=== PATIENT | male | born 1935 | race Caucasian/White ===

== ENCOUNTER 2016-03-31 18:24 | Emergency (ER) | payer MEDICARE, OTHER ==
[2016-03-31 19:00] VITALS: BP 159/76
[2016-03-31] MEDS ORDERED: NORMAL SALINE 1,000 ML IV ONE (19:03)
[2016-03-31] MEDS ORDERED: METOCLOPRAMIDE HCL 5 MG/ML VIAL IV ONE (19:03)
[2016-03-31] MEDS ORDERED: diphenhydrAMINE HCL 50 MG/ML VIAL IV ONE (19:03)
[2016-03-31] MEDS ORDERED: KETOROLAC TROMETHAMINE 30 MG/ML VIAL IV ONE (19:03)
--- NOTE | 2016-03-31 19:15 | ERNOTE ---
Headache ER HPI - Narrative Date of Service: 03/31/16 - General Presenting Symptoms: headache Time Seen by Provider: 03/31/16 18:55 Source: patient, family, RN notes reviewed Exam Limitations: no limitations - Immun/Allergies/Home Medications Immunizations: IMMUNIZATION HX Immunizations Up to Date Yes History of Influenza Vaccine Yes Hx Pneumococcal Vaccination Yes Allergies/Adverse Reactions: Allergies bee venom (honey bee) Allergy (Severe, Verified 03/07/16 19:57) Anaphylaxis morphine Allergy (Intermediate, Verified 03/07/16 19:57) Nausea Home Medications: HOME MEDICATIONS Aspirin 81 mg PO DAILY 03/07/16 [Last Taken Unknown] Atorvastatin Calcium 40 mg PO DAILY 03/07/16 [Last Taken Unknown] Cyclobenzaprine HCl 10 mg PO HS 03/07/16 [Last Taken Unknown] Donepezil HCl [Aricept] 5 mg PO HS 03/07/16 [Last Taken Unknown] Folic Acid 0.8 mg PO DAILY 03/07/16 [Last Taken Unknown] Furosemide [Lasix] 20 mg PO DAILY 03/07/16 [Last Taken Unknown] Glimepiride 4 mg PO BID 03/07/16 [Last Taken Unknown] Insulin Glargine,Hum.rec.anlog [Lantus] 25 units SC HS 03/07/16 [Last Taken Unknown] Meloxicam [Mobic] 15 mg PO DAILY 03/07/16 [Last Taken Unknown] Metformin HCl [Metformin HCl ER] 1,000 mg PO BID 03/07/16 [Last Taken Unknown] Methylprednisolone [Medrol Dosepak] 4 mg PO DAILY #21 tab.ds.pk 03/07/16 [Last Taken Unknown] Metoprolol Tartrate 100 mg PO BID 03/07/16 [Last Taken Unknown] Multivitamin [One Daily Essential] 1 each PO DAILY 03/07/16 [Last Taken Unknown] Nitroglycerin [Nitrostat] 0.4 mg SL Q5MIN PRN 03/07/16 [Last Taken Unknown] Omeprazole 10 mg PO DAILY 03/07/16 [Last Taken Unknown] - Pain Pain Score: 10 - History of Present Illness Narrative: Vishal is a 80 year old male who presents to the ED with his for a headache that began earlier this evening. He has taken Advil Migraine without improvement. His pain is located in the right frontal region. He states this is the worst headache of his left. Prior to the headache starting, he reports having cold symptoms today. He says he has had bronchitis for 2 months. Timing of Headache: abrupt, still present Context Headache: Present: new onset Quality: Present: throbbing Severity Maximum: Present: severe Severity-Currently: Present: severe Headache frequency: Present: no recent headache Associated Symptoms: Reports: nasal congestion, nasal drainage, facial pain. Denies: fever/chills, nausea, vomiting, sweating, fatigue, weakness, numbness/ tingling, vision changes, confusion, light-headedness, dizziness, neck pain/ stiffness, speech problems Exacerbated by:: Reports: light Prior Treament: Reports: recently seen. Denies: similar symptoms before Review of Systems - Review of Systems Constitutional: Present: See HPI EYE: Present: see HPI ENT: Present: See HPI Respiratory: Present: cough. Absent: shortness of breath Cardiology: Present: no symptoms reported Gastrointestinal/Abdominal: Present: See HPI Genitourinary: Present: no symptoms reported Musculoskeletal: Present: See HPI Skin: Absent: rash, lesions Neurological: Present: See HPI Endocrine: Present: no symptoms reported Hematologic/Lymphatic: Present: no symptoms reported Psych: Present: anxiety - Patient's Past Medical History Patient History - Medical: Anemia, Chronic Pain, Diabetes Type 2, GERD, Osteoarthritis, Renal Disease Patient History - Cardiac/Respiratory: Angina, Coronary Heart Disease, COPD, Hypertension, Hyperlipidemia, Peripheral Vascular Disease, CPAP/BiPAP Home Use, Sleep Apnea, Other Patient History - Cancer: Lung Patient History - Surgical Procedures: Appendectomy, Colonoscopy, Coronary Bypass Surgery, Total Knee Replacement, T & A, Vasectomy, Other - Family History Mother Family History - Medical: , No pertinent hx Family History - Cardiac/Respiratory: History Unknown Father Family History - Medical: , Depression Family History - Cardiac/Respiratory: History Unknown - Social History Living Situations: home Does anyone smoke in the home?: No Smoking Status: Former smoker Alcohol Use: none Drug Use: none Physical Exam - Physical Exam General Appearance: Present: wd/wn, alert, no apparent distress, anxious, other - appears uncomfortable Eye Exam: Normal inspection: bilateral, PERRL: bilateral, EOMI: bilateral, Photophobia: right Ears, Nose, Throat: Present: hearing grossly normal, sinus pain/drainage - Right frontal and maxillary sinuses tender to palpation, normal pharynx. Absent : abnormal TM (R), abnormal TM (L) Neck: Present: normal inspection, supple, full range of motion, tender lateral - right jaw and submandibular region. Absent: lymphadenopathy (R), lymphadenopathy (L) Respiratory: Present: no respiratory distress, no accessory muscle use, expiration (prolonged), rhonchi Cardiovascular/Chest: Present: no murmur, bradycardia Neurological Exam: Present: alert, oriented, normal mood/affect, no motor/ sensory deficits Skin Exam: Present: normal color, warm/dry ED Progress - Results and Orders Patient's Lab Results:: I have reviewed the patient's lab results. - Vital Signs Patient's Vital Signs:: I have reviewed the patient's vital signs. Vital Signs: Vital Signs 03/31/16 03/31/16 18:41 18:59 Temperature 36.6 C Pulse Rate 50 L 68 Respiratory 20 18 Rate Blood Pressure 150/87 159/76 O2 Sat by Pulse 98 96 Oximetry - CT/Ultrasound CT/Ultrasound Narrative: Noncontrast head CT shows age related changes but no intracranial hemorrhage or mass effect - Progress/Reassessment Chief Complaint: Headache Progress:: Pain free at discharge Progress Note-Subjective: 03/31/16 20:34 Headache resolved with IVF, Reglan, Benadryl and Toradol. Labs and CT unremarkable. Discouraged use of NSAIDS at home d/t his renal impairment, instructed to use Tylenol. Departure Clinical Impression: Migraine headache Qualifiers: Migraine type: without aura Status migrainosus presence: without status migrainosus Intractability: not intractable Qualified Code(s): G43.009 - Migraine without aura, not intractable, without status migrainosus - Departure Disposition: Home Follow Up Needed Condition: Good Instructions: Migraine Headache, [id number] Additional Instructions: Tylenol for headache at home - avoid ibuprofen, Aleve, Motrin and Naproxen Follow up with your doctor if headaches continue Referrals: Jose Rodriguez, [Primary Care Provider] -
[2016-03-31 19:20] LABS: Hematocrit 36.2 % (42.0-52.0); Mean Corpuscular Hemoglobin 30.2 pg (27-31); Mean Corpuscular Hgb Conc 33.1 g/dl (32-36); Neutrophil # 3.9 K/mm3 (1.3-6.0); Neutrophil % 68.3 % (42-75.0); Platelet Count 140 K/mm3 (150-450); Red Blood Count 3.98 M/mm3 (4.7-6.0); Red Cell Distribution Width 13.7 % (11.5-14.0); White Blood Count 5.7 K/mm3 (4.0-10.5)
[2016-03-31 19:39] LABS: Albumin * 3.8 gm/dl (3.4-5.0); Anion Gap 13.5 mmol/L (6.8-13.8); BUN/Creatinine Ratio 16.8 (9.0-21.6); Bilirubin, Total 0.2 mg/dL (0.0-1.1); Ca. Corrected For Albumin 8.4 mg/dL (8.4-10.2); Calcium * 8.6 mg/dL (7.9-10.9); Carbon Dioxide 27.1 mmol/L (24-32.6); Potassium 4.6 mmol/L (3.4-4.6); Total Protein 6.7 gm/dL (6.2-8.2)
[2016-03-31] MEDS ORDERED: diphenhydrAMINE HCL 50 MG/ML VIAL ONE (19:43)
[2016-03-31] MEDS ORDERED: METOCLOPRAMIDE HCL 5 MG/ML VIAL ONE (19:43)
[2016-03-31] MEDS ORDERED: KETOROLAC TROMETHAMINE 30 MG/ML VIAL ONE (19:43)
== END 2016-03-31 20:43 | disposition home or self-care (01) ==
LOC: ER 18:24
DX: G43.009 Migraine without aura, not intractable, without status migrainosus (principal); Z87.891 Personal history of nicotine dependence; Z96.659 Presence of unspecified artificial knee joint; Z85.118 Personal history of other malignant neoplasm of bronchus and lung

== ENCOUNTER 2016-04-05 19:54 | Emergency (ER) | payer MEDICARE, OTHER ==
[2016-04-05 21:17] LABS: Hematocrit 35.3 % (42.0-52.0); Mean Cell Volume 89.8 fl (78-100); Mean Corpuscular Hemoglobin 30.5 pg (27-31); Mean Platelet Volume 10.2 fl (6.0-9.5); Neutrophil # 4.3 K/mm3 (1.3-6.0); Neutrophil % 71.2 % (42-75.0); Platelet Count 177 K/mm3 (150-450); Red Blood Count 3.93 M/mm3 (4.7-6.0); Red Cell Distribution Width 13.5 % (11.5-14.0); White Blood Count 6.1 K/mm3 (4.0-10.5)
--- NOTE | 2016-04-05 21:21 | ERNOTE ---
Abdominal HPI - Narrative Date of Service: 04/05/16 - General Chief Complaint: Abdominal Pain Time Seen by Provider: 04/05/16 20:45 Source: patient, family Exam Limitations: no limitations - Immun/Allergies/Home Medications Immunizatons: IMMUNIZATION HX Immunizations Up to Date Yes History of Influenza Vaccine Yes Hx Pneumococcal Vaccination Yes Allergies/Adverse Reactions: Allergies bee venom (honey bee) Allergy (Severe, Verified 03/07/16 19:57) Anaphylaxis morphine Allergy (Intermediate, Verified 03/07/16 19:57) Nausea Home Medications: HOME MEDICATIONS Aspirin 81 mg PO DAILY 03/07/16 [Last Taken Unknown] Atorvastatin Calcium 40 mg PO DAILY 03/07/16 [Last Taken Unknown] Cyclobenzaprine HCl 10 mg PO HS 03/07/16 [Last Taken Unknown] Donepezil HCl [Aricept] 5 mg PO HS 03/07/16 [Last Taken Unknown] Folic Acid 0.8 mg PO DAILY 03/07/16 [Last Taken Unknown] Furosemide [Lasix] 20 mg PO DAILY 03/07/16 [Last Taken Unknown] Glimepiride 4 mg PO BID 03/07/16 [Last Taken Unknown] Insulin Glargine,Hum.rec.anlog [Lantus] 22 units SC HS 03/07/16 [Last Taken Unknown] Meloxicam [Mobic] 15 mg PO DAILY 03/07/16 [Last Taken Unknown] Metformin HCl [Metformin HCl ER] 1,000 mg PO BID 03/07/16 [Last Taken Unknown] Metoprolol Tartrate 100 mg PO BID 03/07/16 [Last Taken Unknown] Multivitamin [One Daily Essential] 1 each PO DAILY 03/07/16 [Last Taken Unknown] Nitroglycerin [Nitrostat] 0.4 mg SL Q5MIN PRN 03/07/16 [Last Taken Unknown] Omeprazole 10 mg PO DAILY 03/07/16 [Last Taken Unknown] sitaGLIPtin PHOSPHATE [Januvia] 50 mg PO DAILY 04/05/16 [Last Taken Unknown] - History of Present Illness Narrative: Feeling unwell. He had diarrhea 3 days ago and took 5 Imodium at once. He has not had a BM since and is feeling bloated. No vomiting except some water with his supper. Pain in abd that radiates to back. Timing: constant Quality: moderate Activities at Onset: none Modifying Factors - (Improves): Present: sitting up Modifying Factors - (Worsens): Present: lying down Associated Symptoms: Present: back pain Prior Abdominal Problems: Present: none, similar symptoms. Absent: recent trauma Prior Treatment: Absent: currently on antibiotics Review of Systems - Review of Systems Constitutional: Absent: recent illness, fever, chills EYE: Present: no symptoms reported Respiratory: Present: no symptoms reported. Absent: shortness of breath, cough Cardiology: Present: no symptoms reported Genitourinary: Present: no symptoms reported, pain. Absent: dysuria Musculoskeletal: Present: back pain Skin: Present: no symptoms reported Neurological: Present: no symptoms reported Psych: Present: no symptoms reported - Patient's Past Medical History Patient History - Medical: Anemia, Chronic Pain, Diabetes Type 2, GERD, Osteoarthritis, Renal Disease Patient History - Cardiac/Respiratory: Angina, Coronary Heart Disease, COPD, Hypertension, Hyperlipidemia, Peripheral Vascular Disease, CPAP/BiPAP Home Use, Sleep Apnea, Other Patient History - Cancer: Lung Patient History - Surgical Procedures: Appendectomy, Colonoscopy, Coronary Bypass Surgery, Total Knee Replacement, T & A, Vasectomy, Other - Family History Mother Family History - Medical: , No pertinent hx Family History - Cardiac/Respiratory: History Unknown Father Family History - Medical: , Depression Family History - Cardiac/Respiratory: History Unknown - Social History Living Situations: spouse Does anyone smoke in the home?: No Smoking Status: Former smoker Alcohol Use: none Drug Use: none Physical Exam - Physical Exam General Appearance: Present: wd/wn, alert, mild distress Eye Exam: Normal inspection: bilateral, EOMI: bilateral Ears, Nose, Throat: Present: normal ENT inspection, hearing grossly normal Respiratory: Present: no respiratory distress, normal breath sounds, no accessory muscle use, lungs clear Cardiovascular/Chest: Present: regular rate, rhythm, no murmur Gastrointestinal/Abdominal: Present: normal bowel sounds, tenderness - mild diffuse, distended. Absent: guarding, rebound Back Exam: Present: normal inspection, no CVA tenderness Neurological Exam: Present: alert, oriented, normal mood/affect Skin Exam: Present: normal color ED Progress - Results and Orders Patient's Lab Results:: I have reviewed the patient's lab results. - Vital Signs Patient's Vital Signs:: I have reviewed the patient's vital signs. Vital Signs: Vital Signs 04/05/16 20:18 Temperature 36.6 C Pulse Rate 68 Respiratory 16 Rate Blood Pressure 164/73 O2 Sat by Pulse 96 Oximetry - X-Ray X-Ray #1 X-Ray: abdomen Interpretation: Interp. by me X-ray Comments: No obstruction. - Progress/Reassessment Chief Complaint: Abdominal Pain Plan - Plan Plan: Successful milk of molasses enema. Home. Feels much better. Avoid large doses of Imodium in future. Departure - Departure Clinical Impression: Constipation Disposition: Home self-care Condition: Good Instructions: Constipation, Adult, [id number] Additional Instructions: Do not take more than 2 Imodium at a time. Referrals: Jose Rodriguez, [Primary Care Provider] -
[2016-04-05 21:29] LABS: Albumin * 3.7 gm/dl (3.4-5.0); Anion Gap 15.3 mmol/L (6.8-13.8); BUN/Creatinine Ratio 14.8 (9.0-21.6); Bilirubin, Total 0.3 mg/dL (0.0-1.1); Ca. Corrected For Albumin 8.9 mg/dL (8.4-10.2); Carbon Dioxide 26.4 mmol/L (24-32.6); Potassium 4.7 mmol/L (3.4-4.6); Total Protein 6.8 gm/dL (6.2-8.2)
[2016-04-05 22:47] VITALS: BP 140/72
== END 2016-04-05 23:08 | disposition home or self-care (01) ==
LOC: ER 19:54
DX: K59.00 Constipation, unspecified (principal); Z87.891 Personal history of nicotine dependence; E11.9 Type 2 diabetes mellitus without complications; Z79.4 Long term (current) use of insulin; I10 Essential (primary) hypertension; I20.9 Angina pectoris, unspecified; M19.90 Unspecified osteoarthritis, unspecified site; Z85.118 Personal history of other malignant neoplasm of bronchus and lung

== ENCOUNTER 2016-04-14 21:01 | Emergency (ER) | payer MEDICARE, OTHER ==
[2016-04-14] MEDS ORDERED: IBUPROFEN 600 MG TABLET PO ONE (21:17)
--- NOTE | 2016-04-14 21:17 | ERNOTE ---
Medical Problem HPI - Narrative Date of Service: 04/14/16 - General Time Seen by Provider: 04/14/16 21:05 Source: patient, family - Immun/Allergies/Home Medications Immunizations: IMMUNIZATION HX Immunizations Up to Date Yes History of Influenza Vaccine Yes Hx Pneumococcal Vaccination Yes Allergies/Adverse Reactions: Allergies bee venom (honey bee) Allergy (Severe, Verified 03/07/16 19:57) Anaphylaxis morphine Allergy (Intermediate, Verified 03/07/16 19:57) Nausea Home Medications: HOME MEDICATIONS Aspirin 81 mg PO DAILY 03/07/16 [Last Taken Unknown] Atorvastatin Calcium 40 mg PO DAILY 03/07/16 [Last Taken Unknown] Cyclobenzaprine HCl 10 mg PO HS 03/07/16 [Last Taken Unknown] Donepezil HCl [Aricept] 5 mg PO HS 03/07/16 [Last Taken Unknown] Folic Acid 0.8 mg PO DAILY 03/07/16 [Last Taken Unknown] Furosemide [Lasix] 20 mg PO DAILY 03/07/16 [Last Taken Unknown] Glimepiride 4 mg PO BID 03/07/16 [Last Taken Unknown] Insulin Glargine,Hum.rec.anlog [Lantus] 22 units SC HS 03/07/16 [Last Taken Unknown] Meloxicam [Mobic] 15 mg PO DAILY 03/07/16 [Last Taken Unknown] Metformin HCl [Metformin HCl ER] 1,000 mg PO BID 03/07/16 [Last Taken Unknown] Metoprolol Tartrate 100 mg PO BID 03/07/16 [Last Taken Unknown] Multivitamin [One Daily Essential] 1 each PO DAILY 03/07/16 [Last Taken Unknown] Nitroglycerin [Nitrostat] 0.4 mg SL Q5MIN PRN 03/07/16 [Last Taken Unknown] Omeprazole 10 mg PO DAILY 03/07/16 [Last Taken Unknown] sitaGLIPtin PHOSPHATE [Januvia] 50 mg PO DAILY 04/05/16 [Last Taken Unknown] Ibuprofen [Motrin] 600 mg PO TID PRN #21 tablet 04/14/16 [Last Taken Unknown] - History of Present History Narrative: Here for sternal chest pain which pt has had before. He states the pain worsens upon pressing on chest. No fevers, chills, Nausea or vomiting. No diaphoresis. Review of Systems - Review of Systems Constitutional: Present: no symptoms reported EYE: Present: no symptoms reported ENT: Present: no symptoms reported Respiratory: Present: no symptoms reported Cardiology: Present: See HPI Gastrointestinal/Abdominal: Present: no symptoms reported Genitourinary: Present: no symptoms reported Musculoskeletal: Present: no symptoms reported Skin: Present: no symptoms reported - Patient's Past Medical History Patient History - Medical: Anemia, Chronic Pain, Diabetes Type 2, GERD, Osteoarthritis, Renal Disease Patient History - Cardiac/Respiratory: Angina, Coronary Heart Disease, COPD, Hypertension, Hyperlipidemia, Peripheral Vascular Disease, CPAP/BiPAP Home Use, Sleep Apnea, Other Patient History - Cancer: Lung Patient History - Surgical Procedures: Appendectomy, Colonoscopy, Coronary Bypass Surgery, Total Knee Replacement, T & A, Vasectomy, Other - Family History Mother Family History - Medical: , No pertinent hx Family History - Cardiac/Respiratory: History Unknown Father Family History - Medical: , Depression Family History - Cardiac/Respiratory: History Unknown - Social History Living Situations: spouse Does anyone smoke in the home?: No Alcohol Use: none Drug Use: none Physical Exam - Physical Exam General Appearance: Present: wd/wn, alert, no apparent distress Eye Exam: Normal inspection: bilateral, PERRL: bilateral, EOMI: bilateral Ears, Nose, Throat: Present: normal ENT inspection, hearing grossly normal, normal pharynx Neck: Present: normal inspection, nontender, supple Respiratory: Present: no respiratory distress, normal breath sounds, no accessory muscle use, lungs clear. Absent: chest nontender - I am able to reproduct this patient's exact chest pain when pressing on the mid portion of the sternum. He states that it is tender. No bruising noted. ED Progress - Vital Signs Patient's Vital Signs:: I have reviewed the patient's vital signs. Departure - Departure Clinical Impression: Costochondritis Disposition: Home self-care Condition: Good Instructions: Costochondritis, [id number] Referrals: Jose Rodriguez DO [Primary Care Provider] - Prescriptions: Ibuprofen [Motrin] 600 mg PO TID PRN #21 tablet PRN Reason: Pain
[2016-04-14 21:19] VITALS: BP 151/50
[2016-04-14] MEDS ORDERED: IBUPROFEN 600 MG TABLET ONE (21:23)
== END 2016-04-14 21:30 | disposition home or self-care (01) ==
LOC: ER 21:01
DX: M94.0 Chondrocostal junction syndrome [Tietze] (principal)

== ENCOUNTER 2016-04-25 18:15 | Emergency (ER) | payer MEDICARE, OTHER ==
[2016-04-25 19:24] LABS: Hematocrit 36.1 % (42.0-52.0); Hemoglobin 12.3 gm/dL (13.5-18.0); Mean Corpuscular Hemoglobin 30.7 pg (27-31); Mean Corpuscular Hgb Conc 34.1 g/dl (32-36); Mean Platelet Volume 10.5 fl (6.0-9.5); Neutrophil % 73.2 % (42-75.0); Platelet Count 171 K/mm3 (150-450); Red Blood Count 4.01 M/mm3 (4.7-6.0); Red Cell Distribution Width 13.5 % (11.5-14.0); White Blood Count 6.9 K/mm3 (4.0-10.5)
--- NOTE | 2016-04-25 19:27 | ERNOTE ---
Date of Service: 04/25/16 Time Seen by Provider: 04/25/16 18:59 Stated Complaint: CHEST PAIN Presenting Symptoms:: cough, sore throat, runny nose, fever, other - Chest pain Source: patient, family Exam Limitations: no limitations Immunizations: IMMUNIZATION HX Immunizations Up to Date Yes History of Influenza Vaccine Yes Hx Pneumococcal Vaccination More Information Required Allergies/Adverse Reactions: Allergies bee venom (honey bee) Allergy (Severe, Verified 04/14/16 21:20) Anaphylaxis morphine Allergy (Intermediate, Verified 04/14/16 21:20) Nausea Home Medications: HOME MEDICATIONS Aspirin 81 mg PO DAILY 03/07/16 [Last Taken Unknown] Atorvastatin Calcium 40 mg PO DAILY 03/07/16 [Last Taken Unknown] Cyclobenzaprine HCl 10 mg PO HS 03/07/16 [Last Taken Unknown] Donepezil HCl [Aricept] 5 mg PO HS 03/07/16 [Last Taken Unknown] Furosemide [Lasix] 20 mg PO DAILY 03/07/16 [Last Taken Unknown] Glimepiride 4 mg PO BID 03/07/16 [Last Taken Unknown] Insulin Glargine,Hum.rec.anlog [Lantus] 22 units SC HS 03/07/16 [Last Taken Unknown] Meloxicam [Mobic] 15 mg PO DAILY 03/07/16 [Last Taken Unknown] Metformin HCl [Metformin HCl ER] 1,000 mg PO BID 03/07/16 [Last Taken Unknown] Metoprolol Tartrate 100 mg PO BID 03/07/16 [Last Taken Unknown] Multivitamin [One Daily Essential] 1 each PO DAILY 03/07/16 [Last Taken Unknown] Nitroglycerin [Nitrostat] 0.4 mg SL Q5MIN PRN 03/07/16 [Last Taken Unknown] Omeprazole 10 mg PO DAILY 03/07/16 [Last Taken Unknown] sitaGLIPtin PHOSPHATE [Januvia] 50 mg PO DAILY 04/05/16 [Last Taken Unknown] Ibuprofen [Motrin] 600 mg PO TID PRN #21 tablet 04/14/16 [Last Taken Unknown] Albuterol Sulfate [Proair Hfa] 2 puff IH QID PRN #1 inhaler 04/25/16 [Last Taken Unknown] Doxycycline Monohydrate 100 mg PO BID #20 tablet 04/25/16 [Last Taken Unknown] predniSONE [Prednisone] 3 tab PO DAILY #9 tab 04/25/16 [Last Taken Unknown] - History of Present Ilness Narrative: Pt. with chronic costochondritis comes in with c/o increase in chest pain, SOB, fatigue, malaise, fever, sore throat, cough, rhinorrhea, and sinus congestion. Pt. denies any palpations, NVD, dizziness, prehospital treatment, alleviating factors, or aggravating factors. Date (Duration): 04/18/16 Timing: getting worse Frequency/Possible Cause: Reports: chronic episodes Review of Systems - Review of Systems Constitutional: Present: fever, chills, fatigue, malaise. Absent: diaphoresis, weakness EYE: Present: no symptoms reported ENT: Present: nose congestion, nasal drainage, sore throat. Absent: ear pain, pulling on ears, throat swelling Respiratory: Present: shortness of breath, cough. Absent: wheezing Cardiology: Present: chest pain. Absent: palpitations, edema Gastrointestinal/Abdominal: Present: no symptoms reported. Absent: nausea, vomiting, diarrhea, abdominal pain Genitourinary: Present: no symptoms reported Musculoskeletal: Present: no symptoms reported. Absent: back pain, joint pain Skin: Present: no symptoms reported Neurological: Present: no symptoms reported. Absent: headache, dizziness/light- headedness, numbness, tingling All Other Systems: All systems neg except as marked - Patient's Past Medical History Patient History - Medical: Anemia, Chronic Pain, Diabetes Type 2, GERD, Osteoarthritis, Renal Disease Patient History - Cardiac/Respiratory: COPD, Hypertension, Hyperlipidemia, CPAP/ BiPAP Home Use Patient History - Cancer: Lung Patient History - Surgical Procedures: Appendectomy, Colonoscopy, Coronary Bypass Surgery, Total Knee Replacement, T & A, Vasectomy, Other Patient History - Other: None - Family History Mother Family History - Medical: , No pertinent hx Family History - Cardiac/Respiratory: History Unknown Father Family History - Medical: , Depression Family History - Cardiac/Respiratory: History Unknown - Social History Living Situations: spouse Does anyone smoke in the home?: No Smoking Status: Former smoker Have you smoked in the past 12 months: No Do you dip or chew tobacco: No Alcohol Use: none Drug Use: none - Immunizations Immunizations Up to Date: Yes Hx Pneumococcal Vaccination: More Information Required to Determine History of Influenza Vaccine: Yes Physical Exam - Physical Exam General Appearance: Present: wd/wn, alert, no apparent distress Eye Exam: Normal inspection: bilateral, PERRL: bilateral, EOMI: bilateral Ears, Nose, Throat: Present: nasal congestion, sinus pain/drainage, pharyngeal erythema, tonsillar exudate - clear Neck: Present: normal inspection, nontender. Absent: lymphadenopathy (R), lymphadenopathy (L) Respiratory: Present: no respiratory distress, no accessory muscle use, chest nontender, lungs clear, decreased breath sounds. 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 Absent: pallor, skin rash ED Progress - Vital Signs Patient's Vital Signs:: I have reviewed the patient's vital signs. Vital Signs: Vital Signs 04/25/16 18:32 Temperature 36.5 C Pulse Rate 79 Respiratory 18 Rate Blood Pressure 157/75 O2 Sat by Pulse 94 Oximetry - EKG EKG: RBBB, LVH, unchanged from - 04/14/16, other - 1st degree AVB - X-Ray X-Ray #1 X-Ray: chest Interpretation: Interp. by me X-ray Comments: CXR with chronic fibrotic changes no acute cardiopulmonary process noted. - Progress/Reassessment Chief Complaint: Upper Respiratory Symptoms Departure - Departure Clinical Impression: Bronchitis, Costochondritis Upper respiratory infection Qualifiers: URI type: unspecified viral URI Qualified Code(s): J06.9 - Acute upper respiratory infection, unspecified Disposition: Home self-care Condition: Good Instructions: Costochondritis, [id number], Upper Respiratory Infection, Adult , [id number], Acute Bronchitis Additional Instructions: Please follow up with primary provider in 2-3 days. Referrals: Jose Rodriguez DO [Primary Care Provider] - Prescriptions: Albuterol Sulfate [Proair Hfa] 2 puff IH QID PRN #1 inhaler PRN Reason: Shortness Of Breath Doxycycline Monohydrate 100 mg PO BID #20 tablet predniSONE [Prednisone] 3 tab PO DAILY #9 tab
[2016-04-25 19:36] LABS: Prothrombin Time (Patient) 10.6 Seconds (9.4-11.4)
[2016-04-25 19:38] LABS: INR 1.02 INR (0.90-1.10); Partial Thrombolplastin Time 25.4 Seconds (24-32)
[2016-04-25 19:43] LABS: ALT 26 U/L (19-67); AST 24 U/L (0-48); Albumin * 3.8 gm/dl (3.4-5.0); Alkaline Phosphatase * 78 U/L (50-170); Anion Gap 12.3 mmol/L (6.8-13.8); BUN/Creatinine Ratio 16.3 (9.0-21.6); Bilirubin, Total 0.2 mg/dL (0.0-1.1); Blood Urea Nitrogen 21 mg/dL (6-23); Ca. Corrected For Albumin 8.2 mg/dL (8.4-10.2); Calcium * 8.4 mg/dL (7.9-10.9); Carbon Dioxide 29.8 mmol/L (24-32.6); Chloride 105 mmol/L (97-106); Glucose * 182 mg/dL (70-110); Potassium 4.1 mmol/L (3.4-4.6); Sodium 143 mmol/L (132-142); Total Protein 7.1 gm/dL (6.2-8.2); Troponin I Less than 0.017 ng/ml (0.00-0.10)
[2016-04-25 21:55] VITALS: BP 159/79
== END 2016-04-25 22:00 | disposition home or self-care (01) ==
LOC: ER 18:15
DX: M94.0 Chondrocostal junction syndrome [Tietze] (principal); J40 Bronchitis, not specified as acute or chronic; J06.9 Acute upper respiratory infection, unspecified; Z87.891 Personal history of nicotine dependence; E11.9 Type 2 diabetes mellitus without complications; Z79.4 Long term (current) use of insulin; I10 Essential (primary) hypertension; K21.9 Gastro-esophageal reflux disease without esophagitis; Z85.118 Personal history of other malignant neoplasm of bronchus and lung

== ENCOUNTER 2016-04-28 16:25 | Emergency (ER) | payer MEDICARE, OTHER ==
[2016-04-28] MEDS ORDERED: diphenhydrAMINE HCL 50 MG/ML VIAL ONE ×2 (17:19→18:47)
[2016-04-28] MEDS ORDERED: METOCLOPRAMIDE HCL 5 MG/ML VIAL ONE ×2 (17:19→18:47)
[2016-04-28] MEDS: diphenhydrAMINE HCL 50 MG/ML VIAL IV ONE ×2 (17:33→18:49)
[2016-04-28] MEDS: NORMAL SALINE 250 ML IV ONE (17:34)
[2016-04-28] MEDS: METOCLOPRAMIDE HCL 5 MG/ML VIAL IV ONE ×2 (17:34→18:50)
[2016-04-28] MEDS ORDERED: PROMETHAZINE HCL 25 MG/ML AMPUL ONE (19:25)
[2016-04-28] MEDS: PROMETHAZINE HCL 12.5 MG in DEXTROSE 5 % IN WATER 50 ML IV ONE ×2 (19:45)
--- NOTE | 2016-04-28 19:52 | ERNOTE ---
Headache ER HPI - Narrative Date of Service: 04/28/16 - General Presenting Symptoms: headache Time Seen by Provider: 04/28/16 17:00 Source: patient Exam Limitations: no limitations - Immun/Allergies/Home Medications Immunizations: IMMUNIZATION HX Immunizations Up to Date Yes History of Influenza Vaccine No Hx Pneumococcal Vaccination No Allergies/Adverse Reactions: Allergies bee venom (honey bee) Allergy (Severe, Verified 04/14/16 21:20) Anaphylaxis morphine Allergy (Intermediate, Verified 04/14/16 21:20) Nausea Home Medications: HOME MEDICATIONS Aspirin 81 mg PO DAILY 03/07/16 [Last Taken Unknown] Atorvastatin Calcium 40 mg PO DAILY 03/07/16 [Last Taken Unknown] Cyclobenzaprine HCl 10 mg PO HS 03/07/16 [Last Taken Unknown] Donepezil HCl [Aricept] 5 mg PO HS 03/07/16 [Last Taken Unknown] Furosemide [Lasix] 20 mg PO DAILY 03/07/16 [Last Taken Unknown] Glimepiride 4 mg PO BID 03/07/16 [Last Taken Unknown] Insulin Glargine,Hum.rec.anlog [Lantus] 22 units SC HS 03/07/16 [Last Taken Unknown] Meloxicam [Mobic] 15 mg PO DAILY 03/07/16 [Last Taken Unknown] Metformin HCl [Metformin HCl ER] 1,000 mg PO BID 03/07/16 [Last Taken Unknown] Metoprolol Tartrate 100 mg PO BID 03/07/16 [Last Taken Unknown] Multivitamin [One Daily Essential] 1 each PO DAILY 03/07/16 [Last Taken Unknown] Nitroglycerin [Nitrostat] 0.4 mg SL Q5MIN PRN 03/07/16 [Last Taken Unknown] Omeprazole 10 mg PO DAILY 03/07/16 [Last Taken Unknown] sitaGLIPtin PHOSPHATE [Januvia] 50 mg PO DAILY 04/05/16 [Last Taken Unknown] Ibuprofen [Motrin] 600 mg PO TID PRN #21 tablet 04/14/16 [Last Taken Unknown] Albuterol Sulfate [Proair Hfa] 2 puff IH QID PRN #1 inhaler 04/25/16 [Last Taken Unknown] Doxycycline Monohydrate 100 mg PO BID #20 tablet 04/25/16 [Last Taken Unknown] predniSONE [Prednisone] 3 tab PO DAILY #9 tab 04/25/16 [Last Taken Unknown] Promethazine HCl 12.5 mg PO Q8H PRN #2 tablet 04/28/16 [Last Taken Unknown] - History of Present Illness Narrative: Patient presents to the ED with headache. He relates that this headache has been going on all day. He states it is the front of his head over the frontal sinuses and the top of his head throbbing. He states it can be severe but he has had POWER like this before. He was seen very recently for POWER and had a negative head CT, that was this month and has a history of visits here for POWER. He denies acute focal N/T/W. No fever but he is being treated for a bronchitis with antibiotics and steroids/nebs. Ne states the cough makes his headache worse. He had workup for severe POWER this month with negative head CT. This is like prior POWER. Activity at onset: other - none Timing of Headache: other - gradual. Worsened with cough Context Headache: Present: other - History of visits for HAs and head CT this month. Absent: new onset Quality: Present: throbbing Severity Maximum: Present: other - can be seveer in nature Headache frequency: Present: frequent headaches Modifying Factors - (Improves): Reports: other - none Modifying Factors - (Worsens): Reports: other - coughing Associated Symptoms: Reports: nausea. Denies: fever/chills, vomiting Exacerbated by:: Reports: other - cough Prior Treament: Reports: recently seen Review of Systems - Review of Systems Constitutional: Absent: fever ENT: Present: nose congestion, nasal drainage Respiratory: Present: cough Cardiology: Present: other - chest pain with cough since this illness Skin: Absent: rash Neurological: Absent: weakness, numbness - Patient's Past Medical History Patient History - Medical: Anemia, Chronic Pain, Diabetes Type 2, GERD, Osteoarthritis, Renal Disease Patient History - Cardiac/Respiratory: COPD, Hypertension, Hyperlipidemia, CPAP/ BiPAP Home Use Patient History - Cancer: Lung Patient History - Surgical Procedures: Appendectomy, Colonoscopy, Coronary Bypass Surgery, Total Knee Replacement, T & A, Vasectomy, Other Patient History - Other: None - Family History Mother Family History - Medical: , No pertinent hx Family History - Cardiac/Respiratory: History Unknown Father Family History - Medical: , Depression Family History - Cardiac/Respiratory: History Unknown - Social History Living Situations: spouse Does anyone smoke in the home?: No Smoking Status: Former smoker Have you smoked in the past 12 months: No Do you dip or chew tobacco: No Patient requests Smoking Cessation Consult: No Initiate information on Smoking Cessation: No Alcohol Use: none Drug Use: none - Immunizations Immunizations Up to Date: Yes Hx Pneumococcal Vaccination: No History of Influenza Vaccine: No Physical Exam - Physical Exam General Appearance: Present: alert, no apparent distress, other - sitting in wheelchair. No distress. Talkative Eye Exam: Normal inspection: bilateral, PERRL: bilateral Ears, Nose, Throat: Present: normal ENT inspection Neck: Present: normal inspection Respiratory: Present: no respiratory distress, normal breath sounds, no accessory muscle use, lungs clear Cardiovascular/Chest: Present: regular rate, rhythm Gastrointestinal/Abdominal: Present: normal bowel sounds, nontender, soft. Absent: tenderness Extremity Exam: Present: other - mild edema, no calf tendenress Neurological Exam: Present: alert, normal mood/affect, no motor/sensory deficits , oracle etl developer II-XII nml as tested, other - no focal motor or sensory deficits. Sensation intact. NIH - 0. No temporal artery tenderness. Tenderess to bilateral frontal sinus percussion. Nasal congestion and frequent sneezing and cough. Skin Exam: Absent: skin rash ED Progress - Vital Signs Patient's Vital Signs:: I have reviewed the patient's vital signs. Vital Signs: Vital Signs 04/28/16 16:26 Temperature 35.9 C L Pulse Rate 77 Respiratory 16 Rate Blood Pressure 144/54 O2 Sat by Pulse 93 Oximetry - Progress/Reassessment Chief Complaint: Headache Progress Note-Subjective: 04/28/16 19:32 I do not feel a repeat head CT indicated as already had one thi smonth. Same pattern. Nothing clinically would suggest meningitis or SAH. No temporal artery tenderness. He is feeling improved at 745pm, I will give him an addition dose of phenergan before discharge. I had a long talk with him and this seems to be the same headache as he has had in the past. i do not feel he needs crp/ESR, repeat head CT or LP at this time. He is stable, onn-toxic, talkative and in no distress. Departure Clinical Impression: Headache - Departure Disposition: Home self-care Condition: Stable Instructions: General Headache Without Cause, [id number] Additional Instructions: Call your doctor tomorrow with follow-up and to schedule an appointment sooner. Rest. Fluids. Continue current medications. Phenergan for a dose or two. Return for fever, vomiting, numbness, tingling, weakness, increased pain or if your condition worsens or changes in any way. Referrals: Jose Rodriguez DO [Primary Care Provider] - Prescriptions: Promethazine HCl 12.5 mg PO Q8H PRN #2 tablet PRN Reason: Nausea
[2016-04-28 20:26] VITALS: BP 142/68
== END 2016-04-28 20:15 | disposition home or self-care (01) ==
LOC: ER 16:25
DX: R51 Headache (principal); Z87.891 Personal history of nicotine dependence; Z96.659 Presence of unspecified artificial knee joint

== ENCOUNTER 2016-05-09 20:57 | Emergency (ER) | payer MEDICARE, OTHER ==
--- NOTE | 2016-05-09 21:59 | ERNOTE ---
Abdominal HPI - Narrative Date of Service: 05/09/16 - abdominal pain - General Chief Complaint: Abdominal Pain Time Seen by Provider: 05/09/16 21:56 Source: patient - here for evaluation of abd pain , family, other - patient is accompanied by his spouse. - Immun/Allergies/Home Medications Immunizatons: IMMUNIZATION HX Immunizations Up to Date Yes History of Influenza Vaccine Yes Hx Pneumococcal Vaccination Yes Allergies/Adverse Reactions: Allergies bee venom (honey bee) Allergy (Severe, Verified 04/14/16 21:20) Anaphylaxis morphine Allergy (Intermediate, Verified 04/14/16 21:20) Nausea Home Medications: HOME MEDICATIONS Aspirin 81 mg PO DAILY 03/07/16 [Last Taken Unknown] Atorvastatin Calcium 40 mg PO DAILY 03/07/16 [Last Taken Unknown] Cyclobenzaprine HCl 10 mg PO HS 03/07/16 [Last Taken Unknown] Donepezil HCl [Aricept] 5 mg PO HS 03/07/16 [Last Taken Unknown] Furosemide [Lasix] 20 mg PO DAILY 03/07/16 [Last Taken Unknown] Glimepiride 4 mg PO BID 03/07/16 [Last Taken Unknown] Insulin Glargine,Hum.rec.anlog [Lantus] 22 units SC HS 03/07/16 [Last Taken Unknown] Meloxicam [Mobic] 15 mg PO DAILY 03/07/16 [Last Taken Unknown] Metformin HCl [Metformin HCl ER] 1,000 mg PO BID 03/07/16 [Last Taken Unknown] Metoprolol Tartrate 100 mg PO BID 03/07/16 [Last Taken Unknown] Multivitamin [One Daily Essential] 1 each PO DAILY 03/07/16 [Last Taken Unknown] Nitroglycerin [Nitrostat] 0.4 mg SL Q5MIN PRN 03/07/16 [Last Taken Unknown] Omeprazole 10 mg PO DAILY 03/07/16 [Last Taken Unknown] sitaGLIPtin PHOSPHATE [Januvia] 50 mg PO DAILY 04/05/16 [Last Taken Unknown] Ibuprofen [Motrin] 600 mg PO TID PRN #21 tablet 04/14/16 [Last Taken Unknown] Albuterol Sulfate [Proair Hfa] 2 puff IH QID PRN #1 inhaler 04/25/16 [Last Taken Unknown] Doxycycline Monohydrate 100 mg PO BID #20 tablet 04/25/16 [Last Taken Unknown] predniSONE [Prednisone] 3 tab PO DAILY #9 tab 04/25/16 [Last Taken Unknown] Promethazine HCl 12.5 mg PO Q8H PRN #2 tablet 04/28/16 [Last Taken Unknown] - History of Present Illness Narrative: Vital Signs (72 hours) 05/09/16 21:14 Temperature 36.6 C Pulse Rate 83 Respiratory 24 H Rate Blood Pressure 149/61 O2 Sat by Pulse 95 Oximetry Date (Duration): 05/09/16 Time (Timing): 13:00 Timing: getting worse Quality: severe Activities at Onset: none, other - nothing specific brought it on. Modifying Factors - (Improves): Present: analgesics. Absent: antacids, breathing, defecating, eating, rest, lying down, sitting up, movement, urinating Modifying Factors - (Worsens): Absent: other - no modifying activity Associated Symptoms: Present: denies symptoms, nausea, loss of appetite. Absent : headache, back pain, chest pain, neck pain, diaphoresis, diarrhea-gross blood , vomiting Prior Abdominal Problems: Present: other - intermittently has abd pain Review of Systems - Narrative Narrative: patient does not know reason for pain, no specfic exacerbating events. - Review of Systems Constitutional: Present: no symptoms reported EYE: Present: no symptoms reported ENT: Present: no symptoms reported Respiratory: Present: no symptoms reported Cardiology: Present: no symptoms reported Gastrointestinal/Abdominal: Present: abdominal pain, other - reports chronic pain intermittently . Absent: nausea, vomiting, diarrhea, constipation Genitourinary: Present: other - sometimes has difficulty urinating, known mild CKD Musculoskeletal: Present: no symptoms reported Skin: Present: no symptoms reported Neurological: Present: no symptoms reported Endocrine: Present: no symptoms reported Hematologic/Lymphatic: Present: no symptoms reported Psych: Present: no symptoms reported All Other Systems: All systems neg except as marked - Narrative Narrative: all PMH, SH, FH, and Medication lists reviewed. - Patient's Past Medical History Patient History - Medical: Anemia, Chronic Pain, Diabetes Type 2, GERD, Osteoarthritis, Renal Disease Patient History - Cardiac/Respiratory: COPD, Hypertension, Hyperlipidemia, CPAP/ BiPAP Home Use Patient History - Cancer: Lung Patient History - Surgical Procedures: Appendectomy, Colonoscopy, Coronary Bypass Surgery, Total Knee Replacement, T & A, Vasectomy, Other Patient History - Other: None - Family History Mother Family History - Medical: , No pertinent hx Family History - Cardiac/Respiratory: History Unknown Family History - Cancer: No pertinent family hx Father Family History - Medical: , Depression Family History - Cardiac/Respiratory: History Unknown Family History - Cancer: History Unknown - Social History Living Situations: home Abuse History: No History of abuse Psych History: No pertinent hx Does anyone smoke in the home?: No Smoking Status: Former smoker Alcohol Use: none Drug Use: none - Immunizations Immunizations Up to Date: Yes Hx Pneumococcal Vaccination: Yes History of Influenza Vaccine: Yes Physical Exam - Physical Exam General Appearance: Present: wd/wn, alert, mild distress, anxious, obese Eye Exam: Normal inspection: bilateral, PERRL: bilateral, EOMI: bilateral Ears, Nose, Throat: Present: normal ENT inspection, hearing grossly normal Neck: Present: normal inspection, nontender Respiratory: Present: no respiratory distress, normal breath sounds, no accessory muscle use, chest nontender, lungs clear, chest tenderness, respiratory distress Peripheral Pulses: N=norm/S=strong/W=weak/B=bound/A=absent: Carotid (R): Normal , Carotid (L): Normal, Radial (R): Normal, Radial (L): Normal Gastrointestinal/Abdominal: Present: tenderness - left lower quadrant , abnormal bowel sounds, guarding, rebound Rectal Exam: Present: deferred Male Genitals Exam: Present: deferred Back Exam: Present: normal inspection, normal range of motion, no CVA tenderness , no vertebral tenderness Neurological Exam: Present: alert, oriented, normal mood/affect, no motor/ sensory deficits Skin Exam: Present: normal color, warm/dry Lymphatic Exam: Present: no adenopathy ED Progress - Date and Time Seen: Date and Time: 05/09/16 23:44 Patient has completed all his oral contrast awaiting ct scan. Vital Signs Temp Pulse Resp BP Pulse Ox 36.6 C 72 18 130/89 95 05/09/16 23:10 05/09/16 23:10 05/09/16 23:10 05/09/16 23:10 05/09/16 23:10 patient is now pain free. - Results and Orders Patient's Lab Results:: I have reviewed the patient's lab results. Results and Orders: Laboratory Results - last 24 hr 05/09/16 05/09/16 22:19 22:19 WBC 6.6 RBC 4.01 L Hgb 12.4 L Hct 36.4 L MCV 90.8 MCH 30.9 MCHC 34.1 RDW 13.7 Plt Count 179 MPV 10.0 H Immature Gran % (Auto) 0.50 H Immature Gran # (Auto) 0.03 Neutrophils % 65.9 Lymphocytes % 19.8 L Monocytes % 8.5 Eosinophils % 4.4 H Basophils % 0.9 Nucleated RBC % 0.0 Neutrophils # 4.3 Lymphocytes # 1.3 L Monocytes # 0.6 Eosinophils # 0.3 Absolute Basophils 0.1 Sodium 142 Plasma Sodium 143 H Potassium 4.4 Chloride 106 Carbon Dioxide 30.1 Anion Gap 10.3 BUN 20 Creatinine 1.62 H Est GFR (Non-Af Amer) 44 L D BUN/Creatinine Ratio 12.3 Random Glucose 147 H Calcium 8.9 Calcium Adj for Albumin 8.9 Total Bilirubin 0.3 AST 21 ALT 27 Alkaline Phosphatase 77 Total Protein 7.0 Albumin 3.6 Amylase 43 Lipase 95 - Vital Signs Patient's Vital Signs:: I have reviewed the patient's vital signs. Vital Signs: Vital Signs 05/09/16 21:14 Temperature 36.6 C Pulse Rate 83 Respiratory 24 H Rate Blood Pressure 149/61 O2 Sat by Pulse 95 Oximetry - EKG EKG: NSR - CT/Ultrasound CT/Ultrasound Narrative: Laboratory Results WBC 6.6 K/mm3 (4.0-10.5) 05/09/16 22:19 RBC 4.01 M/mm3 (4.7-6.0) L 05/09/16 22:19 Hgb 12.4 gm/dL (13.5-18.0) L 05/09/16 22:19 Hct 36.4 % (42.0-52.0) L 05/09/16 22:19 MCV 90.8 fl (78-100) 05/09/16 22:19 MCH 30.9 pg (27-31) 05/09/16 22:19 MCHC 34.1 g/dl (32-36) 05/09/16 22:19 RDW 13.7 % (11.5-14.0) 05/09/16 22:19 Plt Count 179 K/mm3 (150-450) 05/09/16 22:19 MPV 10.0 fl (6.0-9.5) H 05/09/16 22:19 Immature Gran % (Auto) 0.50 % (0.001-0.429) H 05/09/16 22:19 Immature Gran # (Auto) 0.03 K/mm3 (0.000-0.0310) 05/09/16 22:19 Neutrophils % 65.9 % (42-75.0) 05/09/16 22:19 Lymphocytes % 19.8 % (20-51) L 05/09/16 22:19 Monocytes % 8.5 % (0.0-9) 05/09/16 22:19 Eosinophils % 4.4 % (0.0-3.0) H 05/09/16 22:19 Basophils % 0.9 % (0.0-1.0) 05/09/16 22:19 Nucleated RBC % 0.0 k/mm3 (0-1) 05/09/16 22:19 Neutrophils # 4.3 K/mm3 (1.3-6.0) 05/09/16 22:19 Lymphocytes # 1.3 k/mm3 (1.5-3.5) L 05/09/16 22:19 Monocytes # 0.6 k/mm3 (0.0-1.0) 05/09/16 22:19 Eosinophils # 0.3 k/mm3 (0.0-0.7) 05/09/16 22:19 Absolute Basophils 0.1 k/mm3 (0.0-0.1) 05/09/16 22:19 Sodium 142 mmol/L (132-142) 05/09/16 22:19 Plasma Sodium 143 mmol/L (130-142) H 05/09/16 22:19 Potassium 4.4 mmol/L (3.4-4.6) 05/09/16 22:19 Chloride 106 mmol/L (97-106) 05/09/16 22:19 Carbon Dioxide 30.1 mmol/L (24-32.6) 05/09/16 22:19 Anion Gap 10.3 mmol/L (6.8-13.8) 05/09/16 22:19 BUN 20 mg/dL (6-23) 05/09/16 22:19 Creatinine 1.62 mg/dL (0.4-1.4) H 05/09/16 22:19 Est GFR (Non-Af Amer) 44 mL/min (60-130) L D 05/09/16 22:19 BUN/Creatinine Ratio 12.3 (9.0-21.6) 05/09/16 22:19 Random Glucose 147 mg/dL (70-110) H 05/09/16 22:19 Calcium 8.9 mg/dL (7.9-10.9) 05/09/16 22: Calcium Adj for Albumin 8.9 mg/dL (8.4-10.2) 05/09/16 22:19 Total Bilirubin 0.3 mg/dL (0.0-1.1) 05/09/16 22: AST 21 U/L (0-48) 05/09/16 22: ALT 27 U/L (19-67) 05/09/16 22: Alkaline Phosphatase 77 U/L (50-170) 05/09/16 22:19 Total Protein 7.0 gm/dL (6.2-8.2) 05/09/16 22: Albumin 3.6 gm/dl (3.4-5.0) 05/09/16 22: Amylase 43 U/L (25-115) 05/09/16 22: Lipase 95 U/L (73-393) 05/09/16 22:19 Urine Color Yellow 05/10/16 00:40 Urine Appearance Clear 05/10/16 00:40 Urine pH 7.0 pH (5.0-7.0) 05/10/16 00:40 Ur Specific Macy 1.020 SP.GR. (1.005-1.030) 05/10/16 00:40 Urine Protein 100 mg/dL (NEGATIVE) H 05/10/16 00:40 Urine Glucose (UA) Negative mg/dL (NEGATIVE) 05/10/16 00:40 Urine Ketones 5 mg/dL (NEGATIVE) 05/10/16 00:40 Urine Blood Negative /ul (NEGATIVE) 05/10/16 00:40 Urine Nitrate Negative (NEGATIVE) 05/10/16 00:40 Urine Bilirubin Negative mg/dl (NEGATIVE) 05/10/16 00:40 Prot Sulfosalicylic Acd 4+ mg/dL (0) H 05/10/16 00:40 Urine Urobilinogen Normal EU/dl (NORMAL) 05/10/16 00:40 Ur Leukocyte Esterase Negative /ul (NEGATIVE) 05/10/16 00:40 Urine RBC 0-5 /hpf (0-5) 05/10/16 00:40 Urine WBC 0-5 /hpf (0-5) 02 00:40 Ur Epithelial Cells 0-5 /hpf (0-5) 02 00:40 Urine Bacteria None seen (NONE) 05/10/16 00:40 Urine Culture Comments No culture indicated 05/10/16 00:40 bee venom (honey bee) Allergy (Severe, Verified 04/14/16 21:20) Anaphylaxis morphine Allergy (Intermediate, Verified 04/14/16 21:20) Nausea 05/10/16 00:25 CT Abdomen/Pelvis W/O Contrast Stat Reason For Exam: left lower quadrant abdominal pain Does patient have any allergies to IV contrast dye?: No Is patient a diabetic?: Yes Is patient on any form of Metformin?: Yes Admission Orders 05/09/16 22:08 Ondansetron [Zofran Odt] 4 mg PO ONCE ONE 05/09/16 22:13 HYDROmorphone HCL [Dilaudid] 1 mg IV ONCE ONE 05/09/16 22:15 Normal Saline [Sodium Chloride 0.9%] 1,000 ml IV 999 mls/hr 05/09/16 22:19 Amylase * Routine CBC Routine Comprehensive Metabolic Panel Routine Lipase Routine 05/10/16 00:25 CT Abdomen/Pelvis W/O Contrast Stat 05/10/16 00:40 UCS * Routine Urine Prot Sulfosalicylic Acid Routine 05/10/16 01:02 Magnesium Citrate [Citrate of Magnesia] 150 ml PO ONCE ONE bee venom (honey bee) Allergy (Severe, Verified 04/14/16 21:20) Anaphylaxis morphine Allergy (Intermediate, Verified 04/14/16 21:20) Nausea 05/10/16 00:25 CT Abdomen/Pelvis W/O Contrast Stat Reason For Exam: left lower quadrant abdominal pain Does patient have any allergies to IV contrast dye?: No Is patient a diabetic?: Yes Is patient on any form of Metformin?: Yes - Progress/Reassessment Chief Complaint: Abdominal Pain Progress:: Improved - Transfer of Care Expected Disposition: Discharge Plan - Plan Plan: Patient is stable for discharge. Plan is to use magnesium citrate to move out some the stool in his colon. Departure - Departure Clinical Impression: Constipation by delayed colonic transit, Abdominal pain of unknown cause, CKD ( chronic kidney disease), stage III Disposition: Home self-care Condition: Good Instructions: Fecal Impaction, Rehydration, Elderly Additional Instructions: Take magnesium citrate as discussed Referrals: Jose Rodriguez DO [Primary Care Provider] -
[2016-05-09] MEDS ORDERED: ONDANSETRON 4 MG TAB.RAPDIS PO ONE (22:08)
--- OUTSIDE RECORDS SUMMARY | 2016-05-09 22:08 | XMS REPORT | Continuity of Care Document ---
:1935 Author Organization [facility] ([facility]) Address [address] [place] [address] Phone [phone] Care Team Providers Name Role Phone Jack Esquivel Primary Care Provider [phone] Source Comments This disclosure is being made pursuant to the Care Everywhere program, applicable federal and state laws, and may not contain all informaitonavailable regarding this patient.[facility] ([facility]) Active Allergies and Adverse Reactions Allergen Noted Date Severity Reactions Comments Morphine 04/27/2010 Nausea & Vomiting Current Medications Prescription Sig. Disp. Refills Start Date End Date Status multivitamin per tablet Take 1 Tab by mouth Active daily. glimepiride (AMARYL) 2 Take 2 mg by mouth 2 Active mg tablet times daily. omeprazole (PRILOSEC) Take 40 mg by mouth Active 40 mg capsule daily. amLODIPine (NORVASC) 5 Take 5 mg by mouth Active mg tablet daily. nitroglycerin place 0.4 mg under Active (NITROSTAT) 0.4 mg SL the tongue every 5 tablet minutes as needed. ferrous sulfate 325 mg Take 325 mg by mouth Active (65 mg Iron) tablet 2 times daily. sitaGLIPtin (JANUVIA) Take 50 mg by mouth Active 50 mg tablet daily tiotropium (SPIRIVA) 18 Use 18 mcg by Active mcg inhalation capsule inhalation daily albuterol 90 Use 2 Puffs by Active mcg/Actuation inhaler inhalation every 6 hours as needed atorvastatin 20 mg Take 20 mg by mouth Active tablet every evening aspirin 81 mg EC tablet Take 81 mg by mouth Active daily folic acid 400 mcg Take 0.4 mg by mouth Active tablet 2 times daily furosemide 20 mg tablet Take 1 Tab (20 mg 90 Tab 3 2014 Active total) by mouth daily Active Problems Problem Noted Date Carotid disease, bilateral 08/09/2014 Overview: Formatting of this note may be different from the original. Carotid Duplex (Vertebral: Bilateral Antegrade Flow, TRUPTI 124/27 (1.4); LICA 450/58 (3.6)) - 09/10/2011 Carotid Duplex (Vertebral: Bilateral Antegrade Flow, TRUPTI 114/28 (1.1) LICA 367 /54 (3.1)) - 05/05/2012 Carotid Duplex (Vertebral: Bilateral Antegrade Flow, TRUPTI 140/27 (2.2) LICA 458 /70 (4.5) Right stent patent) - 11/16/2012 Carotid Duplex (Vertebral: Bilateral Antegrade Flow, Right ICA/CCA ratio 1.1 Left ICA/CCA ratio 3.3) - 09/24/2013 Carotid Duplex (Right ICA/CCA ratio 1.2 Stable 50-59% stenosis of right internal carotid artery. Left ICA/CCA ratio 2.9 Stable 70-79% stenosis of left internal carotid artery.) - 04/05/2014 Hyperlipemia 08/09/2014 CAD (coronary artery disease) 08/09/2014 Overview: Formatting of this note may be different from the original. 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 Ejection fraction is 65%. Moderate LVH. Borderline LAE. Mild valve abnormalities.) - 11/30/2008 Echo (EF.55, Moderate concentric left ventricular hypertrophy. Left atrium is mildly dilated.. Miold aortic valve schlerosis without stenosis. Mild tricuspid regurg. Mild piulmonary hypertension. Rig ht ventricular systolic pressure, measured by doppler is 45 mmHg. Done in [place].) - 03/01/2011 STRESS TESTS: Giancarlo MPI (EF.60, Normal) - 08/03/2007 Pers MPI (EF.57, probable fixed thinning within the inferior wall and anterior wall) - 04/05/2005 MPI (EF.58, Normal There is normal LV size, systolic function and regional wall motion with an ejection fraction of 58%. There are no significant perfusion defects at stress or rest. IMPRESSION: Normal myocardial perfusion stress test.) - 11/30/2008 Primary pulmonary hypertension 08/09/2014 Overview: echo: RVSP 45 mm Hg Hypertension Resolved Problems Problem Noted Date Resolved Date Hyperlipidemia 01/17/2015 Social History Tobacco Use Types Packs/Day Years Used Date Former Smoker Smokeless Tobacco: Former User Comments:quit 2007 Alcohol Use Drinks/Week oz/Week Comments No Last Filed Vital Signs Vital Sign Reading Time Taken Blood Pressure 138/62 01/17/2015 9:03 PM CDT Pulse 60 01/17/2015 9:03 PM CDT Temperature 36.6 C (97.9 F) 01/17/2015 9:03 PM CDT Respiratory Rate 14 01/17/2015 9:03 PM CDT Height 1.778 m (5' 10") 08/23/2014 12:21 PM CDT Weight 97.977 kg (216 lb) 08/23/2014 12:21 PM CDT Body Mass Index 30.99 08/23/2014 12:21 PM CDT Oxygen Saturation 97% 01/17/2015 9:03 PM CDT Plan of Care Health Maintenance Due Date Last Done Comments Hepatitis B Vaccine (1 of 3 - Primary Series) 1935 Tdap Vaccine 1945 Lipid Disorder Screening 1952 Td Vaccine 1953 Colonoscopy 08/14/1984 Zoster Vaccine 1994 Pneumococcal Vaccine (1 of 2 - PCV13) 08/16/1999 Influenza Vaccine: Seasonal (#1) 10/30/2015 Results from Last 3 Months Not on file
[2016-05-09] MEDS ORDERED: HYDROmorphone HCL 1 MG/ML DISP.SYRIN IV ONE (22:13)
[2016-05-09] MEDS ORDERED: NORMAL SALINE 1,000 ML IV PRN (22:15)
[2016-05-09 22:25] LABS: Hematocrit 36.4 % (42.0-52.0); Hemoglobin 12.4 gm/dL (13.5-18.0); Mean Cell Volume 90.8 fl (78-100); Mean Corpuscular Hemoglobin 30.9 pg (27-31); Mean Corpuscular Hgb Conc 34.1 g/dl (32-36); Neutrophil # 4.3 K/mm3 (1.3-6.0); Neutrophil % 65.9 % (42-75.0); Platelet Count 179 K/mm3 (150-450); Red Blood Count 4.01 M/mm3 (4.7-6.0); Red Cell Distribution Width 13.7 % (11.5-14.0); White Blood Count 6.6 K/mm3 (4.0-10.5)
[2016-05-09] MEDS ORDERED: ONDANSETRON 4 MG TAB.RAPDIS ONE (22:39)
[2016-05-09] MEDS ORDERED: HYDROmorphone HCL 1 MG/ML DISP.SYRIN ONE (22:39)
[2016-05-09 22:40] LABS: Albumin * 3.6 gm/dl (3.4-5.0); Anion Gap 10.3 mmol/L (6.8-13.8); BUN/Creatinine Ratio 12.3 (9.0-21.6); Bilirubin, Total 0.3 mg/dL (0.0-1.1); Ca. Corrected For Albumin 8.9 mg/dL (8.4-10.2); Calcium * 8.9 mg/dL (7.9-10.9); Carbon Dioxide 30.1 mmol/L (24-32.6); Potassium 4.4 mmol/L (3.4-4.6)
[2016-05-09] MEDS ORDERED: DIATRIZOATE MEGLU/DIATRIZO SOD 30 ML BTL ONE (22:50)
[2016-05-10 00:51] LABS: Urine Bilirubin Negative (NEGATIVE); Urine Blood Negative /ul (NEGATIVE); Urine Ketone 5 mg/dL (NEGATIVE); Urine Nitrite Negative (NEGATIVE); Urine Protein 100 mg/dL (NEGATIVE); Urine Urobilinogen Normal (NORMAL)
[2016-05-10 00:53] VITALS: BP 149/71
[2016-05-10 01:00] LABS: Urine Appearance Clear; Urine Color Yellow
[2016-05-10 01:01] LABS: Urine Bacteria None Seen; Urine RBC 0-5 /hpf (0-5); Urine WBC 0-5 /hpf (0-5)
[2016-05-10] MEDS ORDERED: MAGNESIUM CITRATE 300 ML BTL PO ONE (01:02)
[2016-05-10] MEDS ORDERED: MAGNESIUM CITRATE 300 ML BTL ONE (01:06)
== END 2016-05-10 01:30 | disposition home or self-care (01) ==
LOC: ER 20:57
DX: K59.01 Slow transit constipation (principal); N18.3 Chronic kidney disease, stage 3 (moderate); R10.9 Unspecified abdominal pain; Z87.891 Personal history of nicotine dependence; Z85.118 Personal history of other malignant neoplasm of bronchus and lung

== ENCOUNTER 2016-05-26 17:57 | Emergency (ER) | payer MEDICARE, OTHER ==
[2016-05-26 18:08] VITALS: BP 155/64
--- NOTE | 2016-05-26 18:23 | ERNOTE ---
Date of Service: 05/26/16 Time Seen by Provider: 05/26/16 18:22 Stated Complaint: CP Presenting Symptoms:: cough Source: patient, family Immunizations: IMMUNIZATION HX Immunizations Up to Date Yes History of Influenza Vaccine Yes Hx Pneumococcal Vaccination Yes Allergies/Adverse Reactions: Allergies bee venom (honey bee) Allergy (Severe, Verified 04/14/16 21:20) Anaphylaxis morphine Allergy (Intermediate, Verified 04/14/16 21:20) Nausea Home Medications: HOME MEDICATIONS Aspirin 81 mg PO DAILY 03/07/16 [Last Taken Unknown] Atorvastatin Calcium 40 mg PO DAILY 03/07/16 [Last Taken Unknown] Cyclobenzaprine HCl 10 mg PO HS 03/07/16 [Last Taken Unknown] Donepezil HCl [Aricept] 5 mg PO HS 03/07/16 [Last Taken Unknown] Furosemide [Lasix] 20 mg PO DAILY 03/07/16 [Last Taken Unknown] Glimepiride 4 mg PO BID 03/07/16 [Last Taken Unknown] Insulin Glargine,Hum.rec.anlog [Lantus] 22 units SC HS 03/07/16 [Last Taken Unknown] Meloxicam [Mobic] 15 mg PO DAILY 03/07/16 [Last Taken Unknown] Metformin HCl [Metformin HCl ER] 1,000 mg PO BID 03/07/16 [Last Taken Unknown] Metoprolol Tartrate 100 mg PO BID 03/07/16 [Last Taken Unknown] Multivitamin [One Daily Essential] 1 each PO DAILY 03/07/16 [Last Taken Unknown] Nitroglycerin [Nitrostat] 0.4 mg SL Q5MIN PRN 03/07/16 [Last Taken Unknown] Omeprazole 10 mg PO DAILY 03/07/16 [Last Taken Unknown] sitaGLIPtin PHOSPHATE [Januvia] 50 mg PO DAILY 04/05/16 [Last Taken Unknown] Ibuprofen [Motrin] 600 mg PO TID PRN #21 tablet 04/14/16 [Last Taken Unknown] Albuterol Sulfate [Proair Hfa] 2 puff IH QID PRN #1 inhaler 04/25/16 [Last Taken Unknown] Doxycycline Monohydrate 100 mg PO BID #20 tablet 04/25/16 [Last Taken Unknown] Promethazine HCl 12.5 mg PO Q8H PRN #2 tablet 04/28/16 [Last Taken Unknown] Doxycycline Monohydrate 100 mg PO BID #20 tablet 05/26/16 [Last Taken Unknown] Metoclopramide HCl [Metoclopramide HCl Odt] 5 mg PO PRN PRN 05/26/16 [Last Taken Unknown] Prednisone [Deltasone] 20 mg PO BID #10 tablet 05/26/16 [Last Taken Unknown] Topiramate [Topamax] 25 mg PO HS 05/26/16 [Last Taken Unknown] traMADol HCL [Ultram] 50 mg PO QID PRN #20 tablet 05/26/16 [Last Taken Unknown] - History of Present Ilness Timing: intermittent Severity: moderate Frequency/Possible Cause: Reports: exercise - pt was changing a tire outside that was fairly strenuous that exacerbated his chronic cough Associated Symptoms: Reports: denies symptoms Review of Systems - Review of Systems Constitutional: Present: See HPI EYE: Present: no symptoms reported ENT: Present: no symptoms reported Respiratory: Present: cough Cardiology: Present: no symptoms reported Gastrointestinal/Abdominal: Present: no symptoms reported Genitourinary: Present: no symptoms reported Musculoskeletal: Present: no symptoms reported Skin: Present: no symptoms reported Neurological: Present: no symptoms reported Endocrine: Present: no symptoms reported Hematologic/Lymphatic: Present: no symptoms reported Psych: Present: no symptoms reported - Patient's Past Medical History Patient History - Medical: Anemia, Chronic Pain, Diabetes Type 2, GERD, Osteoarthritis, Renal Disease Patient History - Cardiac/Respiratory: COPD, Hypertension, Hyperlipidemia, CPAP/ BiPAP Home Use Patient History - Cancer: Lung Patient History - Surgical Procedures: Appendectomy, Colonoscopy, Coronary Bypass Surgery, Total Knee Replacement, T & A, Vasectomy, Other Patient History - Other: None - Family History Mother Family History - Medical: , No pertinent hx Family History - Cardiac/Respiratory: History Unknown Family History - Cancer: No pertinent family hx Father Family History - Medical: , Depression Family History - Cardiac/Respiratory: History Unknown Family History - Cancer: History Unknown - Social History Living Situations: home Abuse History: No History of abuse Psych History: No pertinent hx Does anyone smoke in the home?: No Smoking Status: Former smoker Alcohol Use: none Drug Use: none - Immunizations Immunizations Up to Date: Yes Hx Pneumococcal Vaccination: Yes History of Influenza Vaccine: Yes Physical Exam - Physical Exam General Appearance: Present: wd/wn, alert, moderate distress Eye Exam: Normal inspection: bilateral, PERRL: bilateral Ears, Nose, Throat: Present: normal ENT inspection, hearing grossly normal, normal pharynx Neck: Present: normal inspection, nontender Respiratory: Present: normal breath sounds, no accessory muscle use, lungs clear , chest tenderness, decreased breath sounds Cardiovascular/Chest: Present: regular rate, rhythm, no murmur, normal peripheral pulses Gastrointestinal/Abdominal: Present: normal bowel sounds, nontender, nondistended, soft, no organomegaly Rectal Exam: Present: deferred Back Exam: Present: normal inspection, normal range of motion Extremity Exam: Present: normal inspection, non-tender, no edema, normal range of motion Neurological Exam: Present: alert, oriented, normal mood/affect Skin Exam: Present: normal color, warm/dry Lymphatic Exam: Present: no adenopathy ED Progress - Vital Signs Patient's Vital Signs:: I have reviewed the patient's vital signs. Vital Signs: Vital Signs 05/26/16 18:00 Temperature 36.5 C Pulse Rate 80 Respiratory 20 Rate Blood Pressure 155/64 O2 Sat by Pulse 96 Oximetry - X-Ray X-Ray #1 X-Ray: chest Interpretation: Interp. by me - Progress/Reassessment Chief Complaint: Upper Respiratory Symptoms Progress:: Unchanged - Transfer of Care Expected Disposition: Discharge Plan - Plan Plan: Pt not only strained his chest wall, but also appeared to have irritated his COPD by working out in the yard on his car. Departure - Departure Clinical Impression: COPD (chronic obstructive pulmonary disease) with acute bronchitis, Chest wall pain Disposition: Home self-care Condition: Good Instructions: Chronic Obstructive Pulmonary Disease, Edga-[id number], Acute Bronchitis, [id number], Chest Wall Pain, [id number] Referrals: Jose Rodriguez DO [Primary Care Provider] - Prescriptions: Doxycycline Monohydrate 100 mg PO BID #20 tablet Prednisone [Deltasone] 20 mg PO BID #10 tablet traMADol HCL [Ultram] 50 mg PO QID PRN #20 tablet PRN Reason: Chest Pain
--- OUTSIDE RECORDS SUMMARY | 2016-05-26 18:32 | XMS REPORT | Continuity of Care Document ---
:1935 Author Organization [facility] ([facility]) Address [address] [place] [address] Phone [phone] Care Team Providers Name Role Phone Jack Esquivel Primary Care Provider [phone] Source Comments This disclosure is being made pursuant to the Care Everywhere program, applicable federal and state laws, and may not contain all informaitonavailable regarding this patient.[facility] ([facility]) Active Allergies and Adverse Reactions Allergen Noted [...] note may be different from the original. 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 Done in [place].) - 03/01/2011 STRESS TESTS: Giancarlo MPI (EF.60, [...]
--- OUTSIDE RECORDS SUMMARY | 2016-05-26 18:32 | XMS REPORT | Summary of Care ---
:1935 Author Organization [facility] Address [address] [place] [id number]- Care Team Providers Name Role Phone Jack Esquivel Primary Care Physician Encounter Date(s): 05/09/16 - 05/09/[address] [address] [place] Discharge Disposition: 01 Discharged to Home or Self Care Attending Physician: TAWNY Scott Admitting Physician: TAWNY Scott Vital Signs No data available for this section Problem List Condition Effective Dates Status Health Status Informant Asbestosis(Confirmed) Active Carotid artery disease(Confirmed) Active COPD(Confirmed) Active Diabetes(Confirmed) Active GERD - Gastro-esophageal reflux Active disease(Confirmed) Hypertension(Confirmed) Active Allergies, Adverse Reactions, Alerts Substance Reaction Severity Status Bee Stings [id number] 19:22:08<$> Active morphine [id number] 19:24:09<$> Active Medications acarbose 25 mg oral tablet 1 tab(s), Oral, TID, 0 Refill(s), Start Date: 08/15/14 0:46:00 CDT Start Date: 08/15/14 Status: Orderedalbuterol 2.5 mg/3 mL (0.083%) inhalation solution 3 mL, NEB, q4hr interval, PRN shortness of breath or wheezing, 0 Refill(s), Start Date: 08/15/14 0:53:00 CDT Start Date: 08/15/14 Status: OrderedamLODIPine 5 mg oral tablet 1 tab(s), Oral, BID, 0 Refill(s), Start Date: 08/15/14 0:44:00 CDT Start Date: 08/15/14 Status: Orderedaspirin 81 mg oral tablet 1 tab(s), Oral, Daily, 0 Refill(s), Start Date: 08/15/14 0:40:00 CDT Start Date: 08/15/14 Status: Orderedatorvastatin 20 mg oral tablet 1 tab(s), Oral, HS, 0 Refill(s), Start Date: 08/15/14 0:41:00 CDT Start Date: 08/15/14 Stop Date: 11/27/15 Status: Discontinuedatorvastatin 40 mg oral tablet 1 tab(s), Oral, Daily, Start Date: 11/27/15 8:31:00 CDT Start Date: 11/27/15 Status: Orderedcyclobenzaprine 10 mg oral tablet 1 tab(s), Oral, HS, PRN for spasm, # 30 tab(s), 0 Refill(s), Start Date: 13:42:00 [employer] Start Date: 04/26/15 Status: Ordereddoxycycline hyclate 100 mg oral tablet 1 tab(s), Oral, Daily, Prescribed by [facility], has a few days remaining (along with prednisone), # 7 tab(s), 0 Refill(s), Start Date: 04/26/15 13:45:00 [employer] Special Instructions: Prescribed by [facility], has a few days remaining (along with prednisone) Start Date: 04/26/15 Stop Date: 05/03/15 Status: Orderedfolic acid 0.8 mg oral tablet 1 tab(s), Oral, Daily, 0 Refill(s), Start Date: 08/15/14 0:39:00 CDT Start Date: 08/15/14 Status: Orderedglimepiride 4 mg oral tablet 1 tab(s), Oral, BID, 0 Refill(s), Start Date: 08/15/14 0:44:00 CDT Start Date: 08/15/14 Status: OrderedJanuvia 50 mg oral tablet 1 tab(s), Oral, Daily, Start Date: 11/27/15 8:33:00 CDT Start Date: 11/27/15 Status: OrderedJanuvia 50 mg oral tablet 1 tab(s), Oral, Daily, # 30 tab(s), 0 Refill(s), Start Date: 08/15/14 0:52:00 CDT Start Date: 08/15/14 Stop Date: 04/26/15 Status: CompletedLasix 20 mg oral tablet 1 tab(s), Oral, Daily, Start Date: 11/27/15 8:32:00 CDT Start Date: 11/27/15 Status: OrderedLasix 20 mg oral tablet 1 tab(s), Oral, Daily, 0 Refill(s), Start Date: 08/15/14 8:49:00 CDT Start Date: 08/15/14 Stop Date: 08/15/14 Status: Discontinuedmeloxicam 15 mg oral tablet 1 tab(s), Oral, Daily, # 30 tab(s), 0 Refill(s), Start Date: 04/26/15 13:42:00 [employer] Start Date: 04/26/15 Status: OrderedmetFORMIN 1000 mg oral tablet 1 tab(s), Oral, BID, 0 Refill(s), Start Date: 08/15/14 0:43:00 CDT Start Date: 08/15/14 Status: Orderedmetoprolol tartrate 100 mg oral tablet 1 tab(s), Oral, Daily, 0 Refill(s), Start Date: 08/15/14 0:43:00 CDT Start Date: 08/15/14 Status: Orderedmultivitamin 1 tab(s), Oral, Daily, 0 Refill(s), Start Date: 08/15/14 0:38:00 CDT Start Date: 08/15/14 Status: OrderedNitrostat 0.4 mg sublingual tablet 1 tab(s), SL, q5min, 0 Refill(s), Start Date: 08/15/14 0:51:00 CDT Start Date: 08/15/14 Status: Orderedomeprazole 40 mg oral delayed release capsule 1 cap(s), Oral, Daily, 0 Refill(s), Start Date: 08/15/14 0:42:00 CDT Start Date: 08/15/14 Status: OrderedpredniSONE 20 mg oral tablet 1 tab(s), Oral, TID, prescribed by [facility], has a few days remaining (along with doxy), 0 Refill(s), Start Date: 04/26/15 13:45:00 [employer] Special Instructions: prescribed by [facility], has a few days remaining (along with doxy) Start Date: 04/26/15 Status: OrderedProventil HFA 1 puff(s), Inhale, TID, 0 Refill(s), Start Date: 08/15/14 0:49:00 CDT Start Date: 08/15/14 Stop Date: 10/19/14 Status: DiscontinuedProventil HFA 1 puff(s), Inhale, TID, PRN shortness of breath or wheezing, 0 Refill(s), Start Date: 08/15/14 0:55:00 CDT Start Date: 08/15/14 Status: OrderedSpiriva 18 mcg, Inhale, Daily, 0 Refill(s), Start Date: 08/15/14 0:50:00 CDT Start Date: 08/15/14 Status: OrderedTessalon Perles 100 mg oral capsule 1 cap(s), Oral, TID, # 15 cap(s), 0 Refill(s), Start Date: 04/27/15 14:38:00 [employer] , [facility] [place] Start Date: 04/27/15 Stop Date: 05/02/15 Status: Ordered Results No data available for this section Immunizations Vaccine Date Refusal Reason influenza virus vaccine, inactivated 12/29/14 influenza virus vaccine, inactivated 12/29/13 pneumococcal 23-polyvalent vaccine 03/31/11 Procedures Procedure Date Related Diagnosis Body Site Endarterectomy Carotid (SCIP) (Left)1 10/24/14 Carotid endarterectomy2 2006 Appendectomy Carotid Artery Stent3 Extracapsular cataract extraction and insertion of intraocular lens4 Knee replacement5 Operation6 Tonsillectomy Vasectomy 1auto-populated from documented surgical [id number] knees have been [id number] surgeries on left knee after total knee-- had infection and had to have hardware removed Social History No data available for this section Assessment and Plan No data available for this section
[2016-05-26] MEDS ORDERED: traMADol HCL 50 MG TABLET PO ONE (19:34)
[2016-05-26] MEDS ORDERED: DOXYCYCLINE HYCLATE 100 MG TABLET PO ONE (19:34)
[2016-05-26] MEDS ORDERED: predniSONE 20 MG TABLET PO ONE (19:34)
[2016-05-26] MEDS ORDERED: traMADol HCL 50 MG TABLET ONE (19:46)
[2016-05-26] MEDS ORDERED: DOXYCYCLINE HYCLATE 100 MG TABLET ONE (19:47)
[2016-05-26] MEDS ORDERED: predniSONE 20 MG TABLET ONE (19:47)
== END 2016-05-26 20:10 | disposition home or self-care (01) ==
LOC: ER 17:57
DX: J44.0 Chronic obstructive pulmonary disease with (acute) lower respiratory infection (principal); R07.89 Other chest pain; Z87.891 Personal history of nicotine dependence; Z99.89 Dependence on other enabling machines and devices; E11.9 Type 2 diabetes mellitus without complications; Z79.4 Long term (current) use of insulin; I10 Essential (primary) hypertension; Z85.118 Personal history of other malignant neoplasm of bronchus and lung

== ENCOUNTER 2016-06-13 21:16 | Emergency (ER) | payer MEDICARE, OTHER ==
--- OUTSIDE RECORDS SUMMARY | 2016-06-13 21:27 | XMS REPORT | Continuity of Care Document ---
:1935 Author Organization [facility] ([facility]) Address [address] [place] [address] Phone [phone] Care Team Providers Name Role Phone Jack Esquivel Primary Care Provider [phone] Source Comments This disclosure is being made pursuant to the Care Everywhere program, applicable federal and state laws, and may not contain all informaitonavailable regarding this patient.[facility] ([facility]) Active Allergies and Adverse Reactions Allergen [...] note may be different from the original. 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 Done in [place].) - 03/01/2011 STRESS TESTS: Giancarlo MPI (EF.60, [...]
[2016-06-13 21:49] VITALS: BP 134/64
--- NOTE | 2016-06-13 21:54 | ERNOTE ---
Dyspnea - General Time Seen by Provider: 06/13/16 21:18 Source: patient, family Exam Limitations: no limitations - Immun/Allergies/Home Medications Immunizations: IMMUNIZATION HX Immunizations Up to Date Yes History of Influenza Vaccine Yes Hx Pneumococcal Vaccination Yes Allergies/Adverse Reactions: Allergies bee venom (honey bee) Allergy (Severe, Verified 06/13/16 21:27) Anaphylaxis morphine Allergy (Intermediate, Verified 06/13/16 21:27) Nausea Home Medications: HOME MEDICATIONS Aspirin 81 mg PO DAILY 03/07/16 [Last Taken Unknown] Atorvastatin Calcium 40 mg PO DAILY 03/07/16 [Last Taken Unknown] Cyclobenzaprine HCl 10 mg PO HS 03/07/16 [Last Taken Unknown] Donepezil HCl [Aricept] 5 mg PO HS 03/07/16 [Last Taken Unknown] Furosemide [Lasix] 20 mg PO DAILY 03/07/16 [Last Taken Unknown] Glimepiride 4 mg PO BID 03/07/16 [Last Taken Unknown] Insulin Glargine,Hum.rec.anlog [Lantus] 22 units SC HS 03/07/16 [Last Taken Unknown] Meloxicam [Mobic] 15 mg PO DAILY 03/07/16 [Last Taken Unknown] Metformin HCl [Metformin HCl ER] 1,000 mg PO BID 03/07/16 [Last Taken Unknown] Metoprolol Tartrate 100 mg PO BID 03/07/16 [Last Taken Unknown] Multivitamin [One Daily Essential] 1 each PO DAILY 03/07/16 [Last Taken Unknown] Nitroglycerin [Nitrostat] 0.4 mg SL Q5MIN PRN 03/07/16 [Last Taken Unknown] Omeprazole 10 mg PO DAILY 03/07/16 [Last Taken Unknown] sitaGLIPtin PHOSPHATE [Januvia] 50 mg PO DAILY 04/05/16 [Last Taken Unknown] Ibuprofen [Motrin] 600 mg PO TID PRN #21 tablet 04/14/16 [Last Taken Unknown] Albuterol Sulfate [Proair Hfa] 2 puff IH QID PRN #1 inhaler 04/25/16 [Last Taken Unknown] Doxycycline Monohydrate 100 mg PO BID #20 tablet 04/25/16 [Last Taken Unknown] Promethazine HCl 12.5 mg PO Q8H PRN #2 tablet 04/28/16 [Last Taken Unknown] Doxycycline Monohydrate 100 mg PO BID #20 tablet 05/26/16 [Last Taken Unknown] Metoclopramide HCl [Metoclopramide HCl Odt] 5 mg PO PRN PRN 05/26/16 [Last Taken Unknown] Prednisone [Deltasone] 20 mg PO BID #10 tablet 05/26/16 [Last Taken Unknown] Topiramate [Topamax] 25 mg PO HS 05/26/16 [Last Taken Unknown] traMADol HCL [Ultram] 50 mg PO QID PRN #20 tablet 05/26/16 [Last Taken Unknown] Acetaminophen [Tylenol] 500 mg PO BID PRN #30 tablet 06/13/16 [Last Taken Unknown] - History of Present Illness Narrative: Patient presents for chest pain that started approximately 2 hours ago. Chest pain started at rest, and it is worse with deep inspiration. He shouldn't denies any shortness of breath. He denies any trauma. Patient denies any palpitations or dizziness. Review of Systems - Review of Systems Constitutional: Present: no symptoms reported EYE: Present: no symptoms reported ENT: Present: no symptoms reported Respiratory: Present: no symptoms reported Cardiology: Present: no symptoms reported Musculoskeletal: Present: other - patient complains of substernal type chest wall pain. There is no radiation. - Patient's Past Medical History Patient History - Medical: Anemia, Chronic Pain, Diabetes Type 2, GERD, Osteoarthritis, Renal Disease Patient History - Cardiac/Respiratory: COPD, Hypertension, Hyperlipidemia, CPAP/ BiPAP Home Use Patient History - Cancer: Lung Patient History - Surgical Procedures: Appendectomy, Colonoscopy, Coronary Bypass Surgery, Total Knee Replacement, T & A, Vasectomy, Other Patient History - Other: None - Family History Mother Family History - Medical: , No pertinent hx Family History - Cardiac/Respiratory: History Unknown Family History - Cancer: No pertinent family hx Father Family History - Medical: , Depression Family History - Cardiac/Respiratory: History Unknown Family History - Cancer: History Unknown - Social History Living Situations: home Abuse History: No History of abuse Psych History: No pertinent hx Does anyone smoke in the home?: No Smoking Status: Former smoker Alcohol Use: none Drug Use: none - Immunizations Immunizations Up to Date: Yes Hx Pneumococcal Vaccination: Yes History of Influenza Vaccine: Yes Physical Exam - Physical Exam General Appearance: Present: wd/wn, alert, no apparent distress Eye Exam: Normal inspection: bilateral, PERRL: bilateral, EOMI: bilateral Ears, Nose, Throat: Present: normal ENT inspection Neck: Present: normal inspection, nontender, supple, full range of motion Respiratory: Present: no respiratory distress, normal breath sounds, no accessory muscle use, chest nontender, lungs clear, other - pressure on the sternal and left sternal border reproduces the patient's exact type of chest wall pain. He grimaces and winces and states that "this is the exact sort of pain I am feeling" Cardiovascular/Chest: Present: regular rate, rhythm, no murmur, normal peripheral pulses ED Progress - Vital Signs Patient's Vital Signs:: I have reviewed the patient's vital signs. Vital Signs: Vital Signs 06/13/16 21:22 Temperature 36.5 C Pulse Rate 77 Respiratory 22 H Rate Blood Pressure 166/75 O2 Sat by Pulse 94 Oximetry - X-Ray X-Ray #1 X-Ray: chest - Progress/Reassessment Chief Complaint: Dyspnea Plan - Plan Plan: This examiner is able to reproduce the patient's chest wall pain by manipulation and pressure. I very strongly doubt this is chest pain of cardiac etiology patient will be treated for chest wall pain. This appears to be a musculoskeletal issue Departure Clinical Impression: Costochondritis, acute - Departure Disposition: Home self-care Condition: Good Instructions: Costochondritis, [id number] Referrals: Jose Rodriguez DO [Primary Care Provider] - Prescriptions: Acetaminophen [Tylenol] 500 mg PO BID PRN #30 tablet PRN Reason: Pain
== END 2016-06-13 22:06 | disposition home or self-care (01) ==
LOC: ER 21:16
DX: M94.0 Chondrocostal junction syndrome [Tietze] (principal); Z87.891 Personal history of nicotine dependence

== ENCOUNTER 2016-07-07 18:15 | Emergency (ER) | payer MEDICARE, OTHER ==
--- NOTE | 2016-07-07 19:15 | ERNOTE ---
<Ho Reyes - Last Filed: 07/07/16 19:19> Headache ER HPI - General Presenting Symptoms: headache, facial pain Time Seen by Provider: 07/07/16 19:14 Source: patient, family - Immun/Allergies/Home Medications Immunizations: IMMUNIZATION HX Immunizations Up to Date Yes History of Influenza Vaccine Yes Hx Pneumococcal Vaccination Yes Allergies/Adverse Reactions: Allergies venom-honey bee [bee venom (honey bee)] Allergy (Severe, Verified 06/13/16 21:27 ) Anaphylaxis morphine Allergy (Intermediate, Verified 06/13/16 21:27) Nausea Home Medications: HOME MEDICATIONS Aspirin 81 mg PO DAILY 03/07/16 [Last Taken Unknown] Atorvastatin Calcium 40 mg PO DAILY 03/07/16 [Last Taken Unknown] Cyclobenzaprine HCl 10 mg PO HS 03/07/16 [Last Taken Unknown] Donepezil HCl [Aricept] 5 mg PO HS 03/07/16 [Last Taken Unknown] Furosemide [Lasix] 20 mg PO DAILY 03/07/16 [Last Taken Unknown] Glimepiride 4 mg PO BID 03/07/16 [Last Taken Unknown] Insulin Glargine,Hum.rec.anlog [Lantus] 22 units SC HS 03/07/16 [Last Taken Unknown] Meloxicam [Mobic] 15 mg PO DAILY 03/07/16 [Last Taken Unknown] Metoprolol Tartrate 100 mg PO BID 03/07/16 [Last Taken Unknown] Multivitamin [One Daily Essential] 1 each PO DAILY 03/07/16 [Last Taken Unknown] Nitroglycerin [Nitrostat] 0.4 mg SL Q5MIN PRN 03/07/16 [Last Taken Unknown] Omeprazole 10 mg PO DAILY 03/07/16 [Last Taken Unknown] metFORMIN HCL [Metformin HCl ER] 1,000 mg PO BID 03/07/16 [Last Taken Unknown] sitaGLIPtin PHOSPHATE [Januvia] 50 mg PO DAILY 04/05/16 [Last Taken Unknown] Ibuprofen [Motrin] 600 mg PO TID PRN #21 tablet 04/14/16 [Last Taken Unknown] Albuterol Sulfate [Proair Hfa] 2 puff IH QID PRN #1 inhaler 04/25/16 [Last Taken Unknown] Doxycycline Monohydrate 100 mg PO BID #20 tablet 04/25/16 [Last Taken Unknown] Promethazine HCl 12.5 mg PO Q8H PRN #2 tablet 04/28/16 [Last Taken Unknown] Doxycycline Monohydrate 100 mg PO BID #20 tablet 05/26/16 [Last Taken Unknown] Metoclopramide HCl [Metoclopramide HCl Odt] 5 mg PO PRN PRN 05/26/16 [Last Taken Unknown] Topiramate [Topamax] 25 mg PO HS 05/26/16 [Last Taken Unknown] predniSONE [Deltasone] 20 mg PO BID #10 tablet 05/26/16 [Last Taken Unknown] traMADol HCL [Ultram] 50 mg PO QID PRN #20 tablet 05/26/16 [Last Taken Unknown] Acetaminophen [Tylenol] 500 mg PO BID PRN #30 tablet 06/13/16 [Last Taken Unknown] - Pain Pain Score: 7 - History of Present Illness Narrative: Impression presents with frontal sinus pressure and headache. Oncet of the symptoms was earlier today he describes the pressure pain sensation as moderate in intensity. Patient is continuously blowing his nose and complains of posterior nasal drainage as well Timing of Headache: gradual, constant Quality: Present: pressure Severity Maximum: Present: moderate Severity-Currently: Present: moderate Headache frequency: Present: occasional headaches Associated Symptoms: Reports: nasal congestion, nasal drainage Exacerbated by:: Reports: other - palpation over the frontal sinuses Review of Systems - Review of Systems Constitutional: Present: See HPI EYE: Present: no symptoms reported ENT: Present: See HPI Respiratory: Present: cough Cardiology: Present: no symptoms reported Gastrointestinal/Abdominal: Present: no symptoms reported Genitourinary: Present: no symptoms reported Musculoskeletal: Present: no symptoms reported Skin: Present: no symptoms reported Neurological: Present: no symptoms reported Endocrine: Present: no symptoms reported Hematologic/Lymphatic: Present: no symptoms reported Psych: Present: no symptoms reported - Patient's Past Medical History Patient History - Medical: Anemia, Chronic Pain, Diabetes Type 2, GERD, Osteoarthritis, Renal Disease Patient History - Cardiac/Respiratory: COPD, Hypertension, Hyperlipidemia, CPAP/ BiPAP Home Use Patient History - Cancer: Lung Patient History - Surgical Procedures: Appendectomy, Colonoscopy, Coronary Bypass Surgery, Total Knee Replacement, T & A, Vasectomy, Other Patient History - Other: None - Family History Mother Family History - Medical: , No pertinent hx Family History - Cardiac/Respiratory: History Unknown Family History - Cancer: No pertinent family hx Father Family History - Medical: , Depression Family History - Cardiac/Respiratory: History Unknown Family History - Cancer: History Unknown - Social History Living Situations: home Abuse History: No History of abuse Psych History: No pertinent hx Does anyone smoke in the home?: No Smoking Status: Former smoker Have you smoked in the past 12 months: No Do you dip or chew tobacco: No Alcohol Use: none Drug Use: none - Immunizations Immunizations Up to Date: Yes Hx Pneumococcal Vaccination: Yes History of Influenza Vaccine: Yes Physical Exam - Physical Exam General Appearance: Present: wd/wn, alert, moderate distress Eye Exam: Normal inspection: bilateral, PERRL: bilateral Ears, Nose, Throat: Present: sinus pain/drainage, normal pharynx Neck: Present: normal inspection, nontender Respiratory: Present: no respiratory distress, normal breath sounds, no accessory muscle use, chest nontender, lungs clear Cardiovascular/Chest: Present: regular rate, rhythm, no murmur, normal peripheral pulses Gastrointestinal/Abdominal: Present: normal bowel sounds, nontender, nondistended, soft, no organomegaly Rectal Exam: Present: deferred Back Exam: Present: normal inspection, normal range of motion Extremity Exam: Present: normal inspection, non-tender, no edema, normal range of motion Neurological Exam: Present: alert, oriented, normal mood/affect Skin Exam: Present: normal color, warm/dry Lymphatic Exam: Present: no adenopathy ED Progress - Vital Signs Vital Signs: Vital Signs 07/07/16 18:21 Temperature 37.5 C Pulse Rate 75 Respiratory 18 Rate Blood Pressure 152/77 O2 Sat by Pulse 95 Oximetry - Progress/Reassessment Chief Complaint: Headache Departure Clinical Impression: Dehydration Migraine headache Qualifiers: Migraine type: without aura Status migrainosus presence: with status migrainosus Intractability: intractable Qualified Code(s): G43.011 - Migraine without aura, intractable, with status migrainosus - Departure Disposition: Home self-care Condition: Good Instructions: Rehydration, Adult, Heat Exhaustion Information Additional Instructions: Make sure that you will drink lots of fluid. Referrals: Jose Rodriguez DO [Primary Care Provider] - <Cristela Frederick - Last Filed: 07/07/16 23:11> Headache ER HPI - Immun/Allergies/Home Medications Immunizations: IMMUNIZATION HX Immunizations Up to Date Yes History of Influenza Vaccine Yes Hx Pneumococcal Vaccination Yes ED Progress - Date and Time Seen: Date and Time: 07/07/16 21:16 In to see and examine patients, signed out from day shift. 07/07/16 21:30 Patient states that pain is still 10/10, his states he was in outdoors all day , drinks mostly coffee, no urine outpt today labs cbc, cmp will be ordered, NS bolus and IV solumedrol 40 mg and benadryl 12. 5 mg / dilaudid 2 mg PO 07/07/16 21:40 07/07/16 23:07 BOLUS OF FLUID nearly complete and pain is completely resolved. Patient is stable for discharge. Patient will follow up with primary provider. - Results and Orders Patient's Lab Results:: I have reviewed the patient's lab results. - Vital Signs Patient's Vital Signs:: I have reviewed the patient's vital signs. Vital Signs: Vital Signs 07/07/16 18:21 Temperature 37.5 C Pulse Rate 75 Respiratory 18 Rate Blood Pressure 152/77 O2 Sat by Pulse 95 Oximetry Plan - Plan Plan: Patient is stable for discharge.
[2016-07-07] MEDS ORDERED: KETOROLAC TROMETHAMINE 30 MG/ML VIAL IM ONE (19:18)
--- OUTSIDE RECORDS SUMMARY | 2016-07-07 19:21 | XMS REPORT | Continuity of Care Document ---
:1935 Author Organization [facility] ([facility]) Address [address] [place] [address] Phone [phone] Care Team Providers Name Role Phone Jack Esquivel Primary Care Provider [phone] Source Comments This disclosure is being made pursuant to the Care Everywhere program, applicable federal and state laws, and may not contain all informaitonavailable regarding this patient.[facility] ([facility]) Active Allergies and Adverse Reactions Allergen [...] note may be different from the original. 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 Done in [place].) - 03/01/2011 STRESS TESTS: Giancarlo MPI (EF.60, [...]
[2016-07-07] MEDS ORDERED: KETOROLAC TROMETHAMINE 60 MG/2 ML VIAL IM ONE (19:27)
[2016-07-07] MEDS ORDERED: NORMAL SALINE 1,000 ML IV ONE (21:33)
[2016-07-07] MEDS ORDERED: METHYLPREDNISOLONE SOD SUCC/PF 40 MG/ML VIAL IV ONE (21:35)
[2016-07-07] MEDS ORDERED: HYDROmorphone HCL 2 MG TABLET PO ONE (21:38)
[2016-07-07] MEDS ORDERED: HYDROmorphone HCL 2 MG/ML VIAL ONE (21:49)
[2016-07-07] MEDS ORDERED: METHYLPREDNISOLONE SOD SUCC/PF 40 MG/ML VIAL ONE (21:49)
[2016-07-07] MEDS ORDERED: HYDROmorphone HCL 2 MG TABLET ONE (22:01)
[2016-07-07 23:38] VITALS: BP 186/74
== END 2016-07-07 23:30 | disposition home or self-care (01) ==
LOC: ER 18:15
DX: E86.0 Dehydration (principal); G43.011 Migraine without aura, intractable, with status migrainosus; Z85.118 Personal history of other malignant neoplasm of bronchus and lung; G89.29 Other chronic pain; E11.9 Type 2 diabetes mellitus without complications; M19.90 Unspecified osteoarthritis, unspecified site; K21.9 Gastro-esophageal reflux disease without esophagitis; I10 Essential (primary) hypertension

== ENCOUNTER 2016-07-19 19:54 | Emergency (ER) | payer MEDICARE, OTHER ==
--- OUTSIDE RECORDS SUMMARY | 2016-07-19 20:14 | XMS REPORT | Continuity of Care Document ---
:1935 Author Organization [facility] ([facility]) Address [address] [place] [address] Phone [phone] Care Team Providers Name Role Phone Jack Esquivel Primary Care Provider [phone] Source Comments This disclosure is being made pursuant to the Care Everywhere program, applicable federal and state laws, and may not contain all informaitonavailable regarding this patient.[facility] ([facility]) Active Allergies and Adverse Reactions Allergen [...] note may be different from the original. 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 Done in [place].) - 03/01/2011 STRESS TESTS: Giancarlo MPI (EF.60, [...]
--- NOTE | 2016-07-19 20:32 | ERNOTE ---
Chest Pain/Cardiac HPI Chief Complaint: Chest Pain Time Seen by Provider: 07/19/16 20:06 Source: patient Exam Limitations: no limitations Immunizations: IMMUNIZATION HX Immunizations Up to Date Yes History of Influenza Vaccine Yes Hx Pneumococcal Vaccination Yes Allergies/Adverse Reactions: Allergies venom-honey bee [bee venom (honey bee)] Allergy (Severe, Verified 06/13/16 21:27 ) Anaphylaxis morphine Allergy (Intermediate, Verified 06/13/16 21:27) Nausea Home Medications: HOME MEDICATIONS Aspirin 81 mg PO DAILY 03/07/16 [Last Taken Unknown] Atorvastatin Calcium 40 mg PO DAILY 03/07/16 [Last Taken Unknown] Cyclobenzaprine HCl 10 mg PO HS 03/07/16 [Last Taken Unknown] Donepezil HCl [Aricept] 5 mg PO HS 03/07/16 [Last Taken Unknown] Furosemide [Lasix] 20 mg PO DAILY 03/07/16 [Last Taken Unknown] Glimepiride 4 mg PO BID 03/07/16 [Last Taken Unknown] Insulin Glargine,Hum.rec.anlog [Lantus] 22 units SC HS 03/07/16 [Last Taken Unknown] Meloxicam [Mobic] 15 mg PO DAILY 03/07/16 [Last Taken Unknown] Metoprolol Tartrate 100 mg PO BID 03/07/16 [Last Taken Unknown] Multivitamin [One Daily Essential] 1 each PO DAILY 03/07/16 [Last Taken Unknown] Nitroglycerin [Nitrostat] 0.4 mg SL Q5MIN PRN 03/07/16 [Last Taken Unknown] Omeprazole 10 mg PO DAILY 03/07/16 [Last Taken Unknown] metFORMIN HCL [Metformin HCl ER] 1,000 mg PO BID 03/07/16 [Last Taken Unknown] sitaGLIPtin PHOSPHATE [Januvia] 50 mg PO DAILY 04/05/16 [Last Taken Unknown] Ibuprofen [Motrin] 600 mg PO TID PRN #21 tablet 04/14/16 [Last Taken Unknown] Albuterol Sulfate [Proair Hfa] 2 puff IH QID PRN #1 inhaler 04/25/16 [Last Taken Unknown] Doxycycline Monohydrate 100 mg PO BID #20 tablet 04/25/16 [Last Taken Unknown] Promethazine HCl 12.5 mg PO Q8H PRN #2 tablet 04/28/16 [Last Taken Unknown] Doxycycline Monohydrate 100 mg PO BID #20 tablet 05/26/16 [Last Taken Unknown] Metoclopramide HCl [Metoclopramide HCl Odt] 5 mg PO PRN PRN 05/26/16 [Last Taken Unknown] Topiramate [Topamax] 25 mg PO HS 05/26/16 [Last Taken Unknown] predniSONE [Deltasone] 20 mg PO BID #10 tablet 05/26/16 [Last Taken Unknown] traMADol HCL [Ultram] 50 mg PO QID PRN #20 tablet 05/26/16 [Last Taken Unknown] Acetaminophen [Tylenol] 500 mg PO BID PRN #30 tablet 06/13/16 [Last Taken Unknown] Narrative: pt was putting on his coat and began to have left sided chest pain and left arm pain, increased with left arm movement Timing: constant Severity/Quality: moderate Location: left chest Chest Pain Radiation: arms - left upper arm Activities at Onset: activity Modifying Factors - Improves: Present: nothing Modifying Factors - Worsens: Present: movement - of left arm Associated Symptoms: Present: cough - mild. Absent: heartburn Prior Chest Pain/Cardiac Workup: Reports: prior chest pain Review of Systems - Review of Systems Constitutional: Absent: recent illness EYE: Present: no symptoms reported ENT: Present: no symptoms reported Respiratory: Present: cough Cardiology: Present: See HPI, chest pain Gastrointestinal/Abdominal: Present: no symptoms reported Genitourinary: Present: no symptoms reported Musculoskeletal: Present: joint pain Skin: Present: no symptoms reported Neurological: Present: no symptoms reported Endocrine: Present: no symptoms reported Hematologic/Lymphatic: Present: no symptoms reported Psych: Present: no symptoms reported - Patient's Past Medical History Patient History - Medical: Anemia, Chronic Pain, Diabetes Type 2, GERD, Osteoarthritis, Renal Disease Patient History - Cardiac/Respiratory: COPD, Hypertension, Hyperlipidemia, CPAP/ BiPAP Home Use Patient History - Cancer: Lung Patient History - Surgical Procedures: Appendectomy, Colonoscopy, Coronary Bypass Surgery, Total Knee Replacement, T & A, Vasectomy, Other Patient History - Other: None - Family History Mother Family History - Medical: , No pertinent hx Family History - Cardiac/Respiratory: History Unknown Family History - Cancer: No pertinent family hx Father Family History - Medical: , Depression Family History - Cardiac/Respiratory: History Unknown Family History - Cancer: History Unknown - Social History Living Situations: home Abuse History: No History of abuse Psych History: No pertinent hx Does anyone smoke in the home?: No Smoking Status: Former smoker Alcohol Use: none Drug Use: none - Immunizations Immunizations Up to Date: Yes Hx Pneumococcal Vaccination: Yes History of Influenza Vaccine: Yes Physical Exam - Physical Exam General Appearance: Present: wd/wn, alert, no apparent distress Eye Exam: Normal inspection: bilateral Neck: Present: normal inspection, nontender Respiratory: Present: no respiratory distress, normal breath sounds, lungs clear , chest tenderness - left 4-5 ribs mid clavicular line Cardiovascular/Chest: Present: regular rate, rhythm, no murmur Gastrointestinal/Abdominal: Present: normal bowel sounds, nontender, nondistended, soft Back Exam: Present: normal inspection Extremity Exam: Present: decreased range of motion - left arm. Pain with abduction/ flexion Neurological Exam: Present: alert, oriented, normal mood/affect Skin Exam: Present: normal color, warm/dry Lymphatic Exam: Present: no adenopathy ED Progress - Results and Orders Patient's Lab Results:: I have reviewed the patient's lab results. Results and Orders: Laboratory Tests 07/19/16 07/19/16 07/19/16 20:48 20:48 20:48 WBC 6.4 Hgb 12.4 L Hct 35.9 L Plt Count 173 PT 10.1 INR (Anticoag Therapy) 0.97 PTT (Laura) 26.0 Sodium 142 Potassium 4.4 Chloride 105 Carbon Dioxide 26.7 Anion Gap 14.7 H BUN 20 Creatinine 1.53 H Est GFR (Non-Af Amer) 47 L Random Glucose 109 Calcium 8.7 Total Bilirubin 0.4 AST 28 ALT 31 Alkaline Phosphatase 80 Troponin I Less than 0.017 Total Protein 7.0 Albumin 3.8 - Vital Signs Patient's Vital Signs:: I have reviewed the patient's vital signs. Vital Signs: Vital Signs 07/19/16 07/19/16 20:04 20:07 Pulse Rate 79 77 Respiratory 17 Rate Blood Pressure 146/79 - EKG EKG: unchanged from - recent EKG EKG read: Interp. by me - X-Ray X-Ray #1 X-Ray: chest Interpretation: Interp. by me X-ray Comments: no acute cardiopulmonary changes - Progress/Reassessment Chief Complaint: Chest Pain Departure - Departure Clinical Impression: Acute chest wall pain Left shoulder strain Qualifiers: Encounter type: initial encounter Qualified Code(s): S46.912A - Strain of unspecified muscle, fascia and tendon at shoulder and upper arm level, left arm , initial encounter Disposition: Home self-care Condition: Good Instructions: RICE for Routine Care of Injuries, [id number], Muscle Strain, [id number], Nonspecific Chest Pain, [id number] Additional Instructions: Move the left arm as much as possible without causing more pain. See your regular doctor as needed Referrals: Jose Rodriguez, [Primary Care Provider] -
[2016-07-19 20:55] LABS: Hematocrit 35.9 % (42.0-52.0); Hemoglobin 12.4 gm/dL (13.5-18.0); Mean Cell Volume 89.8 fl (78-100); Mean Corpuscular Hgb Conc 34.5 g/dl (32-36); Mean Platelet Volume 10.3 fl (6.0-9.5); Neutrophil # 4.1 K/mm3 (1.3-6.0); Neutrophil % 64.3 % (42-75.0); Platelet Count 173 K/mm3 (150-450); Red Cell Distribution Width 13.4 % (11.5-14.0); White Blood Count 6.4 K/mm3 (4.0-10.5)
[2016-07-19 21:09] LABS: Prothrombin Time (Patient) 10.1 Seconds (9.4-11.4)
[2016-07-19 21:16] LABS: ALT 31 U/L (19-67); AST 28 U/L (0-48); Albumin * 3.8 gm/dl (3.4-5.0); Alkaline Phosphatase * 80 U/L (50-170); Anion Gap 14.7 mmol/L (6.8-13.8); BUN/Creatinine Ratio 13.1 (9.0-21.6); Bilirubin, Total 0.4 mg/dL (0.0-1.1); Blood Urea Nitrogen 20 mg/dL (6-23); Ca. Corrected For Albumin 8.5 mg/dL (8.4-10.2); Calcium * 8.7 mg/dL (7.9-10.9); Carbon Dioxide 26.7 mmol/L (24-32.6); Chloride 105 mmol/L (97-106); Glucose * 109 mg/dL (70-110); Potassium 4.4 mmol/L (3.4-4.6); Sodium 142 mmol/L (132-142)
[2016-07-19 21:18] LABS: Troponin I Less than 0.017 ng/ml (0.00-0.10)
[2016-07-19 21:19] LABS: INR 0.97 INR (0.90-1.10)
[2016-07-19 23:12] VITALS: BP 146/60
== END 2016-07-19 23:04 | disposition home or self-care (01) ==
LOC: ER 19:54
DX: R07.89 Other chest pain (principal); S46.912A Strain of unspecified muscle, fascia and tendon at shoulder and upper arm level, left arm, initial encounter; Z87.891 Personal history of nicotine dependence

== ENCOUNTER 2016-07-21 17:50 | Emergency (ER) | payer MEDICARE, OTHER ==
--- OUTSIDE RECORDS SUMMARY | 2016-07-21 18:23 | XMS REPORT | Continuity of Care Document ---
:1935 Author Organization [facility] ([facility]) Address [address] [place] [address] Phone [phone] Care Team Providers Name Role Phone Jack Esquivel Primary Care Provider [phone] Source Comments This disclosure is being made pursuant to the Care Everywhere program, applicable federal and state laws, and may not contain all informaitonavailable regarding this patient.[facility] ([facility]) Active Allergies and Adverse Reactions Allergen Noted [...] note may be different from the original. 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 Done in [place].) - 03/01/2011 STRESS TESTS: Giancarlo MPI (EF.60, [...]
--- NOTE | 2016-07-21 18:36 | ERNOTE ---
Date of Service: 07/21/16 Time Seen by Provider: 07/21/16 18:08 Stated Complaint: HEAD ACHE. CHEST PAIN Presenting Symptoms:: cough, runny nose Source: patient, family Exam Limitations: no limitations Immunizations: IMMUNIZATION HX Immunizations Up to Date Yes History of Influenza Vaccine Yes Hx Pneumococcal Vaccination Yes Allergies/Adverse Reactions: Allergies venom-honey bee [bee venom (honey bee)] Allergy (Severe, Verified 06/13/16 21:27 ) Anaphylaxis morphine Allergy (Intermediate, Verified 06/13/16 21:27) Nausea Home Medications: HOME MEDICATIONS Aspirin 81 mg PO DAILY 03/07/16 [Last Taken Unknown] Atorvastatin Calcium 40 mg PO DAILY 03/07/16 [Last Taken Unknown] Cyclobenzaprine HCl 10 mg PO HS 03/07/16 [Last Taken Unknown] Donepezil HCl [Aricept] 5 mg PO HS 03/07/16 [Last Taken Unknown] Furosemide [Lasix] 20 mg PO DAILY 03/07/16 [Last Taken Unknown] Glimepiride 4 mg PO BID 03/07/16 [Last Taken Unknown] Insulin Glargine,Hum.rec.anlog [Lantus] 22 units SC HS 03/07/16 [Last Taken Unknown] Meloxicam [Mobic] 15 mg PO DAILY 03/07/16 [Last Taken Unknown] Metoprolol Tartrate 100 mg PO BID 03/07/16 [Last Taken Unknown] Multivitamin [One Daily Essential] 1 each PO DAILY 03/07/16 [Last Taken Unknown] Nitroglycerin [Nitrostat] 0.4 mg SL Q5MIN PRN 03/07/16 [Last Taken Unknown] Omeprazole 10 mg PO DAILY 03/07/16 [Last Taken Unknown] metFORMIN HCL [Metformin HCl ER] 1,000 mg PO BID 03/07/16 [Last Taken Unknown] sitaGLIPtin PHOSPHATE [Januvia] 50 mg PO DAILY 04/05/16 [Last Taken Unknown] Ibuprofen [Motrin] 600 mg PO TID PRN #21 tablet 04/14/16 [Last Taken Unknown] Albuterol Sulfate [Proair Hfa] 2 puff IH QID PRN #1 inhaler 04/25/16 [Last Taken Unknown] Doxycycline Monohydrate 100 mg PO BID #20 tablet 04/25/16 [Last Taken Unknown] Promethazine HCl 12.5 mg PO Q8H PRN #2 tablet 04/28/16 [Last Taken Unknown] Doxycycline Monohydrate 100 mg PO BID #20 tablet 05/26/16 [Last Taken Unknown] Metoclopramide HCl [Metoclopramide HCl Odt] 5 mg PO PRN PRN 05/26/16 [Last Taken Unknown] Topiramate [Topamax] 25 mg PO HS 05/26/16 [Last Taken Unknown] predniSONE [Deltasone] 20 mg PO BID #10 tablet 05/26/16 [Last Taken Unknown] traMADol HCL [Ultram] 50 mg PO QID PRN #20 tablet 05/26/16 [Last Taken Unknown] Acetaminophen [Tylenol] 500 mg PO BID PRN #30 tablet 06/13/16 [Last Taken Unknown] Azithromycin [Zithromax] 250 mg PO DAILY #4 tablet 07/21/16 [Last Taken Unknown] Loratadine [Claritin] 10 mg PO DAILY #30 tab 07/21/16 [Last Taken Unknown] - Pain Score Pain Score #1 Pain Score: 4 - History of Present Ilness Narrative: Patient is a 80 year old male who presents to the ED with his with complaints of frontal headache, chest heaviness and cold like symptoms. Patient states headache began about 1730 this afternoon while sitting in his chair. States chest heaviness was sudden onset and pain is constant without radiation or movement. Patient was recently seen here in the ED Friday for similar symptoms. Also states has had chronic URI symptoms since early this winter especially sneezing, coughing and nasal drainage. Has been coughing up clear phlegm which he states has been his normal. Patient denies fever, chills , NVD. No change with his appetite. Denies SOB at rest or with exertion. States nothing improves or worsens his pain. Mild swelling in his BLE which he states is normal for him Date (Duration): 07/21/16 Time (Timing): 17:30 Timing: constant Severity: mild Frequency/Possible Cause: Reports: frequent episodes, chronic episodes, allergen exposure - states he was outside mowing lawn yesterday, illness exposure - states grandchildren are "constantly sick" Modifying Factors - Improves: Reports: nothing Modifying Factors - Worsens: Reports: nothing Associated Symptoms: Reports: chest pain/soreness, cough, nasal drainage, headache. Denies: shortness of breath, wheezing, facial pain, nasal congestion , dizziness, lightheadedness, earache, sore throat, muscle aches, fever/chills Prior Treatment: Reports: recently seen - Wednesday 07/19, negative for cardiac Review of Systems - Review of Systems Constitutional: Absent: fever, chills, diaphoresis, weakness, fatigue, malaise, weight loss, decreased activity level EYE: Absent: eye pain, eye discharge, blurred vision, double vision ENT: Present: nasal drainage. Absent: ear pain, ear discharge, pulling on ears , nose pain, nose congestion, sore throat, throat swelling Respiratory: Present: cough - clear productive sputum. Absent: shortness of breath, orthopnea, wheezing, stridor Cardiology: Present: chest pain - constant heavy pressure, edema - chronic BLE edema. Absent: palpitations, syncope, claudication Gastrointestinal/Abdominal: Absent: nausea, vomiting, diarrhea, constipation, abdominal pain, eating less, drinking less Genitourinary: Present: no symptoms reported Musculoskeletal: Present: muscle pain - chronic. Absent: muscle stiffness, neck pain, joint swelling Skin: Absent: rash, dryness, lesions Neurological: Present: headache - frontal. Absent: dizziness/light-headedness, weakness, numbness, tingling, tremors Endocrine: Present: no symptoms reported Hematologic/Lymphatic: Present: no symptoms reported Psych: Present: no symptoms reported - Patient's Past Medical History Patient History - Medical: Anemia, Chronic Pain, Diabetes Type 2, GERD, Migraines, Osteoarthritis, Renal Disease Patient History - Cardiac/Respiratory: COPD, Hypertension, Hyperlipidemia, CPAP/ BiPAP Home Use Patient History - Cancer: Lung Patient History - Surgical Procedures: Appendectomy, Colonoscopy, Coronary Bypass Surgery, Total Knee Replacement, T & A, Vasectomy, Other Patient History - Other: None - Family History Mother Family History - Medical: , No pertinent hx Family History - Cardiac/Respiratory: History Unknown Family History - Cancer: No pertinent family hx Father Family History - Medical: , Depression Family History - Cardiac/Respiratory: History Unknown Family History - Cancer: History Unknown - Social History Living Situations: home Abuse History: No History of abuse Psych History: No pertinent hx Does anyone smoke in the home?: No Alcohol Use: none Drug Use: none - Immunizations Immunizations Up to Date: Yes Hx Pneumococcal Vaccination: Yes History of Influenza Vaccine: Yes Physical Exam - Physical Exam General Appearance: Present: wd/wn, alert, no apparent distress, cheerful Eye Exam: Normal inspection: bilateral, PERRL: bilateral Ears, Nose, Throat: Present: normal ENT inspection, normal pharynx. Absent: abnormal TM (R), abnormal TM (L), pharyngeal erythema, pharyngeal swelling, tonsillar exudate, dry mucous membranes Neck: Present: normal inspection, nontender, supple, full range of motion Respiratory: Present: no respiratory distress, normal breath sounds, no accessory muscle use, chest nontender, lungs clear Cardiovascular/Chest: Present: regular rate, rhythm, no murmur, normal peripheral pulses Peripheral Pulses: N=norm/S=strong/W=weak/B=bound/A=absent: Radial (R): Normal, Radial (L): Normal Gastrointestinal/Abdominal: Present: normal bowel sounds, nontender, nondistended, soft, no organomegaly Rectal Exam: Present: deferred Male Genitals Exam: Present: deferred Back Exam: Present: normal inspection, normal range of motion, no CVA tenderness , no vertebral tenderness Extremity Exam: Present: normal inspection, non-tender, normal range of motion, extremity edema - chronic BLE edema Neurological Exam: Present: alert, oriented, normal mood/affect, no motor/ sensory deficits Skin Exam: Present: normal color, warm/dry Lymphatic Exam: Present: no adenopathy Pelvic Exam: Present: deferred ED Progress - Vital Signs Patient's Vital Signs:: I have reviewed the patient's vital signs. Vital Signs: Vital Signs 07/21/16 17:57 Temperature 36.8 C Pulse Rate 64 Respiratory 16 Rate Blood Pressure 161/66 O2 Sat by Pulse 97 Oximetry - EKG EKG: NSR EKG read: Reviewed by me - X-Ray X-Ray #1 X-Ray: chest - No acute findings Interpretation: Reviewed by me X-ray Comments: Reviewed by myself and Dr Haley and compared to Friday's film--no acute findings, no significant changes - Progress/Reassessment Chief Complaint: Cough Progress:: Unchanged Progress Note-Subjective: 07/21/16 19:10 Discussed findings with patient and . Questions answered Departure - Departure Clinical Impression: Chronic bronchitis with productive mucopurulent cough, Chest wall discomfort Disposition: Home Follow Up Needed Condition: Good Instructions: Chest Wall Pain, [id number], Acute Bronchitis, [id number] Additional Instructions: Take antibiotics as prescribed. Call your provider's office tomorrow and schedule appointment for follow up later this week. Return if symptoms worsen or SOB, difficulty breathing occurs Referrals: Jose Rodriguez DO [Primary Care Provider] - Prescriptions: Azithromycin [Zithromax] 250 mg PO DAILY #4 tablet Loratadine [Claritin] 10 mg PO DAILY #30 tab
[2016-07-21 18:40] LABS: Hematocrit 33.2 % (42.0-52.0); Hemoglobin 11.1 gm/dL (13.5-18.0); Mean Cell Volume 90.7 fl (78-100); Mean Corpuscular Hemoglobin 30.3 pg (27-31); Mean Corpuscular Hgb Conc 33.4 g/dl (32-36); Mean Platelet Volume 10.1 fl (6.0-9.5); Neutrophil # 3.4 K/mm3 (1.3-6.0); Neutrophil % 62.6 % (42-75.0); Platelet Count 147 K/mm3 (150-450); Red Blood Count 3.66 M/mm3 (4.7-6.0); Red Cell Distribution Width 13.8 % (11.5-14.0); White Blood Count 5.4 K/mm3 (4.0-10.5)
[2016-07-21 18:56] LABS: Blood Urea Nitrogen 24 mg/dL (6-23); Calcium * 8.7 mg/dL (7.9-10.9); Carbon Dioxide 27.3 mmol/L (24-32.6); Chloride 107 mmol/L (97-106); Estimated Creat Clear 33.9; Glucose * 109 mg/dL (70-110); Potassium 4.3 mmol/L (3.4-4.6); Sodium 143 mmol/L (132-142)
[2016-07-21 18:57] LABS: Troponin I Less than 0.017 ng/ml (0.00-0.10)
[2016-07-21 19:06] VITALS: BP 162/68
[2016-07-21] MEDS ORDERED: AZITHROMYCIN 250 MG TABLET PO ONE (19:08)
[2016-07-21] MEDS ORDERED: AZITHROMYCIN 250 MG TABLET ONE (19:10)
== END 2016-07-21 19:24 | disposition home or self-care (01) ==
LOC: ER 17:50
DX: J41.1 Mucopurulent chronic bronchitis (principal); R07.89 Other chest pain; Z85.118 Personal history of other malignant neoplasm of bronchus and lung

== ENCOUNTER 2016-09-30 20:52 | Emergency (ER) | payer MEDICARE, OTHER ==
[2016-09-30] MEDS ORDERED: KETOROLAC TROMETHAMINE 60 MG/2 ML VIAL IM ONE ×3 (21:25→21:31)
[2016-09-30] MEDS ORDERED: PROMETHAZINE HCL 50 MG/ML AMPUL IM ONE ×3 (21:25→21:31)
--- NOTE | 2016-09-30 21:35 | ERNOTE ---
Headache ER HPI - Narrative Date of Service: 09/30/16 - General Presenting Symptoms: headache Time Seen by Provider: 09/30/16 21:17 Source: patient, family Exam Limitations: no limitations - Immun/Allergies/Home Medications Immunizations: IMMUNIZATION HX Immunizations Up to Date Yes History of Influenza Vaccine Yes Hx Pneumococcal Vaccination Yes Allergies/Adverse Reactions: Allergies venom-honey bee [bee venom (honey bee)] Allergy (Severe, Verified 06/13/16 21:27 ) Anaphylaxis morphine Allergy (Intermediate, Verified 06/13/16 21:27) Nausea Home Medications: HOME MEDICATIONS Aspirin 81 mg PO DAILY 03/07/16 [Last Taken Unknown] Atorvastatin Calcium 20 mg PO DAILY 03/07/16 [Last Taken Unknown] Cyclobenzaprine HCl 10 mg PO HS 03/07/16 [Last Taken Unknown] Donepezil HCl [Aricept] 5 mg PO HS 03/07/16 [Last Taken Unknown] Furosemide [Lasix] 20 mg PO DAILY 03/07/16 [Last Taken Unknown] Glimepiride 4 mg PO BID 03/07/16 [Last Taken Unknown] Insulin Glargine,Hum.rec.anlog [Lantus] 33 units SC HS 03/07/16 [Last Taken Unknown] Meloxicam [Mobic] 15 mg PO DAILY 03/07/16 [Last Taken Unknown] Metoprolol Tartrate 100 mg PO BID 03/07/16 [Last Taken Unknown] Multivitamin [One Daily Essential] 1 each PO DAILY 03/07/16 [Last Taken Unknown] Nitroglycerin [Nitrostat] 0.4 mg SL Q5MIN PRN 03/07/16 [Last Taken Unknown] Omeprazole 40 mg PO DAILY 03/07/16 [Last Taken Unknown] metFORMIN HCL [Metformin HCl ER] 1,000 mg PO BID 03/07/16 [Last Taken Unknown] sitaGLIPtin PHOSPHATE [Januvia] 50 mg PO DAILY 04/05/16 [Last Taken Unknown] Ibuprofen [Motrin] 600 mg PO TID PRN #21 tablet 04/14/16 [Last Taken Unknown] Albuterol Sulfate [Proair Hfa] 2 puff IH QID PRN #1 inhaler 04/25/16 [Last Taken Unknown] Topiramate [Topamax] 25 mg PO HS 05/26/16 [Last Taken Unknown] Acetaminophen [Tylenol] 500 mg PO BID PRN #30 tablet 06/13/16 [Last Taken Unknown] Loratadine [Claritin] 10 mg PO DAILY #30 tab 07/21/16 [Last Taken Unknown] Acarbose 50 mg PO TID 09/30/16 [Last Taken Unknown] Amlodipine Besylate 5 mg PO BID 09/30/16 [Last Taken Unknown] Cyanocobalamin (Vitamin B-12) [Vitamin B12] 1,000 mcg PO DAILY 09/30/16 [Last Taken Unknown] - Pain Pain Score: 10 - History of Present Illness Narrative: 81 year old male brought to the ED by his for a headache that began about an hour ago. He has been diagnosed with migraines and sees neurology. He took a medication prescribed by neurology along with Benadryl 30 minutes ago without improvement. Context Headache: Present: new onset Quality: Present: throbbing Severity Maximum: Present: severe Severity-Currently: Present: severe Headache frequency: Present: frequent headaches Modifying Factors - (Improves): Denies: rest, medication Modifying Factors - (Worsens): Reports: exposure to light Associated Symptoms: Denies: fever/chills, nausea, vomiting, sweating, nasal congestion, nasal drainage, facial pain, fatigue, weakness, numbness/tingling, vision changes, confusion, light-headedness, dizziness, loss of consciousness, seizures, neck pain/stiffness, speech problems Review of Systems - Review of Systems Constitutional: Present: See HPI EYE: Present: see HPI ENT: Present: See HPI Respiratory: Absent: shortness of breath, cough Cardiology: Present: no symptoms reported Gastrointestinal/Abdominal: Present: See HPI Genitourinary: Present: no symptoms reported Musculoskeletal: Present: See HPI Skin: Present: See HPI Neurological: Present: See HPI Endocrine: Present: no symptoms reported Hematologic/Lymphatic: Present: no symptoms reported Psych: Present: anxiety - Patient's Past Medical History Patient History - Medical: Anemia, Chronic Pain, Diabetes Type 2, GERD, Migraines, Osteoarthritis, Renal Disease Patient History - Cardiac/Respiratory: COPD, Hypertension, Hyperlipidemia, CPAP/ BiPAP Home Use Patient History - Cancer: Lung Patient History - Surgical Procedures: Appendectomy, Colonoscopy, Coronary Bypass Surgery, Total Knee Replacement, T & A, Vasectomy, Other Patient History - Other: None - Family History Mother Family History - Medical: , No pertinent hx Family History - Cardiac/Respiratory: History Unknown Family History - Cancer: No pertinent family hx Father Family History - Medical: , Depression Family History - Cardiac/Respiratory: History Unknown Family History - Cancer: History Unknown - Social History Living Situations: alone Abuse History: No History of abuse Psych History: No pertinent hx Does anyone smoke in the home?: No Smoking Status: Former smoker Alcohol Use: none Drug Use: none - Immunizations Immunizations Up to Date: Yes Hx Pneumococcal Vaccination: Yes History of Influenza Vaccine: Yes Physical Exam - Physical Exam General Appearance: Present: wd/wn, alert, mild distress, other - appears uncomfortable in exam room, but walked in without any difficulty Eye Exam: Normal inspection: bilateral, PERRL: bilateral, EOMI: bilateral Ears, Nose, Throat: Present: normal ENT inspection Neck: Present: normal inspection, nontender, supple Respiratory: Present: no respiratory distress, normal breath sounds, no accessory muscle use, lungs clear Cardiovascular/Chest: Present: regular rate, rhythm, no murmur Extremity Exam: Present: normal inspection, normal range of motion, no edema Neurological Exam: Present: alert, oriented, no motor/sensory deficits, other - depressed appearing. Absent: normal mood/affect Skin Exam: Present: normal color, warm/dry ED Progress - Vital Signs Patient's Vital Signs:: I have reviewed the patient's vital signs. Vital Signs: Vital Signs 09/30/16 20:58 Temperature 37.2 C Pulse Rate 69 Respiratory 16 Rate Blood Pressure 168/69 O2 Sat by Pulse 95 Oximetry - Progress/Reassessment Chief Complaint: Headache Progress:: Improved Progress Note-Subjective: 09/30/16 21:47 Pain decreased from 10 to 5. States he feels that he can go home and rest. Departure Clinical Impression: Migraine headache Qualifiers: Migraine type: without aura Status migrainosus presence: without status migrainosus Intractability: not intractable Qualified Code(s): G43.009 - Migraine without aura, not intractable, without status migrainosus - Departure Disposition: Home Follow Up Needed Condition: Stable Instructions: Migraine Headache, [id number] Referrals: Jose Rodriguez DO [Primary Care Provider] -
[2016-09-30 21:45] VITALS: BP 159/60
== END 2016-09-30 21:50 | disposition home or self-care (01) ==
LOC: ER 20:52
DX: G43.009 Migraine without aura, not intractable, without status migrainosus (principal); D64.9 Anemia, unspecified; G89.29 Other chronic pain; E11.9 Type 2 diabetes mellitus without complications; K21.9 Gastro-esophageal reflux disease without esophagitis; M19.90 Unspecified osteoarthritis, unspecified site; N28.9 Disorder of kidney and ureter, unspecified; J44.9 Chronic obstructive pulmonary disease, unspecified; I10 Essential (primary) hypertension; E78.5 Hyperlipidemia, unspecified; Z85.118 Personal history of other malignant neoplasm of bronchus and lung

== ENCOUNTER 2016-10-10 16:48 | Emergency (ER) | payer MEDICARE, OTHER ==
[2016-10-10] MEDS ORDERED: KETOROLAC TROMETHAMINE 60 MG/2 ML VIAL IM ONE ×2 (17:20→17:25)
[2016-10-10 17:35] LABS: Hematocrit 32.2 % (42.0-52.0); Hemoglobin 11.2 gm/dL (13.5-18.0); Mean Cell Volume 88.5 fl (78-100); Mean Corpuscular Hemoglobin 30.8 pg (27-31); Mean Corpuscular Hgb Conc 34.8 g/dl (32-36); Mean Platelet Volume 10.1 fl (6.0-9.5); Neutrophil # 2.6 K/mm3 (1.3-6.0); Neutrophil % 58.4 % (42-75.0); Platelet Count 157 K/mm3 (150-450); Red Blood Count 3.64 M/mm3 (4.7-6.0); Red Cell Distribution Width 13.5 % (11.5-14.0); White Blood Count 4.5 K/mm3 (4.0-10.5)
[2016-10-10 17:45] LABS: Prothrombin Time (Patient) 10.5 Seconds (9.4-11.4)
[2016-10-10 17:46] LABS: INR 1.01 INR (0.90-1.10); Partial Thrombolplastin Time 26.5 Seconds (24-32)
[2016-10-10 17:52] LABS: Troponin I Less than 0.017 ng/ml (0.00-0.10)
[2016-10-10 18:39] LABS: BUN/Creatinine Ratio 12.7 (9.0-21.6); Blood Urea Nitrogen 23 mg/dL (6-23); Glucose * 235 mg/dL (70-110)
[2016-10-10 18:40] LABS: Anion Gap 11.3 mmol/L (6.8-13.8); Calcium * 8.2 mg/dL (7.9-10.9); Carbon Dioxide 25.2 mmol/L (24-32.6); Chloride 107 mmol/L (97-106); Potassium 4.5 mmol/L (3.4-4.6); Sodium 139 mmol/L (132-142)
[2016-10-10 18:41] LABS: ALT 27 U/L (19-67); AST 21 U/L (0-48); Albumin * 3.3 gm/dl (3.4-5.0); Alkaline Phosphatase * 87 U/L (50-170); BNP * 288 pg/mL (5-650); Bilirubin, Total 0.3 mg/dL (0.0-1.1); Ca. Corrected For Albumin 8.4 mg/dL (8.4-10.2); Total Protein 6.3 gm/dL (6.2-8.2)
[2016-10-10 18:51] VITALS: BP 149/53
--- NOTE | 2016-10-10 18:53 | ERNOTE ---
Chest Pain/Cardiac HPI Date of Service: 10/10/16 Chief Complaint: Chest Pain Source: patient Exam Limitations: no limitations Immunizations: IMMUNIZATION HX Immunizations Up to Date Yes History of Influenza Vaccine Yes Hx Pneumococcal Vaccination Yes Allergies/Adverse Reactions: Allergies venom-honey bee [bee venom (honey bee)] Allergy (Severe, Verified 10/10/16 16:56 ) Anaphylaxis morphine Allergy (Intermediate, Verified 10/10/16 16:56) Nausea Home Medications: HOME MEDICATIONS Aspirin 81 mg PO DAILY 03/07/16 [Last Taken Unknown] Atorvastatin Calcium 20 mg PO DAILY 03/07/16 [Last Taken Unknown] Cyclobenzaprine HCl 10 mg PO HS 03/07/16 [Last Taken Unknown] Donepezil HCl [Aricept] 5 mg PO HS 03/07/16 [Last Taken Unknown] Furosemide [Lasix] 20 mg PO DAILY 03/07/16 [Last Taken Unknown] Glimepiride 4 mg PO BID 03/07/16 [Last Taken Unknown] Insulin Glargine,Hum.rec.anlog [Lantus] 33 units SC HS 03/07/16 [Last Taken Unknown] Meloxicam [Mobic] 15 mg PO DAILY 03/07/16 [Last Taken Unknown] Metoprolol Tartrate 100 mg PO BID 03/07/16 [Last Taken Unknown] Multivitamin [One Daily Essential] 1 each PO DAILY 03/07/16 [Last Taken Unknown] Nitroglycerin [Nitrostat] 0.4 mg SL Q5MIN PRN 03/07/16 [Last Taken Unknown] Omeprazole 40 mg PO DAILY 03/07/16 [Last Taken Unknown] metFORMIN HCL [Metformin HCl ER] 1,000 mg PO BID 03/07/16 [Last Taken Unknown] sitaGLIPtin PHOSPHATE [Januvia] 50 mg PO DAILY 04/05/16 [Last Taken Unknown] Ibuprofen [Motrin] 600 mg PO TID PRN #21 tablet 04/14/16 [Last Taken Unknown] Albuterol Sulfate [Proair Hfa] 2 puff IH QID PRN #1 inhaler 04/25/16 [Last Taken Unknown] Topiramate [Topamax] 25 mg PO HS 05/26/16 [Last Taken Unknown] Acetaminophen [Tylenol] 500 mg PO BID PRN #30 tablet 06/13/16 [Last Taken Unknown] Loratadine [Claritin] 10 mg PO DAILY #30 tab 07/21/16 [Last Taken Unknown] Acarbose 50 mg PO TID 09/30/16 [Last Taken Unknown] Amlodipine Besylate 5 mg PO BID 09/30/16 [Last Taken Unknown] Cyanocobalamin (Vitamin B-12) [Vitamin B12] 1,000 mcg PO DAILY 09/30/16 [Last Taken Unknown] traMADol HCL [Ultram] 50 mg PO BID #20 tablet 10/10/16 [Last Taken Unknown] Timing: constant Severity/Quality: moderate, sharp Location: substernal - pain reproducible to palpation or cough Chest Pain Radiation: no radiation Activities at Onset: activity Modifying Factors - Improves: Present: nothing Modifying Factors - Worsens: Present: position, movement Nitro Today/Relief: no nitro taken today Aspirin Treatment Today: no aspirin today Associated Symptoms: Present: shortness of breath Prior Chest Pain/Cardiac Workup: Reports: prior chest pain Prior Treatment: Reports: recently seen Review of Systems - Review of Systems Constitutional: Present: no symptoms reported EYE: Present: no symptoms reported ENT: Present: no symptoms reported Respiratory: Present: no symptoms reported Cardiology: Present: no symptoms reported Gastrointestinal/Abdominal: Present: no symptoms reported Genitourinary: Present: no symptoms reported Musculoskeletal: Present: no symptoms reported Skin: Present: no symptoms reported Neurological: Present: no symptoms reported Endocrine: Present: no symptoms reported Hematologic/Lymphatic: Present: no symptoms reported Psych: Present: no symptoms reported All Other Systems: All systems neg except as marked - Patient's Past Medical History Patient History - Medical: Anemia, Chronic Pain, Diabetes Type 2, GERD, Migraines, Osteoarthritis, Renal Disease Patient History - Cardiac/Respiratory: COPD, Hypertension, Hyperlipidemia, CPAP/ BiPAP Home Use Patient History - Cancer: Lung Patient History - Surgical Procedures: Appendectomy, Colonoscopy, Coronary Bypass Surgery, Total Knee Replacement, T & A, Vasectomy, Other Patient History - Other: None - Family History Mother Family History - Medical: , No pertinent hx Family History - Cardiac/Respiratory: History Unknown Family History - Cancer: No pertinent family hx Father Family History - Medical: , Depression Family History - Cardiac/Respiratory: History Unknown Family History - Cancer: History Unknown - Social History Living Situations: alone Abuse History: No History of abuse Psych History: No pertinent hx Does anyone smoke in the home?: No Smoking Status: Former smoker Have you smoked in the past 12 months: No Do you dip or chew tobacco: No Patient requests Smoking Cessation Consult: No Initiate information on Smoking Cessation: No Alcohol Use: none Drug Use: none - Immunizations Immunizations Up to Date: Yes Hx Pneumococcal Vaccination: Yes History of Influenza Vaccine: Yes Physical Exam - Physical Exam General Appearance: Present: alert, mild distress Head Exam: Present: normal inspection, no evidence of injury Eye Exam: Normal inspection: bilateral, PERRL: bilateral, EOMI: bilateral Ears, Nose, Throat: Present: normal ENT inspection Neck: Present: normal inspection, nontender Respiratory: Present: no respiratory distress, normal breath sounds - pain reproducible with palpation, no accessory muscle use, chest tenderness Cardiovascular/Chest: Present: regular rate, rhythm, no murmur, normal peripheral pulses Peripheral Pulses: N=norm/S=strong/W=weak/B=bound/A=absent: Carotid (R): Normal , Carotid (L): Normal, Radial (R): Normal, Radial (L): Normal, Femoral (R): Normal, Femoral (L): Normal, Dorsalis-pedis (R): Normal, Dorsalis-pedis (L): Normal Gastrointestinal/Abdominal: Present: normal bowel sounds, nontender, nondistended Back Exam: Present: normal inspection, normal range of motion, no CVA tenderness , no vertebral tenderness Extremity Exam: Present: normal inspection, non-tender, normal range of motion, no edema Neurological Exam: Present: alert, oriented, normal mood/affect, no motor/ sensory deficits DTR: N=norm/NB=norm/brisk/A=abs/DD=dull/dimin/HC=hyperactive: Bicep (R): Normal , Bicep (L): Normal, Tricep (R): Normal, Tricep (L): Normal, Knee (R): Normal, Knee (L): Normal, Ankle (R): Normal, Ankle (L): Normal Skin Exam: Present: normal color, warm/dry Lymphatic Exam: Present: no adenopathy ED Progress - Results and Orders Patient's Lab Results:: I have reviewed the patient's lab results. - Vital Signs Patient's Vital Signs:: I have reviewed the patient's vital signs. Vital Signs: Vital Signs 10/10/16 16:52 Temperature 36.6 C Pulse Rate 72 Respiratory 17 Rate Blood Pressure 170/65 O2 Sat by Pulse 97 Oximetry - EKG EKG: NSR - X-Ray X-Ray #1 X-Ray: chest - no acute disease Interpretation: Interp. by me - Progress/Reassessment Chief Complaint: Chest Pain - Transfer of Care Expected Disposition: Discharge Departure - Departure Clinical Impression: Anterior chest wall pain Disposition: Home self-care Condition: Fair Instructions: Chest Wall Pain Referrals: Jose Rodriguez DO [Primary Care Provider] - Prescriptions: traMADol HCL [Ultram] 50 mg PO BID #20 tablet
== END 2016-10-10 18:53 | disposition home or self-care (01) ==
LOC: ER 16:48
DX: R07.89 Other chest pain (principal); D64.9 Anemia, unspecified; G89.29 Other chronic pain; E11.9 Type 2 diabetes mellitus without complications; K21.9 Gastro-esophageal reflux disease without esophagitis; J44.9 Chronic obstructive pulmonary disease, unspecified; I10 Essential (primary) hypertension; E78.5 Hyperlipidemia, unspecified; Z85.118 Personal history of other malignant neoplasm of bronchus and lung

== ENCOUNTER 2016-10-18 18:22 | Emergency (ER) | payer MEDICARE, OTHER ==
[2016-10-18] MEDS ORDERED: HYDROmorphone HCL 2 MG/ML VIAL IM ONE (19:15)
[2016-10-18] MEDS ORDERED: PROMETHAZINE HCL 25 MG/ML AMPUL IM ONE (19:17)
--- NOTE | 2016-10-18 19:18 | ERNOTE ---
Headache ER HPI - Narrative Date of Service: 10/18/16 - General Presenting Symptoms: headache Time Seen by Provider: 10/18/16 18:59 Source: patient Exam Limitations: no limitations - Immun/Allergies/Home Medications Immunizations: IMMUNIZATION HX Immunizations Up to Date Yes History of Influenza Vaccine Yes Hx Pneumococcal Vaccination Yes Allergies/Adverse Reactions: Allergies venom-honey bee [bee venom (honey bee)] Allergy (Severe, Verified 10/18/16 18:57 ) Anaphylaxis morphine Allergy (Intermediate, Verified 10/18/16 18:57) Nausea Home Medications: HOME MEDICATIONS Aspirin 81 mg PO DAILY 03/07/16 [Last Taken Unknown] Atorvastatin Calcium 20 mg PO DAILY 03/07/16 [Last Taken Unknown] Cyclobenzaprine HCl 10 mg PO HS 03/07/16 [Last Taken Unknown] Donepezil HCl [Aricept] 5 mg PO HS 03/07/16 [Last Taken Unknown] Furosemide [Lasix] 20 mg PO DAILY 03/07/16 [Last Taken Unknown] Glimepiride 4 mg PO BID 03/07/16 [Last Taken Unknown] Insulin Glargine,Hum.rec.anlog [Lantus] 33 units SC HS 03/07/16 [Last Taken Unknown] Meloxicam [Mobic] 15 mg PO DAILY 03/07/16 [Last Taken Unknown] Metoprolol Tartrate 100 mg PO BID 03/07/16 [Last Taken Unknown] Multivitamin [One Daily Essential] 1 each PO DAILY 03/07/16 [Last Taken Unknown] Nitroglycerin [Nitrostat] 0.4 mg SL Q5MIN PRN 03/07/16 [Last Taken Unknown] Omeprazole 40 mg PO BID 03/07/16 [Last Taken Unknown] metFORMIN HCL [Metformin HCl ER] 1,000 mg PO BID 03/07/16 [Last Taken Unknown] sitaGLIPtin PHOSPHATE [Januvia] 50 mg PO DAILY 04/05/16 [Last Taken Unknown] Ibuprofen [Motrin] 600 mg PO TID PRN #21 tablet 04/14/16 [Last Taken Unknown] Albuterol Sulfate [Proair Hfa] 2 puff IH QID PRN #1 inhaler 04/25/16 [Last Taken Unknown] Topiramate [Topamax] 25 mg PO HS 05/26/16 [Last Taken Unknown] Acetaminophen [Tylenol] 500 mg PO BID PRN #30 tablet 06/13/16 [Last Taken Unknown] Loratadine [Claritin] 10 mg PO DAILY #30 tab 07/21/16 [Last Taken Unknown] Acarbose 50 mg PO TID 09/30/16 [Last Taken Unknown] Amlodipine Besylate 5 mg PO BID 09/30/16 [Last Taken Unknown] Cyanocobalamin (Vitamin B-12) [Vitamin B12] 1,000 mcg PO DAILY 09/30/16 [Last Taken Unknown] - Pain Pain Score: 7 - History of Present Illness Narrative: 81-year-old white male with a history of chronic recurrent headaches since to the ED by private car with headache. Patient states that he had a onset of moderate to severe headache approximately one hour ago. He's had nausea but no vomiting. He rates it 7 out of 10. Across the top of his head and is throbbing. He Has photophobia. Denies any paresthesias numbness or tingling. Denies any muscle weakness. He has had not had any systemic signs of illness States this is not the worst headache of his life. Headache frequency: Present: chronic headaches, similar to previous headache Associated Symptoms: Reports: nausea. Denies: vomiting, sweating, nasal congestion, nasal drainage, facial pain, weakness, numbness/tingling, light- headedness, dizziness, loss of consciousness, seizures, neck pain/stiffness Exacerbated by:: Reports: light Review of Systems - Review of Systems Constitutional: Present: no symptoms reported EYE: Present: no symptoms reported. Absent: blurred vision, double vision ENT: Present: no symptoms reported Respiratory: Present: no symptoms reported Cardiology: Present: no symptoms reported Gastrointestinal/Abdominal: Present: no symptoms reported Genitourinary: Present: no symptoms reported Musculoskeletal: Present: no symptoms reported Neurological: Present: headache. Absent: dizziness/light-headedness, weakness, numbness, tingling, tremors Endocrine: Present: no symptoms reported Hematologic/Lymphatic: Present: no symptoms reported All Other Systems: All systems neg except as marked - Patient's Past Medical History Patient History - Medical: Anemia, Chronic Pain, Diabetes Type 2, GERD, Migraines, Osteoarthritis, Renal Disease Patient History - Cardiac/Respiratory: COPD, Hypertension, Hyperlipidemia, CPAP/ BiPAP Home Use Patient History - Cancer: Lung Patient History - Surgical Procedures: Appendectomy, Colonoscopy, Coronary Bypass Surgery, Total Knee Replacement, T & A, Vasectomy, Other Patient History - Other: None - Family History Mother Family History - Medical: , No pertinent hx Family History - Cardiac/Respiratory: History Unknown Family History - Cancer: No pertinent family hx Father Family History - Medical: , Depression Family History - Cardiac/Respiratory: History Unknown Family History - Cancer: History Unknown - Social History Living Situations: home Abuse History: No History of abuse Psych History: No pertinent hx Does anyone smoke in the home?: No Smoking Status: Former smoker Have you smoked in the past 12 months: No Alcohol Use: none Drug Use: none - Immunizations Immunizations Up to Date: Yes Hx Pneumococcal Vaccination: Yes History of Influenza Vaccine: Yes Physical Exam - Physical Exam General Appearance: Present: wd/wn, alert, no apparent distress Head Exam: Present: normal inspection, no evidence of injury Eye Exam: Normal inspection: bilateral, PERRL: bilateral, EOMI: bilateral Ears, Nose, Throat: Present: normal ENT inspection Neck: Present: normal inspection Respiratory: Present: no respiratory distress, normal breath sounds, no accessory muscle use, chest nontender, lungs clear Cardiovascular/Chest: Present: regular rate, rhythm, no murmur, normal peripheral pulses Gastrointestinal/Abdominal: Present: normal bowel sounds, nontender, soft. 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 Absent: facial droop, motor weakness, disoriented to person, disoriented to time, disoriented to place, disoriented to situation Skin Exam: Present: normal color, warm/dry ED Progress - Vital Signs Patient's Vital Signs:: I have reviewed the patient's vital signs. Vital Signs: Vital Signs 10/18/16 18:52 Temperature 37.0 C Pulse Rate 58 L Respiratory 18 Rate Blood Pressure 179/68 O2 Sat by Pulse 98 Oximetry - CT/Ultrasound CT/Ultrasound Narrative: CT brain no acute disease per radiologist. - Progress/Reassessment Chief Complaint: Headache Progress:: Improved Progress Note-Subjective: 10/18/16 19:51 Patient was given Dilaudid 1 mg IM, Phenergan 25 mg IM. He felt much better. Vital signs stable. He should start neurologically intact. Patient will be discharged home with outpatient follow-up with his primary care physician. If he develops neurologic signs or symptoms or worsening headache he should return. Should also return if he develops any systemic signs of illness such as fever chills neck pain or neck stiffness. Departure Clinical Impression: Headache Qualifiers: Headache type: unspecified Headache chronicity pattern: acute headache Intractability: not intractable Qualified Code(s): R51 - Headache - Departure Disposition: Home self-care Condition: Good Instructions: Migraine Headache, [id number] Referrals: Jose Rodriguez DO [Primary Care Provider] -
[2016-10-18] MEDS ORDERED: HYDROmorphone HCL 1 MG/ML DISP.SYRIN ONE (19:20)
[2016-10-18] MEDS ORDERED: PROMETHAZINE HCL 25 MG/ML AMPUL ONE (19:20)
[2016-10-18 20:51] VITALS: BP 168/79
== END 2016-10-18 20:22 | disposition home or self-care (01) ==
LOC: ER 18:22
DX: R51 Headache (principal); E11.9 Type 2 diabetes mellitus without complications; Z79.4 Long term (current) use of insulin; K21.9 Gastro-esophageal reflux disease without esophagitis; I10 Essential (primary) hypertension; G89.29 Other chronic pain; J44.9 Chronic obstructive pulmonary disease, unspecified; E78.5 Hyperlipidemia, unspecified; Z87.891 Personal history of nicotine dependence

== ENCOUNTER 2016-12-03 16:00 | Emergency (ER) | payer MEDICARE, OTHER ==
--- NOTE | 2016-12-03 17:12 | ERNOTE ---
Lower Extremity HPI - General Lower Extremities Pain: leg: right Time Seen by Provider: 12/03/16 16:52 Source: patient Exam Limitations: no limitations - Immun/Allergies/Home Medications Immunizations: IMMUNIZATION HX Immunizations Up to Date Yes History of Influenza Vaccine Yes Hx Pneumococcal Vaccination Yes Allergies/Adverse Reactions: Allergies Allergy/AdvReac Type Severity Reaction Status Date / Time venom-honey bee Allergy Severe Anaphylaxis Verified 12/03/16 16:28 [bee venom (honey bee)] morphine Allergy Intermediate Nausea Verified 12/03/16 16:28 Home Medications: HOME MEDICATIONS Aspirin 81 mg PO DAILY 03/07/16 [Last Taken Unknown] Atorvastatin Calcium 20 mg PO DAILY 03/07/16 [Last Taken Unknown] Cyclobenzaprine HCl 10 mg PO HS 03/07/16 [Last Taken Unknown] Donepezil HCl [Aricept] 5 mg PO HS 03/07/16 [Last Taken Unknown] Furosemide [Lasix] 20 mg PO DAILY 03/07/16 [Last Taken Unknown] Glimepiride 4 mg PO BID 03/07/16 [Last Taken Unknown] Insulin Glargine,Hum.rec.anlog [Lantus] 33 units SC HS 03/07/16 [Last Taken Unknown] Meloxicam [Mobic] 15 mg PO DAILY 03/07/16 [Last Taken Unknown] Metoprolol Tartrate 100 mg PO BID 03/07/16 [Last Taken Unknown] Multivitamin [One Daily Essential] 1 each PO DAILY 03/07/16 [Last Taken Unknown] Nitroglycerin [Nitrostat] 0.4 mg SL Q5MIN PRN 03/07/16 [Last Taken Unknown] Omeprazole 40 mg PO BID 03/07/16 [Last Taken Unknown] metFORMIN HCL [Metformin HCl ER] 1,000 mg PO BID 03/07/16 [Last Taken Unknown] sitaGLIPtin PHOSPHATE [Januvia] 50 mg PO DAILY 04/05/16 [Last Taken Unknown] Ibuprofen [Motrin] 600 mg PO TID PRN #21 tablet 04/14/16 [Last Taken Unknown] Albuterol Sulfate [Proair Hfa] 2 puff IH QID PRN #1 inhaler 04/25/16 [Last Taken Unknown] Topiramate [Topamax] 25 mg PO HS 05/26/16 [Last Taken Unknown] Acetaminophen [Tylenol] 500 mg PO BID PRN #30 tablet 06/13/16 [Last Taken Unknown] Loratadine [Claritin] 10 mg PO DAILY #30 tab 07/21/16 [Last Taken Unknown] Acarbose 50 mg PO TID 09/30/16 [Last Taken Unknown] Amlodipine Besylate 5 mg PO BID 09/30/16 [Last Taken Unknown] Cyanocobalamin (Vitamin B-12) [Vitamin B12] 1,000 mcg PO DAILY 09/30/16 [Last Taken Unknown] Cinnamon Bark [Cinnamon] 1,000 mg PO DAILY 12/03/16 [Last Taken Unknown] Finasteride [Proscar] 5 mg PO DAILY 12/03/16 [Last Taken Unknown] Sulfamethoxazole/Trimethoprim [Bactrim Ds] 1 tab PO BID #20 tab 12/03/16 [Last Taken Unknown] Tamsulosin HCl [Flomax] 0.4 mg PO DAILY@1800 12/03/16 [Last Taken Unknown] - History of Present Illness Narrative: Patient had a previous abrasion on his right rubio and through a variety of activity, the scab was either knocked off by his pants or according to his he might of picked it off. He now complains of some mild erythema around the area and as he is diabetic and has had staph infections in the past became concerned and brought him in. He rates the pain is no more than mild and mostly irritation. Location of Incident: home Loss of Consciousness: Reports: no loss of consciousness Associated Symptoms: Reports: none Other Injuries: Reports: none Review of Systems - Review of Systems Constitutional: Present: See HPI EYE: Present: no symptoms reported ENT: Present: no symptoms reported Respiratory: Present: no symptoms reported Cardiology: Present: no symptoms reported Gastrointestinal/Abdominal: Present: no symptoms reported Genitourinary: Present: no symptoms reported Musculoskeletal: Present: no symptoms reported Skin: Present: See HPI Neurological: Present: no symptoms reported Endocrine: Present: no symptoms reported Hematologic/Lymphatic: Present: no symptoms reported Psych: Present: no symptoms reported - Patient's Past Medical History Patient History - Medical: Anemia, Chronic Pain, Diabetes Type 2, GERD, Migraines, Osteoarthritis, Renal Disease Patient History - Cardiac/Respiratory: COPD, Hypertension, Hyperlipidemia, CPAP/ BiPAP Home Use Patient History - Cancer: Lung Patient History - Surgical Procedures: Appendectomy, Colonoscopy, Coronary Bypass Surgery, Total Knee Replacement, T & A, Vasectomy, Other Patient History - Other: None - Family History Mother Family History - Medical: , No pertinent hx Family History - Cardiac/Respiratory: History Unknown Family History - Cancer: No pertinent family hx Father Family History - Medical: , Depression Family History - Cardiac/Respiratory: History Unknown Family History - Cancer: History Unknown - Social History Living Situations: home Abuse History: No History of abuse Psych History: No pertinent hx Does anyone smoke in the home?: No Alcohol Use: none Drug Use: none - Immunizations Immunizations Up to Date: Yes Hx Pneumococcal Vaccination: Yes History of Influenza Vaccine: Yes Physical Exam - Physical Exam General Appearance: Present: wd/wn, alert, no apparent distress Eye Exam: Normal inspection: bilateral, PERRL: bilateral Ears, Nose, Throat: Present: normal ENT inspection, H, normal pharynx Neck: Present: normal inspection, nontender Respiratory: Present: no respiratory distress, normal breath sounds, no accessory muscle use, chest nontender, lungs clear Cardiovascular/Chest: Present: regular rate, rhythm, no murmur, normal peripheral pulses Gastrointestinal/Abdominal: Present: normal bowel sounds, nontender, nondistended, soft, no organomegaly Rectal Exam: Present: deferred Back Exam: Present: normal inspection, normal range of motion Extremity Exam: Present: normal inspection, non-tender, no edema, normal range of motion Neurological Exam: Present: alert, oriented, normal mood/affect Skin Exam: Present: other - mild erythema around the area where one of the scabs off on the previous abrasion Lymphatic Exam: Present: no adenopathy ED Progress - Vital Signs Patient's Vital Signs:: I have reviewed the patient's vital signs. Vital Signs: Vital Signs 12/03/16 16:25 Temperature 36.8 C Pulse Rate 75 Respiratory 14 Rate Blood Pressure 167/60 O2 Sat by Pulse 95 Oximetry - Progress/Reassessment Chief Complaint: Lower Extremity Pain/ Injury Plan - Plan Plan: Patient was told keep wound covered and to not pick at the scabs. We will put him on a brief course of Bactrim DS and he agrees to follow-up with his family physician as needed. Patient was also counseled on slow healing wounds in the lower extremities because the diabetes and the need to allow them to heal naturally. Patient appeared to understand. Departure Clinical Impression: Abrasion Type 2 diabetes mellitus Qualifiers: Diabetes mellitus complication status: without complication Diabetes mellitus intermediate manager insulin use: with nursing home use Qualified Code(s): E11.9 - Type 2 diabetes mellitus without complications; Z79.4 - joint terminal attack controller (current) use of insulin - Departure Disposition: Home self-care Condition: Good Instructions: Abrasion, [id number] Referrals: Jose Rodriguez DO [Primary Care Provider] - Prescriptions: Sulfamethoxazole/Trimethoprim [Bactrim Ds] 1 tab PO BID #20 tab
[2016-12-03 17:28] VITALS: BP 154/71
== END 2016-12-03 17:23 | disposition home or self-care (01) ==
LOC: ER 16:00
DX: S80.811A Abrasion, right lower leg, initial encounter (principal); L53.9 Erythematous condition, unspecified; E11.9 Type 2 diabetes mellitus without complications; Z79.4 Long term (current) use of insulin; I10 Essential (primary) hypertension; Y93.89 Activity, other specified

== ENCOUNTER 2016-12-05 20:43 | Emergency (ER) | payer MEDICARE, OTHER ==
--- NOTE | 2016-12-05 22:17 | ERNOTE ---
Dizziness ER Record Presenting Symptoms: dizziness Time Seen by Provider: 12/05/16 22:10 Source: patient, family Exam Limitations: no limitations Immunizations: IMMUNIZATION HX Immunizations Up to Date Yes History of Influenza Vaccine No Hx Pneumococcal Vaccination No Allergies/Adverse Reactions: Allergies Allergy/AdvReac Type Severity Reaction Status Date / Time venom-honey bee Allergy Severe Anaphylaxis Verified 12/06/16 08:04 [bee venom (honey bee)] morphine AdvReac Mild Nausea Verified 12/06/16 08:04 Home Medications: HOME MEDICATIONS Atorvastatin Calcium 40 mg PO DAILY 03/07/16 [Last Taken Unknown] Cyclobenzaprine HCl 10 mg PO HS PRN 03/07/16 [Last Taken Unknown] Furosemide [Lasix] 20 mg PO DAILY 03/07/16 [Last Taken Unknown] Glimepiride 4 mg PO BID 03/07/16 [Last Taken Unknown] Meloxicam [Mobic] 15 mg PO DAILY 03/07/16 [Last Taken Unknown] Metoprolol Tartrate 100 mg PO DAILY 03/07/16 [Last Taken Unknown] Nitroglycerin [Nitrostat] 0.4 mg SL [id number] PRN 03/07/16 [Last Taken Unknown] sitaGLIPtin PHOSPHATE [Januvia] 50 mg PO DAILY 04/05/16 [Last Taken Unknown] Amlodipine Besylate 5 mg PO BID 09/30/16 [Last Taken Unknown] Finasteride [Proscar] 5 mg PO DAILY 12/03/16 [Last Taken Unknown] Acarbose [Precose] 25 mg PO TID 12/05/16 [Last Taken Unknown] Albuterol Sulfate [Albuterol Sulfate 2.5 MG/3 ML] 2.5 mg IH Q4H PRN 12/05/16 [ Last Taken Unknown] Albuterol Sulfate [Proair Hfa] 2 puff IH QID PRN #1 inhaler 12/05/16 [Last Taken Unknown] Aspirin [Aspirin Enteric Coated] 81 mg PO DAILY 12/05/16 [Last Taken Unknown] Folic Acid 0.8 mg PO DAILY 12/05/16 [Last Taken Unknown] Multivitamins [Multivitamin Juju] 1 cap PO DAILY 12/05/16 [Last Taken Unknown] Omeprazole 40 mg PO BID 12/05/16 [Last Taken Unknown] metFORMIN HCL [Glucophage] 1,000 mg PO BIDWM 12/05/16 [Last Taken Unknown] - History of Present Illness Narrative: Pt had an albuterol nebulized treatment and got up to wash out his equipment and began to be dizzy. He continues to be dizzy despite rest. Timing and Duration: sudden onset, still present Noted on awakening:: No Severity: max: moderate Severity: currently: moderate Associated Symptoms: Present: headache. Absent: nausea, vomiting Decreased ability to stand/walk:: Present: off balance Review of Systems - Review of Systems Constitutional: Present: recent illness. Absent: fever EYE: Absent: eye discharge ENT: Absent: ear pain Respiratory: Present: shortness of breath - chronic Cardiology: Present: edema. Absent: syncope Gastrointestinal/Abdominal: Present: nausea Genitourinary: Present: no symptoms reported Skin: Absent: rash Neurological: Present: See HPI Hematologic/Lymphatic: Present: easy bruising - Patient's Past Medical History Patient History - Medical: Anemia, Chronic Pain, Diabetes Type 2, GERD, Migraines, Osteoarthritis, Renal Disease Patient History - Cardiac/Respiratory: COPD, Hypertension, Hyperlipidemia, CPAP/ BiPAP Home Use Patient History - Cancer: Lung Patient History - Surgical Procedures: Appendectomy, Colonoscopy, Coronary Bypass Surgery, Total Knee Replacement, T & A, Vasectomy, Other Patient History - Other: None - Family History Mother Family History - Medical: , No pertinent hx Family History - Cardiac/Respiratory: History Unknown Family History - Cancer: No pertinent family hx Father Family History - Medical: , Depression Family History - Cardiac/Respiratory: History Unknown Family History - Cancer: History Unknown - Social History Living Situations: home Abuse History: No History of abuse Psych History: No pertinent hx Does anyone smoke in the home?: No Alcohol Use: none Drug Use: none - Immunizations Immunizations Up to Date: Yes Hx Pneumococcal Vaccination: No History of Influenza Vaccine: No Physical Exam - Physical Exam General Appearance: Present: wd/wn, alert, no apparent distress Head Exam: Present: normal inspection, no evidence of injury Eye Exam: Normal inspection: bilateral, PERRL: bilateral, EOMI: bilateral - no nystagmus, Photophobia: bilateral Ears, Nose, Throat: Present: normal ENT inspection Neck: Present: normal inspection, nontender Respiratory: Present: no respiratory distress, no accessory muscle use Neurological Exam: Present: alert, oriented, 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 Absent: facial droop, motor weakness Skin Exam: Present: normal color, warm/dry ED Progress - Results and Orders Patient's Lab Results:: I have reviewed the patient's lab results. Results and Orders: Laboratory Tests 12/05/16 12/05/16 12/05/16 22:34 22:34 22:34 WBC 5.8 Hgb 11.2 L Hct 32.5 L Plt Count 159 ESR 20 H Sodium 139 Potassium 4.6 Chloride 104 Carbon Dioxide 24.2 BUN 23 Creatinine 1.85 H Random Glucose 239 H Calcium 8.7 Total Bilirubin 0.2 AST 20 ALT 27 Alkaline Phosphatase 98 C-Reactive Prot, Quant Less than 0.2 Total Protein 6.6 Albumin 3.5 - Vital Signs Patient's Vital Signs:: I have reviewed the patient's vital signs. Vital Signs: Vital Signs 12/05/16 12/05/16 21:11 21:58 Temperature 36.9 C Pulse Rate 72 72 Respiratory 20 Rate Blood Pressure 144/66 O2 Sat by Pulse 94 Oximetry - Progress/Reassessment Chief Complaint: Dizziness Departure Clinical Impression: Dizziness - Departure Disposition: Home self-care Condition: Good Instructions: Vertigo, [id number] Additional Instructions: follow up with your regular doctor as needed.
[2016-12-05 22:34] LABS: Hematocrit 32.5 % (42.0-52.0); Hemoglobin 11.2 gm/dL (13.5-18.0); Mean Cell Volume 88.6 fl (78-100); Mean Corpuscular Hemoglobin 30.5 pg (27-31); Mean Corpuscular Hgb Conc 34.5 g/dl (32-36); Mean Platelet Volume 10.3 fl (6.0-9.5); Neutrophil # 3.7 K/mm3 (1.3-6.0); Neutrophil % 63.5 % (42-75.0); Platelet Count 159 K/mm3 (150-450); Red Blood Count 3.67 M/mm3 (4.7-6.0); Red Cell Distribution Width 13.8 % (11.5-14.0); White Blood Count 5.8 K/mm3 (4.0-10.5)
[2016-12-05 22:47] LABS: ALT 27 U/L (19-67); AST 20 U/L (0-48); Albumin * 3.5 gm/dl (3.4-5.0); Alkaline Phosphatase * 98 U/L (50-170); Anion Gap 15.4 mmol/L (6.8-13.8); BUN/Creatinine Ratio 12.4 (9.0-21.6); Bilirubin, Total 0.2 mg/dL (0.0-1.1); Blood Urea Nitrogen 23 mg/dL (6-23); Ca. Corrected For Albumin 8.8 mg/dL (8.4-10.2); Calcium * 8.7 mg/dL (7.9-10.9); Carbon Dioxide 24.2 mmol/L (24-32.6); Chloride 104 mmol/L (97-106); Glucose * 239 mg/dL (70-110); Potassium 4.6 mmol/L (3.4-4.6); Sodium 139 mmol/L (132-142); Total Protein 6.6 gm/dL (6.2-8.2)
[2016-12-05] MEDS ORDERED: MECLIZINE HCL 25 MG TABLET PO ONE (23:33)
[2016-12-06 00:34] VITALS: BP 149/59
== END 2016-12-06 00:21 | disposition home or self-care (01) ==
LOC: ER 20:43
DX: R42 Dizziness and giddiness (principal); R05 Cough; J98.4 Other disorders of lung

== ENCOUNTER 2016-12-06 07:40 | Day surgery (SDC) | payer MEDICARE, OTHER ==
[~2016-12-06 07:40] MED LIST: CIPROFLOXACIN HCL 500 MG TABLET PO PRN
[2016-12-06] MEDS: CIPROFLOXACIN HCL 500 MG TABLET PO ONE (08:08)
[2016-12-06] MEDS: LIDOCAINE HCL 10 APPL CARTRIDGE TP ONE (08:40)
[2016-12-06 09:28] VITALS: BP 147/75
== END 2016-12-06 07:41 | disposition home or self-care (01) ==
LOC: AMB 07:40
PROVIDERS: ATTEND Urology
PROC: 0TJB8ZZ Inspection of Bladder, Via Natural or Artificial Opening Endoscopic (ICD-10-PCS; principal; 2016-12-06 08:35)
DX: N40.1 Benign prostatic hyperplasia with lower urinary tract symptoms (principal); N13.8 Other obstructive and reflux uropathy; R33.8 Other retention of urine; N39.0 Urinary tract infection, site not specified; Q54.9 Hypospadias, unspecified; E11.9 Type 2 diabetes mellitus without complications; I10 Essential (primary) hypertension; K21.9 Gastro-esophageal reflux disease without esophagitis; J44.9 Chronic obstructive pulmonary disease, unspecified; Z68.31 Body mass index [BMI] 31.0-31.9, adult; Z87.891 Personal history of nicotine dependence

== ENCOUNTER 2016-12-12 18:15 | Emergency (ER) | payer MEDICARE, OTHER ==
[2016-12-12 18:44] LABS: Hematocrit 31.7 % (42.0-52.0); Hemoglobin 11.3 gm/dL (13.5-18.0); Mean Cell Volume 88.3 fl (78-100); Mean Corpuscular Hemoglobin 31.5 pg (27-31); Mean Corpuscular Hgb Conc 35.6 g/dl (32-36); Mean Platelet Volume 10.1 fl (6.0-9.5); Neutrophil # 3.2 K/mm3 (1.3-6.0); Platelet Count 168 K/mm3 (150-450); Red Blood Count 3.59 M/mm3 (4.7-6.0); Red Cell Distribution Width 13.2 % (11.5-14.0); White Blood Count 5.3 K/mm3 (4.0-10.5)
[2016-12-12 19:02] LABS: Albumin * 3.4 gm/dl (3.4-5.0); Alkaline Phosphatase * 111 U/L (50-170); Anion Gap 14.4 mmol/L (6.8-13.8); BUN/Creatinine Ratio 13.2 (9.0-21.6); Bilirubin, Total 0.3 mg/dL (0.0-1.1); Blood Urea Nitrogen 20 mg/dL (6-23); Ca. Corrected For Albumin 8.4 mg/dL (8.4-10.2); Calcium * 8.2 mg/dL (7.9-10.9); Carbon Dioxide 24.5 mmol/L (24-32.6); Chloride 102 mmol/L (97-106); Glucose * 256 mg/dL (70-110); Potassium 4.9 mmol/L (3.4-4.6); Sodium 136 mmol/L (132-142)
--- NOTE | 2016-12-12 19:38 | ERNOTE ---
<Shani Branch - Last Filed: 12/12/16 19:49> Neuro HPI ER Record Time Seen by Provider: 12/12/16 18:26 Source: family Immunizations: IMMUNIZATION HX Immunizations Up to Date Yes History of Influenza Vaccine Yes Hx Pneumococcal Vaccination Yes Allergies/Adverse Reactions: Allergies Allergy/AdvReac Type Severity Reaction Status Date / Time venom-honey bee Allergy Severe Anaphylaxis Verified 12/15/16 10:58 [bee venom (honey bee)] morphine AdvReac Mild Nausea Verified 12/15/16 10:58 Home Medications: HOME MEDICATIONS Atorvastatin Calcium 40 mg PO DAILY 03/07/16 [Last Taken Unknown] Cyclobenzaprine HCl 10 mg PO HS PRN 03/07/16 [Last Taken Unknown] Furosemide [Lasix] 20 mg PO DAILY 03/07/16 [Last Taken Unknown] Glimepiride 4 mg PO BID 03/07/16 [Last Taken Unknown] Meloxicam [Mobic] 15 mg PO DAILY 03/07/16 [Last Taken Unknown] Metoprolol Tartrate 100 mg PO DAILY 03/07/16 [Last Taken Unknown] Nitroglycerin [Nitrostat] 0.4 mg SL [id number] PRN 03/07/16 [Last Taken Unknown] sitaGLIPtin PHOSPHATE [Januvia] 50 mg PO DAILY 04/05/16 [Last Taken Unknown] Amlodipine Besylate 5 mg PO BID 09/30/16 [Last Taken Unknown] Finasteride [Proscar] 5 mg PO DAILY 12/03/16 [Last Taken Unknown] Acarbose [Precose] 25 mg PO TID 12/05/16 [Last Taken Unknown] Albuterol Sulfate [Albuterol Sulfate 2.5 MG/3 ML] 2.5 mg IH Q4H PRN 12/05/16 [ Last Taken Unknown] Albuterol Sulfate [Proair Hfa] 2 puff IH QID PRN #1 inhaler 12/05/16 [Last Taken Unknown] Aspirin [Aspirin Enteric Coated] 81 mg PO DAILY 12/05/16 [Last Taken Unknown] Folic Acid 0.8 mg PO DAILY 12/05/16 [Last Taken Unknown] Multivitamins [Multivitamin Juju] 1 cap PO DAILY 12/05/16 [Last Taken Unknown] Omeprazole 40 mg PO BID 12/05/16 [Last Taken Unknown] metFORMIN HCL [Glucophage] 1,000 mg PO BIDWM 12/05/16 [Last Taken Unknown] Albuterol Sulfate/Ipratropium [Duoneb 2.5-0.5MG/3ML Soln] 3 ml IH QID 5 Days # 150 vial 12/15/16 [Last Taken Unknown] Azithromycin [Zithromax] 500 mg PO NOW #6 tab 12/15/16 [Last Taken Unknown] Fluticasone/Salmeterol [Advair 100-50 Diskus] 1 puff IH BID #1 inhaler 12/15/16 [Last Taken Unknown] predniSONE [Prednisone] See Taper PO DAILY #18 tablet 12/15/16 [Last Taken Unknown] - History of Present Illness Narrative: This is a 81 year old male who was "out and about" all day and did not eat or drink well all day. Upon arrival home at 5:55 spouse heard a thud and noted that patient had fallen face forward. Pt's son arrived and helped pt up at that time and pt was able to ambulate up the stairs with his son's assistance. no slurring of speech is reported by patient's son or . Subsequently pt is brought in for altered mental status and fall Review of Systems - Narrative Narrative: unable to get history as patient will not speak, however when I raise the back of the examination bed to have the patient sit up he clearly and without slurring states "I don't want to sit up" - Review of Systems Musculoskeletal: Present: other - patient does not speak readily however when I try to lift the back of the exam table he states that he has pain in his back. - Patient's Past Medical History Patient History - Medical: Anemia, Chronic Pain, Diabetes Type 2, GERD, Migraines, Osteoarthritis, Renal Disease Patient History - Cardiac/Respiratory: COPD, Hypertension, Hyperlipidemia, CPAP/ BiPAP Home Use Patient History - Cancer: Lung Patient History - Surgical Procedures: Appendectomy, Colonoscopy, Coronary Bypass Surgery, Total Knee Replacement, T & A, Vasectomy, Other Patient History - Other: None - Family History Mother Family History - Medical: , No pertinent hx Family History - Cardiac/Respiratory: History Unknown Family History - Cancer: No pertinent family hx Father Family History - Medical: , Depression Family History - Cardiac/Respiratory: History Unknown Family History - Cancer: History Unknown - Social History Living Situations: home Abuse History: No History of abuse Psych History: No pertinent hx Does anyone smoke in the home?: No Smoking Status: Former smoker Alcohol Use: none Drug Use: none - Immunizations Immunizations Up to Date: Yes Hx Pneumococcal Vaccination: Yes History of Influenza Vaccine: Yes Physical Exam - Physical Exam General Appearance: Present: wd/wn, alert, no apparent distress, other - patient 's eyes are open he communicates with his spouse and his son he does not slur his speech however with this examiner ask some questions he stares. On repeated examinations when I go back in the room patient is crying and states that he is scared. Head Exam: Present: normal inspection, no evidence of injury Ears, Nose, Throat: Present: normal ENT inspection, normal pharynx Neck: Present: normal inspection, nontender, supple, full range of motion Respiratory: Present: no respiratory distress, normal breath sounds, no accessory muscle use, chest nontender, lungs clear Cardiovascular/Chest: Present: regular rate, rhythm, no murmur, normal peripheral pulses Gastrointestinal/Abdominal: Present: normal bowel sounds - Yadira Pop is obese yet benign Back Exam: Present: other - examination of the back and torso does not reveal any tenderness of the spinous process however when I manipulate the patient to sit up he complains of pain in his back. On further questioning it appears that this patient was found face first on the ground and await not on his back. Multiple cat scratches are noted on the patient's belly and back. Due to the back pain on examination this L examiner elected to check x-rays of the lumbar spine and the thoracic spine Neurological Exam: Present: other - patient is awake and he seems to be selective festive home he speaks 2. He is able to grab my fingers and squeeze but his grasp is weak bilaterally. No focal neurological deficits he is able to move both lower extremities appropriately, when patient speaks to me he does not slur his speech pupils are equal round and reactive to light extraocular movements are intact when the patient cooperates his oral mucosa appears slightly dry and is able to swallow liquids after his CT scan came back negative. ED Progress - Results and Orders Patient's Lab Results:: I have reviewed the patient's lab results. - Vital Signs Patient's Vital Signs:: I have reviewed the patient's vital signs. Vital Signs: Vital Signs 12/12/16 12/12/16 18:20 18:33 Temperature 37.1 C Pulse Rate 71 68 Respiratory 16 Rate Blood Pressure 195/83 - CT/Ultrasound CT/Ultrasound Narrative: Head CT was read by the radiologist, Dr. Horton as negative for acute bleed. - Progress/Reassessment Chief Complaint: Altered Mental Status - Transfer of Care Physician Sign Out: Shani Branch Receiving Physician: Young Rivas Plan - Plan Plan: On subsequent examination patient is able to communicate significantly better with this examiner and with spouse and HE DOES VERBALIZE THAT HE IS SCARED AND HE STATES THAT HE IS UNABLE TO REMEMBER THE EVENTS OF THE DAY Departure Clinical Impression: Altered mental status, unspecified Qualifiers: Altered mental status type: transient alteration of awareness Qualified Code(s) : R40.4 - Transient alteration of awareness Fall Qualifiers: Encounter type: initial encounter Qualified Code(s): W19.XXXA - Unspecified fall, initial encounter - Departure Disposition: Home self-care Condition: Good Instructions: Fall Prevention in the Home, [id number] Additional Instructions: You will continue to be sore for a week or so. See your regular doctor if not improving after that time frame <Young Rivas - Last Filed: 12/17/16 00:29> Neuro HPI ER Record Presenting Symptoms: weakness Exam Limitations: clinical condition Immunizations: IMMUNIZATION HX Immunizations Up to Date Yes History of Influenza Vaccine Yes Hx Pneumococcal Vaccination Yes - History of Present Illness Onset: cannot confirm onset Severity: moderate Surendra Coma Scale - Assess Eye Opening: Spontaneous Motor: Obeys Commands Verbal: Oriented - Total Coma Scale Total: 15 ED Progress - Results and Orders Patient's Lab Results:: I have reviewed the patient's lab results. Results and Orders: Laboratory Tests 12/12/16 12/12/16 12/12/16 18:40 18:40 19:43 WBC 5.3 Hgb 11.3 L Hct 31.7 L Plt Count 168 Sodium 136 Potassium 4.9 H Chloride 102 Carbon Dioxide 24.5 BUN 20 Creatinine 1.52 H Random Glucose 256 H Calcium 8.2 Total Bilirubin 0.3 AST 44 ALT 71 H Alkaline Phosphatase 111 Total Protein 6.2 Albumin 3.4 Urine Color Yellow Urine Appearance Clear Urine pH 7.0 Ur Specific [place] 1.015 Urine Protein Negative Urine Glucose (UA) 500 H Urine Ketones Negative Urine Blood Negative Urine Nitrate Negative Urine Bilirubin Negative Urine Urobilinogen Normal Ur Leukocyte Esterase Negative Urine RBC None seen Urine WBC None seen Ur Epithelial Cells Trace Urine Bacteria None seen Urine Culture Comments Culture to follow Urine Opiates Screen Barbiturate Screen Ur Phencyclidine Scrn Urine Amphetamine U Benzodiazepines Scrn Urine Cocaine Screen Urine Marijuana (THC) Ethyl Alcohol Less than 3.0 12/12/16 19:43 WBC Hgb Hct Plt Count Sodium Potassium Chloride Carbon Dioxide BUN Creatinine Random Glucose Calcium Total Bilirubin AST ALT Alkaline Phosphatase Total Protein Albumin Urine Color Urine Appearance Urine pH Ur Specific [place] Urine Protein Urine Glucose (UA) Urine Ketones Urine Blood Urine Nitrate Urine Bilirubin Urine Urobilinogen Ur Leukocyte Esterase Urine RBC Urine WBC Ur Epithelial Cells Urine Bacteria Urine Culture Comments Urine Opiates Screen Negative Barbiturate Screen Negative Ur Phencyclidine Scrn Negative Urine Amphetamine Negative U Benzodiazepines Scrn Negative Urine Cocaine Screen Negative Urine Marijuana (THC) Negative Ethyl Alcohol - Vital Signs Patient's Vital Signs:: I have reviewed the patient's vital signs. Vital Signs: Vital Signs 12/12/16 12/12/16 12/12/16 18:20 18:25 18:33 Temperature 37.1 C Pulse Rate 71 70 68 Respiratory 16 11 L Rate Blood Pressure 195/83 195/83 O2 Sat by Pulse 95 Oximetry 12/12/16 12/12/16 12/12/16 18:40 18:50 19:00 Temperature Pulse Rate 68 67 69 Respiratory 18 17 20 Rate Blood Pressure 162/65 166/69 169/70 O2 Sat by Pulse 96 95 95 Oximetry 12/12/16 12/12/16 12/12/16 19:10 19:20 19:30 Temperature Pulse Rate 66 67 67 Respiratory 16 21 H 16 Rate Blood Pressure 169/63 141/52 141/56 O2 Sat by Pulse 95 95 96 Oximetry 12/12/16 12/12/16 12/12/16 19:40 19:50 20:00 Temperature Pulse Rate 65 66 64 Respiratory 18 17 17 Rate Blood Pressure 168/55 157/53 O2 Sat by Pulse 96 96 Oximetry 12/12/16 20:10 Temperature Pulse Rate 67 Respiratory 19 Rate Blood Pressure 141/43 O2 Sat by Pulse 94 Oximetry - EKG EKG: other EKG read: Interp. by me EKG Comments: SR with 1 deg AV block - Progress/Reassessment Progress Note-Subjective: 12/12/16 22:41 discussed negative x rays and mostly normal labs with pt., his and son. They express understanding.
[2016-12-12 19:49] LABS: ALT 71 U/L (19-67); AST 44 U/L (0-48); Total Protein 6.2 gm/dL (6.2-8.2)
[2016-12-12 19:50] LABS: Urine Bilirubin Negative (NEGATIVE); Urine Blood Negative /ul (NEGATIVE); Urine Ketone Negative (NEGATIVE); Urine Nitrite Negative (NEGATIVE); Urine Protein Negative (NEGATIVE); Urine Specific Gravity 1.015 SP.GR. (1.005-1.030); Urine Urobilinogen Normal (NORMAL)
[2016-12-12 19:59] LABS: Urine Appearance Clear; Urine Bacteria None Seen; Urine Color Yellow; Urine RBC None Seen /hpf (0-5); Urine WBC None Seen /hpf (0-5)
[2016-12-12 20:03] LABS: Cocaine Ur Negative (NEGATIVE); Urine Barbiturate Negative (NEGATIVE); Urine Benzodiazepines Negative (NEGATIVE); Urine Opiates Negative (NEGATIVE); Urine PCP Negative (NEGATIVE); Urine THC Negative (NEGATIVE)
[2016-12-12 23:06] VITALS: BP 135/58
== END 2016-12-12 22:50 | disposition home or self-care (01) ==
LOC: ER 18:15
DX: R40.4 Transient alteration of awareness (principal); W19.XXXA Unspecified fall, initial encounter; Z87.891 Personal history of nicotine dependence; E11.9 Type 2 diabetes mellitus without complications; K21.9 Gastro-esophageal reflux disease without esophagitis; I10 Essential (primary) hypertension; D64.9 Anemia, unspecified
CPT/HCPCS: 36415; 70450; 71010; 72072; 72100; 80053; 80307; 81001; 85025; 87086; 93005; 99283; G0481

== ENCOUNTER 2016-12-15 10:42 | Emergency (ER) | payer MEDICARE, OTHER ==
[2016-12-15 10:58] VITALS: BP 182/70
[2016-12-15] MEDS ORDERED: ALBUTEROL SULFATE/IPRATROPIUM 3 ML NEBU IH ONE ×2 (11:10→11:16)
--- NOTE | 2016-12-15 11:28 | ERNOTE ---
Date of Service: 12/15/16 Time Seen by Provider: 12/15/16 11:04 Stated Complaint: DIZZY SPELLS Presenting Symptoms:: cough Source: patient Immunizations: IMMUNIZATION HX Immunizations Up to Date Yes History of Influenza Vaccine Yes Hx Pneumococcal Vaccination Yes Allergies/Adverse Reactions: Allergies venom-honey bee [bee venom (honey bee)] Allergy (Severe, Verified 12/15/16 10:58 ) Anaphylaxis morphine Adverse Reaction (Mild, Verified 12/15/16 10:58) Nausea Home Medications: HOME MEDICATIONS Atorvastatin Calcium 40 mg PO DAILY 03/07/16 [Last Taken Unknown] Cyclobenzaprine HCl 10 mg PO HS PRN 03/07/16 [Last Taken Unknown] Furosemide [Lasix] 20 mg PO DAILY 03/07/16 [Last Taken Unknown] Glimepiride 4 mg PO BID 03/07/16 [Last Taken Unknown] Meloxicam [Mobic] 15 mg PO DAILY 03/07/16 [Last Taken Unknown] Metoprolol Tartrate 100 mg PO DAILY 03/07/16 [Last Taken Unknown] Nitroglycerin [Nitrostat] 0.4 mg SL [id number] PRN 03/07/16 [Last Taken Unknown] sitaGLIPtin PHOSPHATE [Januvia] 50 mg PO DAILY 04/05/16 [Last Taken Unknown] Amlodipine Besylate 5 mg PO BID 09/30/16 [Last Taken Unknown] Finasteride [Proscar] 5 mg PO DAILY 12/03/16 [Last Taken Unknown] Acarbose [Precose] 25 mg PO TID 12/05/16 [Last Taken Unknown] Albuterol Sulfate [Albuterol Sulfate 2.5 MG/3 ML] 2.5 mg IH Q4H PRN 12/05/16 [ Last Taken Unknown] Albuterol Sulfate [Proair Hfa] 2 puff IH QID PRN #1 inhaler 12/05/16 [Last Taken Unknown] Aspirin [Aspirin Enteric Coated] 81 mg PO DAILY 12/05/16 [Last Taken Unknown] Folic Acid 0.8 mg PO DAILY 12/05/16 [Last Taken Unknown] Multivitamins [Multivitamin Juju] 1 cap PO DAILY 12/05/16 [Last Taken Unknown] Omeprazole 40 mg PO BID 12/05/16 [Last Taken Unknown] metFORMIN HCL [Glucophage] 1,000 mg PO BIDWM 12/05/16 [Last Taken Unknown] Albuterol Sulfate/Ipratropium [Duoneb 2.5-0.5MG/3ML Soln] 3 ml IH QID 5 Days # 150 vial 12/15/16 [Last Taken Unknown] Azithromycin [Zithromax] 500 mg PO NOW #6 tab 12/15/16 [Last Taken Unknown] Fluticasone/Salmeterol [Advair 100-50 Diskus] 1 puff IH BID #1 inhaler 12/15/16 [Last Taken Unknown] predniSONE [Prednisone] See Taper PO DAILY #18 tablet 12/15/16 [Last Taken Unknown] - History of Present Ilness Narrative: patient present to the ER for cough and not feeling well. Patient states he has had a increase in his coughing over the last 3 days and his cough is getting worse. patient states that when he gets to coughing he will get dizzy but it get better after he catches his breath. Date (Duration): 12/15/16 Timing: getting worse Severity: moderate Frequency/Possible Cause: Reports: frequent episodes Modifying Factors - Improves: Reports: nothing Modifying Factors - Worsens: Reports: coughing Associated Symptoms: Reports: cough, wheezing, nasal congestion, muscle aches Prior Treatment: Reports: recently seen Review of Systems - Review of Systems Constitutional: Present: See HPI, fatigue. Absent: fever, chills, diaphoresis, weakness EYE: Present: no symptoms reported ENT: Present: See HPI Respiratory: Present: See HPI, shortness of breath, cough, wheezing Cardiology: Present: no symptoms reported Gastrointestinal/Abdominal: Present: no symptoms reported Genitourinary: Present: no symptoms reported Musculoskeletal: Present: See HPI Skin: Present: no symptoms reported Neurological: Present: no symptoms reported Endocrine: Present: no symptoms reported Hematologic/Lymphatic: Present: no symptoms reported Psych: Present: no symptoms reported All Other Systems: All systems neg except as marked - Patient's Past Medical History Patient History - Medical: Anemia, Chronic Pain, Diabetes Type 2, GERD, Migraines, Osteoarthritis, Renal Disease Patient History - Cardiac/Respiratory: COPD, Hypertension, Hyperlipidemia, CPAP/ BiPAP Home Use Patient History - Cancer: Lung Patient History - Surgical Procedures: Appendectomy, Colonoscopy, Coronary Bypass Surgery, Total Knee Replacement, T & A, Vasectomy, Other Patient History - Other: None - Family History Mother Family History - Medical: , No pertinent hx Family History - Cardiac/Respiratory: History Unknown Family History - Cancer: No pertinent family hx Father Family History - Medical: , Depression Family History - Cardiac/Respiratory: History Unknown Family History - Cancer: History Unknown - Social History Living Situations: spouse Abuse History: No History of abuse Psych History: No pertinent hx Does anyone smoke in the home?: No Smoking Status: Former smoker Have you smoked in the past 12 months: No Do you dip or chew tobacco: No Alcohol Use: none Drug Use: none - Immunizations Immunizations Up to Date: Yes Hx Pneumococcal Vaccination: Yes History of Influenza Vaccine: Yes Physical Exam - Physical Exam Narrative: patient has a harsh cough, with an increase in yellow phlegm. exp wheezing auscultated. patient states he has had this cough for 3 days and it has progressively gotten worse. patient states that he dosnt take his inhalers as prescribed. patients states he is noncompliant with his medications. General Appearance: Present: wd/wn, alert, no apparent distress Head Exam: Present: normal inspection, no evidence of injury Eye Exam: Normal inspection: bilateral, PERRL: bilateral, EOMI: bilateral Ears, Nose, Throat: Present: normal ENT inspection, normal pharynx. Absent: nasal congestion, pharyngeal erythema, pharyngeal swelling, tonsillar exudate Neck: Present: normal inspection, nontender, full range of motion Respiratory: Present: no respiratory distress, no accessory muscle use, chest nontender, decreased breath sounds, wheezing - diminished at bases Cardiovascular/Chest: Present: regular rate, rhythm, no murmur, normal peripheral pulses Gastrointestinal/Abdominal: Present: normal bowel sounds, nontender, nondistended, soft, no organomegaly Back Exam: Present: normal inspection, normal range of motion, no CVA tenderness , no vertebral tenderness Extremity Exam: Present: normal inspection, non-tender, normal range of motion, no edema Neurological Exam: Present: alert, oriented, normal mood/affect, no motor/ sensory deficits Skin Exam: Present: normal color, warm/dry Lymphatic Exam: Present: no adenopathy ED Progress - Vital Signs Vital Signs: Vital Signs 12/15/16 10:54 Temperature 37.1 C Pulse Rate 72 Respiratory 20 Rate Blood Pressure 182/70 O2 Sat by Pulse 97 Oximetry - X-Ray X-Ray #2 X-Ray: chest Interpretation: Reviewed by me X-ray Comments: [address] [place] [address] NAME: MICHELLE BUNDY : 1935 MR #: [id number] CC: 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 There is basilar atelectasis or scarring. There is no pleural effusion or pneumothorax. Cardiac silhouette and pulmonary vasculature are normal. The osseous structures are within normal limits for age. IMPRESSION: No acute cardiopulmonary process detected Electronically signed by Magen Stephens M.D.. Magen Stephens MD - Progress/Reassessment Chief Complaint: Cough Progress:: Improved Plan - Plan Plan: Patient was discharged home and directed to follow his medications as prescribed. Patient has a follow-up appointment on Friday with his physician. Patient is to return if he develops any more shortness of breath. Patient understands the importance of taking his medications as prescribed. 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 Departure - Departure Clinical Impression: Bronchitis Disposition: Home Follow Up Needed Condition: Stable Instructions: Chronic Obstructive Pulmonary Disease Exacerbation, [id number] , Chronic Bronchitis Additional Instructions: Continue previous home medications as directed. Advair Diskus inhaler should be used daily. Keep your follow-up appointment with your med admin. Continue to use your inhalers as directed. Take antibiotics as directed. Return to the emergency room if symptoms return or persist. Referrals: Jose Rodriguez DO [Primary Care Provider] - Prescriptions: Albuterol Sulfate/Ipratropium [Duoneb 2.5-0.5MG/3ML Soln] 3 ml IH QID 5 Days # 150 vial Azithromycin [Zithromax] 500 mg PO NOW #6 tab Fluticasone/Salmeterol [Advair 100-50 Diskus] 1 puff IH BID #1 inhaler predniSONE [Prednisone] See Taper PO DAILY #18 tablet
[2016-12-15] MEDS ORDERED: METHYLPREDNISOLONE SOD SUCC/PF 40 MG/ML VIAL IM ONE (12:01)
[2016-12-15] MEDS ORDERED: METHYLPREDNISOLONE SOD SUCC/PF 40 MG/ML VIAL ONE (12:04)
== END 2016-12-15 12:20 | disposition home or self-care (01) ==
LOC: ER 10:42
DX: J40 Bronchitis, not specified as acute or chronic (principal); Z85.118 Personal history of other malignant neoplasm of bronchus and lung

== ENCOUNTER 2016-12-18 16:16 | Observation (INO) | payer MEDICARE, OTHER ==
[2016-12-18 16:41] LABS: Hematocrit 32.4 % (42.0-52.0); Hemoglobin 11.3 gm/dL (13.5-18.0); Mean Corpuscular Hemoglobin 30.7 pg (27-31); Mean Corpuscular Hgb Conc 34.9 g/dl (32-36); Mean Platelet Volume 10.3 fl (6.0-9.5); Neutrophil # 7.6 K/mm3 (1.3-6.0); Neutrophil % 89.7 % (42-75.0); Platelet Count 181 K/mm3 (150-450); Red Blood Count 3.68 M/mm3 (4.7-6.0); Red Cell Distribution Width 13.8 % (11.5-14.0); White Blood Count 8.4 K/mm3 (4.0-10.5)
[2016-12-18 16:58] LABS: ALT 65 U/L (19-67); AST 34 U/L (0-48); Albumin * 3.6 gm/dl (3.4-5.0); Alkaline Phosphatase * 120 U/L (50-170); Amylase * 31 U/L (25-115); Anion Gap 17.9 mmol/L (6.8-13.8); BUN/Creatinine Ratio 16.6 (9.0-21.6); Bilirubin, Total 0.3 mg/dL (0.0-1.1); Blood Urea Nitrogen 34 mg/dL (6-23); Ca. Corrected For Albumin 8.7 mg/dL (8.4-10.2); Calcium * 8.7 mg/dL (7.9-10.9); Carbon Dioxide 21.4 mmol/L (24-32.6); Chloride 96 mmol/L (97-106); Lipase 106 U/L (73-393); Potassium 6.3 mmol/L (3.4-4.6); Sodium 129 mmol/L (132-142); Total Protein 6.9 gm/dL (6.2-8.2)
[2016-12-18 16:59] LABS: Troponin I Less than 0.017 ng/ml (0.00-0.10)
[2016-12-18 17:01] LABS: Glucose * 581 mg/dL (70-110)
[2016-12-18 19:14] LABS: Urine Bilirubin Negative (NEGATIVE); Urine Ketone Negative (NEGATIVE); Urine Nitrite Negative (NEGATIVE); Urine Protein Negative (NEGATIVE); Urine Urobilinogen Normal (NORMAL)
[2016-12-18 19:27] LABS: Urine Appearance Slightly Cloudy; Urine Bacteria TRACE; Urine Blood 5 /ul (NEGATIVE); Urine Color Pale Yellow; Urine RBC None Seen /hpf (0-5); Urine WBC None Seen /hpf (0-5)
--- NOTE | 2016-12-18 19:34 | ERNOTE ---
Abdominal HPI - Narrative Date of Service: 12/18/16 - General Chief Complaint: Abdominal Pain Time Seen by Provider: 12/18/16 19:21 Source: patient, family - spouse - Immun/Allergies/Home Medications Immunizatons: IMMUNIZATION HX Immunizations Up to Date Yes History of Influenza Vaccine Yes Hx Pneumococcal Vaccination Yes Allergies/Adverse Reactions: Allergies venom-honey bee [bee venom (honey bee)] Allergy (Severe, Verified 12/18/16 16:28 ) Anaphylaxis morphine Adverse Reaction (Mild, Verified 12/18/16 16:28) Nausea Home Medications: HOME MEDICATIONS Atorvastatin Calcium 40 mg PO DAILY 03/07/16 [Last Taken Unknown] Cyclobenzaprine HCl 10 mg PO HS PRN 03/07/16 [Last Taken Unknown] Furosemide [Lasix] 20 mg PO DAILY 03/07/16 [Last Taken Unknown] Glimepiride 4 mg PO BID 03/07/16 [Last Taken Unknown] Meloxicam [Mobic] 15 mg PO DAILY 03/07/16 [Last Taken Unknown] Metoprolol Tartrate 100 mg PO DAILY 03/07/16 [Last Taken Unknown] Nitroglycerin [Nitrostat] 0.4 mg SL [id number] PRN 03/07/16 [Last Taken Unknown] sitaGLIPtin PHOSPHATE [Januvia] 50 mg PO DAILY 04/05/16 [Last Taken Unknown] Amlodipine Besylate 5 mg PO BID 09/30/16 [Last Taken Unknown] Finasteride [Proscar] 5 mg PO DAILY 12/03/16 [Last Taken Unknown] Acarbose [Precose] 25 mg PO TID 12/05/16 [Last Taken Unknown] Albuterol Sulfate [Albuterol Sulfate 2.5 MG/3 ML] 2.5 mg IH Q4H PRN 12/05/16 [ Last Taken Unknown] Albuterol Sulfate [Proair Hfa] 2 puff IH QID PRN #1 inhaler 12/05/16 [Last Taken Unknown] Aspirin [Aspirin Enteric Coated] 81 mg PO DAILY 12/05/16 [Last Taken Unknown] Folic Acid 0.8 mg PO DAILY 12/05/16 [Last Taken Unknown] Multivitamins [Multivitamin Juju] 1 cap PO DAILY 12/05/16 [Last Taken Unknown] Omeprazole 40 mg PO BID 12/05/16 [Last Taken Unknown] metFORMIN HCL [Glucophage] 1,000 mg PO BIDWM 12/05/16 [Last Taken Unknown] Albuterol Sulfate/Ipratropium [Duoneb 2.5-0.5MG/3ML Soln] 3 ml IH QID 5 Days # 150 vial 12/15/16 [Last Taken Unknown] Azithromycin [Zithromax] 500 mg PO NOW #6 tab 12/15/16 [Last Taken Unknown] Fluticasone/Salmeterol [Advair 100-50 Diskus] 1 puff IH BID #1 inhaler 12/15/16 [Last Taken Unknown] predniSONE [Prednisone] See Taper PO DAILY #18 tablet 12/15/16 [Last Taken Unknown] - History of Present Illness Narrative: 81yo, M, presents to ER for abd and L. chest wall pain. Notes he would have pain occur at a 6/10 lasting for approx 5 min, then resolving. Pain would then return every 20 min. He has had a productive cough 3 months, but is coughing more than usual today. He was seen in ER on 12/15/16 and started on Zithromax, Duoneb and Prednisone. BG 581 on ER labs, he notes BG <200 yesterday. Today he did eat fruit, pudding, margarita malt and has not checked his BG today. feels his new medication have caused his symptoms, because he was acting fine until he took his medications. He initially reported abd pain when checking into ER, but after further discussion, states he is only have pain to L. abd with coughing. Modifying Factors - (Improves): Present: other - nothing Modifying Factors - (Worsens): Present: coughing - worsens chest pain Associated Symptoms: Present: chest pain. Absent: diaphoresis, fever/chills, nausea, vomiting, shortness of breath, swelling/mass in abdomen, syncope Review of Systems - Review of Systems Constitutional: Present: fatigue. Absent: fever, chills Respiratory: Present: cough - productive, wheezing. Absent: shortness of breath Cardiology: Present: chest pain - L. chest wall Gastrointestinal/Abdominal: Present: abdominal pain - l. abd with coughing. Absent: nausea, vomiting, diarrhea Genitourinary: Present: frequency. Absent: pain, hematuria Skin: Absent: rash - Patient's Past Medical History Patient History - Medical: Anemia, Chronic Pain, Diabetes Type 2, GERD, Migraines, Osteoarthritis, Renal Disease Patient History - Cardiac/Respiratory: COPD, Hypertension, Hyperlipidemia, CPAP/ BiPAP Home Use Patient History - Cancer: Lung Patient History - Surgical Procedures: Appendectomy, Colonoscopy, Coronary Bypass Surgery, Total Knee Replacement, T & A, Vasectomy, Other Patient History - Other: None - Family History Mother Family History - Medical: , No pertinent hx Family History - Cardiac/Respiratory: History Unknown Family History - Cancer: No pertinent family hx Father Family History - Medical: , Depression Family History - Cardiac/Respiratory: History Unknown Family History - Cancer: History Unknown - Social History Living Situations: spouse Abuse History: No History of abuse Psych History: No pertinent hx Does anyone smoke in the home?: No Alcohol Use: none Drug Use: none - Immunizations Immunizations Up to Date: Yes Hx Pneumococcal Vaccination: Yes History of Influenza Vaccine: Yes Physical Exam - Physical Exam General Appearance: Present: wd/wn, alert, no apparent distress Ears, Nose, Throat: Present: normal ENT inspection, nasal congestion, normal pharynx Respiratory: Present: no respiratory distress, no accessory muscle use, rales - el bases, rhonchi - improves with coughing. Absent: wheezing Cardiovascular/Chest: Present: regular rate, rhythm, no murmur, other - 1+ lower extremity edema Gastrointestinal/Abdominal: Present: normal bowel sounds, nontender, soft, other - abd round (states this is his baseline). Absent: guarding, rebound Back Exam: Present: normal inspection, no CVA tenderness Neurological Exam: Present: alert, oriented, normal mood/affect Skin Exam: Present: normal color, warm/dry ED Progress - Date and Time Seen: Date and Time: 12/18/16 1950 Reviewed labs and xray results with pt and spouse. Discussed concerning lab values and need for tx with IVF and insulin. 12/18/16 22:25 Spoke with hospitalist, Taty, re: HPI, labs, exam findings. Will admit for observation dx hyponatremia, hyperkalemia, hyperglycemia. She requests repeat K level. Discussed CHF hx, requests admin of lasix 40gm IVP. Spoke with pt and spouse re: admission. He does report some improvement since IVF admin. Last BG 291 12/18/16 22:55 Pt standing at [facility] desk, states he is going to walk to his room. Advised that [facility] staff must call report before he goes to room. Pt has urine on his pants, pt refusing to change clothes. States he is waiting until he gets to a room. - Results and Orders Patient's Lab Results:: I have reviewed the patient's lab results. - Vital Signs Patient's Vital Signs:: I have reviewed the patient's vital signs. Vital Signs: Vital Signs 12/18/16 12/18/16 16:26 18:38 Temperature 36.8 C Pulse Rate 73 65 Respiratory 16 17 Rate Blood Pressure 171/80 182/7 O2 Sat by Pulse 93 93 Oximetry - X-Ray X-Ray #1 X-Ray: chest Interpretation: Reviewed by me X-ray Comments: [facility] PATIENT RADIOLOGY STUDY REPORT Patient Patient Name:MICHELLE BUNDY Date: 1935 Sex: M Order Number: [id number] Unique Exam ID: [id number] Exam Requested: CXRPALAT - Chest PA Lateral * Date Scheduled: 12-18-2016 04:50 PM Study Priority: Requesting Service: Requesting Physician: Constance Ferreira Reason for Exam: chest and abd. pain Radiological Report : [facility] [address] [place] [address] NAME: MICHELLE BUNDY : 1935 MR #: [id number] CC: LOC: ER ADM DATE: X-RAY REPORT [id number] RAD/Chest PA Lateral * Exam Date: 12/18/2016 16:50 Ordering Physician: Constance Ferreira History: chest and abd. pain. Additional history provided by the technologist: Chest and abdominal pain. Left upper quadrant pain. Constipation. Cough. Technique: Frontal and lateral views of the chest are evaluated. (2) views. Comparison: Prior exams, most recent is December 15, 2016. Findings: The lungs are mildly hyperinflated with flattening of the diaphragm; correlate for COPD. No focal consolidation. Right basilar linear opacities noted, that may represent atelectasis or airspace disease. 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 No pneumothorax or pleural effusion. The cardiac silhouette and mediastinal contours are unchanged. Atherosclerotic changes are present at the aortic arch. There is mild diffuse prominence of the lower lung interstitial lung markings, which can be seen with chronic interstitial lung disease, interstitial pulmonary edema, or sequela of an atypical infectious or inflammatory process. The osseous structures are remarkable for degenerative changes. No acute osseous findings. Decreased osseous mineralization. IMPRESSION: No focal consolidation. Additional findings and comments are as above. Electronically signed by Óscar Aguilar D.O.. Óscar Aguilar DO Dict: 12/18/16 1654 Typed: 12/18/16 1654/ 12/18/16 1658 12/18/16 1701 , Approved by: Óscar Aguilar Approval Date: 12-18-2016 Approval Time: 04:54 PM THIS REPORT WAS RECEIVED FROM THE [facility] SYSTEM X-Ray #2 X-Ray: abdomen Interpretation: Reviewed by me X-ray Comments: [facility] PATIENT RADIOLOGY STUDY REPORT Patient Patient Name:MICHELLE BUNDY Date: 1935 Sex: M Order Number: [id number] Unique Exam ID: [id number] Exam Requested: ABDCOMWDEC - Abdomen Flat W/ Upright * Date Scheduled: 12-18-2016 04:50 PM Study Priority: Requesting Service: Requesting Physician: Constance Ferreira Reason for Exam: Abdominal Pain Radiological Report : [place] [address] NAME: MICHELLE BUNDY : 1935 MR #: [id number] CC: LOC: ER ADM DATE: X-RAY REPORT [id number] RAD/Abdomen Flat W/ Upright * Exam Date: 12/18/2016 16:50 Ordering Physician: Constance Ferreira History: Abdominal Pain . Additional history provided by the technologist: Abdominal pain. Left upper quadrant pain. Constipation. Cough. Technique: Abdominal series (5 views) Comparison: Prior exams, most recent is CT of the abdomen and pelvis dated May 10, 2016. Findings: There are calcified pleural plaques at the lung bases; correlate for asbestos related pleural lung disease.. Scattered stool retention. No evidence of bowel obstruction. No pneumoperitoneum. No signs of mass or mass effect. No obvious urolithiasis. Aortoiliac atherosclerotic calcifications are noted. Degenerative changes. Impression: Scattered stool retention. Nonobstructive bowel gas pattern. Electronically signed by Óscar Aguialr D.O.. Óscar Aguilar DO Dict: 12/18/16 1658 Typed: 12/18/16 165/ 12/18/16 1704 12/18/16 1707 , Approved by: Óscar Aguilar Approval Date: 12-18-2016 Approval Time: 04:58 PM THIS REPORT WAS RECEIVED FROM THE [facility] SYSTEM - Progress/Reassessment Chief Complaint: Abdominal Pain Departure Clinical Impression: Hyponatremia, Hyperglycemia, Hyperkalemia - Departure Disposition: [facility] Condition: Stable
[2016-12-18] MEDS ORDERED: NORMAL SALINE 1,000 ML IV ONE (19:55)
[2016-12-18] MEDS ORDERED: INSULIN REGULAR, HUMAN 100 UNITS/ML VIAL SC ONE (20:02)
[2016-12-18] MEDS ORDERED: INSULIN REGULAR, HUMAN 100 UNITS/ML VIAL ONE (20:13)
[2016-12-18] MEDS ORDERED: FUROSEMIDE 10 MG/ML VIAL IV ONE ×2 (22:20→23:34)
[2016-12-18] MEDS ORDERED: FUROSEMIDE 10 MG/ML VIAL ONE (22:32)
--- NOTE | 2016-12-18 23:30 | HP ---
Addendum entered and electronically signed by Taty Hines ARNP 01/15/17 00:55: Constitutional: Present: Alert, Oriented x3, Cooperative, No distress ENT Exam: Present: normal ENT inspection, hearing grossly normal Eye Exam: bilateral eye: normal inspection, PERRL Respiratory: Present:rales on el bases, no respiratory distress, no accessory muscle use, Cardiovascular/Chest: Present: normal peripheral pulses, regular rate, rhythm, Abdomen: Present: Normal bowel sounds, soft, nontender Extremity: Present: normal range of motion, Edema ;+ 2 ble pedal Edema Skin Exam: Present: normal color, warm/dry, no cyanosis Lymphatic: Present: no adenopathy Neurologic: Present: alert, normal mood/affect, oriented x 3 Appearance: Present: appropriate insight, no memory impairment Eye contact: Present: cooperative, good eye contact, normal speech Thoughts: Present: normal thought pattern, no apparent hallucination Original Note: Chief Complaint - Chief Complaint Date of Service: 12/18/16 - N Time of Service: 23:29 Chief Complaint: "Chest pain". Source of HPI- Reliable, ERP provider report. History of Present Illness: Mr. Reddy is a 81-yr-old WM pt of Dr. Jose Ledesma with a PMH of: Anemia, Angina , Athritis, CAD, COPD, CHF, CKD Stage III, DM II, GERD, HLD, HTN, Sleep Apnea & PVD. Pt offers a vague description of illness leading him to seek care at the ED tonight. He states that he woke up this morning with pain on his LT side of the body from the Abdominal area to the upper chest. The pain never went away and chose to come to the ED this evening. He denies having fevers and chills. He denies also having n/v, abdominal pain, diarrhea & Constipation. He admits to having increasing cough & SOB and was seen in ER on 12/15/16, and started on Zithromax, Duoneb and Prednisone. He reports that he has not taken his oral diabetic medications as he had MRI of the brain on 12/18/16 and says that he was told not to resume metformin until tomorrow morning. At the ED he was found to have Blood glucose level of 581 and K level of 6.3. The CXR showed findings concerning for CHF. He will be admitted under observation status to ensure adequate blood glucose control, remote telemetry monitoring and for IV diuretics. - Patient's Past Medical History Patient History - Medical: Anemia, Chronic Pain, Diabetes Type 2, GERD, Migraines, Osteoarthritis, Renal Disease Patient History - Cardiac/Respiratory: COPD, Hypertension, Hyperlipidemia, CPAP/ BiPAP Home Use Patient History - Cancer: Lung Patient History - Surgical Procedures: Appendectomy, Colonoscopy, Coronary Bypass Surgery, Total Knee Replacement, T & A, Vasectomy, Other Patient History - Other: None - Family History Mother Family History - Medical: , No pertinent hx Family History - Cardiac/Respiratory: History Unknown Family History - Cancer: No pertinent family hx Father Family History - Medical: , Depression Family History - Cardiac/Respiratory: History Unknown Family History - Cancer: History Unknown - Social History Living Situations: spouse Abuse History: No History of abuse Psych History: No pertinent hx Does anyone smoke in the home?: No Alcohol Use: none Drug Use: none - Immunizations Immunizations Up to Date: Yes Hx Pneumococcal Vaccination: Yes History of Influenza Vaccine: Yes Immunizations: IMMUNIZATION HX Immunizations Up to Date Yes History of Influenza Vaccine Yes Hx Pneumococcal Vaccination Yes Allergies/Adverse Reactions: Allergies Allergy/AdvReac Type Severity Reaction Status Date / Time venom-honey bee Allergy Severe Anaphylaxis Verified 12/19/16 00:08 [bee venom (honey bee)] morphine AdvReac Mild Nausea Verified 12/19/16 00:08 Home Medications: HOME MEDICATIONS Cyclobenzaprine HCl 10 mg PO HS PRN 03/07/16 [Last Taken Unknown] Furosemide [Lasix] 20 mg PO DAILY 03/07/16 [Last Taken Unknown] Glimepiride 4 mg PO BID 03/07/16 [Last Taken Unknown] Meloxicam [Mobic] 15 mg PO DAILY 03/07/16 [Last Taken Unknown] Metoprolol Tartrate 200 mg PO DAILY 03/07/16 [Last Taken Unknown] Nitroglycerin [Nitrostat] 0.4 mg SL [id number] PRN 03/07/16 [Last Taken Unknown] sitaGLIPtin PHOSPHATE [Januvia] 50 mg PO DAILY 04/05/16 [Last Taken Unknown] Acarbose [Precose] 50 mg PO TID 12/05/16 [Last Taken Unknown] Aspirin [Aspirin Enteric Coated] 81 mg PO DAILY 12/05/16 [Last Taken Unknown] Folic Acid 0.8 mg PO DAILY 12/05/16 [Last Taken Unknown] Multivitamins [Multivitamin Juju] 1 cap PO DAILY 12/05/16 [Last Taken Unknown] Omeprazole 40 mg PO BID 12/05/16 [Last Taken Unknown] metFORMIN HCL [Glucophage] 1,000 mg PO BIDWM 12/05/16 [Last Taken Unknown] Albuterol Sulfate/Ipratropium [Duoneb 2.5-0.5MG/3ML Soln] 3 ml IH QID 5 Days # 150 vial 12/15/16 [Last Taken Unknown] Fluticasone/Salmeterol [Advair 100-50 Diskus] 1 puff IH BID #1 inhaler 12/15/16 [Last Taken Unknown] Atorvastatin Calcium 20 mg PO DAILY 12/19/16 [Last Taken Unknown] Donepezil HCl [Aricept] 5 mg PO HS 12/19/16 [Last Taken Unknown] Metoclopramide HCl [Reglan] 5 mg PO DAILY 12/19/16 [Last Taken Unknown] Metoprolol Succinate [Toprol Xl] 200 mg PO DAILY 12/19/16 [Last Taken Unknown] Pioglitazone HCl [Actos] 30 mg PO DAILY 12/19/16 [Last Taken Unknown] Tamsulosin HCl [Flomax] 0.4 mg PO DAILY 12/19/16 [Last Taken Unknown] Triamcinolone Acetonide [Kenalog 0.1%] 1 appl TP BID 12/19/16 [Last Taken Unknown] Exam - Exam Vital Signs: Vital Signs - Last Taken Temp 36.8 C 12/18/16 16:26 Pulse 70 12/18/16 22:34 Resp 18 12/18/16 22:03 BP 177/76 12/18/16 22:34 Pulse Ox 96 12/18/16 22:03 Diagnostic Studies: Laboratory Results WBC 8.4 K/mm3 (4.0-10.5) 12/18/16 16:39 RBC 3.68 M/mm3 (4.7-6.0) L 12/18/16 16:39 Hgb 11.3 gm/dL (13.5-18.0) L 12/18/16 16:39 Hct 32.4 % (42.0-52.0) L 12/18/16 16:39 MCV 88.0 fl (78-100) 12/18/16 16:39 MCH 30.7 pg (27-31) 12/18/16 16:39 MCHC 34.9 g/dl (32-36) 12/18/16 16:39 RDW 13.8 % (11.5-14.0) 12/18/16 16:39 Plt Count 181 K/mm3 (150-450) 12/18/16 16:39 MPV 10.3 fl (6.0-9.5) H 12/18/16 16:39 Immature Gran % (Auto) 1.40 % (0.001-0.429) H 12/18/16 16:39 Immature Gran # (Auto) 0.12 K/mm3 (0.000-0.0310) H 12/18/16 16:39 Neutrophils % 89.7 % (42-75.0) H 12/18/16 16:39 Lymphocytes % 4.9 % (20-51) L 12/18/16 16:39 Monocytes % 3.9 % (0.0-9) 12/18/16 16:39 Eosinophils % 0.0 % (0.0-3.0) 12/18/16 16:39 Basophils % 0.1 % (0.0-1.0) 12/18/16 16:39 Nucleated RBC % 0.0 k/mm3 (0-1) 12/18/16 16:39 Neutrophils # 7.6 K/mm3 (1.3-6.0) H 12/18/16 16:39 Lymphocytes # 0.4 k/mm3 (1.5-3.5) L 12/18/16 16:39 Monocytes # 0.3 k/mm3 (0.0-1.0) 12/18/16 16:39 Eosinophils # 0.0 k/mm3 (0.0-0.7) 12/18/16 16:39 Absolute Basophils 0.0 k/mm3 (0.0-0.1) 12/18/16 16:39 Sodium 129 mmol/L (132-142) L 12/18/16 16:39 Plasma Sodium 137 mmol/L (130-142) 12/18/16 16:39 Potassium 5.0 mmol/L (3.4-4.6) H D 12/18/16 22:20 Chloride 96 mmol/L (97-106) L 12/18/16 16:39 Carbon Dioxide 21.4 mmol/L (24-32.6) L 12/18/16 16:39 Anion Gap 17.9 mmol/L (6.8-13.8) H 12/18/16 16:39 BUN 34 mg/dL (6-23) H D 12/18/16 16:39 Creatinine 2.05 mg/dL (0.4-1.4) H D 12/18/16 16:39 Est GFR (Non-Af Amer) 33 mL/min (60-130) L D 12/18/16 16:39 BUN/Creatinine Ratio 16.6 (9.0-21.6) 12/18/16 16:39 Random Glucose 581 mg/dL (70-110) H* 12/18/16 16:39 Calcium 8.7 mg/dL (7.9-10.9) 12/18/16 16:39 Calcium Adj for Albumin 8.7 mg/dL (8.4-10.2) 12/18/16 16:39 Total Bilirubin 0.3 mg/dL (0.0-1.1) 12/18/16 16:39 AST 34 U/L (0-48) 12/18/16 16:39 ALT 65 U/L (19-67) 12/18/16 16:39 Alkaline Phosphatase 120 U/L (50-170) 12/18/16 16:39 Troponin I Less than 0.017 ng/ml (0.00-0.10) 12/18/16 16:39 Total Protein 6.9 gm/dL (6.2-8.2) 12/18/16 16:39 Albumin 3.6 gm/dl (3.4-5.0) 12/18/16 16:39 Amylase 31 U/L (25-115) 12/18/16 16:39 Lipase 106 U/L (73-393) 12/18/16 16:39 Urine Color Pale yellow 12/18/16 18:47 Urine Appearance Slightly cloudy 12/18/16 18:47 Urine pH 7.0 pH (5.0-7.0) 12/18/16 18:47 Ur Specific [place] 1.010 SP.GR. (1.005-1.030) 12/18/16 18:47 Urine Protein Negative mg/dL (NEGATIVE) 12/18/16 18:47 Urine Glucose (UA) >=1000 mg/dL (NEGATIVE) H 12/18/16 18:47 Urine Ketones Negative mg/dL (NEGATIVE) 12/18/16 18:47 Urine Blood 5 /ul (NEGATIVE) H 12/18/16 18:47 Urine Nitrate Negative (NEGATIVE) 12/18/16 18:47 Urine Bilirubin Negative mg/dl (NEGATIVE) 12/18/16 18:47 Urine Urobilinogen Normal EU/dl (NORMAL) 12/18/16 18:47 Ur Leukocyte Esterase Negative /ul (NEGATIVE) 12/18/16 18:47 Urine RBC None seen /hpf (0-5) 12/18/16 18:47 Urine WBC None seen /hpf (0-5) 12/18/16 18:47 Ur Epithelial Cells None seen /hpf (0-5) 12/18/16 18:47 Urine Bacteria Trace (NONE) 12/18/16 18:47 Urine Culture Comments No culture indicated 12/18/16 18:47 Serum Ketones Negative (NEGATIVE) 12/18/16 19:20 Assessment/Plan - Assessment/Plan (1) CHF exacerbation Assessment: Pt is noted to have Rales on el. bases, has + 2 BLE. Received 40 of Lasix at the ED, will given additional 80mg and Metolazone. Monitor his I/O, electrolytes , daily weight. BMP in am. Problem: Acute (2) Hyperglycemia Assessment: BS of 581 on admission, given 10 units of IV insulin at the ED lowering it to 291. Suspect non compliance with Diabetic medication. Will resumes his Home medications. Problem: Acute (3) Hyperkalemia Assessment: K of 6.3 and recheck following insulin administration for hyperglycemia showed 5.0. BMP in am. Problem: Acute (4) Diabetes Assessment: Accu checks ACHS, Consistnet carb diet. Resume diabetic oral medications. Problem: Chronic (5) CKD (chronic kidney disease) Assessment: Laboratory Tests 07/21/16 10/10/16 11/06/16 18:34 17:33 10:25 Creatinine 1.71 H 1.81 H 1.81 H 12/05/16 12/12/16 12/18/16 22:34 18:40 16:39 Creatinine 1.85 H 1.52 H 2.05 H D Problem: Chronic Qualifiers: Chronic kidney disease stage: stage 3 (moderate) Qualified Code(s): N18.3 - Chronic kidney disease, stage 3 (moderate) (6) Hypertension Assessment: May need adjustment on HTN medications. Will add prn apresoline for SBP>190 OR DBP > 90 Selected Entries 12/18/16 12/18/16 12/18/16 16:26 18:38 22:03 Pulse Rate 73 65 66 Blood Pressure 171/80 182/7 184/72 12/18/16 12/18/16 22:34 23:38 Pulse Rate 70 77 Blood Pressure 177/76 190/83 Problem: Chronic Qualifiers: Hypertension type: essential hypertension Qualified Code(s): I10 - Essential (primary) hypertension
[2016-12-18] MEDS ORDERED: METOLAZONE 5 MG TABLET PO ONE (23:35)
[2016-12-19] MEDS ORDERED: CYCLOBENZAPRINE HCL 10 MG TABLET PO PRN (04:05)
[2016-12-19] MEDS ORDERED: NITROGLYCERIN 0.4 MG/TAB BTL SL PRN (04:05)
[2016-12-19 06:24] LABS: Hematocrit 33.4 % (42.0-52.0); Hemoglobin 11.5 gm/dL (13.5-18.0); Mean Cell Volume 87.7 fl (78-100); Mean Corpuscular Hemoglobin 30.2 pg (27-31); Mean Corpuscular Hgb Conc 34.4 g/dl (32-36); Mean Platelet Volume 10.5 fl (6.0-9.5); Neutrophil # 5.8 K/mm3 (1.3-6.0); Neutrophil % 70.8 % (42-75.0); Platelet Count 178 K/mm3 (150-450); Red Blood Count 3.81 M/mm3 (4.7-6.0); Red Cell Distribution Width 13.4 % (11.5-14.0); White Blood Count 8.2 K/mm3 (4.0-10.5)
[2016-12-19 06:40] LABS: Anion Gap 13.9 mmol/L (6.8-13.8); BUN/Creatinine Ratio 16.8 (9.0-21.6); Calcium * 8.8 mg/dL (7.9-10.9); Carbon Dioxide 26.2 mmol/L (24-32.6); Estimated Creat Clear 35.2; Potassium 4.1 mmol/L (3.4-4.6)
[2016-12-19] MEDS ORDERED: GLIMEPIRIDE 4 MG TABLET PO SCH (07:00)
[2016-12-19] MEDS: ALBUTEROL SULFATE/IPRATROPIUM 3 ML NEBU IH SCH ×2 (07:00→10:49)
[2016-12-19] MEDS ORDERED: OMEPRAZOLE 20 MG CAPSULE.SA PO SCH (07:00)
[2016-12-19] MEDS ORDERED: PANTOPRAZOLE SODIUM 40 MG TABLET.EC PO SCH (07:00)
[2016-12-19] MEDS ORDERED: PIOGLITAZONE HCL 15 MG TABLET PO SCH (09:00)
[2016-12-19] MEDS ORDERED: BUDESONIDE 0.25 MG/2 ML VIAL.NEB IH SCH (09:00)
[2016-12-19] MEDS ORDERED: MELOXICAM 15 MG TABLET PO SCH (09:00)
[2016-12-19] MEDS ORDERED: ALBUTEROL SULFATE 2.5 MG/0.5 ML VIAL.NEB IH SCH (09:00)
[2016-12-19] MEDS ORDERED: METOPROLOL SUCCINATE 200 MG TABLET.SA PO SCH (09:00)
[2016-12-19] MEDS ORDERED: NON-FORMULARY 1 DOSE DOSE (Fluticasone/Salmeterol [Advair 100-50 Diskus] 1 PUFF) IH SCH (09:00)
[2016-12-19] MEDS ORDERED: ATORVASTATIN CALCIUM 40 MG TABLET PO SCH (09:00)
[2016-12-19] MEDS ORDERED: METOPROLOL SUCCINATE 100 MG TABLET.SA PO SCH (09:00)
[2016-12-19] MEDS ORDERED: TRIAMCINOLONE ACETONIDE 15 APPL TUBE TP SCH (09:00)
[2016-12-19] MEDS ORDERED: TAMSULOSIN HCL 0.4 MG CAP.SR.24H PO SCH (09:00)
[2016-12-19] MEDS ORDERED: sitaGLIPtin PHOSPHATE 50 MG TABLET PO SCH (09:00)
[2016-12-19] MEDS ORDERED: FOLIC ACID 0.4 MG TABLET PO SCH (09:00)
[2016-12-19] MEDS ORDERED: ASPIRIN 81 MG TABLET.DR PO SCH (09:00)
[2016-12-19] MEDS ORDERED: MULTIVITAMINS 1 CAP CAPSULE PO SCH (09:00)
[2016-12-19] MEDS ORDERED: METOCLOPRAMIDE HCL 5 MG TABLET PO SCH (09:00)
[2016-12-19 11:27] VITALS: BP 135/57
--- NOTE | 2016-12-19 13:02 | DS ---
(1) Hyponatremia Problem: Acute (2) Acute on chronic kidney failure Problem: Acute Qualifiers: Chronic kidney disease stage: stage 3 (moderate) (3) Hyperkalemia Problem: Acute Description of Stay: Vishal was admitted with hyponatremia of 129. Clinically patient was hypervolumic with pulmonary congestion on chest xray. He was given IV lasix and diuresed. Repeat electrolytes normalized including resolution of hyponatremia and hyperkalemia. He was feeling better and discharged to home. He had no episodes of chest pain during hospital course. Procedures Performed: none Discharge Disposition: Home self care Disposition: Home self-care Condition: Stable Discharge Activity: Activity as tolerated Discharge Diet: Consistent carbs Referrals: Joes Rodriguez DO [Primary Care Provider] - One Week Problem Oriented Discharge Instructions to Patient/Family: Hyponatremia Additional Patient Instructions (free text): Please schedule as a TCM follow up. Follow up with Dr. Rodriguez 12/25 at 2:15. Complete Home Medications List: Complete Home Medication List: Cyclobenzaprine HCl 10 mg PO DAILY PRN 03/07/16 Furosemide [Lasix] 20 mg PO DAILY 03/07/16 Glimepiride 4 mg PO BID 03/07/16 Metoprolol Tartrate 200 mg PO DAILY 03/07/16 Nitroglycerin [Nitrostat] 0.4 mg SL [id number] PRN 03/07/16 sitaGLIPtin PHOSPHATE [Januvia] 50 mg PO DAILY 04/05/16 Acarbose [Precose] 50 mg PO TID 12/05/16 Aspirin [Aspirin Enteric Coated] 81 mg PO DAILY 12/05/16 Folic Acid 0.8 mg PO DAILY 12/05/16 Multivitamins [Multivitamin Juju] 1 cap PO DAILY 12/05/16 Omeprazole 40 mg PO BID 12/05/16 Albuterol Sulfate/Ipratropium [Duoneb 2.5-0.5MG/3ML Soln] 3 ml IH QID 5 Days # 150 vial 12/15/16 Atorvastatin Calcium 20 mg PO DAILY 12/19/16 Donepezil HCl [Aricept] 5 mg PO HS 12/19/16 Pioglitazone HCl [Actos] 30 mg PO DAILY 12/19/16 Tamsulosin HCl [Flomax] 0.4 mg PO DAILY 12/19/16 Tiotropium [place] [Spiriva] 1 cap IH DAILY 01/16/17
[2016-12-19] MEDS: ACARBOSE 50 MG PO SCH (14:20)
[2016-12-19] MEDS ORDERED: DONEPEZIL HCL 10 MG TABLET PO SCH (21:00)
[2016-12-19] MEDS ORDERED: ROSUVASTATIN CALCIUM 10 MG TABLET PO SCH (21:00)
== END 2016-12-19 14:45 | disposition home or self-care (01) ==
LOC: ER 16:16 → MS 22:32
PROVIDERS: ADMIT Nurse Practitioner; ATTEND Family Medicine
DX: E87.1 Hypo-osmolality and hyponatremia (principal); I12.9 Hypertensive chronic kidney disease with stage 1 through stage 4 chronic kidney disease, or unspecified chronic kidney disease; N17.9 Acute kidney failure, unspecified; N18.3 Chronic kidney disease, stage 3 (moderate); E11.65 Type 2 diabetes mellitus with hyperglycemia; Z79.84 Long term (current) use of oral hypoglycemic drugs; J44.9 Chronic obstructive pulmonary disease, unspecified
CPT/HCPCS: 36415; 71020; 74020; 80048; 80053; 81001; 82009; 82150; 83690; 84132; 84484; 85025; 93005; 94640; 94660; 96372; 96374; 99284; G0378

== ENCOUNTER 2016-12-20 12:23 | Day surgery (SDC) | payer MEDICARE, OTHER ==
[~2016-12-20 12:23] MED LIST changes: -CIPROFLOXACIN HCL 500 MG TABLET PO PRN; +RINGER'S SOLUTION,LACTATED 1,000 ML IV PRN; +ceFAZolin SODIUM 2 GM in DEXTROSE 5 % IN WATER 50 ML IV PRN
[2016-12-20] MEDS ORDERED: RINGER'S SOLUTION,LACTATED 1,000 ML IV ONE ×2 (13:20→15:36)
[2016-12-20] MEDS ORDERED: ALBUTEROL SULFATE 2.5 MG/0.5 ML VIAL.NEB IH ONE ×2 (14:00→16:40)
[2016-12-20 18:37] VITALS: BP 142/64
== END 2016-12-20 12:24 | disposition home or self-care (01) ==
LOC: AMB 12:23
PROVIDERS: ATTEND Urology
PROC: 0V508ZZ Destruction of Prostate, Via Natural or Artificial Opening Endoscopic (ICD-10-PCS; principal; 2016-12-20 14:35)
DX: N40.1 Benign prostatic hyperplasia with lower urinary tract symptoms (principal); N13.8 Other obstructive and reflux uropathy; I13.0 Hypertensive heart and chronic kidney disease with heart failure and stage 1 through stage 4 chronic kidney disease, or unspecified chronic kidney disease; N18.3 Chronic kidney disease, stage 3 (moderate); I50.9 Heart failure, unspecified; E11.22 Type 2 diabetes mellitus with diabetic chronic kidney disease; E78.00 Pure hypercholesterolemia, unspecified; K21.9 Gastro-esophageal reflux disease without esophagitis; J44.9 Chronic obstructive pulmonary disease, unspecified; I73.9 Peripheral vascular disease, unspecified; Z87.891 Personal history of nicotine dependence; Z68.31 Body mass index [BMI] 31.0-31.9, adult

== ENCOUNTER 2016-12-21 20:39 | Emergency (ER) | payer MEDICARE, OTHER ==
--- NOTE | 2016-12-21 21:02 | ERNOTE ---
Abdominal HPI - Narrative Date of Service: 12/21/16 - General Chief Complaint: Abdominal Pain Time Seen by Provider: 12/21/16 21:01 Source: patient, family, RN notes reviewed Exam Limitations: other - Poor historian - Immun/Allergies/Home Medications Immunizatons: IMMUNIZATION HX Immunizations Up to Date Yes History of Influenza Vaccine Yes Hx Pneumococcal Vaccination Yes Allergies/Adverse Reactions: Allergies venom-honey bee [bee venom (honey bee)] Allergy (Severe, Verified 12/20/16 13:17 ) Anaphylaxis morphine Adverse Reaction (Mild, Verified 12/20/16 13:17) Nausea Home Medications: HOME MEDICATIONS Cyclobenzaprine HCl 10 mg PO DAILY PRN 03/07/16 [Last Taken Unknown] Furosemide [Lasix] 20 mg PO DAILY 03/07/16 [Last Taken Unknown] Glimepiride 4 mg PO BID 03/07/16 [Last Taken Unknown] Metoprolol Tartrate 100 mg PO DAILY 03/07/16 [Last Taken Unknown] Nitroglycerin [Nitrostat] 0.4 mg SL [id number] PRN 03/07/16 [Last Taken Unknown] sitaGLIPtin PHOSPHATE [Januvia] 50 mg PO DAILY 04/05/16 [Last Taken Unknown] Acarbose [Precose] 50 mg PO TID 12/05/16 [Last Taken Unknown] Aspirin [Aspirin Enteric Coated] 81 mg PO DAILY 12/05/16 [Last Taken Unknown] Folic Acid 0.8 mg PO DAILY 12/05/16 [Last Taken Unknown] Multivitamins [Multivitamin Juju] 1 cap PO DAILY 12/05/16 [Last Taken Unknown] Omeprazole 40 mg PO BID 12/05/16 [Last Taken Unknown] Albuterol Sulfate/Ipratropium [Duoneb 2.5-0.5MG/3ML Soln] 3 ml IH QID 5 Days # 150 vial 12/15/16 [Last Taken Unknown] Atorvastatin Calcium 20 mg PO DAILY 12/19/16 [Last Taken Unknown] Donepezil HCl [Aricept] 5 mg PO HS 12/19/16 [Last Taken Unknown] Pioglitazone HCl [Actos] 30 mg PO DAILY 12/19/16 [Last Taken Unknown] Tamsulosin HCl [Flomax] 0.4 mg PO DAILY 12/19/16 [Last Taken Unknown] - History of Present Illness Narrative: 81 y/o male brought to the ED by his for abdominal pain that began after he ate ice cream. After arriving, he is unsure if the pain is in his abdomen or chest. He has not taken anything for his symptoms. He had a TURP 2 days ago and has a Andrade catheter. He denies any problems related to this. Timing: unsure Quality: aching, burning Prior Treatment: Present: recently seen, treated by physician, recently hospitalized Review of Systems - Review of Systems Constitutional: Present: recent illness, fatigue, malaise. Absent: fever EYE: Present: no symptoms reported ENT: Present: no symptoms reported Respiratory: Absent: shortness of breath, cough Cardiology: Absent: palpitations, syncope Gastrointestinal/Abdominal: Absent: nausea, vomiting, diarrhea, eating less, drinking less Genitourinary: Absent: hematuria, decreased urinary output Musculoskeletal: Present: no symptoms reported Skin: Absent: rash, lesions Neurological: Absent: headache, dizziness/light-headedness Endocrine: Present: no symptoms reported Hematologic/Lymphatic: Present: no symptoms reported Psych: Present: anxiety - Patient's Past Medical History Patient History - Medical: Anemia, Arthritis, Diabetes Type 2, Dementia, GERD, Renal Disease Patient History - Cardiac/Respiratory: Coronary Heart Disease, CHF, COPD, Hypertension, Hyperlipidemia, CPAP/BiPAP Home Use, Sleep Apnea Patient History - Cancer: No Hx of Cancer Patient History - Surgical Procedures: Appendectomy, Cataracts, Colonoscopy, Total Knee Replacement, T & A Patient History - Other: None - Family History Mother Family History - Medical: , No pertinent hx, Alzheimer's Disease Family History - Cardiac/Respiratory: History Unknown Family History - Cancer: No pertinent family hx Father Family History - Medical: , Depression Family History - Cardiac/Respiratory: History Unknown Family History - Cancer: History Unknown Sister Family History - Medical: , No pertinent hx Family History - Cardiac/Respiratory: No pertinent hx Family History - Cancer: Breast - Social History Living Situations: spouse Abuse History: No History of abuse Psych History: No pertinent hx Does anyone smoke in the home?: No Smoking Status: Former smoker Have you smoked in the past 12 months: No Do you dip or chew tobacco: No Alcohol Use: occasionally Drug Use: none - Immunizations Immunizations Up to Date: Yes Hx Pneumococcal Vaccination: Yes History of Influenza Vaccine: Yes Physical Exam - Physical Exam General Appearance: Present: wd/wn, alert, no apparent distress, obese Neck: Present: normal inspection, nontender, supple Respiratory: Present: no respiratory distress, normal breath sounds, no accessory muscle use, lungs clear Cardiovascular/Chest: Present: regular rate, rhythm, no murmur, normal peripheral pulses Gastrointestinal/Abdominal: Present: normal bowel sounds, nondistended, soft, tenderness - epigastric Male Genitals Exam: Present: other - Andrade catheter draining pale yellow urine Extremity Exam: Present: normal inspection, no edema Neurological Exam: Present: alert, oriented, normal mood/affect, no motor/ sensory deficits Skin Exam: Present: normal color, warm/dry ED Progress - Results and Orders Patient's Lab Results:: I have reviewed the patient's lab results. - Vital Signs Patient's Vital Signs:: I have reviewed the patient's vital signs. Vital Signs: Vital Signs 12/21/16 12/21/16 20:44 21:01 Temperature 37.1 C Pulse Rate 83 85 Respiratory 18 16 Rate Blood Pressure 140/65 145/47 O2 Sat by Pulse 98 97 Oximetry - EKG EKG: NSR, RBBB EKG read: Reviewed by me - Progress/Reassessment Chief Complaint: Abdominal Pain Progress:: Improved Departure Clinical Impression: Indigestion, Chest wall pain, chronic - Departure Disposition: Home Follow Up Needed Condition: Stable Instructions: Indigestion, [id number] Referrals: Jose Rodriguez DO [Primary Care Provider] -
[2016-12-21] MEDS ORDERED: MAG HYDROX/ALUMINUM HYD/SIMETH 30 ML UDC PO ONE (21:12)
[2016-12-21] MEDS ORDERED: BELLADONNA ALKALOIDS/PHENOBARB 60 ML BTL PO ONE (21:12)
[2016-12-21] MEDS ORDERED: LIDOCAINE HCL 20 ML UDC PO ONE (21:12)
[2016-12-21 21:34] LABS: Hematocrit 31.9 % (42.0-52.0); Mean Cell Volume 90.4 fl (78-100); Mean Corpuscular Hemoglobin 31.2 pg (27-31); Mean Corpuscular Hgb Conc 34.5 g/dl (32-36); Mean Platelet Volume 10.1 fl (6.0-9.5); Neutrophil % 73.4 % (42-75.0); Platelet Count 159 K/mm3 (150-450); Red Blood Count 3.53 M/mm3 (4.7-6.0); Red Cell Distribution Width 13.9 % (11.5-14.0); White Blood Count 8.2 K/mm3 (4.0-10.5)
[2016-12-21 21:43] LABS: ALT 37 U/L (19-67); AST 20 U/L (0-48); Albumin * 3.3 gm/dl (3.4-5.0); Alkaline Phosphatase * 103 U/L (50-170); Anion Gap 13.4 mmol/L (6.8-13.8); BUN/Creatinine Ratio 15.7 (9.0-21.6); Bilirubin, Total 0.3 mg/dL (0.0-1.1); Blood Urea Nitrogen 31 mg/dL (6-23); Ca. Corrected For Albumin 8.7 mg/dL (8.4-10.2); Calcium * 8.5 mg/dL (7.9-10.9); Carbon Dioxide 26.1 mmol/L (24-32.6); Chloride 100 mmol/L (97-106); Glucose * 343 mg/dL (70-110); Potassium 4.5 mmol/L (3.4-4.6); Sodium 135 mmol/L (132-142); Total Protein 6.5 gm/dL (6.2-8.2)
[2016-12-21 21:44] LABS: Troponin I Less than 0.017 ng/ml (0.00-0.10)
[2016-12-21 21:45] VITALS: BP 152/89
== END 2016-12-21 22:06 | disposition home or self-care (01) ==
LOC: ER 20:39
DX: K30 Functional dyspepsia (principal); R07.89 Other chest pain; G89.29 Other chronic pain; D64.9 Anemia, unspecified; M19.90 Unspecified osteoarthritis, unspecified site; E11.9 Type 2 diabetes mellitus without complications; K21.9 Gastro-esophageal reflux disease without esophagitis; N28.9 Disorder of kidney and ureter, unspecified; I25.2 Old myocardial infarction; I50.9 Heart failure, unspecified; J44.9 Chronic obstructive pulmonary disease, unspecified; I10 Essential (primary) hypertension; E78.5 Hyperlipidemia, unspecified; F03.90 Unspecified dementia, unspecified severity, without behavioral disturbance, psychotic disturbance, mood disturbance, and anxiety

== ENCOUNTER 2016-12-31 11:51 | Emergency (ER) | payer MEDICARE, OTHER ==
--- NOTE | 2016-12-31 12:21 | ERNOTE ---
Dyspnea - General Presenting Symptoms: shortness of breath Time Seen by Provider: 12/31/16 11:59 Source: patient, family Exam Limitations: no limitations - Immun/Allergies/Home Medications Immunizations: IMMUNIZATION HX Immunizations Up to Date Yes History of Influenza Vaccine Yes Hx Pneumococcal Vaccination Yes Allergies/Adverse Reactions: Allergies venom-honey bee [bee venom (honey bee)] Allergy (Severe, Verified 12/31/16 12:00 ) Anaphylaxis morphine Adverse Reaction (Mild, Verified 12/31/16 12:00) Nausea Home Medications: HOME MEDICATIONS Cyclobenzaprine HCl 10 mg PO DAILY PRN 03/07/16 [Last Taken Unknown] Furosemide [Lasix] 20 mg PO DAILY 03/07/16 [Last Taken Unknown] Glimepiride 4 mg PO BID 03/07/16 [Last Taken Unknown] Metoprolol Tartrate 100 mg PO DAILY 03/07/16 [Last Taken Unknown] Nitroglycerin [Nitrostat] 0.4 mg SL [id number] PRN 03/07/16 [Last Taken Unknown] sitaGLIPtin PHOSPHATE [Januvia] 50 mg PO DAILY 04/05/16 [Last Taken Unknown] Acarbose [Precose] 50 mg PO TID 12/05/16 [Last Taken Unknown] Aspirin [Aspirin Enteric Coated] 81 mg PO DAILY 12/05/16 [Last Taken Unknown] Folic Acid 0.8 mg PO DAILY 12/05/16 [Last Taken Unknown] Multivitamins [Multivitamin Juju] 1 cap PO DAILY 12/05/16 [Last Taken Unknown] Omeprazole 40 mg PO BID 12/05/16 [Last Taken Unknown] Albuterol Sulfate/Ipratropium [Duoneb 2.5-0.5MG/3ML Soln] 3 ml IH QID 5 Days # 150 vial 12/15/16 [Last Taken Unknown] Atorvastatin Calcium 20 mg PO DAILY 12/19/16 [Last Taken Unknown] Donepezil HCl [Aricept] 5 mg PO HS 12/19/16 [Last Taken Unknown] Pioglitazone HCl [Actos] 30 mg PO DAILY 12/19/16 [Last Taken Unknown] Tamsulosin HCl [Flomax] 0.4 mg PO DAILY 12/19/16 [Last Taken Unknown] - History of Present Illness Narrative: Patient states that he has had a cough and shortness of breath with exertion for about three months. He has had multiple visits with his doctor as well as the ER and symptoms have not resolved. He denies any worsening or new symptoms, also has had constant chest pressure for about the same time unchanged. 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 Denies: upper resp illness, out of meds Frequency of episodes: Reports: chronic episodes Modifying Factors - (Improves): Reports: albuterol, rest Modifying Factors (Worsens): Reports: activity. Denies: lying down Associated Symptoms-Dyspnea: Reports: chest pain/discomfort, cough. Denies: fever/chills, dizziness, lightheadedness Prior Treatment: Reports: recently seen. Denies: currently on antibiotics Review of Systems - Review of Systems Constitutional: Absent: recent illness, fever EYE: Absent: double vision ENT: Present: nose congestion Respiratory: Present: See HPI, shortness of breath, cough - clear phlegm Cardiology: Present: chest pain - chronic at baseline Gastrointestinal/Abdominal: Absent: nausea, abdominal pain Genitourinary: Present: no symptoms reported Neurological: Absent: weakness, numbness - Patient's Past Medical History Patient History - Medical: Anemia, Arthritis, Diabetes Type 2, Dementia, GERD, Renal Disease Patient History - Cardiac/Respiratory: Coronary Heart Disease, CHF, COPD, Hypertension, Hyperlipidemia, CPAP/BiPAP Home Use, Sleep Apnea Patient History - Cancer: No Hx of Cancer Patient History - Surgical Procedures: Appendectomy, Cataracts, Colonoscopy, Total Knee Replacement, T & A Patient History - Other: None - Family History Mother Family History - Medical: , No pertinent hx, Alzheimer's Disease Family History - Cardiac/Respiratory: History Unknown Family History - Cancer: No pertinent family hx Father Family History - Medical: , Depression Family History - Cardiac/Respiratory: History Unknown Family History - Cancer: History Unknown Sister Family History - Medical: , No pertinent hx Family History - Cardiac/Respiratory: No pertinent hx Family History - Cancer: Breast - Social History Living Situations: home Abuse History: No History of abuse Psych History: No pertinent hx Does anyone smoke in the home?: No Smoking Status: Former smoker Alcohol Use: occasionally Drug Use: none - Immunizations Immunizations Up to Date: Yes Hx Pneumococcal Vaccination: Yes History of Influenza Vaccine: Yes Physical Exam - Physical Exam General Appearance: Present: wd/wn, alert, no apparent distress Head Exam: Present: normal inspection Ears, Nose, Throat: Present: normal ENT inspection, normal pharynx Respiratory: Present: no respiratory distress, no accessory muscle use, lungs clear, decreased breath sounds Cardiovascular/Chest: Present: regular rate, rhythm, no murmur Gastrointestinal/Abdominal: Present: nontender, nondistended, soft Neurological Exam: Present: alert, oriented, normal mood/affect Skin Exam: Present: normal color, warm/dry ED Progress - Results and Orders Patient's Lab Results:: I have reviewed the patient's lab results. - Vital Signs Patient's Vital Signs:: I have reviewed the patient's vital signs. Vital Signs: Vital Signs 12/31/16 11:55 Temperature 37.3 C Pulse Rate 71 Respiratory 18 Rate Blood Pressure 147/64 O2 Sat by Pulse 95 Oximetry - X-Ray X-Ray #1 X-Ray: chest - chronic, no acute changes Interpretation: Reviewed by me - Progress/Reassessment Chief Complaint: Upper Respiratory Symptoms Progress Note-Subjective: 12/31/16 13:[address] Rodriguez, patient has frequent visits to ER and clinic, is stable today with no acute changes today made follow up appointment for next week 12/31/16 13:24 discussed results with patient and Departure Clinical Impression: COPD (chronic obstructive pulmonary disease) Qualifiers: COPD type: unspecified COPD Qualified Code(s): J44.9 - Chronic obstructive pulmonary disease, unspecified - Departure Disposition: Home self-care Condition: Stable Instructions: Chronic Obstructive Pulmonary Disease, [id number] Referrals: Jose Rodriguez DO [Primary Care Provider] - 01/06/17 2:00 pm
[2016-12-31 12:35] LABS: Hemoglobin 11.6 gm/dL (13.5-18.0); Mean Cell Volume 87.1 fl (78-100); Mean Corpuscular Hemoglobin 30.6 pg (27-31); Mean Corpuscular Hgb Conc 35.2 g/dl (32-36); Mean Platelet Volume 10.4 fl (6.0-9.5); Neutrophil % 78.5 % (42-75.0); Platelet Count 192 K/mm3 (150-450); Red Blood Count 3.79 M/mm3 (4.7-6.0); Red Cell Distribution Width 13.6 % (11.5-14.0); White Blood Count 8.9 K/mm3 (4.0-10.5)
[2016-12-31 12:51] LABS: Albumin * 3.4 gm/dl (3.4-5.0); BUN/Creatinine Ratio 16.8 (9.0-21.6); Bilirubin, Total 0.5 mg/dL (0.0-1.1); Ca. Corrected For Albumin 9.1 mg/dL (8.4-10.2); Calcium * 8.9 mg/dL (7.9-10.9); Carbon Dioxide 25.9 mmol/L (24-32.6); Potassium 4.9 mmol/L (3.4-4.6)
[2016-12-31 12:52] VITALS: BP 142/69
== END 2016-12-31 13:23 | disposition home or self-care (01) ==
LOC: ER 11:51
DX: J44.9 Chronic obstructive pulmonary disease, unspecified (principal); E11.9 Type 2 diabetes mellitus without complications; K21.9 Gastro-esophageal reflux disease without esophagitis; I10 Essential (primary) hypertension; D64.9 Anemia, unspecified; E78.5 Hyperlipidemia, unspecified; M19.90 Unspecified osteoarthritis, unspecified site

== ENCOUNTER 2017-01-16 19:51 | Emergency (ER) | payer MEDICARE, OTHER ==
--- NOTE | 2017-01-16 20:17 | ERNOTE ---
Medical Problem HPI - General Chief Complaint: General Assessment Time Seen by Provider: 01/16/17 20:07 Source: patient Exam Limitations: no limitations - Immun/Allergies/Home Medications Immunizations: IMMUNIZATION HX Immunizations Up to Date Yes History of Influenza Vaccine Yes Hx Pneumococcal Vaccination Yes Allergies/Adverse Reactions: Allergies venom-honey bee [bee venom (honey bee)] Allergy (Severe, Verified 01/16/17 20:02 ) Anaphylaxis morphine Adverse Reaction (Mild, Verified 01/16/17 20:02) Nausea Home Medications: HOME MEDICATIONS Cyclobenzaprine HCl 10 mg PO DAILY PRN 03/07/16 [Last Taken Unknown] Furosemide [Lasix] 20 mg PO DAILY 03/07/16 [Last Taken Unknown] Glimepiride 4 mg PO BID 03/07/16 [Last Taken Unknown] Metoprolol Tartrate 200 mg PO DAILY 03/07/16 [Last Taken Unknown] Nitroglycerin [Nitrostat] 0.4 mg SL [id number] PRN 03/07/16 [Last Taken Unknown] sitaGLIPtin PHOSPHATE [Januvia] 50 mg PO DAILY 04/05/16 [Last Taken Unknown] Acarbose [Precose] 50 mg PO TID 12/05/16 [Last Taken Unknown] Aspirin [Aspirin Enteric Coated] 81 mg PO DAILY 12/05/16 [Last Taken Unknown] Folic Acid 0.8 mg PO DAILY 12/05/16 [Last Taken Unknown] Multivitamins [Multivitamin Juju] 1 cap PO DAILY 12/05/16 [Last Taken Unknown] Omeprazole 40 mg PO BID 12/05/16 [Last Taken Unknown] Albuterol Sulfate/Ipratropium [Duoneb 2.5-0.5MG/3ML Soln] 3 ml IH QID 5 Days # 150 vial 12/15/16 [Last Taken Unknown] Atorvastatin Calcium 20 mg PO DAILY 12/19/16 [Last Taken Unknown] Donepezil HCl [Aricept] 5 mg PO HS 12/19/16 [Last Taken Unknown] Pioglitazone HCl [Actos] 30 mg PO DAILY 12/19/16 [Last Taken Unknown] Tamsulosin HCl [Flomax] 0.4 mg PO DAILY 12/19/16 [Last Taken Unknown] Tiotropium [place] [Spiriva] 1 cap IH DAILY 01/16/17 [Last Taken Unknown] - History of Present History Narrative: Pt states he has been thirst all day. Now he feels cold Timing: constant Severity: mild Modifying Factors - (Improves): Present: other - drinking Review of Systems - Review of Systems Constitutional: Absent: recent illness, fever, chills EYE: Present: no symptoms reported ENT: Absent: nose congestion Respiratory: Absent: shortness of breath Cardiology: Absent: chest pain Gastrointestinal/Abdominal: Absent: nausea, vomiting Genitourinary: Present: frequency. Absent: pain Musculoskeletal: Present: no symptoms reported Skin: Present: no symptoms reported Neurological: Present: no symptoms reported Endocrine: Absent: intolerance to cold - although he feels cold since being put into a room in the ED Hematologic/Lymphatic: Present: no symptoms reported Psych: Present: no symptoms reported - Patient's Past Medical History Patient History - Medical: Anemia, Arthritis, Diabetes Type 2, Dementia, GERD, Renal Disease Patient History - Cardiac/Respiratory: Coronary Heart Disease, CHF, COPD, Hypertension, Hyperlipidemia, CPAP/BiPAP Home Use, Sleep Apnea Patient History - Cancer: No Hx of Cancer Patient History - Surgical Procedures: Appendectomy, Cataracts, Colonoscopy, Total Knee Replacement, T & A Patient History - Other: None - Family History Mother Family History - Medical: , No pertinent hx, Alzheimer's Disease Family History - Cardiac/Respiratory: History Unknown Family History - Cancer: No pertinent family hx Father Family History - Medical: , Depression Family History - Cardiac/Respiratory: History Unknown Family History - Cancer: History Unknown Sister Family History - Medical: , No pertinent hx Family History - Cardiac/Respiratory: No pertinent hx Family History - Cancer: Breast - Social History Living Situations: home Abuse History: No History of abuse Psych History: No pertinent hx Smoking Status: Former smoker Alcohol Use: rarely Drug Use: none - Immunizations Immunizations Up to Date: Yes Hx Pneumococcal Vaccination: Yes History of Influenza Vaccine: Yes Physical Exam - Physical Exam General Appearance: Present: wd/wn, alert, no apparent distress Head Exam: Present: normal inspection, no evidence of injury Neck: Present: normal inspection, nontender Respiratory: Present: no respiratory distress, no accessory muscle use, lungs clear Cardiovascular/Chest: Present: regular rate, rhythm, no murmur, normal peripheral pulses Gastrointestinal/Abdominal: Present: nontender, soft Back Exam: Present: no CVA tenderness Neurological Exam: Present: alert, oriented, normal mood/affect, no motor/ sensory deficits Skin Exam: Present: normal color, warm/dry ED Progress - Results and Orders Patient's Lab Results:: I have reviewed the patient's lab results. Results and Orders: Laboratory Tests 01/16/17 01/16/17 20:25 20:25 WBC 6.1 Hgb 10.8 L Hct 31.5 L Plt Count 205 Lymphocytes % 15.6 L Monocytes % 11.2 H Sodium 134 Potassium 4.9 H Chloride 99 Carbon Dioxide 27.3 BUN 29 H Creatinine 2.06 H Est GFR (Non-Af Amer) 33 L BUN/Creatinine Ratio 14.1 Random Glucose 386 H Calcium 8.7 - Vital Signs Patient's Vital Signs:: I have reviewed the patient's vital signs. Vital Signs: Vital Signs 01/16/17 19:57 Temperature 37.1 C Pulse Rate 71 Respiratory 18 Rate Blood Pressure 181/85 O2 Sat by Pulse 98 Oximetry - Progress/Reassessment Chief Complaint: General Assessment Progress:: Unchanged Departure Clinical Impression: Dehydration, mild - Departure Disposition: Home Follow Up Needed Condition: Good Instructions: Dehydration, Elderly Additional Instructions: follow up with Dr. Rodriguez as scheduled. Drink a little more water if you continue to be thirsty. Referrals: Jose Rodriguez, [Primary Care Provider] -
[2017-01-16 20:29] LABS: Hematocrit 31.5 % (42.0-52.0); Hemoglobin 10.8 gm/dL (13.5-18.0); Mean Cell Volume 88.5 fl (78-100); Mean Corpuscular Hemoglobin 30.3 pg (27-31); Mean Corpuscular Hgb Conc 34.3 g/dl (32-36); Mean Platelet Volume 9.9 fl (6.0-9.5); Neutrophil # 4.1 K/mm3 (1.3-6.0); Neutrophil % 67.8 % (42-75.0); Platelet Count 205 K/mm3 (150-450); Red Blood Count 3.56 M/mm3 (4.7-6.0); Red Cell Distribution Width 13.1 % (11.5-14.0); White Blood Count 6.1 K/mm3 (4.0-10.5)
[2017-01-16 20:42] LABS: Anion Gap 12.6 mmol/L (6.8-13.8); BUN/Creatinine Ratio 14.1 (9.0-21.6); Calcium * 8.7 mg/dL (7.9-10.9); Carbon Dioxide 27.3 mmol/L (24-32.6); Estimated Creat Clear 28.5; Potassium 4.9 mmol/L (3.4-4.6)
[2017-01-16 21:18] VITALS: BP 159/65
== END 2017-01-16 21:38 | disposition home or self-care (01) ==
LOC: ER 19:51
DX: E86.0 Dehydration (principal); Z87.891 Personal history of nicotine dependence; E11.9 Type 2 diabetes mellitus without complications; J44.9 Chronic obstructive pulmonary disease, unspecified; K21.9 Gastro-esophageal reflux disease without esophagitis; I10 Essential (primary) hypertension; I50.9 Heart failure, unspecified; E78.5 Hyperlipidemia, unspecified

== ENCOUNTER 2017-02-06 18:59 | Emergency (ER) | payer MEDICARE, OTHER ==
[2017-02-06] MEDS ORDERED: ASPIRIN 81 MG TAB.CHEW PO ONE (19:10)
--- NOTE | 2017-02-06 19:19 | ERNOTE ---
Chest Pain/Cardiac HPI Date of Service: 02/06/17 Chief Complaint: Chest Pain Time Seen by Provider: 02/06/17 19:03 Source: patient, family Exam Limitations: no limitations Immunizations: IMMUNIZATION HX Immunizations Up to Date Yes History of Influenza Vaccine Yes Hx Pneumococcal Vaccination Yes Allergies/Adverse Reactions: Allergies venom-honey bee [bee venom (honey bee)] Allergy (Severe, Verified 02/06/17 19:09 ) Anaphylaxis morphine Adverse Reaction (Mild, Verified 02/06/17 19:09) Nausea Home Medications: HOME MEDICATIONS Cyclobenzaprine HCl 10 mg PO DAILY PRN 03/07/16 [Last Taken Unknown] Furosemide [Lasix] 20 mg PO DAILY 03/07/16 [Last Taken Unknown] Glimepiride 4 mg PO BID 03/07/16 [Last Taken Unknown] Metoprolol Tartrate 200 mg PO DAILY 03/07/16 [Last Taken Unknown] Nitroglycerin [Nitrostat] 0.4 mg SL [id number] PRN 03/07/16 [Last Taken Unknown] sitaGLIPtin PHOSPHATE [Januvia] 50 mg PO DAILY 04/05/16 [Last Taken Unknown] Acarbose [Precose] 50 mg PO TID 12/05/16 [Last Taken Unknown] Aspirin [Aspirin Enteric Coated] 81 mg PO DAILY 12/05/16 [Last Taken Unknown] Folic Acid 0.8 mg PO DAILY 12/05/16 [Last Taken Unknown] Multivitamins [Multivitamin Juju] 1 cap PO DAILY 12/05/16 [Last Taken Unknown] Omeprazole 40 mg PO BID 12/05/16 [Last Taken Unknown] Albuterol Sulfate/Ipratropium [Duoneb 2.5-0.5MG/3ML Soln] 3 ml IH QID 5 Days # 150 vial 12/15/16 [Last Taken Unknown] Atorvastatin Calcium 20 mg PO DAILY 12/19/16 [Last Taken Unknown] Donepezil HCl [Aricept] 5 mg PO HS 12/19/16 [Last Taken Unknown] Pioglitazone HCl [Actos] 30 mg PO DAILY 12/19/16 [Last Taken Unknown] Tamsulosin HCl [Flomax] 0.4 mg PO DAILY 12/19/16 [Last Taken Unknown] Tiotropium [place] [Spiriva] 1 cap IH DAILY 01/16/17 [Last Taken Unknown] Doxycycline Monohydrate 100 mg PO BID #20 tablet 02/06/17 [Last Taken Unknown] predniSONE [Prednisone] 3 tab PO DAILY #9 tab 02/06/17 [Last Taken Unknown] Narrative: Pt. comes in with c/o upper substernal chest pain for 10 hours. Pt. states that pain is worsened with deep breathing and coughing and is pressure in nature. Pt. denies any SOB, NVD, fever, but states that he has been feeling malaise and has had a sore throat and sinus congestion with cough and chest congestion for 2 days. Pt. states that he has been taking robitussin and corcedin without relief. Timing: getting worse, intermittent Severity/Quality: pressure Location: substernal Chest Pain Radiation: no radiation Activities at Onset: none Modifying Factors - Improves: Present: nothing Modifying Factors - Worsens: Present: breathing, coughing Nitro Today/Relief: no nitro taken today Aspirin Treatment Today: 81 mg x 1, provided at home Associated Symptoms: Present: cough, weakness, other - malaise Prior Chest Pain/Cardiac Workup: Reports: prior chest pain Prior Treatment: Reports: other - see note Review of Systems - Review of Systems Constitutional: Present: recent illness, chills, weakness, fatigue, malaise EYE: Present: no symptoms reported ENT: Present: nose congestion, nasal drainage, sore throat. Absent: ear pain Respiratory: Present: cough. Absent: shortness of breath Cardiology: Present: chest pain. Absent: palpitations, syncope, edema Gastrointestinal/Abdominal: Present: no symptoms reported. Absent: nausea, vomiting, diarrhea Genitourinary: Present: no symptoms reported. Absent: frequency, decreased urinary output Musculoskeletal: Present: no symptoms reported. Absent: back pain, joint pain Skin: Present: no symptoms reported Neurological: Present: no symptoms reported. Absent: headache, dizziness/light- headedness, numbness, tingling All Other Systems: All systems neg except as marked - Patient's Past Medical History Patient History - Medical: Anemia, Arthritis, Diabetes Type 2, Dementia, GERD, Renal Disease Patient History - Cardiac/Respiratory: Coronary Heart Disease, CHF, COPD, Hypertension, Hyperlipidemia, CPAP/BiPAP Home Use, Sleep Apnea Patient History - Cancer: No Hx of Cancer Patient History - Surgical Procedures: Appendectomy, Cataracts, Colonoscopy, Total Knee Replacement, T & A Patient History - Other: None - Family History Mother Family History - Medical: , No pertinent hx, Alzheimer's Disease Family History - Cardiac/Respiratory: History Unknown Family History - Cancer: No pertinent family hx Father Family History - Medical: , Depression Family History - Cardiac/Respiratory: History Unknown Family History - Cancer: History Unknown Sister Family History - Medical: , No pertinent hx Family History - Cardiac/Respiratory: No pertinent hx Family History - Cancer: Breast - Social History Living Situations: home Abuse History: No History of abuse Psych History: No pertinent hx Smoking Status: Former smoker - Immunizations Immunizations Up to Date: Yes Hx Pneumococcal Vaccination: Yes History of Influenza Vaccine: Yes Physical Exam - Physical Exam General Appearance: Present: wd/wn, alert, no apparent distress Head Exam: Present: normal inspection, no evidence of injury Eye Exam: Normal inspection: bilateral, PERRL: bilateral, EOMI: bilateral Ears, Nose, Throat: Present: nasal congestion, sinus pain/drainage, pharyngeal erythema. Absent: pharyngeal swelling, dry mucous membranes Neck: Present: normal inspection, nontender, supple, full range of motion. Absent: lymphadenopathy (R), lymphadenopathy (L) Respiratory: Present: no respiratory distress, no accessory muscle use, chest tenderness - upper mid sternal, decreased breath sounds Cardiovascular/Chest: Present: regular rate, rhythm, no murmur, normal peripheral pulses Back Exam: Present: normal inspection Extremity Exam: Present: normal inspection, non-tender, normal range of motion, no edema Neurological Exam: Present: alert, oriented, normal mood/affect, no motor/ sensory deficits Skin Exam: Present: warm/dry, pallor ED Progress - Results and Orders Patient's Lab Results:: I have reviewed the patient's lab results. - Vital Signs Patient's Vital Signs:: I have reviewed the patient's vital signs. Vital Signs: Vital Signs 02/06/17 19:05 Temperature 36.8 C Pulse Rate 80 Respiratory 17 Rate Blood Pressure 197/73 O2 Sat by Pulse 100 Oximetry - EKG EKG: RBBB, unchanged from - 12/21/2016, other - SR with 1st degree AVB no acute changes - X-Ray X-Ray #1 X-Ray: chest Interpretation: Reviewed by me X-ray Comments: RLL consolidation vs scarring - Progress/Reassessment Chief Complaint: Chest Pain Departure Clinical Impression: Bronchitis, COPD exacerbation - Departure Disposition: Home self-care Condition: Good Instructions: Acute Bronchitis, [id number], Chronic Obstructive Pulmonary Disease Exacerbation, [id number] Additional Instructions: Please follow up with primary provider in 2-3 days. Referrals: Jose Rodriguez DO [Primary Care Provider] - Prescriptions: Doxycycline Monohydrate 100 mg PO BID #20 tablet predniSONE [Prednisone] 3 tab PO DAILY #9 tab Critical Care Time - Critical Care Critical Time Spent:: No Total time (mins) Spent:: 0
[2017-02-06] MEDS ORDERED: ASPIRIN 81 MG TAB.CHEW ONE (19:25)
[2017-02-06 19:35] LABS: Hematocrit 34.1 % (42.0-52.0); Hemoglobin 11.6 gm/dL (13.5-18.0); Mean Corpuscular Hemoglobin 30.6 pg (27-31); Mean Platelet Volume 10.3 fl (6.0-9.5); Neutrophil # 4.1 K/mm3 (1.3-6.0); Neutrophil % 66.2 % (42-75.0); Platelet Count 161 K/mm3 (150-450); Red Blood Count 3.79 M/mm3 (4.7-6.0); Red Cell Distribution Width 13.9 % (11.5-14.0); White Blood Count 6.2 K/mm3 (4.0-10.5)
[2017-02-06 19:47] LABS: Prothrombin Time (Patient) 10.3 Seconds (9.0-11.0)
[2017-02-06 19:51] LABS: INR 1.03 INR (0.90-1.10); Partial Thrombolplastin Time 25.8 Seconds (24-32)
[2017-02-06 19:54] LABS: ALT 24 U/L (19-67); Albumin * 3.4 gm/dl (3.4-5.0); Alkaline Phosphatase * 89 U/L (50-170); Anion Gap 14.7 mmol/L (6.8-13.8); Bilirubin, Total 0.4 mg/dL (0.0-1.1); Blood Urea Nitrogen 25 mg/dL (6-23); Ca. Corrected For Albumin 8.8 mg/dL (8.4-10.2); Calcium * 8.6 mg/dL (7.9-10.9); Carbon Dioxide 25.6 mmol/L (24-32.6); Chloride 104 mmol/L (97-106); Glucose * 216 mg/dL (70-110); Potassium 4.3 mmol/L (3.4-4.6); Sodium 140 mmol/L (132-142); Total Protein 6.5 gm/dL (6.2-8.2)
[2017-02-06 19:57] LABS: Troponin I Less than 0.017 ng/ml (0.00-0.10)
[2017-02-06 20:04] LABS: AST 22 U/L (0-48)
[2017-02-06] MEDS ORDERED: METHYLPREDNISOLONE ACETATE 80 MG/ML VIAL IM ONE (20:27)
[2017-02-06] MEDS ORDERED: DOXYCYCLINE HYCLATE 100 MG TABLET PO ONE (20:27)
[2017-02-06] MEDS ORDERED: METHYLPREDNISOLONE ACETATE 80 MG/ML VIAL ONE (20:35)
[2017-02-06] MEDS ORDERED: DOXYCYCLINE HYCLATE 100 MG TABLET ONE (20:36)
[2017-02-06 20:43] VITALS: BP 140/44
== END 2017-02-06 20:50 | disposition home or self-care (01) ==
LOC: ER 18:59
DX: J44.1 Chronic obstructive pulmonary disease with (acute) exacerbation (principal); J40 Bronchitis, not specified as acute or chronic; Z87.891 Personal history of nicotine dependence

== ENCOUNTER 2017-02-27 06:22 | Emergency (ER) | payer MEDICARE, OTHER ==
[2017-02-27 06:46] LABS: Hematocrit 36.6 % (42.0-52.0); Hemoglobin 12.2 gm/dL (13.5-18.0); Mean Cell Volume 89.7 fl (78-100); Mean Corpuscular Hemoglobin 29.9 pg (27-31); Mean Corpuscular Hgb Conc 33.3 g/dl (32-36); Mean Platelet Volume 10.2 fl (6.0-9.5); Neutrophil # 3.5 K/mm3 (1.3-6.0); Platelet Count 134 K/mm3 (150-450); Red Blood Count 4.08 M/mm3 (4.7-6.0); Red Cell Distribution Width 14.3 % (11.5-14.0)
--- NOTE | 2017-02-27 06:48 | ERNOTE ---
<Young Rivas - Last Filed: 02/27/17 08:11> Chest Pain/Cardiac HPI Chief Complaint: Chest Pain Time Seen by Provider: 02/27/17 06:34 Source: patient, family Exam Limitations: no limitations Immunizations: IMMUNIZATION HX Immunizations Up to Date Yes History of Influenza Vaccine Yes Hx Pneumococcal Vaccination Yes Allergies/Adverse Reactions: Allergies venom-honey bee [bee venom (honey bee)] Allergy (Severe, Verified 02/27/17 06:42 ) Anaphylaxis morphine Adverse Reaction (Mild, Verified 02/27/17 06:42) Nausea Home Medications: HOME MEDICATIONS RX: Cyclobenzaprine HCl 10 mg PO DAILY PRN 03/07/16 [Last Taken 02/26/17] RX: Furosemide [Lasix] 20 mg PO DAILY 03/07/16 [Last Taken 02/26/17] RX: Glimepiride 4 mg PO BID 03/07/16 [Last Taken 02/26/17] RX: Metoprolol Tartrate 100 mg PO BID 03/07/16 [Last Taken 02/26/17] RX: Nitroglycerin [Nitrostat] 0.4 mg SL [id number] PRN 03/07/16 [Last Taken ] RX: sitaGLIPtin PHOSPHATE [Januvia] 50 mg PO DAILY 04/05/16 [Last Taken 02/26/17 ] RX: Acarbose [Precose] 50 mg PO TID 12/05/16 [Last Taken 02/26/17] RX: Aspirin [Aspirin Enteric Coated] 81 mg PO DAILY 12/05/16 [Last Taken ] RX: Multivitamins [Multivitamin Juju] 1 cap PO DAILY 12/05/16 [Last Taken ] RX: Omeprazole 40 mg PO BID 12/05/16 [Last Taken 02/26/17] RX: Atorvastatin Calcium 20 mg PO DAILY 12/19/16 [Last Taken 02/26/17] RX: Donepezil HCl [Aricept] 5 mg PO HS 12/19/16 [Last Taken 02/26/17] RX: Pioglitazone HCl [Actos] 30 mg PO DAILY 12/19/16 [Last Taken 02/26/17] RX: Tamsulosin HCl [Flomax] 0.4 mg PO DAILY 12/19/16 [Last Taken 02/26/17] Cinnamon Bark [Cinnamon] 1,000 mg PO DAILY 02/27/17 [Last Taken 02/26/17] Cyanocobalamin [Vitamin B-12] 1,000 mcg PO DAILY 02/27/17 [Last Taken 02/26/17] Finasteride [Proscar] 5 mg PO DAILY 02/27/17 [Last Taken 02/26/17] Insulin Glargine,Hum.rec.anlog [Lantus] 33 units SC HS 02/27/17 [Last Taken ] Meloxicam [Mobic] 15 mg PO DAILY 02/27/17 [Last Taken 02/26/17] RX: Amlodipine Besylate 5 mg PO BID 02/27/17 [Last Taken 02/26/17] RX: Loratadine 10 mg PO DAILY 02/27/17 [Last Taken 02/26/17] Topiramate [Topamax] 25 mg PO DAILY 02/27/17 [Last Taken 02/26/17] metFORMIN HCL [Glucophage] 1,000 mg PO BIDWM 02/27/17 [Last Taken 02/26/17] Narrative: Pt was up this morning and was feeling normal. Suddenly he became weak generally and felt his heart was racing. Timing: constant Severity/Quality: moderate Chest Pain Radiation: no radiation Activities at Onset: activity Modifying Factors - Improves: Present: nothing Nitro Today/Relief: no nitro taken today Aspirin Treatment Today: no aspirin today Associated Symptoms: Absent: cough Prior Chest Pain/Cardiac Workup: Reports: prior chest pain Prior Treatment: Reports: recently seen Review of Systems - Review of Systems Constitutional: Absent: recent illness EYE: Present: no symptoms reported ENT: Absent: nose congestion, nasal drainage Respiratory: Absent: shortness of breath Cardiology: Present: See HPI, palpitations. Absent: chest pain Gastrointestinal/Abdominal: Absent: nausea, vomiting Genitourinary: Present: no symptoms reported Musculoskeletal: Present: no symptoms reported Skin: Present: no symptoms reported Neurological: Absent: headache, dizziness/light-headedness Endocrine: Absent: excessive sweating, flushing Hematologic/Lymphatic: Present: easy bruising Psych: Present: anxiety - Patient's Past Medical History Patient History - Medical: Anemia, Arthritis, Diabetes Type 2, Dementia, GERD, Renal Disease Patient History - Cardiac/Respiratory: Coronary Heart Disease, CHF, COPD, Hypertension, Hyperlipidemia, CPAP/BiPAP Home Use, Sleep Apnea Patient History - Cancer: No Hx of Cancer Patient History - Surgical Procedures: Appendectomy, Cataracts, Colonoscopy, Total Knee Replacement, T & A Patient History - Other: None - Family History Mother Family History - Medical: , No pertinent hx, Alzheimer's Disease Family History - Cardiac/Respiratory: History Unknown Family History - Cancer: No pertinent family hx Father Family History - Medical: , Depression Family History - Cardiac/Respiratory: History Unknown Family History - Cancer: History Unknown Sister Family History - Medical: , No pertinent hx Family History - Cardiac/Respiratory: No pertinent hx Family History - Cancer: Breast - Social History Abuse History: No History of abuse Psych History: No pertinent hx - Immunizations Immunizations Up to Date: Yes Hx Pneumococcal Vaccination: Yes History of Influenza Vaccine: Yes Physical Exam - Physical Exam General Appearance: Present: wd/wn, alert, mild distress Head Exam: Present: normal inspection, no evidence of injury Eye Exam: Normal inspection: bilateral Neck: Present: normal inspection, nontender, supple Respiratory: Present: no respiratory distress, normal breath sounds, lungs clear Cardiovascular/Chest: Present: regular rate, rhythm, no murmur, normal peripheral pulses Gastrointestinal/Abdominal: Present: normal bowel sounds, nontender, soft Back Exam: Present: normal inspection Extremity Exam: Present: normal inspection, pedal edema Neurological Exam: Present: alert, oriented, normal mood/affect Skin Exam: Present: other - stasis dermatitis bilateral LE. Lymphatic Exam: Present: no adenopathy ED Progress - Results and Orders Patient's Lab Results:: I have reviewed the patient's lab results. Results and Orders: Laboratory Tests 02/27/17 02/27/17 02/27/17 06:43 06:43 06:43 WBC 6.0 Hgb 12.2 L Hct 36.6 L Plt Count 134 L PT 10.0 INR (Anticoag Therapy) 1.00 PTT ([place]) 24.2 Sodium 141 Potassium 4.2 Chloride 106 Carbon Dioxide 26.9 BUN 56 H D Creatinine 2.19 H D Random Glucose 75 Calcium 9.0 Total Bilirubin 0.4 AST 20 ALT 32 Alkaline Phosphatase 77 Troponin I Less than 0.017 Total Protein 6.7 Albumin 3.6 - Vital Signs Patient's Vital Signs:: I have reviewed the patient's vital signs. Vital Signs: Vital Signs 02/27/17 06:26 Pulse Rate 66 Respiratory 18 Rate Blood Pressure 191/70 - EKG EKG: NSR, RBBB, other - 1st degree AV block EKG read: Interp. by me - Progress/Reassessment Chief Complaint: Chest Pain Progress Note-Subjective: 02/27/17 07:13 Pt did not admit to chest pain to me initially, but now admits to chest pain at 6/10. Nitro and ASA ordered. - Transfer of Care Physician Sign Out: Young Rivas Receiving Physician: Constance Ferreira Expected Disposition: Discharge Departure Clinical Impression: Dehydration, mild, Palpitations - Departure Disposition: Home Follow Up Needed Condition: Good Instructions: Palpitations, [id number] Additional Instructions: take all your medications as instructed call your doctor for follow up Referrals: Jose Rodriguez DO [Primary Care Provider] - <Constance Ferreira - Last Filed: 02/27/17 08:41> Chest Pain/Cardiac HPI Immunizations: IMMUNIZATION HX Immunizations Up to Date Yes History of Influenza Vaccine Yes Hx Pneumococcal Vaccination Yes ED Progress - Results and Orders Patient's Lab Results:: I have reviewed the patient's lab results. - Vital Signs Patient's Vital Signs:: I have reviewed the patient's vital signs. Vital Signs: Vital Signs 02/27/17 02/27/17 02/27/17 06:26 06:35 06:50 Temperature 36.3 C L Pulse Rate 66 63 59 L Respiratory 18 18 18 Rate Blood Pressure 191/70 185/71 178/67 O2 Sat by Pulse 98 98 Oximetry 02/27/17 02/27/17 02/27/17 07:05 07:20 07:30 Temperature Pulse Rate 56 L 60 74 Respiratory 14 16 16 Rate Blood Pressure 171/68 171/63 127/60 O2 Sat by Pulse 97 96 93 Oximetry 02/27/17 02/27/17 02/27/17 07:45 08:05 08:24 Temperature 36.5 C Pulse Rate 95 55 L 52 L Respiratory 16 16 14 Rate Blood Pressure 155/61 159/76 177/66 O2 Sat by Pulse 95 97 97 Oximetry - X-Ray X-Ray #1 X-Ray: chest - midl congestion, no acute changes Interpretation: Interp. by me - Progress/Reassessment Progress Note-Subjective: 02/27/17 08:40 patient feeling better, no pain, no shortnessa of breath, discussed test results with patient and , patient ready to go home
[2017-02-27 07:01] LABS: Partial Thrombolplastin Time 24.2 Seconds (24-32)
[2017-02-27 07:04] LABS: ALT 32 U/L (19-67); AST 20 U/L (0-48); Albumin * 3.6 gm/dl (3.4-5.0); Alkaline Phosphatase * 77 U/L (50-170); Anion Gap 12.3 mmol/L (6.8-13.8); BUN/Creatinine Ratio 25.6 (9.0-21.6); Bilirubin, Total 0.4 mg/dL (0.0-1.1); Blood Urea Nitrogen 56 mg/dL (6-23); Carbon Dioxide 26.9 mmol/L (24-32.6); Chloride 106 mmol/L (97-106); Glucose * 75 mg/dL (70-110); Potassium 4.2 mmol/L (3.4-4.6); Sodium 141 mmol/L (132-142); Total Protein 6.7 gm/dL (6.2-8.2)
[2017-02-27 07:07] LABS: Troponin I Less than 0.017 ng/ml (0.00-0.10)
[2017-02-27] MEDS ORDERED: NITROGLYCERIN 0.4 MG/TAB BTL SL ONE ×2 (07:11→07:16)
[2017-02-27] MEDS ORDERED: ASPIRIN 81 MG TAB.CHEW PO ONE (07:11)
[2017-02-27] MEDS ORDERED: ASPIRIN 81 MG TAB.CHEW ONE (07:14)
[2017-02-27] MEDS ORDERED: NORMAL SALINE 1,000 ML IV ONE (07:14)
[2017-02-27 08:57] VITALS: BP 162/74
== END 2017-02-27 08:56 | disposition home or self-care (01) ==
LOC: ER 06:22
DX: E86.0 Dehydration (principal); R00.2 Palpitations; E11.9 Type 2 diabetes mellitus without complications; Z79.4 Long term (current) use of insulin; F03.90 Unspecified dementia, unspecified severity, without behavioral disturbance, psychotic disturbance, mood disturbance, and anxiety; I10 Essential (primary) hypertension; I50.9 Heart failure, unspecified; K21.9 Gastro-esophageal reflux disease without esophagitis

== ENCOUNTER 2017-04-09 18:04 | Emergency (ER) | payer MEDICARE, OTHER ==
[2017-04-09 18:24] LABS: Hematocrit 34.6 % (42.0-52.0); Hemoglobin 11.8 gm/dL (13.5-18.0); Mean Cell Volume 88.7 fl (78-100); Mean Corpuscular Hemoglobin 30.3 pg (27-31); Mean Corpuscular Hgb Conc 34.1 g/dl (32-36); Neutrophil # 3.5 K/mm3 (1.3-6.0); Neutrophil % 60.2 % (42-75.0); Platelet Count 170 K/mm3 (150-450); Red Cell Distribution Width 14.1 % (11.5-14.0); White Blood Count 5.8 K/mm3 (4.0-10.5)
[2017-04-09 18:41] LABS: ALT 34 U/L (19-67); AST 26 U/L (0-48); Albumin * 3.7 gm/dl (3.4-5.0); Alkaline Phosphatase * 84 U/L (50-170); Anion Gap 12.9 mmol/L (6.8-13.8); BUN/Creatinine Ratio 17.3 (9.0-21.6); Bilirubin, Total 0.3 mg/dL (0.0-1.1); Blood Urea Nitrogen 31 mg/dL (6-23); Ca. Corrected For Albumin 8.6 mg/dL (8.4-10.2); Calcium * 8.7 mg/dL (7.9-10.9); Carbon Dioxide 27.4 mmol/L (24-32.6); Chloride 107 mmol/L (97-106); Glucose * 73 mg/dL (70-110); Potassium 4.3 mmol/L (3.4-4.6); Sodium 143 mmol/L (132-142); Total Protein 6.8 gm/dL (6.2-8.2)
[2017-04-09 18:42] LABS: Troponin I Less than 0.017 ng/ml (0.00-0.10)
--- NOTE | 2017-04-09 20:28 | ERNOTE ---
Chest Pain/Cardiac HPI Chief Complaint: Chest Pain Time Seen by Provider: 04/09/17 19:59 Source: patient, family Exam Limitations: no limitations Immunizations: IMMUNIZATION HX Immunizations Up to Date Yes History of Influenza Vaccine Yes Hx Pneumococcal Vaccination Yes Allergies/Adverse Reactions: Allergies venom-honey bee [bee venom (honey bee)] Allergy (Severe, Verified 04/09/17 19:10 ) Anaphylaxis morphine Adverse Reaction (Mild, Verified 04/09/17 19:10) Nausea Home Medications: HOME MEDICATIONS Cyclobenzaprine HCl 10 mg PO DAILY PRN 03/07/16 [Last Taken 02/26/17] Furosemide [Lasix] 20 mg PO DAILY 03/07/16 [Last Taken 02/26/17] Glimepiride 4 mg PO BID 03/07/16 [Last Taken 02/26/17] Metoprolol Tartrate 100 mg PO BID 03/07/16 [Last Taken 02/26/17] Nitroglycerin [Nitrostat] 0.4 mg SL [id number] PRN 03/07/16 [Last Taken 02/26/17] sitaGLIPtin PHOSPHATE [Januvia] 50 mg PO DAILY 04/05/16 [Last Taken 02/26/17] Acarbose [Precose] 50 mg PO TID 12/05/16 [Last Taken 02/26/17] Aspirin [Aspirin Enteric Coated] 81 mg PO DAILY 12/05/16 [Last Taken 02/26/17] Multivitamins [Multivitamin Juju] 1 cap PO DAILY 12/05/16 [Last Taken 02/26/17 ] Omeprazole 40 mg PO BID 12/05/16 [Last Taken 02/26/17] Atorvastatin Calcium 20 mg PO DAILY 12/19/16 [Last Taken 02/26/17] Donepezil HCl [Aricept] 5 mg PO HS 12/19/16 [Last Taken 02/26/17] Pioglitazone HCl [Actos] 30 mg PO DAILY 12/19/16 [Last Taken 02/26/17] Tamsulosin HCl [Flomax] 0.4 mg PO DAILY 12/19/16 [Last Taken 02/26/17] Amlodipine Besylate 5 mg PO BID 02/27/17 [Last Taken 02/26/17] Cinnamon Bark [Cinnamon] 1,000 mg PO DAILY 02/27/17 [Last Taken 02/26/17] Cyanocobalamin [Vitamin B-12] 1,000 mcg PO DAILY 02/27/17 [Last Taken 02/26/17] Finasteride [Proscar] 5 mg PO DAILY 02/27/17 [Last Taken 02/26/17] Insulin Glargine,Hum.rec.anlog [Lantus] 33 units SC HS 02/27/17 [Last Taken ] Loratadine 10 mg PO DAILY 02/27/17 [Last Taken 02/26/17] Meloxicam [Mobic] 15 mg PO DAILY 02/27/17 [Last Taken 02/26/17] Topiramate [Topamax] 25 mg PO DAILY 02/27/17 [Last Taken 02/26/17] metFORMIN HCL [Glucophage] 1,000 mg PO BIDWM 02/27/17 [Last Taken 02/26/17] Narrative: Pt has been working at his home a lot and having chest pain that started approx 1 hour [employer] Timing: constant Severity/Quality: moderate Location: substernal Chest Pain Radiation: back Activities at Onset: activity Prior Chest Pain/Cardiac Workup: Reports: prior chest pain, cardiac cath Review of Systems - Review of Systems Constitutional: Absent: recent illness, fever, chills EYE: Present: no symptoms reported ENT: Present: no symptoms reported Respiratory: Present: shortness of breath. Absent: cough Cardiology: Present: See HPI Gastrointestinal/Abdominal: Absent: nausea, vomiting Genitourinary: Present: no symptoms reported Musculoskeletal: Present: muscle pain Skin: Absent: rash Neurological: Absent: anxiety, depressed Endocrine: Present: excessive sweating Hematologic/Lymphatic: Present: no symptoms reported Psych: Present: no symptoms reported - Patient's Past Medical History Patient History - Medical: Anemia, Arthritis, Diabetes Type 2, Dementia, GERD, Renal Disease Patient History - Cardiac/Respiratory: Coronary Heart Disease, CHF, COPD, Hypertension, Hyperlipidemia, CPAP/BiPAP Home Use, Sleep Apnea Patient History - Cancer: No Hx of Cancer Patient History - Surgical Procedures: Appendectomy, Cataracts, Colonoscopy, Total Knee Replacement, T & A Patient History - Other: None - Family History Mother Family History - Medical: , No pertinent hx, Alzheimer's Disease Family History - Cardiac/Respiratory: History Unknown Family History - Cancer: No pertinent family hx Father Family History - Medical: , Depression Family History - Cardiac/Respiratory: History Unknown Family History - Cancer: History Unknown Sister Family History - Medical: , No pertinent hx Family History - Cardiac/Respiratory: No pertinent hx Family History - Cancer: Breast - Social History Living Situations: home Abuse History: No History of abuse Psych History: No pertinent hx Smoking Status: Former smoker Alcohol Use: none Drug Use: none - Immunizations Immunizations Up to Date: Yes Hx Pneumococcal Vaccination: Yes History of Influenza Vaccine: Yes Physical Exam - Physical Exam General Appearance: Present: wd/wn, alert, no apparent distress Head Exam: Present: normal inspection Eye Exam: Normal inspection: bilateral Ears, Nose, Throat: Present: normal ENT inspection Neck: Present: normal inspection Respiratory: Present: no respiratory distress, normal breath sounds, no accessory muscle use Cardiovascular/Chest: Present: regular rate, rhythm, no murmur Back Exam: Present: normal range of motion, no vertebral tenderness Extremity Exam: Present: normal inspection, normal range of motion Neurological Exam: Present: alert, oriented, normal mood/affect, no motor/ sensory deficits Skin Exam: Present: normal color, warm/dry Lymphatic Exam: Present: no adenopathy ED Progress - Results and Orders Patient's Lab Results:: I have reviewed the patient's lab results. Results and Orders: Laboratory Tests 04/09/17 04/09/17 18:08 18:26 WBC 5.8 Hgb 11.8 L Hct 34.6 L Plt Count 170 Sodium 143 H Potassium 4.3 Chloride 107 H Carbon Dioxide 27.4 Anion Gap 12.9 BUN 31 H Creatinine 1.79 H D Est GFR (Non-Af Amer) 39 L D BUN/Creatinine Ratio 17.3 Random Glucose 73 Calcium 8.7 Total Bilirubin 0.3 AST 26 ALT 34 Alkaline Phosphatase 84 Troponin I Less than 0.017 Total Protein 6.8 Albumin 3.7 - Vital Signs Patient's Vital Signs:: I have reviewed the patient's vital signs. Vital Signs: Vital Signs 04/09/17 04/09/17 04/09/17 18:09 18:35 19:07 Temperature 36.9 C Pulse Rate 61 55 L 60 Respiratory 22 H 14 Rate Blood Pressure 180/70 173/74 O2 Sat by Pulse 96 97 96 Oximetry 04/09/17 04/09/17 04/09/17 19:09 19:17 19:45 Temperature 36.3 C L Pulse Rate 57 L 54 L 57 L Respiratory 18 16 Rate Blood Pressure 169/85 O2 Sat by Pulse 97 94 Oximetry - EKG EKG: NSR - with 1st degree AV block, RBBB, other - old [place], Unchanged from 02/14 EKG read: Interp. by me - X-Ray X-Ray #1 X-Ray: chest Interpretation: Reviewed by me X-ray Comments: IMPRESSION: No acute cardiopulmonary process detected Electronically signed by Magen Stephens M.D.. - Progress/Reassessment Chief Complaint: Chest Pain Departure Clinical Impression: Chest pain Qualifiers: Chest pain type: other chest pain Qualified Code(s): R07.89 - Other chest pain - Departure Disposition: Home self-care Condition: Good Instructions: Nonspecific Chest Pain, [id number] Additional Instructions: keep up a consistent level of activity and don't over exert yourself. Referrals: Jose Rodriguez DO [Primary Care Provider] -
[2017-04-09 21:25] VITALS: BP 170/60
== END 2017-04-09 21:22 | disposition home or self-care (01) ==
LOC: ER 18:04
DX: R07.89 Other chest pain (principal); E11.9 Type 2 diabetes mellitus without complications; Z79.4 Long term (current) use of insulin; K21.9 Gastro-esophageal reflux disease without esophagitis; I10 Essential (primary) hypertension; I50.9 Heart failure, unspecified; F03.90 Unspecified dementia, unspecified severity, without behavioral disturbance, psychotic disturbance, mood disturbance, and anxiety; E78.5 Hyperlipidemia, unspecified; Z87.891 Personal history of nicotine dependence

== ENCOUNTER 2017-04-28 18:46 | Emergency (ER) | payer MEDICARE, OTHER ==
[2017-04-28] MEDS ORDERED: PROMETHAZINE HCL 25 MG/ML AMPUL ONE (19:21)
[2017-04-28] MEDS ORDERED: HYDROmorphone HCL 2 MG/ML VIAL ONE (19:21)
[2017-04-28] MEDS: PROMETHAZINE HCL 25 MG/ML AMPUL IM ONE (19:23)
[2017-04-28] MEDS: HYDROmorphone HCL 1 MG/ML DISP.SYRIN IM ONE (19:24)
--- NOTE | 2017-04-28 19:25 | ERNOTE ---
Headache ER HPI - Narrative Date of Service: 04/28/17 - General Presenting Symptoms: headache Time Seen by Provider: 04/28/17 19:05 Source: patient, family, RN notes reviewed Exam Limitations: no limitations - Immun/Allergies/Home Medications Immunizations: IMMUNIZATION HX Immunizations Up to Date Yes History of Influenza Vaccine Yes Hx Pneumococcal Vaccination Yes Allergies/Adverse Reactions: Allergies venom-honey bee [bee venom (honey bee)] Allergy (Severe, Verified 04/09/17 19:10 ) Anaphylaxis morphine Adverse Reaction (Mild, Verified 04/09/17 19:10) Nausea Home Medications: HOME MEDICATIONS Cyclobenzaprine HCl 10 mg PO DAILY PRN 03/07/16 [Last Taken 02/26/17] Furosemide [Lasix] 20 mg PO DAILY 03/07/16 [Last Taken 02/26/17] Glimepiride 4 mg PO BID 03/07/16 [Last Taken 02/26/17] Metoprolol Tartrate 100 mg PO BID 03/07/16 [Last Taken 02/26/17] Nitroglycerin [Nitrostat] 0.4 mg SL [id number] PRN 03/07/16 [Last Taken 02/26/17] sitaGLIPtin PHOSPHATE [Januvia] 50 mg PO DAILY 04/05/16 [Last Taken 02/26/17] Acarbose [Precose] 50 mg PO TID 12/05/16 [Last Taken 02/26/17] Aspirin [Aspirin Enteric Coated] 81 mg PO DAILY 12/05/16 [Last Taken 02/26/17] Multivitamins [Multivitamin Juju] 1 cap PO DAILY 12/05/16 [Last Taken 02/26/17 ] Omeprazole 40 mg PO BID 12/05/16 [Last Taken 02/26/17] Atorvastatin Calcium 20 mg PO DAILY 12/19/16 [Last Taken 02/26/17] Donepezil HCl [Aricept] 5 mg PO HS 12/19/16 [Last Taken 02/26/17] Pioglitazone HCl [Actos] 30 mg PO DAILY 12/19/16 [Last Taken 02/26/17] Tamsulosin HCl [Flomax] 0.4 mg PO DAILY 12/19/16 [Last Taken 02/26/17] Amlodipine Besylate 5 mg PO BID 02/27/17 [Last Taken 02/26/17] Cinnamon Bark [Cinnamon] 1,000 mg PO DAILY 02/27/17 [Last Taken 02/26/17] Cyanocobalamin [Vitamin B-12] 1,000 mcg PO DAILY 02/27/17 [Last Taken 02/26/17] Finasteride [Proscar] 5 mg PO DAILY 02/27/17 [Last Taken 02/26/17] Insulin Glargine,Hum.rec.anlog [Lantus] 33 units SC HS 02/27/17 [Last Taken ] Loratadine 10 mg PO DAILY 02/27/17 [Last Taken 02/26/17] Meloxicam [Mobic] 15 mg PO DAILY 02/27/17 [Last Taken 02/26/17] Topiramate [Topamax] 25 mg PO DAILY 02/27/17 [Last Taken 02/26/17] metFORMIN HCL [Glucophage] 1,000 mg PO BIDWM 02/27/17 [Last Taken 02/26/17] - History of Present Illness Narrative: Vishal is a 79 year old male brought to the ED by his for a headache that began around noon today. He has taken Tylenol without improvement. He has been seen here numerous times for headaches. He reports that this is similar, but he is also having body aches and chills. He has had numerous CT scans and a MRI of the brain within the past year that were without any pathologic findings. Date (Duration): 04/28/17 Time (Timing): 12:00 Timing of Headache: gradual, still present, constant Context Headache: Present: new onset Quality: Present: throbbing Severity Maximum: Present: severe Severity-Currently: Present: severe Headache frequency: Present: frequent headaches, similar to previous headache Exacerbated by:: Reports: light. Denies: noise, movement Prior Treament: Reports: recently seen, treated by physician, similar symptoms before Review of Systems - Review of Systems Constitutional: Present: chills, fatigue, malaise. Absent: recent illness EYE: Absent: eye pain, eye discharge ENT: Present: nose congestion, nasal drainage. Absent: ear pain, sore throat Respiratory: Present: cough. Absent: shortness of breath Cardiology: Absent: chest pain, palpitations Gastrointestinal/Abdominal: Present: nausea. Absent: vomiting, diarrhea Genitourinary: Present: no symptoms reported Musculoskeletal: Absent: muscle pain, joint pain Skin: Absent: rash, lesions Neurological: Present: headache, dizziness/light-headedness Endocrine: Present: no symptoms reported Hematologic/Lymphatic: Present: no symptoms reported Psych: Present: anxiety - Patient's Past Medical History Patient History - Medical: Anemia, Arthritis, Diabetes Type 2, Dementia, GERD, Renal Disease Patient History - Cardiac/Respiratory: Coronary Heart Disease, CHF, COPD, Hypertension, Hyperlipidemia, CPAP/BiPAP Home Use, Sleep Apnea Patient History - Cancer: No Hx of Cancer Patient History - Surgical Procedures: Appendectomy, Cataracts, Colonoscopy, Total Knee Replacement, T & A Patient History - Other: None - Family History Mother Family History - Medical: , No pertinent hx, Alzheimer's Disease Family History - Cardiac/Respiratory: History Unknown Family History - Cancer: No pertinent family hx Father Family History - Medical: , Depression Family History - Cardiac/Respiratory: History Unknown Family History - Cancer: History Unknown Sister Family History - Medical: , No pertinent hx Family History - Cardiac/Respiratory: No pertinent hx Family History - Cancer: Breast - Social History Living Situations: spouse Abuse History: No History of abuse Psych History: No pertinent hx Smoking Status: Never smoker Have you smoked in the past 12 months: No Do you dip or chew tobacco: No Alcohol Use: none Drug Use: none - Immunizations Immunizations Up to Date: Yes Hx Pneumococcal Vaccination: Yes History of Influenza Vaccine: Yes Physical Exam - Physical Exam General Appearance: Present: wd/wn, alert, mild distress Head Exam: Present: normal inspection, no evidence of injury Eye Exam: PERRL: bilateral, EOMI: bilateral, Photophobia: bilateral Ears, Nose, Throat: Present: nasal congestion, normal pharynx. Absent: abnormal TM (R), abnormal TM (L), sinus pain/drainage Neck: Present: normal inspection, nontender, supple Respiratory: Present: no respiratory distress, normal breath sounds, no accessory muscle use, lungs clear Cardiovascular/Chest: Present: regular rate, rhythm, no murmur Extremity Exam: Present: normal inspection, normal range of motion Neurological Exam: Present: alert, oriented, no motor/sensory deficits, other - depressed appearing. Absent: normal mood/affect Skin Exam: Present: normal color, warm/dry ED Progress - Results and Orders Patient's Lab Results:: I have reviewed the patient's lab results. - Vital Signs Patient's Vital Signs:: I have reviewed the patient's vital signs. Vital Signs: Vital Signs 04/28/17 18:54 Temperature 36 C L Pulse Rate 64 Respiratory 16 Rate Blood Pressure 193/78 O2 Sat by Pulse 95 Oximetry - Progress/Reassessment Chief Complaint: Headache Progress:: Pain free at discharge Plan - Plan Plan: Tested for influenza d/t complaints of body aches and chills but this was negative. Imaging deferred as patient has had numerous CT scans and his headache is not different from usual. Headache relieved with medications and discharged to home. Departure Clinical Impression: Headache Qualifiers: Headache type: unspecified Headache chronicity pattern: acute headache Intractability: not intractable Qualified Code(s): R51 - Headache - Departure Disposition: Home self-care Condition: Good Instructions: General Headache Without Cause Referrals: Jose Rodriguez DO [Primary Care Provider] -
[2017-04-29 08:39] VITALS: BP 163/80
== END 2017-04-28 20:25 | disposition home or self-care (01) ==
LOC: ER 18:46
DX: R51 Headache (principal)

== ENCOUNTER 2017-05-16 20:56 | Emergency (ER) | payer MEDICARE, OTHER ==
[2017-05-16] MEDS ORDERED: diphenhydrAMINE HCL 50 MG/ML VIAL IV ONE (22:16)
[2017-05-16] MEDS ORDERED: METOCLOPRAMIDE HCL 5 MG/ML VIAL IV ONE (22:16)
[2017-05-16] MEDS ORDERED: PROMETHAZINE HCL 25 MG/ML AMPUL IM ONE (22:16)
[2017-05-16] MEDS ORDERED: ACETAMINOPHEN 325 MG TABLET PO ONE (22:17)
[2017-05-16] MEDS ORDERED: DEXAMETHASONE SODIUM PHOSPHATE 10 MG/ML VIAL IV ONE (22:19)
--- NOTE | 2017-05-16 22:21 | ERNOTE ---
Headache ER HPI - Narrative Date of Service: 05/16/17 - General Presenting Symptoms: headache Time Seen by Provider: 05/16/17 22:15 Source: patient, family - Immun/Allergies/Home Medications Immunizations: IMMUNIZATION HX Immunizations Up to Date Yes History of Influenza Vaccine Yes Hx Pneumococcal Vaccination Yes Allergies/Adverse Reactions: Allergies venom-honey bee [bee venom (honey bee)] Allergy (Severe, Verified 04/09/17 19:10 ) Anaphylaxis morphine Adverse Reaction (Mild, Verified 04/09/17 19:10) Nausea Home Medications: HOME MEDICATIONS Cyclobenzaprine HCl 10 mg PO DAILY PRN 03/07/16 [Last Taken 02/26/17] Furosemide [Lasix] 20 mg PO DAILY 03/07/16 [Last Taken 02/26/17] Glimepiride 4 mg PO BID 03/07/16 [Last Taken 02/26/17] Metoprolol Tartrate 100 mg PO BID 03/07/16 [Last Taken 02/26/17] Nitroglycerin [Nitrostat] 0.4 mg SL [id number] PRN 03/07/16 [Last Taken 02/26/17] sitaGLIPtin PHOSPHATE [Januvia] 50 mg PO DAILY 04/05/16 [Last Taken 02/26/17] Acarbose [Precose] 50 mg PO TID 12/05/16 [Last Taken 02/26/17] Aspirin [Aspirin Enteric Coated] 81 mg PO DAILY 12/05/16 [Last Taken 02/26/17] Multivitamins [Multivitamin Juju] 1 cap PO DAILY 12/05/16 [Last Taken 02/26/17 ] Omeprazole 40 mg PO BID 12/05/16 [Last Taken 02/26/17] Atorvastatin Calcium 20 mg PO DAILY 12/19/16 [Last Taken 02/26/17] Donepezil HCl [Aricept] 5 mg PO HS 12/19/16 [Last Taken 02/26/17] Pioglitazone HCl [Actos] 30 mg PO DAILY 12/19/16 [Last Taken 02/26/17] Tamsulosin HCl [Flomax] 0.4 mg PO DAILY 12/19/16 [Last Taken 02/26/17] Amlodipine Besylate 5 mg PO BID 02/27/17 [Last Taken 02/26/17] Cinnamon Bark [Cinnamon] 1,000 mg PO DAILY 02/27/17 [Last Taken 02/26/17] Cyanocobalamin [Vitamin B-12] 1,000 mcg PO DAILY 02/27/17 [Last Taken 02/26/17] Finasteride [Proscar] 5 mg PO DAILY 02/27/17 [Last Taken 02/26/17] Insulin Glargine,Hum.rec.anlog [Lantus] 33 units SC HS 02/27/17 [Last Taken ] Loratadine 10 mg PO DAILY 02/27/17 [Last Taken 02/26/17] Meloxicam [Mobic] 15 mg PO DAILY 02/27/17 [Last Taken 02/26/17] Topiramate [Topamax] 25 mg PO DAILY 02/27/17 [Last Taken 02/26/17] metFORMIN HCL [Glucophage] 1,000 mg PO BIDWM 02/27/17 [Last Taken 02/26/17] - History of Present Illness Narrative: 81 year old that has frequent headaches that he has been seen by neurology for previously. Today a moderate global headache started at about 1600 hours when his grand children became noisy and were fighting over gifts. The headache has the typical pattern and has not resolved in spite of taking Reglan and Diphenhydramine orally at about the onset of the headache. Denies any neurological deficits, or N/V. Date (Duration): 05/16/17 Time (Timing): 22:26 Activity at onset: other - rest Timing of Headache: abrupt Context Headache: Present: other - recurrent Quality: Present: pressure Severity Maximum: Present: moderate Severity-Currently: Present: moderate Headache frequency: Present: frequent headaches Modifying Factors - (Improves): Reports: medication Modifying Factors - (Worsens): Reports: other - noise Associated Symptoms: Reports: denies symptoms Exacerbated by:: Reports: noise Review of Systems - Review of Systems Constitutional: Present: no symptoms reported EYE: Present: no symptoms reported ENT: Present: no symptoms reported Respiratory: Present: no symptoms reported Cardiology: Present: no symptoms reported Gastrointestinal/Abdominal: Present: no symptoms reported Genitourinary: Present: no symptoms reported Musculoskeletal: Present: no symptoms reported Skin: Present: no symptoms reported Neurological: Present: no symptoms reported Endocrine: Present: no symptoms reported Hematologic/Lymphatic: Present: no symptoms reported Psych: Present: no symptoms reported - Patient's Past Medical History Patient History - Medical: Anemia, Arthritis, Diabetes Type 2, Dementia, GERD, Renal Disease Patient History - Cardiac/Respiratory: Coronary Heart Disease, CHF, COPD, Hypertension, Hyperlipidemia, CPAP/BiPAP Home Use, Sleep Apnea Patient History - Cancer: No Hx of Cancer Patient History - Surgical Procedures: Appendectomy, Cataracts, Colonoscopy, Total Knee Replacement, T & A Patient History - Other: None - Family History Mother Family History - Medical: , No pertinent hx, Alzheimer's Disease Family History - Cardiac/Respiratory: History Unknown Family History - Cancer: No pertinent family hx Father Family History - Medical: , Depression Family History - Cardiac/Respiratory: History Unknown Family History - Cancer: History Unknown Sister Family History - Medical: , No pertinent hx Family History - Cardiac/Respiratory: No pertinent hx Family History - Cancer: Breast - Social History Living Situations: home Abuse History: No History of abuse Psych History: No pertinent hx Smoking Status: Former smoker Alcohol Use: none Drug Use: none - Immunizations Immunizations Up to Date: Yes Hx Pneumococcal Vaccination: Yes History of Influenza Vaccine: Yes Physical Exam - Physical Exam General Appearance: Present: no apparent distress Head Exam: Present: normal inspection Eye Exam: Normal inspection: bilateral, PERRL: bilateral, EOMI: bilateral Ears, Nose, Throat: Present: normal ENT inspection Neck: Present: normal inspection Respiratory: Present: no respiratory distress Cardiovascular/Chest: Present: regular rate, rhythm Gastrointestinal/Abdominal: Present: nontender Back Exam: Present: normal inspection Extremity Exam: Present: normal inspection Neurological Exam: Present: alert, oriented, normal mood/affect Skin Exam: Present: normal color ED Progress - Vital Signs Patient's Vital Signs:: I have reviewed the patient's vital signs. Vital Signs: Vital Signs 05/16/17 05/16/17 21:38 22:05 Temperature 36.6 C Pulse Rate 53 L 55 L Respiratory 20 18 Rate Blood Pressure 180/69 153/63 O2 Sat by Pulse 97 99 Oximetry - Progress/Reassessment Chief Complaint: Headache Progress:: Improved Progress Note-Subjective: 05/16/17 22:54 The headache has completely resolved. Phenergren was not given since the headache has resolved. Departure Clinical Impression: Migraine - Departure Disposition: Home self-care Condition: Good Instructions: Migraine Headache, [id number] Print Language: Greenlandic Additional Instructions: If the headache returns and is not controlled by medication return to the ED for evaluation. Referrals: Jose Rodriguez DO [Primary Care Provider] -
[2017-05-16] MEDS ORDERED: PROMETHAZINE HCL 25 MG/ML AMPUL ONE (22:28)
[2017-05-16] MEDS ORDERED: ACETAMINOPHEN 325 MG TABLET ONE (22:28)
[2017-05-16] MEDS ORDERED: METOCLOPRAMIDE HCL 5 MG/ML VIAL ONE (22:28)
[2017-05-16] MEDS ORDERED: diphenhydrAMINE HCL 50 MG/ML VIAL ONE (22:28)
[2017-05-16] MEDS ORDERED: DEXAMETHASONE SODIUM PHOSPHATE 10 MG/ML VIAL ONE (22:28)
[2017-05-17 03:37] VITALS: BP 186/64
== END 2017-05-16 23:02 | disposition home or self-care (01) ==
LOC: ER 20:56
DX: G43.909 Migraine, unspecified, not intractable, without status migrainosus (principal); Z87.891 Personal history of nicotine dependence

== ENCOUNTER 2017-05-19 11:55 | Emergency (ER) | payer MEDICARE, OTHER ==
[2017-05-19] MEDS ORDERED: NALBUPHINE HCL 20 MG/ML AMPUL IM ONE (12:30)
[2017-05-19] MEDS ORDERED: diphenhydrAMINE HCL 50 MG/ML VIAL IM ONE ×2 (12:30→13:44)
--- NOTE | 2017-05-19 12:39 | ERNOTE ---
Headache ER HPI - Narrative Date of Service: 05/19/17 - General Presenting Symptoms: "migraine" Time Seen by Provider: 05/19/17 12:09 Source: patient Exam Limitations: no limitations - Immun/Allergies/Home Medications Immunizations: IMMUNIZATION HX Immunizations Up to Date Yes History of Influenza Vaccine Yes Hx Pneumococcal Vaccination Yes Allergies/Adverse Reactions: Allergies venom-honey bee [bee venom (honey bee)] Allergy (Severe, Verified 05/19/17 12:02 ) Anaphylaxis morphine Adverse Reaction (Mild, Verified 05/19/17 12:02) Nausea Home Medications: HOME MEDICATIONS Cyclobenzaprine HCl 10 mg PO DAILY PRN 03/07/16 [Last Taken 02/26/17] Furosemide [Lasix] 20 mg PO DAILY 03/07/16 [Last Taken 02/26/17] Glimepiride 4 mg PO BID 03/07/16 [Last Taken 02/26/17] Metoprolol Tartrate 100 mg PO BID 03/07/16 [Last Taken 02/26/17] Nitroglycerin [Nitrostat] 0.4 mg SL [id number] PRN 03/07/16 [Last Taken 02/26/17] sitaGLIPtin PHOSPHATE [Januvia] 50 mg PO DAILY 04/05/16 [Last Taken 02/26/17] Acarbose [Precose] 50 mg PO TID 12/05/16 [Last Taken 02/26/17] Aspirin [Aspirin Enteric Coated] 81 mg PO DAILY 12/05/16 [Last Taken 02/26/17] Multivitamins [Multivitamin Juju] 1 cap PO DAILY 12/05/16 [Last Taken 02/26/17 ] Omeprazole 40 mg PO BID 12/05/16 [Last Taken 02/26/17] Atorvastatin Calcium 20 mg PO DAILY 12/19/16 [Last Taken 02/26/17] Donepezil HCl [Aricept] 5 mg PO HS 12/19/16 [Last Taken 02/26/17] Pioglitazone HCl [Actos] 30 mg PO DAILY 12/19/16 [Last Taken 02/26/17] Tamsulosin HCl [Flomax] 0.4 mg PO DAILY 12/19/16 [Last Taken 02/26/17] Amlodipine Besylate 5 mg PO BID 02/27/17 [Last Taken 02/26/17] Cinnamon Bark [Cinnamon] 1,000 mg PO DAILY 02/27/17 [Last Taken 02/26/17] Cyanocobalamin [Vitamin B-12] 1,000 mcg PO DAILY 02/27/17 [Last Taken 02/26/17] Finasteride [Proscar] 5 mg PO DAILY 02/27/17 [Last Taken 02/26/17] Insulin Glargine,Hum.rec.anlog [Lantus] 33 units SC HS 02/27/17 [Last Taken ] Loratadine 10 mg PO DAILY 02/27/17 [Last Taken 02/26/17] Meloxicam [Mobic] 15 mg PO DAILY 02/27/17 [Last Taken 02/26/17] Topiramate [Topamax] 25 mg PO DAILY 02/27/17 [Last Taken 02/26/17] metFORMIN HCL [Glucophage] 1,000 mg PO BIDWM 02/27/17 [Last Taken 02/26/17] - History of Present Illness Narrative: Pt. comes in with c/o migraine for three hours. Pt. denies any fever, SOB, dizziness, vision changes, weakness, CP, NVD, and denies any alleviating factors despite taking benedryl and reglan prior to arrival. Pt. states that movement, light, and noise exacerbate factors. Pt. is under the care of a neurologist and has had a recent MRI for this without any abnormalities found. Pt. states that this headache is very similar to his previous migraines Timing of Headache: gradual Context Headache: Absent: recent head injury < 24 hrs ago, recent head injury > 24 hrs Quality: Present: achy - R temporal Severity Maximum: Present: moderate Severity-Currently: Present: moderate Headache frequency: Present: chronic headaches, similar to previous headache Modifying Factors - (Improves): Reports: other - denies Modifying Factors - (Worsens): Reports: movement, exposure to light Associated Symptoms: Denies: fever/chills, nausea, vomiting, nasal congestion, nasal drainage, facial pain, fatigue, numbness/tingling, vision changes, light- headedness, dizziness, loss of consciousness, seizures, neck pain/stiffness, speech problems Exacerbated by:: Reports: light, noise, movement Prior Treament: Reports: recently seen, treated by physician, similar symptoms before. Denies: recently hospitalized, currently on antibiotics Review of Systems - Review of Systems Constitutional: Present: no symptoms reported. Absent: fever, chills, weakness , fatigue, malaise EYE: Present: no symptoms reported. Absent: eye pain, eye discharge, blurred vision, double vision, vision changes ENT: Present: no symptoms reported. Absent: nose pain, nose congestion, nasal drainage, sore throat Respiratory: Present: no symptoms reported. Absent: shortness of breath, cough , wheezing Cardiology: Present: no symptoms reported. Absent: chest pain, edema Gastrointestinal/Abdominal: Present: no symptoms reported. Absent: nausea, vomiting, diarrhea, abdominal pain Genitourinary: Present: no symptoms reported. Absent: frequency, decreased urinary output Musculoskeletal: Present: no symptoms reported. Absent: back pain, joint pain Skin: Present: no symptoms reported. Absent: rash, change in color Neurological: Present: headache. Absent: dizziness/light-headedness, weakness, numbness All Other Systems: All systems neg except as marked - Patient's Past Medical History Patient History - Medical: Anemia, Arthritis, Diabetes Type 2, Dementia, GERD, Renal Disease Patient History - Cardiac/Respiratory: Coronary Heart Disease, CHF, COPD, Hypertension, Hyperlipidemia, CPAP/BiPAP Home Use, Sleep Apnea Patient History - Cancer: No Hx of Cancer Patient History - Surgical Procedures: Appendectomy, Cataracts, Colonoscopy, Total Knee Replacement, T & A Patient History - Other: None - Family History Mother Family History - Medical: , No pertinent hx, Alzheimer's Disease Family History - Cardiac/Respiratory: History Unknown Family History - Cancer: No pertinent family hx Father Family History - Medical: , Depression Family History - Cardiac/Respiratory: History Unknown Family History - Cancer: History Unknown Sister Family History - Medical: , No pertinent hx Family History - Cardiac/Respiratory: No pertinent hx Family History - Cancer: Breast - Social History Living Situations: home Abuse History: No History of abuse Psych History: No pertinent hx Smoking Status: Former smoker Have you smoked in the past 12 months: No Do you dip or chew tobacco: No Patient requests Smoking Cessation Consult: No Initiate information on Smoking Cessation: No Alcohol Use: none Drug Use: none - Immunizations Immunizations Up to Date: Yes Hx Pneumococcal Vaccination: Yes History of Influenza Vaccine: Yes Physical Exam - Physical Exam General Appearance: Present: wd/wn, alert, no apparent distress Head Exam: Present: normal inspection, no evidence of injury, no tenderness w palpation Eye Exam: Normal inspection: bilateral, PERRL: bilateral, EOMI: bilateral Ears, Nose, Throat: Present: normal ENT inspection, normal pharynx Neck: Present: normal inspection, nontender, supple, full range of motion. Absent: lymphadenopathy (R), lymphadenopathy (L) Respiratory: Present: no respiratory distress, normal breath sounds, no accessory muscle use, chest nontender, lungs clear Cardiovascular/Chest: Present: regular rate, rhythm, no murmur, normal peripheral pulses Gastrointestinal/Abdominal: Present: normal bowel sounds, nontender, nondistended, soft, no organomegaly Back Exam: Present: normal inspection, normal range of motion, no CVA tenderness , no vertebral tenderness Extremity Exam: Present: normal inspection, non-tender, normal range of motion, no edema Neurological Exam: Present: alert, oriented, normal mood/affect, no motor/ sensory deficits, laundry routeman II-XII nml as tested, normal cerebellar test Skin Exam: Present: warm/dry, pallor ED Progress - Date and Time Seen: Date and Time: 05/19/17 13:50 Pt. denies improvement with treatment and states that headache is still very severe as this is the second tiome pt. has been here with headache and it is intractable will get CT of head and check base labs. 05/19/17 16:[address] scan with the Widened appearance of the atlodens feel that this is likely related to previous injury however not noted on previous films from last fall last summer. Will have pt. discuss with his PCP. - Results and Orders Patient's Lab Results:: I have reviewed the patient's lab results. - Vital Signs Patient's Vital Signs:: I have reviewed the patient's vital signs. Vital Signs: Vital Signs 05/19/17 11:58 Temperature 36.6 C Pulse Rate 57 L Respiratory 20 Rate Blood Pressure 178/65 O2 Sat by Pulse 96 Oximetry - CT/Ultrasound CT/Ultrasound Narrative: CT Head W/O *: Age-related cortical atrophy and periventricular white matter chronic ischemic changes are present. Intracranial atherosclerotic calcifications noted. No acute intracranial hemorrhage. No midline shift or herniation. Alvarez and white matter differentiation is grossly intact. No obvious soft tissue swelling or scalp hematoma noted. Skull grossly intact, without signs of depressed skull fracture. Visualized portions of the paranasal sinuses are clear. Mastoid air cells are grossly clear. Series 3 image 1 demonstrates approximately 5.2 mm distance between the anterior arch of C1 and C2 dens. This widened appearance appears to be a potential new finding since 2017. IMPRESSION: 1. No acute intracranial hemorrhage or mass effect. 2. Somewhat widened appearance of the atlantodens interval on the axial CT images. Correlate clinically for previous injury. Also consider ligamentous laxity due to underlying inflammatory arthropathy (e.g. rheumatoid arthritis). Consider further evaluation of the cervical spine as needed. 3. Additional comments as above. Ordering provider Bindu Pryor was informed regarding the above results by telephone on 05/19/2017 3:08 PM. Electronically signed by Nikky Lugo M.D.. 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
[2017-05-19] MEDS ORDERED: NALBUPHINE HCL 20 MG/ML AMPUL ONE (12:48)
[2017-05-19] MEDS ORDERED: diphenhydrAMINE HCL 50 MG/ML VIAL ONE ×2 (12:48→13:59)
[2017-05-19] MEDS ORDERED: DEXAMETHASONE SODIUM PHOSPHATE 10 MG/ML VIAL IM ONE (13:44)
[2017-05-19] MEDS ORDERED: METOCLOPRAMIDE HCL 5 MG/ML VIAL IM ONE (13:44)
[2017-05-19] MEDS ORDERED: PROMETHAZINE HCL 25 MG/ML AMPUL IM ONE (13:44)
[2017-05-19 13:53] LABS: Hematocrit 36.4 % (42.0-52.0); Hemoglobin 12.6 gm/dL (13.5-18.0); Mean Cell Volume 87.1 fl (78-100); Mean Corpuscular Hemoglobin 30.1 pg (27-31); Mean Corpuscular Hgb Conc 34.6 g/dl (32-36); Mean Platelet Volume 9.6 fl (6.0-9.5); Neutrophil # 5.4 K/mm3 (1.3-6.0); Neutrophil % 70.6 % (42-75.0); Platelet Count 192 K/mm3 (150-450); Red Blood Count 4.18 M/mm3 (4.7-6.0); Red Cell Distribution Width 13.9 % (11.5-14.0); White Blood Count 7.6 K/mm3 (4.0-10.5)
[2017-05-19] MEDS ORDERED: DEXAMETHASONE SODIUM PHOSPHATE 10 MG/ML VIAL ONE (13:59)
[2017-05-19] MEDS ORDERED: PROMETHAZINE HCL 25 MG/ML AMPUL ONE (13:59)
[2017-05-19] MEDS ORDERED: METOCLOPRAMIDE HCL 5 MG/ML VIAL ONE ×2 (14:00→15:36)
[2017-05-19 14:05] LABS: Albumin * 3.8 gm/dl (3.4-5.0); Anion Gap 12.9 mmol/L (6.8-13.8); BUN/Creatinine Ratio 19.9 (9.0-21.6); Bilirubin, Total 0.2 mg/dL (0.0-1.1); Ca. Corrected For Albumin 8.6 mg/dL (8.4-10.2); Calcium * 8.8 mg/dL (7.9-10.9); Carbon Dioxide 27.5 mmol/L (24-32.6); Potassium 4.4 mmol/L (3.4-4.6); Total Protein 6.8 gm/dL (6.2-8.2)
[2017-05-19] MEDS ORDERED: hydrALAZINE HCL 20 MG/ML VIAL IV ONE (14:19)
[2017-05-19] MEDS ORDERED: hydrALAZINE HCL 20 MG/ML VIAL ONE ×2 (15:00→15:37)
[2017-05-19] MEDS ORDERED: KETOROLAC TROMETHAMINE 30 MG/ML VIAL IV ONE (15:30)
[2017-05-19] MEDS ORDERED: NORMAL SALINE 500 ML IV ONE (15:30)
[2017-05-19] MEDS ORDERED: METOCLOPRAMIDE HCL 5 MG/ML VIAL IV ONE (15:32)
[2017-05-19] MEDS ORDERED: KETOROLAC TROMETHAMINE 30 MG/ML VIAL ONE (15:36)
[2017-05-19 17:31] VITALS: BP 172/79
== END 2017-05-19 16:38 | disposition home or self-care (01) ==
LOC: ER 11:55
DX: G44.011 Episodic cluster headache, intractable (principal); E11.9 Type 2 diabetes mellitus without complications; I11.0 Hypertensive heart disease with heart failure; I50.9 Heart failure, unspecified; I25.10 Atherosclerotic heart disease of native coronary artery without angina pectoris; J44.9 Chronic obstructive pulmonary disease, unspecified; K21.9 Gastro-esophageal reflux disease without esophagitis; F03.90 Unspecified dementia, unspecified severity, without behavioral disturbance, psychotic disturbance, mood disturbance, and anxiety; G47.30 Sleep apnea, unspecified; Z87.891 Personal history of nicotine dependence

== ENCOUNTER 2017-10-29 16:43 | Observation (INO) | payer MEDICARE, OTHER ==
[2017-10-29] MEDS ORDERED: ASPIRIN 81 MG TAB.CHEW PO ONE (16:49)
[2017-10-29] MEDS ORDERED: ALBUTEROL SULFATE 2.5 MG/0.5 ML VIAL.NEB IH ONE ×2 (17:03→17:13)
--- NOTE | 2017-10-29 17:11 | ERNOTE ---
Dyspnea - Date Date of Service: 10/29/17 - General Presenting Symptoms: shortness of breath, difficulty of breathing, wheezing, other - l sided chest pain Time Seen by Provider: 10/29/17 16:49 Source: patient Exam Limitations: no limitations - Immun/Allergies/Home Medications Immunizations: IMMUNIZATION HX Immunizations Up to Date Yes History of Influenza Vaccine Yes Hx Pneumococcal Vaccination Yes Allergies/Adverse Reactions: Allergies venom-honey bee [bee venom (honey bee)] Allergy (Severe, Verified 10/13/17 09:42 ) Anaphylaxis morphine Adverse Reaction (Mild, Verified 10/13/17 09:42) Nausea Home Medications: HOME MEDICATIONS Cyclobenzaprine HCl 10 mg PO HS 03/07/16 [Last Taken 02/26/17] Furosemide [Lasix] 20 mg PO DAILY 03/07/16 [Last Taken 02/26/17] Glimepiride 4 mg PO BID 03/07/16 [Last Taken 02/26/17] Acarbose [Precose] 50 mg PO TID 12/05/16 [Last Taken 02/26/17] Multivitamins [Multivitamin Juju] 1 cap PO DAILY 12/05/16 [Last Taken 02/26/17 ] Atorvastatin Calcium 20 mg PO HS 12/19/16 [Last Taken 02/26/17] Pioglitazone HCl [Actos] 30 mg PO DAILY 12/19/16 [Last Taken 02/26/17] Insulin Glargine,Hum.rec.anlog [Lantus] 36 units SC HS 02/27/17 [Last Taken ] Loratadine 10 mg PO DAILY 02/27/17 [Last Taken 02/26/17] Metoprolol Succinate [Toprol Xl] 100 mg PO DAILY 06/02/17 [Last Taken Unknown] Tiotropium [place] [Spiriva] 18 mcg IH DAILY 06/02/17 [Last Taken Unknown] Albuterol Sulfate [Proventil Hfa] 6.7 gm IH PRN PRN 06/21/17 [Last Taken Unknown ] Albuterol Sulfate/Ipratropium [Duoneb 2.5-0.5MG/3ML Soln] 3 ml IH QID PRN [Last Taken Unknown] EPINEPHrine [Epipen] 0.3 mg IJ PRN PRN 06/21/17 [Last Taken Unknown] Folic Acid 0.8 mg PO DAILY 06/21/17 [Last Taken Unknown] Naproxen [Naprosyn] 500 mg PO BID #60 tab 07/19/17 [Last Taken Unknown] traMADol HCL [Ultram] 50 mg PO QID PRN #20 tab 08/20/17 [Last Taken Unknown] acetaminophen 650 mg/20.3 mL oral solution 650 mg PO Q6H PRN 10/10/17 [Last Taken Unknown] amlodipine 2.5 mg tablet 2.5 mg PO DAILY 10/10/17 [Last Taken Unknown] aspirin 325 mg tablet 325 mg PO DAILY 10/10/17 [Last Taken Unknown] blood sugar diagnostic strips See Dose Instructions .ROUTE .MEDSUPPLY #20 ea [Last Taken Unknown] blood-glucose meter kit See Dose Instructions .ROUTE .MEDSUPPLY #1 ea 10/10/17 [ Last Taken Unknown] compression stocking,knee high,long length,medium circ See Dose Instructions .ROUTE .MEDSUPPLY #12 ea 10/10/17 [Last Taken Unknown] metoprolol succinate ER 100 mg tablet,extended release 24 hr 100 mg PO DAILY [Last Taken Unknown] oxygen-air delivery systems device See Dose Instructions .ROUTE .MEDSUPPLY #1 [Last Taken Unknown] sitagliptin 50 mg tablet 50 mg PO DAILY 10/10/17 [Last Taken Unknown] tamsulosin 0.4 mg capsule 0.4 mg PO DAILY 10/10/17 [Last Taken Unknown] donepezil 5 mg tablet 10 mg PO HS #90 tab 10/14/17 [Last Taken Unknown] topiramate 50 mg tablet 50 mg PO HS #90 tab 10/16/17 [Last Taken Unknown] - History of Present Illness Narrative: Pt. comes in with c/o L sided chest pain, SOB, and wheezing that started two hours ago. Pt. denies any recent fevers, rhinorrhea, sore throat but does state that his throat feels full. Pt. also states that the pain has since resolved without treatment. Pt. denies any alleviating or aggravating factors. Pt. denies any increase in weight or swelling. 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 Denies: fever/chills, palpitations, cough, leg/calf pain, ankle/leg swelling, dizziness , lightheadedness, weakness, anxiety, tingling of hands/face, muscle spasms, loss of appetite Prior Treatment: Reports: recently seen, treated by physician. Denies: recently hospitalized, currently on antibiotics, previous episodes Review of Systems - Review of Systems Constitutional: Present: no symptoms reported. Absent: fever, chills, weakness , fatigue, malaise EYE: Present: no symptoms reported. Absent: eye pain, double vision ENT: Present: no symptoms reported. Absent: nose pain, nose congestion, nasal drainage Respiratory: Present: shortness of breath, orthopnea, wheezing. Absent: cough Cardiology: Present: no symptoms reported. Absent: chest pain, palpitations, edema Gastrointestinal/Abdominal: Present: no symptoms reported. Absent: nausea, vomiting, diarrhea, abdominal pain Genitourinary: Present: no symptoms reported. Absent: frequency, decreased urinary output Musculoskeletal: Present: no symptoms reported. Absent: back pain, neck pain, joint pain Skin: Present: no symptoms reported. Absent: rash, change in color Neurological: Present: no symptoms reported. Absent: headache, dizziness/light- headedness, weakness, numbness, tingling All Other Systems: All systems neg except as marked Medical History (Last Reviewed 10/29/17 @ 17:08 by TAWNY Blackburn ) BPH w urinary obs/LUTS Onset Date: ~08/22/17 Stasis dermatitis Onset Date: ~01/04/15 Anemia Arthritis Carotid artery disease Onset Date: ~08/06/16 Chronic kidney disease, stage 3 (moderate) Onset Date: ~10/07/12 Dyslipidemia GERD (gastroesophageal reflux disease) Heart disease History of frequent headaches Hypercholesterolemia Hyperlipidemia Onset Date: ~08/06/16 Peripheral vascular disease Pseudophakia of both eyes Onset Date: ~11/02/14 Sleep apnea Blurred vision Hernia, umbilical Surgical History: Surgical History (Last Reviewed 10/29/17 @ 17:08 by TAWNY Blackburn) Cataract H/O endarterectomy Onset Date: ~2014 H/O hernia repair Onset Date: ~05/19/09 H/O transurethral resection of prostate Onset Date: ~12/20/16 History of appendectomy History of tonsillectomy History of total left knee replacement Onset Date: ~2003 History of total right knee replacement Onset Date: ~1998 H/O colonoscopy Onset Date: ~2005 Family History: Family History (Last Reviewed 10/29/17 @ 17:09 by TAWNY Blackburn) Brother Cancer Diabetes Parkinson disease Father Suicide Mother Alzheimers disease Sister Dementia Sister Cancer Social History: Preferred Language Spanish Do you have any shinto or Yes: hindu cultural preference? Smoking Status Former smoker Have you smoked in the past 12 No months Do you dip or chew tobacco No Abuse History No History of abuse Psych History No pertinent hx Alcohol Use none Drug Use none Physical Exam - Physical Exam General Appearance: Present: wd/wn, alert, no apparent distress Head Exam: Present: normal inspection, no evidence of injury, no tenderness w palpation Eye Exam: Normal inspection: bilateral Ears, Nose, Throat: Present: normal except -, pharyngeal erythema, dry mucous membranes. Absent: abnormal TM (R), abnormal TM (L), nasal congestion, sinus pain/drainage Neck: Present: normal inspection, nontender, supple, full range of motion. Absent: lymphadenopathy (R), lymphadenopathy (L) Respiratory: Present: no respiratory distress, no accessory muscle use, chest nontender, decreased breath sounds - mid to bases, wheezing - BUL Cardiovascular/Chest: Present: regular rate, rhythm, no murmur, normal peripheral pulses Gastrointestinal/Abdominal: Present: normal bowel sounds, nontender, nondistended, soft, no organomegaly Back Exam: Present: normal inspection Extremity Exam: Present: pedal edema - trace LLE Neurological Exam: Present: alert, oriented, normal mood/affect, no motor/ sensory deficits Skin Exam: Present: normal color, warm/dry. Absent: pallor, skin rash ED Progress - Date and Time Seen: Date and Time: 10/29/17 17:48 Kidney function and BNP are within pt. normal range for him but D-Dimer is elevated. 10/29/17 17:[address] Soliz and she agrees to admit pt. overnight and treat for possible PE and rule out tomorrow with VQ scan and she denies any new orders to start. - Results and Orders Patient's Lab Results:: I have reviewed the patient's lab results. Results and Orders: Laboratory Results - last 24 hr 10/29/17 10/29/17 10/29/17 17:12 17:12 17:12 WBC 5.5 RBC 3.82 L Hgb 11.9 L Hct 35.2 L MCV 92.1 MCH 31.2 H MCHC 33.8 RDW 13.6 Plt Count 177 MPV 10.7 Immature Gran % (Auto) 0.40 Immature Gran # (Auto) 0.02 Neutrophils % 62.3 Lymphocytes % 22.4 Monocytes % 9.1 H Eosinophils % 4.9 H Basophils % 0.9 Nucleated RBC % 0.0 Neutrophils # 3.4 Lymphocytes # 1.23 L Monocytes # 0.5 Eosinophils # 0.3 Absolute Basophils 0.1 PT 9.6 INR (Anticoag Therapy) 0.96 PTT ([place]) 24.8 D-Dimer Sodium 139 Plasma Sodium 142 Potassium 4.5 Chloride 104 Carbon Dioxide 26.8 Anion Gap 12.7 BUN 28 H Creatinine 1.81 H Est GFR (Non-Af Amer) 38 L BUN/Creatinine Ratio 15.5 Random Glucose 310 H Lactic Acid, Venous Calcium 8.8 Calcium Adj for Albumin 9.0 Total Bilirubin 0.3 AST 31 ALT 55 Alkaline Phosphatase 109 Troponin I Less than 0.017 B-Natriuretic Peptide 1160 H Total Protein 6.5 Albumin 3.4 Group A Strep Rapid 10/29/17 10/29/17 10/29/17 17:12 17:12 17:30 WBC RBC Hgb Hct MCV MCH MCHC RDW Plt Count MPV Immature Gran % (Auto) Immature Gran # (Auto) Neutrophils % Lymphocytes % Monocytes % Eosinophils % Basophils % Nucleated RBC % Neutrophils # Lymphocytes # Monocytes # Eosinophils # Absolute Basophils PT INR (Anticoag Therapy) PTT (Charles Mix) D-Dimer 1.56 H Sodium Plasma Sodium Potassium Chloride Carbon Dioxide Anion Gap BUN Creatinine Est GFR (Non-Af Amer) BUN/Creatinine Ratio Random Glucose Lactic Acid, Venous 0.8 Calcium Calcium Adj for Albumin Total Bilirubin AST ALT Alkaline Phosphatase Troponin I B-Natriuretic Peptide Total Protein Albumin Group A Strep Rapid Negative - Vital Signs Patient's Vital Signs:: I have reviewed the patient's vital signs. Vital Signs: Vital Signs 10/29/17 16:52 Temperature 36.9 C Pulse Rate 79 Respiratory Rate 14 Blood Pressure 153/56 H O2 Sat by Pulse Oximetry 96 - EKG EKG: RBBB, other - SR 1st degree AVB, L ant fascicular block, no acute EKG read: Reviewed by me EKG Comments: Interp by Dr Reyes - X-Ray X-Ray #1 X-Ray: chest Interpretation: Reviewed by me X-ray Comments: no pulm edema, no consolidation Departure Clinical Impression: Chest wall pain, COPD exacerbation, Elevated d-dimer, Elevated serum creatinine - Departure Disposition: Still a patient Condition: Fair Referrals: Jose Rodriguez DO [Primary Care Provider] -
[2017-10-29] MEDS ORDERED: ASPIRIN 81 MG TAB.CHEW ONE (17:13)
[2017-10-29 17:15] LABS: Hematocrit 35.2 % (42.0-52.0); Hemoglobin 11.9 gm/dL (13.5-18.0); Mean Cell Volume 92.1 fl (78-100); Mean Corpuscular Hemoglobin 31.2 pg (27-31); Mean Corpuscular Hgb Conc 33.8 g/dl (32-36); Mean Platelet Volume 10.7 fl (8-11.3); Neutrophil # 3.4 K/mm3 (1.3-6.0); Neutrophil % 62.3 % (42-75.0); Platelet Count 177 K/mm3 (150-450); Red Blood Count 3.82 M/mm3 (4.7-6.0); Red Cell Distribution Width 13.6 % (11.5-14.0); White Blood Count 5.5 K/mm3 (4.0-10.5)
[2017-10-29 17:32] LABS: Prothrombin Time (Patient) 9.6 Seconds (9.0-11.0)
[2017-10-29 17:34] LABS: Troponin I Less than 0.017 ng/ml (0.00-0.10)
[2017-10-29 17:35] LABS: ALT 55 U/L (19-67); AST 31 U/L (0-48); Albumin * 3.4 gm/dl (3.4-5.0); Alkaline Phosphatase * 109 U/L (50-170); Anion Gap 12.7 mmol/L (6.8-13.8); BNP * 1160 pg/mL (5-650); BUN/Creatinine Ratio 15.5 (9.0-21.6); Bilirubin, Total 0.3 mg/dL (0.0-1.1); Blood Urea Nitrogen 28 mg/dL (6-23); Calcium * 8.8 mg/dL (7.9-10.9); Carbon Dioxide 26.8 mmol/L (24-32.6); Chloride 104 mmol/L (97-106); Glucose * 310 mg/dL (70-110); Potassium 4.5 mmol/L (3.4-4.6); Sodium 139 mmol/L (132-142); Total Protein 6.5 gm/dL (6.2-8.2)
[2017-10-29 17:36] LABS: INR 0.96 INR (0.90-1.10); Partial Thrombolplastin Time 24.8 Seconds (24-32)
[2017-10-29] MEDS ORDERED: METHYLPREDNISOLONE SOD SUCC/PF 40 MG/ML VIAL IV ONE (18:15)
[2017-10-29] MEDS ORDERED: METHYLPREDNISOLONE SOD SUCC/PF 40 MG/ML VIAL ONE (18:19)
[2017-10-29] MEDS ORDERED: ALBUTEROL SULFATE/IPRATROPIUM 3 ML NEBU IH SCH (20:15)
[2017-10-29] MEDS ORDERED: ALBUTEROL SULFATE/IPRATROPIUM 3 ML NEBU IH ONE (20:23)
--- NOTE | 2017-10-29 20:33 | HP ---
Chief Complaint - Chief Complaint Date of Service: 10/29/17 Time of Service: 20:07 Chief Complaint: shortness of breath History of Present Illness: 82 years old male adm to the hospital with reports of as sudden increased of shortness of breath while out shopping. PMH significant for: Anemia, Angina, Arthritis, CAD, COPD, CHF, CKD Stage III, DM II, GERD, HLD, HTN, Sleep Apnea & PVD. pt stated he has always been short of breath due to his COPD and he does not use home oxygen. Today when he felt short of breath, he used nebulizer at home without relief. he didn't consider to use his inhaler while at the store, However his wanted him to come to the ER to be check out. While in the ER Dimer 1.56 he denies cough, chest pain palpitation. Bun/Cre 28/1.81 which has been his baseline since 07/20/2016. Most recent labs are 10/07/17 Bun/cre 28/ 1.81 and 10/13/17 Bun/Cre 24/1.53. its a possibility D-dimer elevated due to his CKD. VQ- scan pending for tomorrow.While in ER he had solumedrol 80mg x1 and duoneb. pt stated he is currently feeling much better, will continue with neb treatment, IV steroids and gentle hydration. Plan of care discussed with pt he verbalized understanding and agrees. Medical History (Last Reviewed 10/29/17 @ 17:08 by TAWNY Blackburn ) BPH w urinary obs/LUTS Onset Date: ~08/22/17 Stasis dermatitis Onset Date: ~01/04/15 Anemia Arthritis Carotid artery disease Onset Date: ~08/06/16 Chronic kidney disease, stage 3 (moderate) Onset Date: ~10/07/12 Dyslipidemia GERD (gastroesophageal reflux disease) Heart disease History of frequent headaches Hypercholesterolemia Hyperlipidemia Onset Date: ~08/06/16 Peripheral vascular disease Pseudophakia of both eyes Onset Date: ~11/02/14 Sleep apnea Blurred vision Hernia, umbilical Surgical History: Surgical History (Last Updated 10/29/17 @ 20:17 by TAWNY Alicia) H/O vasectomy S/P TURP Cataract H/O endarterectomy Onset Date: ~2014 H/O hernia repair Onset Date: ~05/19/09 H/O transurethral resection of prostate Onset Date: ~12/20/16 History of appendectomy History of tonsillectomy History of total left knee replacement Onset Date: ~2003 History of total right knee replacement Onset Date: ~1998 H/O colonoscopy Onset Date: ~2005 Family History: Family History (Last Reviewed 10/29/17 @ 17:09 by TAWNY Blackburn) Brother Cancer Diabetes Parkinson disease Father Suicide Mother Alzheimers disease Sister Dementia Sister Cancer Social History: Patient Lives/Resources With Spouse Utilized Preferred Language Portuguese Do you have any restoration or Yes: taoism cultural preference? Smoking Status Former smoker Have you smoked in the past 12 No months Do you dip or chew tobacco No Abuse History No History of abuse Psych History No pertinent hx Alcohol Use none Drug Use none Review Of Systems (GEN) - Review of Systems Generalized/Overall Review: Present: No Symptoms Reported EENTM: Present: No Symptoms Reported Respiratory: Present: Shortness of Breath Cardiac: Present: No Symptoms Reported Abdominal: Present: No Symptoms Reported Neurological: Present: No Symptoms Reported Skin: Present: Bruising Endocrine: Present: No Symptoms Reported Immunizations: IMMUNIZATION HX Immunizations Up to Date Yes History of Influenza Vaccine Yes Hx Pneumococcal Vaccination Yes Allergies/Adverse Reactions: Allergies Allergy/AdvReac Type Severity Reaction Status Date / Time venom-honey bee Allergy Severe Anaphylaxis Verified 10/13/17 09:42 [bee venom (honey bee)] morphine AdvReac Mild Nausea Verified 10/13/17 09:42 Home Medications: HOME MEDICATIONS Cyclobenzaprine HCl 10 mg PO HS 03/07/16 [Last Taken 02/26/17] Furosemide [Lasix] 20 mg PO DAILY 03/07/16 [Last Taken 02/26/17] Glimepiride 4 mg PO BID 03/07/16 [Last Taken 02/26/17] Acarbose [Precose] 50 mg PO TID 12/05/16 [Last Taken 02/26/17] Multivitamins [Multivitamin Juju] 1 cap PO DAILY 12/05/16 [Last Taken 02/26/17 ] Atorvastatin Calcium 20 mg PO HS 12/19/16 [Last Taken 02/26/17] Pioglitazone HCl [Actos] 30 mg PO DAILY 12/19/16 [Last Taken 02/26/17] Insulin Glargine,Hum.rec.anlog [Lantus] 36 units SC HS 02/27/17 [Last Taken ] Loratadine 10 mg PO DAILY 02/27/17 [Last Taken 02/26/17] Metoprolol Succinate [Toprol Xl] 100 mg PO DAILY 06/02/17 [Last Taken Unknown] Tiotropium [place] [Spiriva] 18 mcg IH DAILY 06/02/17 [Last Taken Unknown] Albuterol Sulfate [Proventil Hfa] 6.7 gm IH PRN PRN 06/21/17 [Last Taken Unknown ] Albuterol Sulfate/Ipratropium [Duoneb 2.5-0.5MG/3ML Soln] 3 ml IH QID PRN [Last Taken Unknown] EPINEPHrine [Epipen] 0.3 mg IJ PRN PRN 06/21/17 [Last Taken Unknown] Folic Acid 0.8 mg PO DAILY 06/21/17 [Last Taken Unknown] Naproxen [Naprosyn] 500 mg PO BID #60 tab 07/19/17 [Last Taken Unknown] traMADol HCL [Ultram] 50 mg PO QID PRN #20 tab 08/20/17 [Last Taken Unknown] acetaminophen 650 mg/20.3 mL oral solution 650 mg PO Q6H PRN 10/10/17 [Last Taken Unknown] amlodipine 2.5 mg tablet 2.5 mg PO DAILY 10/10/17 [Last Taken Unknown] aspirin 325 mg tablet 325 mg PO DAILY 10/10/17 [Last Taken Unknown] blood sugar diagnostic strips See Dose Instructions .ROUTE .MEDSUPPLY #20 ea [Last Taken Unknown] blood-glucose meter kit See Dose Instructions .ROUTE .MEDSUPPLY #1 ea 10/10/17 [ Last Taken Unknown] compression stocking,knee high,long length,medium circ See Dose Instructions .ROUTE .MEDSUPPLY #12 ea 10/10/17 [Last Taken Unknown] metoprolol succinate ER 100 mg tablet,extended release 24 hr 100 mg PO DAILY [Last Taken Unknown] oxygen-air delivery systems device See Dose Instructions .ROUTE .MEDSUPPLY #1 [Last Taken Unknown] sitagliptin 50 mg tablet 50 mg PO DAILY 10/10/17 [Last Taken Unknown] tamsulosin 0.4 mg capsule 0.4 mg PO DAILY 10/10/17 [Last Taken Unknown] donepezil 5 mg tablet 10 mg PO HS #90 tab 10/14/17 [Last Taken Unknown] topiramate 50 mg tablet 50 mg PO HS #90 tab 10/16/17 [Last Taken Unknown] Exam - Exam Vital Signs: Vital Signs - Last Taken Temp 36.9 C 10/29/17 18:29 Pulse 71 10/29/17 18:29 Resp 20 10/29/17 18:29 BP 186/63 H 10/29/17 18:29 Pulse Ox 97 10/29/17 18:29 Constitutional: Present: Alert, Oriented x3, Cooperative, Elderly, Morbidly obese ENT Exam: Present: hearing grossly normal Eye Exam: bilateral eye: normal inspection Neck: Present: full range of motion Back Exam: Present: normal inspection Respiratory: Present: chest non-tender, no respiratory distress, no accessory muscle use, decreased breath sounds Cardiovascular/Chest: Present: regular rate, rhythm, no chest tenderness, no edema Peripheral Pulses: dorsalis-pedis (R): 3+, dorsalis-pedis (L): 3+ Abdomen: Present: Normal bowel sounds, nontender, obese /Rectal: Present: Exam deferred Extremity: Present: normal range of motion, non-tender, normal inspection, no calf tenderness Skin Exam: Present: normal color, warm/dry, other - left leg with brusing Neurologic: Present: normal mood/affect, oriented x 3 Appearance: Present: appropriate appearance Eye contact: Present: cooperative, good eye contact Thoughts: Present: normal thought pattern Diagnostic Studies: Abnormal Lab Results 10/29/17 10/29/17 10/29/17 Range/Units 17:12 17:12 17:12 RBC 3.82 L (4.7-6.0) M/mm3 Hgb 11.9 L (13.5-18.0) gm/dL Hct 35.2 L (42.0-52.0) % MCH 31.2 H (27-31) pg Monocytes % 9.1 H (0.0-9) % Eosinophils % 4.9 H (0.0-3.0) % Lymphocytes # 1.23 L (1.5-3.5) k/mm3 D-Dimer 1.56 H (0.19-0.49) ug/mL BUN 28 H (6-23) mg/dL Creatinine 1.81 H (0.4-1.4) mg/dL Est GFR (Non-Af Amer) 38 L (60-130) mL/min Random Glucose 310 H (70-110) mg/dL B-Natriuretic Peptide 1160 H (5-650) pg/mL Laboratory Results WBC 5.5 K/mm3 (4.0-10.5) 10/29/17 17:12 RBC 3.82 M/mm3 (4.7-6.0) L 10/29/17 17:12 Hgb 11.9 gm/dL (13.5-18.0) L 10/29/17 17:12 Hct 35.2 % (42.0-52.0) L 10/29/17 17:12 MCV 92.1 fl (78-100) 10/29/17 17:12 MCH 31.2 pg (27-31) H 10/29/17 17:12 MCHC 33.8 g/dl (32-36) 10/29/17 17:12 RDW 13.6 % (11.5-14.0) 10/29/17 17:12 Plt Count 177 K/mm3 (150-450) 10/29/17 17:12 MPV 10.7 fl (8-11.3) 10/29/17 17:12 Immature Gran % (Auto) 0.40 % (0.001-0.429) 10/29/17 17:12 Immature Gran # (Auto) 0.02 K/mm3 (0.000-0.0310) 10/29/17 17:12 Neutrophils % 62.3 % (42-75.0) 10/29/17 17:12 Lymphocytes % 22.4 % (20-51) 10/29/17 17:12 Monocytes % 9.1 % (0.0-9) H 10/29/17 17:12 Eosinophils % 4.9 % (0.0-3.0) H 10/29/17 17:12 Basophils % 0.9 % (0.0-1.0) 10/29/17 17:12 Nucleated RBC % 0.0 k/mm3 (0-1) 10/29/17 17:12 Neutrophils # 3.4 K/mm3 (1.3-6.0) 10/29/17 17:12 Lymphocytes # 1.23 k/mm3 (1.5-3.5) L 10/29/17 17:12 Monocytes # 0.5 k/mm3 (0.0-1.0) 10/29/17 17:12 Eosinophils # 0.3 k/mm3 (0.0-0.7) 10/29/17 17:12 Absolute Basophils 0.1 k/mm3 (0.0-0.1) 10/29/17 17:12 PT 9.6 Seconds (9.0-11.0) 10/29/17 17:12 INR (Anticoag Therapy) 0.96 INR (0.90-1.10) 10/29/17 17:12 PTT ([place]s) 24.8 Seconds (24-32) 10/29/17 17:12 D-Dimer 1.56 ug/mL (0.19-0.49) H 10/29/17 17:12 Sodium 139 mmol/L (132-142) 10/29/17 17:12 Plasma Sodium 142 mmol/L (130-142) 10/29/17 17:12 Potassium 4.5 mmol/L (3.4-4.6) 10/29/17 17:12 Chloride 104 mmol/L (97-106) 10/29/17 17:12 Carbon Dioxide 26.8 mmol/L (24-32.6) 10/29/17 17:12 Anion Gap 12.7 mmol/L (6.8-13.8) 10/29/17 17:12 BUN 28 mg/dL (6-23) H 10/29/17 17:12 Creatinine 1.81 mg/dL (0.4-1.4) H 10/29/17 17:12 Est GFR (Non-Af Amer) 38 mL/min (60-130) L 10/29/17 17:12 BUN/Creatinine Ratio 15.5 (9.0-21.6) 10/29/17 17:12 Random Glucose 310 mg/dL (70-110) H 10/29/17 17:12 Lactic Acid, Venous 0.8 mmol/L (0.4-2.0) 10/29/17 17:12 Calcium 8.8 mg/dL (7.9-10.9) 10/29/17 17:12 Calcium Adj for Albumin 9.0 mg/dL (8.4-10.2) 10/29/17 17:12 Total Bilirubin 0.3 mg/dL (0.0-1.1) 10/29/17 17:12 AST 31 U/L (0-48) 10/29/17 17:12 ALT 55 U/L (19-67) 10/29/17 17:12 Alkaline Phosphatase 109 U/L (50-170) 10/29/17 17:12 Troponin I Less than 0.017 ng/ml (0.00-0.10) 10/29/17 17:12 B-Natriuretic Peptide 1160 pg/mL (5-650) H 10/29/17 17:12 Total Protein 6.5 gm/dL (6.2-8.2) 10/29/17 17:12 Albumin 3.4 gm/dl (3.4-5.0) 10/29/17 17:12 Group A Strep Rapid Negative (NEGATIVE) 10/29/17 17:30 CXR: No acute cardiopulmonary process Assessment/Plan - Assessment/Plan (1) COPD (chronic obstructive pulmonary disease) Assessment: COPD exacerbation : In ER neb treatment and solumedrol 80mg x1 was given. Continue with duoneb, solumedrol Supplemented oxygen PRN Resume home medications Problem: Chronic (2) Type 2 diabetes mellitus Assessment: Accu-check and low dose sliding scale insulin Consistent carb diet Resume home medications May hold metformin for now Problem: Chronic (3) CKD (chronic kidney disease), stage III Assessment: pt is at his baseline most recent Bun/Cre 28/1.81 and 24/1.53 in june 2016 cre 1.71 Monitor CMP in am and gentle hydration. Problem: Chronic (4) Hypertension Problem: Chronic Qualifiers: (5) BPH without obstruction/lower urinary tract symptoms Problem: Chronic (6) CHF exacerbation Problem: Chronic (7) Obstructive sleep apnea Problem: Chronic (8) Elevated d-dimer Problem: Acute (9) HTN (hypertension) Problem: Chronic Qualifiers:
[2017-10-29] MEDS ORDERED: ALBUTEROL SULFATE 200 PUFF INHALER IH PRN (21:54)
[2017-10-29] MEDS ORDERED: NITROGLYCERIN 0.4 MG/TAB BTL SL PRN (21:54)
[2017-10-29] MEDS ORDERED: INSULIN GLARGINE,HUM.REC.ANLOG 100 UNITS/ML VIAL SC SCH (22:30)
[2017-10-29] MEDS ORDERED: ROSUVASTATIN CALCIUM 10 MG TABLET PO SCH (22:45)
[2017-10-29] MEDS: METHYLPREDNISOLONE SOD SUCC/PF 40 MG/ML VIAL IV SCH (23:31)
[2017-10-30] MEDS: ALBUTEROL SULFATE/IPRATROPIUM 3 ML NEBU IH SCH ×3 (00:39→13:16)
[2017-10-30 04:36] LABS: Albumin * 3.2 gm/dl (3.4-5.0); Anion Gap 12.4 mmol/L (6.8-13.8); BUN/Creatinine Ratio 16.4 (9.0-21.6); Bilirubin, Total 0.3 mg/dL (0.0-1.1); Ca. Corrected For Albumin 9.4 mg/dL (8.4-10.2); Calcium * 9.1 mg/dL (7.9-10.9); Carbon Dioxide 26.2 mmol/L (24-32.6); Potassium 4.6 mmol/L (3.4-4.6); Total Protein 6.5 gm/dL (6.2-8.2)
[2017-10-30] MEDS: METHYLPREDNISOLONE SOD SUCC/PF 40 MG/ML VIAL IV SCH (04:55)
[2017-10-30] MEDS ORDERED: ALBUTEROL SULFATE 2.5 MG/0.5 ML VIAL.NEB IH PRN ×2 (06:30→06:45)
[2017-10-30] MEDS ORDERED: CYANOCOBALAMIN 1,000 MCG TABLET PO SCH (09:00)
[2017-10-30] MEDS ORDERED: PANTOPRAZOLE SODIUM 40 MG TABLET.EC PO SCH (09:00)
[2017-10-30] MEDS ORDERED: PIOGLITAZONE HCL 15 MG TABLET PO SCH (09:00)
[2017-10-30] MEDS ORDERED: FINASTERIDE 5 MG TABLET PO SCH (09:00)
[2017-10-30] MEDS ORDERED: OMEPRAZOLE 20 MG CAPSULE.SA PO SCH (09:00)
[2017-10-30] MEDS ORDERED: sitaGLIPtin PHOSPHATE 50 MG TABLET PO SCH (09:00)
[2017-10-30] MEDS ORDERED: TIOTROPIUM BROMIDE 5 CAP INHALER IH SCH (09:00)
[2017-10-30] MEDS ORDERED: MULTIVITAMINS 1 CAP CAPSULE PO SCH (09:00)
[2017-10-30] MEDS ORDERED: TAMSULOSIN HCL 0.4 MG CAP.SR.24H PO SCH ×2 (09:00→19:00)
[2017-10-30] MEDS ORDERED: OMEGA-3 FATTY ACIDS 1 CAP CAPSULE PO SCH (09:00)
[2017-10-30] MEDS ORDERED: FUROSEMIDE 20 MG TABLET PO SCH (09:00)
[2017-10-30] MEDS ORDERED: SALMON OIL/OMEGA-3 FATTY ACIDS 1,200 MG CAPSULE PO SCH (09:00)
[2017-10-30] MEDS ORDERED: GLIMEPIRIDE 4 MG TABLET PO SCH (09:00)
[2017-10-30] MEDS ORDERED: LORATADINE 10 MG TABLET PO SCH (09:00)
[2017-10-30] MEDS ORDERED: ASPIRIN 81 MG TABLET.DR PO SCH (09:00)
[2017-10-30] MEDS ORDERED: METHYLPREDNISOLONE SOD SUCC/PF 125 MG/2 ML VIAL IV SCH (11:00)
--- NOTE | 2017-10-30 12:58 | DS ---
(1) Elevated d-dimer Problem: Acute Description of Stay: ADMISSION DATE: 10/29/2017 DISCHARGE DATE: 10/30/2017 ADMISSION HPI by TAWNY Alicia: 82 years old male adm to the hospital with reports of as sudden increased of shortness of breath while out shopping. PMH significant for: Anemia, Angina, Arthritis, CAD, COPD, CHF, CKD Stage III, DM II, GERD, HLD, HTN, Sleep Apnea & PVD. pt stated he has always been short of breath due to his COPD and he does not use home oxygen. Today when he felt short of breath, he used nebulizer at home without relief. he didn't consider to use his inhaler while at the store, However his wanted him to come to the ER to be check out. While in the ER Dimer 1.56 he denies cough, chest pain palpitation. Bun/Cre 28/1.81 which has been his baseline since 07/20/2016. Most recent labs are 10/07/17 Bun/cre 28/ 1.81 and 10/13/17 Bun/Cre 24/1.53. its a possibility D-dimer elevated due to his CKD. VQ- scan pending for tomorrow.While in ER he had solumedrol 80mg x1 and duoneb. pt stated he is currently feeling much better, will continue with neb treatment, IV steroids and gentle hydration. Plan of care discussed with pt he verbalized understanding and agrees. HOSPITAL COURSE: The patient was admitted to the hospital under observation status for an elevated d-dimer which was obtained in the ED. In the future, I would not recommend checking a d-dimer in this patient (or any other patient with CKD) due to his CKD, as he will always have an elevated d-dimer. Unfortunately, now we must rule out a PE so the patient was admitted to the hospital overnight with plans to get a VQ scan in the AM. However, his kidney function improved enough with IVF hydration overnight so we were able to get a CTA of the chest which showed no acute pulmonary thromboembolism. However, the CT did show A nodular finding underneath the left nipple which will need further outpatient work-up if felt necessary by his PCP, Dr. Rodriguez. The patient was discharged home in stable condition. FOLLOW-UP APPOINTMENTS: -Follow-up with PCP, Dr. Rodriguez, within 1-2 weeks -Consider rechecking BMP at follow-up visit to monitor kidney function especially after receiving IV contrast NEW OR CHANGED MEDICATIONS: -None DISCONTINUED MEDICATIONS: -None RADIOLOGY REPORTS: PA and lateral CXR on 10/29/2017: No acute cardiopulmonary process. CTA of the chest on 10/30/2017: 1. Negative for acute pulmonary thromboembolism. 2. Negative for acute thoracic aortic finding. Thoracic aortic atherosclerotic disease. 3. 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 Consider follow-up. 4. Tracheal and bronchial findings suggestive of COPD versus acute or chronic bronchitis/reactive airways disease. 5. Interval development of a nodular finding underneath the left nipple. Correlate clinically for palpable abnormality. Consider gynecomastia versus mass. Consider further evaluation by routine mammograms and ultrasound. Procedures Performed: none Results and Findings: Lab Pending Results 10/29/17 17:12: WBC 5.5, RBC 3.82 L, Hgb 11.9 L, Hct 35.2 L, MCV 92.1, MCH 31.2 H, MCHC 33.8, RDW 13.6, Plt Count 177, MPV 10.7, Immature Gran % (Auto) 0.40, Immature Gran # (Auto) 0.02, Neutrophils % 62.3, Lymphocytes % 22.4, Monocytes % 9.1 H, Eosinophils % 4.9 H, Basophils % 0.9, Nucleated RBC % 0.0, Neutrophils # 3.4, Lymphocytes # 1.23 L, Monocytes # 0.5, Eosinophils # 0.3, Absolute Basophils 0.1 10/29/17 17:12: PT 9.6, INR (Anticoag Therapy) 0.96, PTT (Laura) 24.8 10/29/17 17:12: Sodium 139, Plasma Sodium 142, Potassium 4.5, Chloride 104, Carbon Dioxide 26.8, Anion Gap 12.7, BUN 28 H, Creatinine 1.81 H, Est GFR (Non- Af Amer) 38 L, BUN/Creatinine Ratio 15.5, Random Glucose 310 H, Calcium 8.8, Calcium Adj for Albumin 9.0, Total Bilirubin 0.3, AST 31, ALT 55, Alkaline Phosphatase 109, Troponin I Less than 0.017, B-Natriuretic Peptide 1160 H, Total Protein 6.5, Albumin 3.4 10/29/17 17:12: D-Dimer 1.56 H 10/29/17 17:12: Lactic Acid, Venous 0.8 10/29/17 17:30: Group A Strep Rapid Negative 10/30/17 04:00: Sodium 138, Plasma Sodium 141, Potassium 4.6, Chloride 104, Carbon Dioxide 26.2, Anion Gap 12.4, BUN 26 H, Creatinine 1.59 H, Est GFR (Non- Af Amer) 44 L, BUN/Creatinine Ratio 16.4, Random Glucose 299 H, Calcium 9.1, Calcium Adj for Albumin 9.4, Total Bilirubin 0.3, AST 27, ALT 52, Alkaline Phosphatase 81, Total Protein 6.5, Albumin 3.2 L Discharge Location: Home Disposition: Home self-care Condition: Stable Discharge Activity: Activity as tolerated Discharge Diet: Consistent carbs Referrals: Jose Rodriguez DO [Primary Care Provider] - Problem Oriented Discharge Instructions to Patient/Family: Chronic Obstructive Pulmonary Disease Exacerbation, [id number], Chest Wall Pain, [id number] Additional Patient Instructions (free text): -Follow-up with PCP, Dr. Rodriguez, within 1-2 weeks Follow up with Dr. Rodriguez on 11-17-17 at 1:45pm. Complete Home Medications List: Complete Home Medication List: Cyclobenzaprine HCl 10 mg PO HS 03/07/16 Furosemide [Lasix] 20 mg PO DAILY 03/07/16 Glimepiride 4 mg PO BID 03/07/16 Acarbose [Precose] 50 mg PO TID 12/05/16 Multivitamins [Multivitamin Juju] 1 cap PO DAILY 12/05/16 Pioglitazone HCl [Actos] 30 mg PO DAILY 12/19/16 Insulin Glargine,Hum.rec.anlog [Lantus] 40 units SC HS 02/27/17 Loratadine 10 mg PO DAILY 02/27/17 Tiotropium [place] [Spiriva] 18 mcg IH DAILY 06/02/17 Albuterol Sulfate [Proventil Hfa] 6.7 gm IH PRN PRN 06/21/17 blood sugar diagnostic strips See Dose Instructions .ROUTE .MEDSUPPLY #20 blood-glucose meter kit See Dose Instructions .ROUTE .MEDSUPPLY #1 ea 10/10/17 compression stocking,knee high,long length,medium circ See Dose Instructions .ROUTE .MEDSUPPLY #12 ea 10/10/17 oxygen-air delivery systems device See Dose Instructions .ROUTE .MEDSUPPLY #1 tamsulosin 0.4 mg capsule 0.4 mg PO DAILY 10/10/17 Aspirin [Aspir-Low] 81 mg PO DAILY 10/29/17 Cinnamon Bark [Cinnamon] 1,000 mg PO DAILY 10/29/17 Cyanocobalamin [Vitamin B-12] 1,000 mcg PO DAILY 10/29/17 Donepezil HCl [Aricept] 5 mg PO HS 10/29/17 Finasteride 5 mg PO DAILY 10/29/17 Nitroglycerin [Nitrostat] 0.4 mg SL Q5MIN PRN 10/29/17 [place]-3S/Dha/Epa/Fish Oil [Fish Oil 1,200 mg Softgel] 1 each PO DAILY 10/29/17 Omeprazole 40 mg PO DAILY 10/29/17 Topiramate [Topamax] 25 mg PO HS 10/29/17 sitaGLIPtin PHOSPHATE [Januvia] 50 mg PO DAILY 10/29/17 Azithromycin 250 mg PO DAILY #6 tab 10/31/17 atorvastatin 20 mg tablet 20 mg PO HS #90 tab 11/03/17
[2017-10-30 14:16] VITALS: BP 146/61
[2017-10-30] MEDS ORDERED: CYCLOBENZAPRINE HCL 10 MG TABLET PO SCH (21:00)
[2017-10-30] MEDS ORDERED: TOPIRAMATE 50 MG TABLET PO SCH (21:00)
[2017-10-30] MEDS ORDERED: DONEPEZIL HCL 5 MG TABLET PO SCH (21:00)
== END 2017-10-30 14:15 | disposition home or self-care (01) ==
LOC: ER 16:43 → MS 16:43
PROVIDERS: ADMIT Internal Medicine; ATTEND Internal Medicine
CPT/HCPCS: 36415; 71020; 71046; 71275; 80053; 83519; 83605; 83880; 84484; 85025; 85379; 85610; 85730; 87081; 87430; 93005; 94640; 94660; 94664; 96374; 96376; 99285; G0378

== ENCOUNTER 2017-12-21 13:59 | Inpatient (IN) | payer MEDICARE, OTHER ==
[2017-12-21] MEDS ORDERED: diphenhydrAMINE HCL 50 MG/ML VIAL IV ONE ×2 (14:23→16:35)
[2017-12-21] MEDS ORDERED: METOCLOPRAMIDE HCL 5 MG/ML VIAL IV ONE (14:23)
[2017-12-21] MEDS ORDERED: NORMAL SALINE 1,000 ML IV ONE (14:23)
[2017-12-21] MEDS ORDERED: diphenhydrAMINE HCL 50 MG/ML VIAL ONE ×2 (14:27→16:40)
[2017-12-21 14:42] LABS: Hematocrit 37.5 % (42.0-52.0); Hemoglobin 12.5 gm/dL (13.5-18.0); Mean Cell Volume 90.4 fl (78-100); Mean Corpuscular Hemoglobin 30.1 pg (27-31); Mean Corpuscular Hgb Conc 33.3 g/dl (32-36); Mean Platelet Volume 10.3 fl (8-11.3); Neutrophil # 7.8 K/mm3 (1.3-6.0); Neutrophil % 78.8 % (42-75.0); Platelet Count 184 K/mm3 (150-450); Red Blood Count 4.15 M/mm3 (4.7-6.0); Red Cell Distribution Width 13.9 % (11.5-14.0); White Blood Count 9.9 K/mm3 (4.0-10.5)
[2017-12-21] MEDS ORDERED: METOCLOPRAMIDE HCL 5 MG/ML VIAL ONE (14:48)
--- NOTE | 2017-12-21 14:53 | ERNOTE ---
Abdominal HPI - General Chief Complaint: Abdominal Pain Time Seen by Provider: 12/21/17 14:19 Source: patient, family Exam Limitations: no limitations - Immun/Allergies/Home Medications Immunizatons: IMMUNIZATION HX Immunizations Up to Date Yes History of Influenza Vaccine Yes Hx Pneumococcal Vaccination Yes Allergies/Adverse Reactions: Allergies venom-honey bee [bee venom (honey bee)] Allergy (Severe, Verified 12/21/17 14:13 ) Anaphylaxis morphine Adverse Reaction (Mild, Verified 12/21/17 14:13) Nausea Home Medications: HOME MEDICATIONS Cyclobenzaprine HCl 10 mg PO HS 03/07/16 [Last Taken 10/28/17 20:00] Glimepiride 4 mg PO BID 03/07/16 [Last Taken 10/29/17 08:00] Acarbose [Precose] 50 mg PO TID 12/05/16 [Last Taken 10/29/17 08:00] Multivitamins [Multivitamin Juju] 1 cap PO DAILY 12/05/16 [Last Taken 08:00] Insulin Glargine,Hum.rec.anlog [Lantus] 40 units SC HS 02/27/17 [Last Taken 20:00] Loratadine 10 mg PO DAILY 02/27/17 [Last Taken 10/29/17 08:00] blood sugar diagnostic strips See Dose Instructions .ROUTE .MEDSUPPLY #20 ea [Last Taken Unknown] compression stocking,knee high,long length,medium circ See Dose Instructions .ROUTE .MEDSUPPLY #12 ea 10/10/17 [Last Taken Unknown] oxygen-air delivery systems device See Dose Instructions .ROUTE .MEDSUPPLY #1 [Last Taken Unknown] tamsulosin 0.4 mg capsule 0.4 mg PO DAILY 10/10/17 [Last Taken 10/28/17 20:00] Aspirin [Aspir-Low] 81 mg PO DAILY 10/29/17 [Last Taken 10/29/17 08:00] Cinnamon Bark [Cinnamon] 1,000 mg PO DAILY 10/29/17 [Last Taken 10/29/17 08:00] Cyanocobalamin [Vitamin B-12] 1,000 mcg PO DAILY 10/29/17 [Last Taken 10/29/17 20:00] Donepezil HCl [Aricept] 5 mg PO HS 10/29/17 [Last Taken 10/28/17 20:00] Finasteride 5 mg PO DAILY 10/29/17 [Last Taken 10/29/17 08:00] Nitroglycerin [Nitrostat] 0.4 mg SL Q5MIN PRN 10/29/17 [Last Taken Unknown] [place]-3S/Dha/Epa/Fish Oil [Fish Oil 1,200 mg Softgel] 1 each PO DAILY 10/29/17 [ Last Taken 10/29/17 08:00] Omeprazole 40 mg PO DAILY 10/29/17 [Last Taken 10/29/17 08:00] sitaGLIPtin PHOSPHATE [Januvia] 50 mg PO DAILY 10/29/17 [Last Taken 10/29/17 08: 00] atorvastatin 20 mg tablet 20 mg PO HS #90 tab 11/03/17 [Last Taken Unknown] topiramate 50 mg tablet 50 mg PO HS #90 tab 11/14/17 [Last Taken Unknown] blood-glucose meter kit See Dose Instructions .ROUTE .MEDSUPPLY #1 ea 11/19/17 [ Last Taken Unknown] pioglitazone 30 mg tablet 30 mg PO DAILY #90 tab 11/19/17 [Last Taken Unknown] insulin syringe-needle U-100 1 mL 30 gauge x 1/2" See Dose Instructions .ROUTE .MEDSUPPLY #300 ea 11/24/17 [Last Taken Unknown] furosemide 20 mg tablet 20 mg PO DAILY #90 tab 11/29/17 [Last Taken Unknown] Sulfamethoxazole/Trimethoprim [Bactrim Ds] 1 tab PO BID #14 tab 12/10/17 [Last Taken Unknown] albuterol sulfate HFA 90 mcg/actuation aerosol inhaler 2 puff IH Q4H PRN #8.5 g 12/15/17 [Last Taken Unknown] tiotropium bromide 18 mcg capsule with inhalation device 18 mcg IH DAILY #90 inh 12/15/17 [Last Taken Unknown] traMADol HCL [Tramadol HCl] 50 mg PO QID PRN 12/21/17 [Last Taken Unknown] - History of Present Illness Narrative: Patient presents with epigastric pain and nausea and vomiting. Onset of symptoms was this morning and he rates them as moderate in severity. Timing: constant, intermittent Quality: moderate Activities at Onset: none Associated Symptoms: Present: denies symptoms Review of Systems - Review of Systems Constitutional: Present: See HPI EYE: Present: no symptoms reported ENT: Present: no symptoms reported Respiratory: Present: no symptoms reported Cardiology: Present: no symptoms reported Gastrointestinal/Abdominal: Present: See HPI Genitourinary: Present: no symptoms reported Musculoskeletal: Present: no symptoms reported Skin: Present: no symptoms reported Neurological: Present: no symptoms reported Endocrine: Present: no symptoms reported Hematologic/Lymphatic: Present: no symptoms reported Psych: Present: no symptoms reported Medical History (Last Reviewed 12/10/17 @ 14:20 by Ho Haley MD) BPH w urinary obs/LUTS Onset Date: ~08/22/17 Stasis dermatitis Onset Date: ~01/04/15 Anemia Arthritis Carotid artery disease Onset Date: ~08/06/16 Chronic kidney disease, stage 3 (moderate) Onset Date: ~10/07/12 Dyslipidemia GERD (gastroesophageal reflux disease) Heart disease History of frequent headaches Hypercholesterolemia Hyperlipidemia Onset Date: ~08/06/16 Peripheral vascular disease Pseudophakia of both eyes Onset Date: ~11/02/14 Sleep apnea Blurred vision Hernia, umbilical Surgical History: Surgical History (Last Reviewed 12/10/17 @ 14:20 by Ho Haley MD) H/O vasectomy S/P TURP Cataract H/O endarterectomy Onset Date: ~2014 H/O hernia repair Onset Date: ~05/19/09 H/O transurethral resection of prostate Onset Date: ~12/20/16 History of appendectomy History of tonsillectomy History of total left knee replacement Onset Date: ~2003 History of total right knee replacement Onset Date: ~1998 H/O colonoscopy Onset Date: ~2005 Family History: Family History (Last Reviewed 12/10/17 @ 14:20 by Ho Haley MD) Brother Cancer Diabetes Parkinson disease Father Suicide Mother Alzheimers disease Sister Dementia Sister Cancer Social History: Preferred Language Serbian Abuse History No History of abuse Psych History No pertinent hx Physical Exam - Physical Exam General Appearance: Present: wd/wn, alert, moderate distress Head Exam: Present: normal inspection, no evidence of injury Eye Exam: Normal inspection: bilateral, PERRL: bilateral Ears, Nose, Throat: Present: normal ENT inspection, H, normal pharynx Neck: Present: normal inspection, nontender Respiratory: Present: no respiratory distress, normal breath sounds, no accessory muscle use, chest nontender, lungs clear Cardiovascular/Chest: Present: no murmur, normal peripheral pulses, bradycardia Gastrointestinal/Abdominal: Present: normal bowel sounds, no organomegaly, tenderness - primarily the epigastric region, distended, guarding, rebound, other - increased tympany Rectal Exam: Present: deferred Back Exam: Present: normal inspection, normal range of motion Extremity Exam: Present: normal inspection, non-tender, no edema, normal range of motion Neurological Exam: Present: alert, oriented, normal mood/affect Skin Exam: Present: normal color, warm/dry Lymphatic Exam: Present: no adenopathy ED Progress - Results and Orders Patient's Lab Results:: I have reviewed the patient's lab results. - Vital Signs Patient's Vital Signs:: I have reviewed the patient's vital signs. Vital Signs: Vital Signs 12/21/17 14:09 12/21/17 14:17 12/21/17 14:36 Temperature 36.0 C Pulse Rate 50 L 48 L Respiratory Rate 14 12 Blood Pressure 143/86 143/86 158/88 H O2 Sat by Pulse Oximetry 97 96 - X-Ray X-Ray #1 X-Ray: abdomen Interpretation: Reviewed by me - Progress/Reassessment Chief Complaint: Abdominal Pain Plan - Plan Plan: I discussed the case with both Dr. Hou and Dr. Mccray, and the patient will be admitted with an NG and held NPO for now. Departure Clinical Impression: SBO (small bowel obstruction) - Departure Disposition: Still a patient Condition: Fair Referrals: Jose Rodriguez DO [Primary Care Provider] -
[2017-12-21 14:59] LABS: ALT 24 U/L (19-67); AST 20 U/L (0-48); Albumin * 3.6 gm/dl (3.4-5.0); Alkaline Phosphatase * 77 U/L (50-170); Anion Gap 9.3 mmol/L (6.8-13.8); BUN/Creatinine Ratio 16.4 (9.0-21.6); Bilirubin, Total 0.4 mg/dL (0.0-1.1); Blood Urea Nitrogen 29 mg/dL (6-23); Ca. Corrected For Albumin 9.1 mg/dL (8.4-10.2); Calcium * 9.1 mg/dL (7.9-10.9); Carbon Dioxide 30.5 mmol/L (24-32.6); Chloride 103 mmol/L (97-106); Glucose * 163 mg/dL (70-110); Lipase 89 U/L (73-393); Potassium 4.8 mmol/L (3.4-4.6); Sodium 138 mmol/L (132-142); Total Protein 6.9 gm/dL (6.2-8.2)
[2017-12-21] MEDS ORDERED: PROCHLORPERAZINE EDISYLATE 5 MG/ML VIAL IV ONE (16:35)
[2017-12-21] MEDS ORDERED: HYDROmorphone HCL 1 MG/ML DISP.SYRIN IV ONE ×2 (16:39→19:14)
[2017-12-21] MEDS ORDERED: DIATRIZOATE MEGLUMINE, SODIUM 30 ML BTL ONE (16:40)
[2017-12-21] MEDS ORDERED: PROCHLORPERAZINE EDISYLATE 5 MG/ML VIAL ONE (16:40)
[2017-12-21] MEDS ORDERED: HYDROmorphone HCL 1 MG/ML DISP.SYRIN ONE ×2 (16:42→19:15)
[2017-12-21] MEDS ORDERED: DIATRIZOATE MEGLUMINE, SODIUM 30 ML BTL PO ONE (16:51)
--- NOTE | 2017-12-21 20:14 | CONS ---
[facility] - General Date of Service: 12/21/17 Source: patient, RN/MD, RN notes reviewed, old records Exam Limitations: clinical condition - History of Present Illness Initial Comments: He presented to the emergency room with a abdominal pain and then began to vomit in the emergency room. He states he moves his bowels twice yesterday. He has not moved his bowels today but he has passed some gas. He states his abdomen is more swollen than usual. CT scan suggests small bowel obstruction, there is no definite transition point. He had an appendectomy at age 15. He has had 2 previous colonoscopies [place] [address] Galaviz one done by Dr. Castle for anemia in 2009. He did not have polyps but did have scattered diverticulosis. An EGD at that time showed esophagitis and gastropathy. He had Ventralex mesh repair of an umbilical hernia that had incarcerated properitoneal and omental fat done by Dr. Castle in 2010. Allergies/Adverse Reactions: Allergies venom-honey bee [bee venom (honey bee)] Allergy (Severe, Verified 12/21/17 14:13 ) Anaphylaxis morphine Adverse Reaction (Mild, Verified 12/21/17 14:13) Nausea Home Medications: Home Medications Medication Instructions Recorded Last Taken Cyclobenzaprine HCl 10 mg PO HS 03/07/16 10/28/17 20:00 Glimepiride 4 mg PO BID 03/07/16 10/29/17 08:00 Acarbose [Precose] 50 mg PO TID 12/05/16 10/29/17 08:00 Multivitamins [Multivitamin Juju] 1 cap PO DAILY 12/05/16 10/29/17 08:00 Insulin Glargine,Hum.rec.anlog 40 units SC 02/27/17 10/28/17 20:00 [Lantus] Loratadine 10 mg PO DAILY 02/27/17 10/29/17 08:00 blood sugar diagnostic strips See Dose Instructions .ROUTE 10/10/17 Unknown .MEDSUPPLY #20 ea compression stocking,knee See Dose Instructions .ROUTE 10/10/17 Unknown high,long length,medium circ .MEDSUPPLY #12 ea oxygen-air delivery systems device See Dose Instructions .ROUTE 10/10/17 Unknown .MEDSUPPLY #1 tamsulosin 0.4 mg capsule 0.4 mg PO DAILY 10/10/17 10/28/17 20:00 Aspirin [Aspir-Low] 81 mg PO DAILY 10/29/17 10/29/17 08:00 Cinnamon Bark [Cinnamon] 1,000 mg PO DAILY 10/29/17 10/29/17 08:00 Cyanocobalamin [Vitamin B-12] 1,000 mcg PO DAILY 10/29/17 10/29/17 20:00 Donepezil HCl [Aricept] 5 mg PO HS 10/29/17 10/28/17 20:00 Finasteride 5 mg PO DAILY 10/29/17 10/29/17 08:00 Nitroglycerin [Nitrostat] 0.4 mg SL Q5MIN PRN 10/29/17 Unknown [place]-3S/Dha/Epa/Fish Oil [Fish 1 each PO DAILY 10/29/17 10/29/17 08:00 Oil 1,200 mg Softgel] Omeprazole 40 mg PO DAILY 10/29/17 10/29/17 08:00 sitaGLIPtin PHOSPHATE [Januvia] 50 mg PO DAILY 10/29/17 10/29/17 08:00 atorvastatin 20 mg tablet 20 mg PO HS #90 tab 11/03/17 Unknown topiramate 50 mg tablet 50 mg PO HS #90 tab 11/14/17 Unknown blood-glucose meter kit See Dose Instructions .ROUTE 11/19/17 Unknown .MEDSUPPLY #1 ea pioglitazone 30 mg tablet 30 mg PO DAILY #90 tab 11/19/17 Unknown insulin syringe-needle U-100 1 mL See Dose Instructions .ROUTE 11/24/17 Unknown 30 gauge x 1/2" .MEDSUPPLY #300 ea furosemide 20 mg tablet 20 mg PO DAILY #90 tab 11/29/17 Unknown Sulfamethoxazole/Trimethoprim 1 tab PO BID #14 tab 12/10/17 Unknown [Bactrim Ds] albuterol sulfate HFA 90 2 puff IH Q4H PRN #8.5 g 12/15/17 Unknown mcg/actuation aerosol inhaler tiotropium bromide 18 mcg capsule 18 mcg IH DAILY #90 inh 12/15/17 Unknown with inhalation device traMADol HCL [Tramadol HCl] 50 mg PO QID PRN 12/21/17 Unknown Procedures Application of other wound dressing (03/19/99) Application of splint (07/08/04) Arthrotomy for removal of prosthesis without replacement, knee (01/08/10) Biopsy of bone, other bones (04/14/00) CATARAC PHACOEMULS/ASPIR (08/14/09) Closure of skin and subcutaneous tissue of other sites (07/08/04) Colonoscopy (01/15/11) Destruction of Prostate, Via Natural or Artificial Opening Endoscopic (12/20/16) Dilation of Urethra, Via Natural or Artificial Opening Endoscopic (08/08/17) Drainage of Lumbar Vertebra, Percutaneous Approach (05/07/15) Endoscopic polypectomy of large intestine (05/22/05) Esophagogastroduodenoscopy [EGD] with closed biopsy (01/15/11) INSERT LENS AT CATAR EXT (08/14/09) Insertion or replacement of (cement) spacer (01/08/10) Inspection of Bladder, Via Natural or Artificial Opening Endoscopic (12/06/16) Measurement of Arterial Saturation, Peripheral, Percutaneous Approach (10/18/15) OTHER & OPEN REPAIR UMBILICAL HERNIA W GRAFT OR PROSTHESIS (05/19/09) OTHER LOCAL DESTRUC SKIN (05/19/09) Other computerized axial tomography (04/14/00) BROOKE OF KNEE REPLACEMENT, TIBIAL COMPONENT (12/19/09) Revision of total knee replacement, tibial insert (liner) (01/08/10) Synovectomy, knee (01/08/10) Total knee replacement (03/01/04) Venous catheterization, not elsewhere classified (01/22/10) Review of Systems - Review of Systems Generalized/Overall Review: Present: Weakness EENTM: Present: No Symptoms Reported Respiratory: Present: Shortness of Breath Cardiac: Absent: Chest Pain Abdominal: Present: Nausea, Vomiting, Abdominal Pain Genitourinary: Present: No Symptoms Reported Musculoskeletal: Present: No Symptoms Reported Neurological: Present: No Symptoms Reported Skin: Present: No Symptoms Reported Physical Examination - Exam Vital Signs: Vital Signs - Last Taken Temp 36.0 C 12/21/17 14:09 Pulse 68 12/21/17 19:11 Resp 16 12/21/17 19:11 BP 188/126 H 12/21/17 19:11 Pulse Ox 97 12/21/17 19:11 O2 Oxygen Delivery Method Room Air Constitutional: Present: Alert, Oriented x3, Cooperative, Mild distress, Overweight ENT Exam: Present: normal ENT inspection Eye Exam: bilateral eye: normal inspection Neck: Present: normal inspection Respiratory: Present: no respiratory distress Cardiovascular/Chest: Present: regular rate, rhythm Abdomen: Present: other - Very distended and firm. Very tympanitic. No guarding and no percussion tenderness elicited Skin Exam: Present: pallor Neurologic: Present: gear room keeper II-XII nml as tested Eye contact: Present: cooperative, good eye contact - Results and Findings: Lab/Microbiology results last 24 hrs: Abnormal/Pending Laboratory Last 24 HRS 12/21/17 12/21/17 14:36 14:36 RBC 4.15 L Hgb 12.5 L Hct 37.5 L Immature Gran # (Auto) 0.04 H Neutrophils % 78.8 H Lymphocytes % 10.8 L Eosinophils % 3.1 H Neutrophils # 7.8 H Lymphocytes # 1.07 L Potassium 4.8 H BUN 29 H Creatinine 1.77 H Est GFR (Non-Af Amer) 39 L Random Glucose [address] scan shows contrast in dilated proximal small bowel there is some collapsed distal bowel but no discrete transition point. There is gas and stool in the colon there is some free fluid but no pneumatosis - Assessments/Findings (1) SBO (small bowel obstruction) Diagnosis(s): His WBC is normal which would indicate that if there is obstruction, this may be due to adhesions and not small bowel vascular compromise. Would certainly treat this expectantly with NG suction, IV hydration, and serial exams. The current NG may need to be advanced---CXR pending. Would repeat an x-ray in the morning to ascertain progress of the contrast. I will follow the patient Problem: Acute
--- NOTE | 2017-12-22 08:27 | HP ---
Chief Complaint - Chief Complaint Date of Service: 12/22/17 Time of Service: 08:26 Chief Complaint: Abdominal Pain History of Present Illness: Vishal is an 82 yo male who presented to the [facility] ER with abdominal pain and constipation. Imaging suggested small bowel obstruction. He was given an NG tube and made NPO. Symptoms reportedly only present for the past 24-48 hours. No fever, chills. He has had nausea and vomiting. No blood in stool or emesis. No change in usual activity, diet, or medication. Medical History (Last Reviewed 01/05/18 @ 17:53 by Umer Luciano RN) BPH w urinary obs/LUTS Onset Date: ~08/22/17 Stasis dermatitis Onset Date: ~01/04/15 Anemia Arthritis Carotid artery disease Onset Date: ~08/06/16 Chronic kidney disease, stage 3 (moderate) Onset Date: ~10/07/12 Dyslipidemia GERD (gastroesophageal reflux disease) Heart disease History of frequent headaches Hypercholesterolemia Hyperlipidemia Onset Date: ~08/06/16 Peripheral vascular disease Pseudophakia of both eyes Onset Date: ~11/02/14 Sleep apnea Blurred vision Hernia, umbilical Surgical History: Surgical History (Last Reviewed 01/05/18 @ 17:53 by Umer Luciano RN) H/O vasectomy S/P TURP Cataract H/O endarterectomy Onset Date: ~2014 H/O hernia repair Onset Date: ~05/19/09 H/O transurethral resection of prostate Onset Date: ~12/20/16 History of appendectomy History of tonsillectomy History of total left knee replacement Onset Date: ~2003 History of total right knee replacement Onset Date: ~1998 H/O colonoscopy Onset Date: ~2005 Family History: Family History (Last Reviewed 01/05/18 @ 17:53 by Umer Luciano RN) Brother Cancer Diabetes Parkinson disease Father Suicide Mother Alzheimers disease Sister Dementia Sister Cancer Social History: Patient Lives/Resources With Spouse Utilized 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 Smoking Status Never smoker Have you smoked in the past 12 No months Abuse History No History of abuse Psych History No pertinent hx Review Of Systems (GEN) - Review of Systems Generalized/Overall Review: Absent: Weakness, Chills, Fever EENTM: Present: No Symptoms Reported Respiratory: Absent: Cough, Shortness of Breath Cardiac: Absent: Chest Pain, Palpitations Abdominal: Present: Nausea, Vomiting, Abdominal Pain, Constipation. Absent: Hematemesis, Melena, Bright blood from rectum Genitourinary: Present: No Symptoms Reported Musculoskeletal: Present: No Symptoms Reported Neurological: Present: No Symptoms Reported Skin: Present: No Symptoms Reported Endocrine: Present: No Symptoms Reported Immunizations: IMMUNIZATION HX Immunizations Up to Date Yes History of Influenza Vaccine Yes Hx Pneumococcal Vaccination Yes Allergies/Adverse Reactions: Allergies Allergy/AdvReac Type Severity Reaction Status Date / Time venom-honey bee Allergy Severe Anaphylaxis Verified 01/01/18 13:52 [bee venom (honey bee)] morphine AdvReac Mild Nausea Verified 01/01/18 13:52 Home Medications: HOME MEDICATIONS Cyclobenzaprine HCl 10 mg PO HS 03/07/16 [Last Taken 10/28/17 20:00] Glimepiride 4 mg PO BID 03/07/16 [Last Taken 10/29/17 08:00] Acarbose [Precose] 50 mg PO TID 12/05/16 [Last Taken 10/29/17 08:00] Multivitamins [Multivitamin Juju] 1 cap PO DAILY 12/05/16 [Last Taken 10/29/17 08:00] Insulin Glargine,Hum.rec.anlog [Lantus] 40 units SC HS 02/27/17 [Last Taken 10/28/17 20:00] Loratadine 10 mg PO DAILY 02/27/17 [Last Taken 10/29/17 08:00] blood sugar diagnostic strips See Dose Instructions .ROUTE .MEDSUPPLY #20 ea 10/10/17 [Last Taken Unknown] compression stocking,knee high,long length,medium circ See Dose Instructions .ROUTE .MEDSUPPLY #12 ea 10/10/17 [Last Taken Unknown] oxygen-air delivery systems device See Dose Instructions .ROUTE .MEDSUPPLY #1 10/10/17 [Last Taken Unknown] tamsulosin 0.4 mg capsule 0.4 mg PO DAILY 10/10/17 [Last Taken 10/28/17 20:00] Aspirin [Aspir-Low] 325 mg PO DAILY 10/29/17 [Last Taken 10/29/17 08:00] Cyanocobalamin [Vitamin B-12] 2,500 mcg PO DAILY 10/29/17 [Last Taken 10/29/17 20:00] Nitroglycerin [Nitrostat] 0.4 mg SUBLINGUAL Q5MIN PRN 10/29/17 [Last Taken Unknown] atorvastatin 20 mg tablet 20 mg PO HS #90 tab 11/03/17 [Last Taken Unknown] blood-glucose meter kit See Dose Instructions .ROUTE .MEDSUPPLY #1 ea 11/19/17 [Last Taken Unknown] pioglitazone 30 mg tablet 30 mg PO DAILY #90 tab 11/19/17 [Last Taken Unknown] insulin syringe-needle U-100 1 mL 30 gauge x 1/2" See Dose Instructions .ROUTE .MEDSUPPLY #300 ea 11/24/17 [Last Taken Unknown] furosemide 20 mg tablet 20 mg PO DAILY #90 tab 11/29/17 [Last Taken Unknown] Metoprolol Succinate [Toprol Xl] 100 mg PO BID 12/22/17 [Last Taken Unknown] cinnamon bark 500 mg capsule 1,000 mg PO BID cap 01/01/18 [Last Taken Unknown] finasteride 5 mg tablet 5 mg PO DAILY 01/01/18 [Last Taken Unknown] Exam - Exam Vital Signs: Vital Signs - Last Taken Temp 36.9 C 12/22/17 07:12 Pulse 76 12/22/17 07:12 Resp 18 12/22/17 07:12 BP 136/48 12/22/17 07:12 Pulse Ox 95 12/22/17 07:12 Constitutional: Present: Alert, Oriented x3, Cooperative ENT Exam: Present: hearing grossly normal Eye Exam: bilateral eye: normal inspection Respiratory: Present: lungs clear, normal breath sounds Cardiovascular/Chest: Present: regular rate, rhythm, no murmur Abdomen: Present: soft, no rebound tenderness, no hepatospenomegaly, hypoactive Skin Exam: Present: normal color, warm/dry, no cyanosis Lymphatic: Present: no adenopathy Neurologic: Present: alert, normal mood/affect, oriented x 3 Appearance: Present: appropriate appearance, appropriate insight Eye contact: Present: cooperative, good eye contact, normal speech Thoughts: Present: normal thought pattern, no apparent hallucination Diagnostic Studies: Abnormal Lab Results 12/21/17 12/21/17 Range/Units 14:36 14:36 RBC 4.15 L (4.7-6.0) M/mm3 Hgb 12.5 L (13.5-18.0) gm/dL Hct 37.5 L (42.0-52.0) % Immature Gran # (Auto) 0.04 H (0.000-0.0310) K/mm3 Neutrophils % 78.8 H (42-75.0) % Lymphocytes % 10.8 L (20-51) % Eosinophils % 3.1 H (0.0-3.0) % Neutrophils # 7.8 H (1.3-6.0) K/mm3 Lymphocytes # 1.07 L (1.5-3.5) k/mm3 Potassium 4.8 H (3.4-4.6) mmol/L BUN 29 H (6-23) mg/dL Creatinine 1.77 H (0.4-1.4) mg/dL Est GFR (Non-Af Amer) 39 L (60-130) mL/min Random Glucose 163 H (70-110) mg/dL Laboratory Results WBC 9.9 K/mm3 (4.0-10.5) 12/21/17 14:36 RBC 4.15 M/mm3 (4.7-6.0) L 12/21/17 14:36 Hgb 12.5 gm/dL (13.5-18.0) L 12/21/17 14:36 Hct 37.5 % (42.0-52.0) L 12/21/17 14:36 MCV 90.4 fl (78-100) 12/21/17 14:36 MCH 30.1 pg (27-31) 12/21/17 14:36 MCHC 33.3 g/dl (32-36) 12/21/17 14:36 RDW 13.9 % (11.5-14.0) 12/21/17 14:36 Plt Count 184 K/mm3 (150-450) 12/21/17 14:36 MPV 10.3 fl (8-11.3) 12/21/17 14:36 Immature Gran % (Auto) 0.40 % (0.001-0.429) 12/21/17 14:36 Immature Gran # (Auto) 0.04 K/mm3 (0.000-0.0310) H 12/21/17 14:36 Neutrophils % 78.8 % (42-75.0) H 12/21/17 14:36 Lymphocytes % 10.8 % (20-51) L 12/21/17 14:36 Monocytes % 6.4 % (0.0-9) 12/21/17 14:36 Eosinophils % 3.1 % (0.0-3.0) H 12/21/17 14:36 Basophils % 0.5 % (0.0-1.0) 12/21/17 14:36 Nucleated RBC % 0.0 k/mm3 (0-1) 12/21/17 14:36 Neutrophils # 7.8 K/mm3 (1.3-6.0) H 12/21/17 14:36 Lymphocytes # 1.07 k/mm3 (1.5-3.5) L 12/21/17 14:36 Monocytes # 0.6 k/mm3 (0.0-1.0) 12/21/17 14:36 Eosinophils # 0.3 k/mm3 (0.0-0.7) 12/21/17 14:36 Absolute Basophils 0.1 k/mm3 (0.0-0.1) 12/21/17 14:36 Sodium 138 mmol/L (132-142) 12/21/17 14:36 Plasma Sodium 139 mmol/L (130-142) 12/21/17 14:36 Potassium 4.8 mmol/L (3.4-4.6) H 12/21/17 14:36 Chloride 103 mmol/L (97-106) 12/21/17 14:36 Carbon Dioxide 30.5 mmol/L (24-32.6) 12/21/17 14:36 Anion Gap 9.3 mmol/L (6.8-13.8) 12/21/17 14:36 BUN 29 mg/dL (6-23) H 12/21/17 14:36 Creatinine 1.77 mg/dL (0.4-1.4) H 12/21/17 14:36 Est GFR (Non-Af Amer) 39 mL/min (60-130) L 12/21/17 14:36 BUN/Creatinine Ratio 16.4 (9.0-21.6) 12/21/17 14:36 Random Glucose 163 mg/dL (70-110) H 12/21/17 14:36 Lactic Acid, Venous 1.0 mmol/L (0.4-2.0) 12/21/17 14:36 Calcium 9.1 mg/dL (7.9-10.9) 12/21/17 14:36 Calcium Adj for Albumin 9.1 mg/dL (8.4-10.2) 12/21/17 14:36 Magnesium 2.0 mg/dL (1.2-2.8) 12/21/17 14:36 Total Bilirubin 0.4 mg/dL (0.0-1.1) 12/21/17 14:36 AST 20 U/L (0-48) 12/21/17 14:36 ALT 24 U/L (19-67) 12/21/17 14:36 Alkaline Phosphatase 77 U/L (50-170) 12/21/17 14:36 Total Protein 6.9 gm/dL (6.2-8.2) 12/21/17 14:36 Albumin 3.6 gm/dl (3.4-5.0) 12/21/17 14:36 Lipase 89 U/L (73-393) 12/21/17 14:36 Serum Ketones Negative (NEGATIVE) 12/21/17 14:36 Assessment/Plan - Assessment/Plan (1) SBO (small bowel obstruction) Assessment: Vishal is an 82 yo male with small bowel obstruction based on symptoms and abdominal imaging. He was given an NG tube overnight and made NPO. General surgery was consulted. Will monitor bowel status. Due to small bowel obstruction and suspicion that this will take >2 midnights to resolve he was made acute inpatient. Problem: Acute
[2017-12-22] MEDS ORDERED: METOPROLOL SUCCINATE 100 MG TABLET.SA PO SCH (12:00)
[2017-12-22] MEDS ORDERED: MULTIVITAMINS 1 CAP CAPSULE PO SCH (12:00)
[2017-12-22] MEDS ORDERED: LORATADINE 10 MG TABLET PO SCH (12:00)
[2017-12-22] MEDS ORDERED: GLIMEPIRIDE 4 MG TABLET PO SCH (12:00)
[2017-12-22] MEDS ORDERED: CYANOCOBALAMIN 1,000 MCG TABLET PO SCH (12:00)
[2017-12-22] MEDS ORDERED: FUROSEMIDE 20 MG TABLET PO SCH (12:00)
[2017-12-22] MEDS ORDERED: PIOGLITAZONE HCL 15 MG TABLET PO SCH (12:00)
[2017-12-22] MEDS ORDERED: FINASTERIDE 5 MG TABLET PO SCH (12:00)
--- NOTE | 2017-12-22 16:58 | DS ---
Addendum entered and electronically signed by Jose Rodriguez DO 01/08/18 08:46: Vishal also has Diabetes Mellitus II: Glucose monitored and given Insulin to help control sugars while inpatient Original Note: (1) SBO (small bowel obstruction) Problem: Acute Description of Stay: Vishal is an 82 yo male that presented to the [facility] ER on 12/21/17 with abdominal pain, nausea, and vomiting. Abdominal xray showed evidence of small bowel obstruction. A CT of the abdomen/pelvis was completed and confirmed it to be a small bowel obstruction. He was given an NG tube and made NPO overnight. Chest xray showed the tube was possibly coiled in the esophagus. This was repeated multiple times with follow up imaging. This continued to appear coiled in the distal esophagus. The NG tube was draining dark green material. General surgery was consulted. On the morning of 12/22/17 repeat imaging showed resolution of the small bowel obstruction which was sooner than expected. He began having bowel movements. The NG tube was removed and his diet was advanced. He tolerated this well and was advanced to consistent carb diet, which he also tolerated. He was feeling well and having bowel movements. He will be discharged to home with follow up. Procedures Performed: see notes below List Procedures: NG Tube placement 12/21/17 NG Tube removal 12/22/17 Results and Findings: Lab Pending Results 12/21/17 14:36: WBC 9.9, RBC 4.15 L, Hgb 12.5 L, Hct 37.5 L, MCV 90.4, MCH 30.1, MCHC 33.3, RDW 13.9, Plt Count 184, MPV 10.3, Immature Gran % (Auto) 0.40, Immature Gran # (Auto) 0.04 H, Neutrophils % 78.8 H, Lymphocytes % 10.8 L, Monocytes % 6.4, Eosinophils % 3.1 H, Basophils % 0.5, Nucleated RBC % 0.0, Neutrophils # 7.8 H, Lymphocytes # 1.07 L, Monocytes # 0.6, Eosinophils # 0.3, Absolute Basophils 0.1 12/21/17 14:36: Sodium 138, Plasma Sodium 139, Potassium 4.8 H, Chloride 103, Carbon Dioxide 30.5, Anion Gap 9.3, BUN 29 H, Creatinine 1.77 H, Est GFR (Non-Af Amer) 39 L, BUN/Creatinine Ratio 16.4, Random Glucose 163 H, Calcium 9.1, Calcium Adj for Albumin 9.1, Magnesium 2.0, Total Bilirubin 0.4, AST 20, ALT 24, Alkaline Phosphatase 77, Total Protein 6.9, Albumin 3.6, Lipase 89, Serum Ketones Negative 12/21/17 14:36: Lactic Acid, Venous 1.0 Discharge Location: Home Disposition: Home self-care Condition: Good Discharge Diet: Consistent carbs Referrals: Jose Rodriguez DO [Primary Care Provider] - One Week Consultation Done:: General Surgery Problem Oriented Discharge Instructions to Patient/Family: Small Bowel Obstruction, [id number] Additional Patient Instructions (free text): -Please make TCM appointment unless intermediate discharge. Thank you! Joanna @ ext:[phone]. Complete Home Medications List: Complete Home Medication List: Cyclobenzaprine HCl 10 mg PO HS 03/07/16 Glimepiride 4 mg PO BID 03/07/16 Acarbose [Precose] 50 mg PO TID 12/05/16 Multivitamins [Multivitamin Juju] 1 cap PO DAILY 12/05/16 Insulin Glargine,Hum.rec.anlog [Lantus] 40 units SC HS 02/27/17 Loratadine 10 mg PO DAILY 02/27/17 blood sugar diagnostic strips See Dose Instructions .ROUTE .MEDSUPPLY #20 ea 10/10/17 compression stocking,knee high,long length,medium circ See Dose Instructions .ROUTE .MEDSUPPLY #12 ea 10/10/17 oxygen-air delivery systems device See Dose Instructions .ROUTE .MEDSUPPLY #1 10/10/17 tamsulosin 0.4 mg capsule 0.4 mg PO DAILY 10/10/17 Aspirin [Aspir-Low] 325 mg PO DAILY 10/29/17 Cinnamon Bark [Cinnamon] 1,000 mg PO DAILY 10/29/17 Cyanocobalamin [Vitamin B-12] 2,500 mcg PO DAILY 10/29/17 Donepezil HCl [Aricept] 5 mg PO HS 10/29/17 Finasteride 5 mg PO DAILY 10/29/17 Nitroglycerin [Nitrostat] 0.4 mg SL Q5MIN PRN 10/29/17 atorvastatin 20 mg tablet 20 mg PO HS #90 tab 11/03/17 blood-glucose meter kit See Dose Instructions .ROUTE .MEDSUPPLY #1 ea 11/19/17 pioglitazone 30 mg tablet 30 mg PO DAILY #90 tab 11/19/17 insulin syringe-needle U-100 1 mL 30 gauge x 1/2" See Dose Instructions .ROUTE .MEDSUPPLY #300 ea 11/24/17 furosemide 20 mg tablet 20 mg PO DAILY #90 tab 11/29/17 Metoprolol Succinate [Toprol Xl] 100 mg PO BID 12/22/17
[2017-12-22 17:19] VITALS: BP 156/57
[2017-12-22] MEDS ORDERED: TAMSULOSIN HCL 0.4 MG CAP.SR.24H PO SCH (18:00)
[2017-12-22] MEDS ORDERED: ROSUVASTATIN CALCIUM 10 MG TABLET PO SCH (21:00)
[2017-12-22] MEDS ORDERED: DONEPEZIL HCL 5 MG TABLET PO SCH (21:00)
[2017-12-22] MEDS ORDERED: CYCLOBENZAPRINE HCL 10 MG TABLET PO SCH (21:00)
== END 2017-12-22 17:36 | disposition home or self-care (01) | DRG 390 ==
LOC: ER 13:59 → MS 19:24
PROVIDERS: ADMIT Family Medicine; ATTEND Family Medicine
CPT/HCPCS: 36415; 71010; 71045; 74019; 74020; 74176; 80053; 82009; 83605; 83690; 83735; 85025; 96361; 96374; 96375; 96376; 99285

== ENCOUNTER 2019-01-06 20:42 | Observation (INO) ==
--- NOTE | 2019-01-06 20:58 | ERNOTE ---
Chest Pain/Cardiac HPI Chief Complaint: Chest Pain Time Seen by Provider: 01/06/19 20:57 Source: patient Exam Limitations: no limitations Immunizations: IMMUNIZATION HX Immunizations Up to Date Yes History of Influenza Vaccine Yes Hx Pneumococcal Vaccination Yes Allergies/Adverse Reactions: Allergies venom-honey bee [bee venom (honey bee)] Allergy (Severe, Verified 01/07/19 03:17) Anaphylaxis morphine Adverse Reaction (Mild, Verified 01/07/19 03:17) Nausea Home Medications: HOME MEDICATIONS Multivitamins [Multivitamin Juju] 1 cap PO DAILY 12/05/16 [Last Taken 10/29/17 08:00] Loratadine 10 mg PO DAILY 02/27/17 [Last Taken 10/29/17 08:00] blood sugar diagnostic strips See Dose Instructions .ROUTE .MEDSUPPLY #20 ea 10/10/17 [Last Taken Unknown] compression stocking,knee high,long length,medium circ See Dose Instructions .ROUTE .MEDSUPPLY #12 ea 10/10/17 [Last Taken Unknown] oxygen-air delivery systems device See Dose Instructions .ROUTE .MEDSUPPLY #1 10/10/17 [Last Taken Unknown] tamsulosin 0.4 mg capsule 0.4 mg PO DAILY 10/10/17 [Last Taken 10/28/17 20:00] Aspirin [Aspir-Low] 325 mg PO DAILY 10/29/17 [Last Taken 10/29/17 08:00] Cyanocobalamin [Vitamin B-12] 2,500 mcg PO DAILY 10/29/17 [Last Taken 10/29/17 20:00] atorvastatin 20 mg tablet 20 mg PO HS #90 tab 11/03/17 [Last Taken Unknown] blood-glucose meter kit See Dose Instructions .ROUTE .MEDSUPPLY #1 ea 11/19/17 [Last Taken Unknown] pioglitazone 30 mg tablet 30 mg PO DAILY #90 tab 11/19/17 [Last Taken Unknown] insulin syringe U-100 with needle 1 mL 30 gauge x 1/2" See Dose Instructions .ROUTE .MEDSUPPLY #300 ea 11/24/17 [Last Taken Unknown] furosemide 20 mg tablet 20 mg PO DAILY #90 tab 11/29/17 [Last Taken Unknown] Metoprolol Succinate [Toprol Xl] 100 mg PO BID 12/22/17 [Last Taken Unknown] cinnamon bark 500 mg capsule 1,000 mg PO DAILY cap 01/01/18 [Last Taken Unknown] finasteride 5 mg tablet 5 mg PO DAILY 01/01/18 [Last Taken Unknown] traMADol HCL [Ultram] 50 mg PO BID PRN #10 tab 03/01/18 [Last Taken Unknown] glimepiride 4 mg tablet 4 mg PO BID #180 tab 05/01/18 [Last Taken Unknown] Insulin Glargine,Hum.rec.anlog [Lantus] 40 unit SUBCUT HS 05/14/18 [Last Taken Unknown] ranitidine 300 mg tablet 300 mg PO HS #30 tab 05/18/18 [Last Taken Unknown] Ondansetron [Zofran Odt] 4 mg PO Q6H PRN #12 tab 05/27/18 [Last Taken Unknown] Albuterol Sulfate [Proair Hfa] 2 puff INHALATION Q4H PRN #1 inhaler 06/12/18 [Last Taken Unknown] Oseltamivir Phosphate [Tamiflu] 75 mg PO BID #10 cap 06/12/18 [Last Taken Unknown] cyclobenzaprine 10 mg tablet 10 mg PO HS #90 tab 06/12/18 [Last Taken Unknown] nitroglycerin 0.4 mg sublingual tablet 0.4 mg SUBLINGUAL Q5MIN PRN #75 tab 06/12/18 [Last Taken Unknown] Famotidine [Pepcid] 20 mg PO BID #60 tab 06/19/18 [Last Taken Unknown] Metoclopramide HCl [Reglan] 5 mg PO ACHS #28 tab 06/19/18 [Last Taken Unknown] loratadine 10 mg tablet 10 mg PO DAILY #90 tab 06/29/18 [Last Taken Unknown] prednisone 20 mg tablet 40 mg PO DAILY #14 tab 07/07/18 [Last Taken Unknown] busPIRone HCL [Buspar] 0.5 - 1 tab PO TID #15 tab 11/06/18 [Last Taken Unknown] Narrative: Chest pain all day with shortness of breath and some cough. Worsened this evening an increase in sputum production. Timing: getting worse Severity/Quality: moderate, severe Activities at Onset: rest Modifying Factors - Improves: Present: nothing Modifying Factors - Worsens: Present: other - activity Nitro Today/Relief: no nitro taken today Aspirin Treatment Today: 325 mg x 1, provided at home Prior Chest Pain/Cardiac Workup: Reports: prior chest pain, cardiac cath Review of Systems - Review of Systems Constitutional: Present: chills, fatigue. Absent: recent illness, fever ENT: Absent: nose congestion, nasal drainage Respiratory: Present: See HPI, shortness of breath, cough, wheezing Cardiology: Absent: palpitations, edema Gastrointestinal/Abdominal: Present: nausea. Absent: vomiting Musculoskeletal: Absent: back pain, muscle pain Skin: Absent: rash Neurological: Absent: headache, dizziness/light-headedness Endocrine: Present: excessive sweating Medical History (Updated 01/07/19 @ 02:58 by Young Rivas DO) Sleep apnea (Chronic) Onset Date: Unknown Pseudophakia of both eyes (Chronic) Onset Date: 11/02/14 Peripheral vascular disease (Chronic) Onset Date: Unknown Hyperlipidemia (Chronic) Onset Date: 08/06/[address] Henley. Hypercholesterolemia (Chronic) Onset Date: Unknown Heart disease (Chronic) Onset Date: Unknown GERD (gastroesophageal reflux disease) (Chronic) Onset Date: Unknown Chronic kidney disease, stage 3 (moderate) (Chronic) Onset Date: 10/07/12 Carotid artery disease (Chronic) Onset Date: 08/06/[address] Henley. 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 Left, nonocclusive. Diastolic heart failure Onset Date: 06/12/18 Grade 1. Hospital admission Onset Date: 06/12/[address] [facility] on 06/12/2018; influenza A. Discharged home on 06/15/2018. Incomplete bladder emptying Influenza A Onset Date: 06/12/18 Left rotator cuff tear Onset Date: 06/21/18 Swelling of left hand Onset Date: 05/2018 Tendinitis of left shoulder Onset Date: 06/21/18 Tenosynovitis of left shoulder Onset Date: 06/21/18 Thrombus Onset Date: 07/15/18 Per ultrasound obtained at [facility]. Thrombus within the left superficial basilica vein, nonocclusive. Anemia Onset Date: Unknown Dyslipidemia Onset Date: Unknown History of frequent headaches Onset Date: Unknown Blurred vision Onset Date: Unknown Hernia, umbilical Onset Date: Unknown History of CT scan of abdomen Onset Date: 07/10/18 CT abdomen pelvis WO contrast. [facility]. History of CT scan of abdomen Onset Date: 07/25/18 CT abdomen pelvis W contrast. [facility]. History of CT scan of chest Onset Date: 07/07/18 CT angio chest. [facility]. 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 History of MRI Onset Date: 06/21/18 [facility]. * See scanned document from [facility] dated 06/21/2018. Hospital admission Onset Date: 06/21/[address] [facility] on 06/21/2018; intractable pain. Discharged to home on 06/24/2018. Hospital admission Onset Date: 07/07/[address] [facility] on 07/07/2018; bilateral pulmonary embolism. Discharged home on 07/10/2018. Hospital admission Onset Date: 07/16/[address] [facility] on 07/16/2018; right groin/thigh pain. Discharged home on 07/22/2018. Hospital admission Onset Date: 07/24/[address] [facility] on 07/24/2018; colitis, GI bleed. Discharged home on 07/27/2018. Hypospadias Onset Date: 1935 Pulmonary embolism Onset Date: 07/07/18 Stasis dermatitis Onset Date: 01/04/[address] Hernadez. Surgical History: Surgical History (Updated 11/06/18 @ 14:40 by MAKAYLA Salians) History of appendectomy Onset Date: Unknown age 15 History of cataract extraction Onset Date: Unknown History of colonoscopy Onset Date: ~2005 Dr. Galaviz, [facility]. History of dilation of urethra Onset Date: ~07/2017 History of endarterectomy Onset Date: ~2014 History of tonsillectomy Onset Date: Unknown History of total left knee replacement Onset Date: ~2003 & 2010 knee was repaired by Dr. Francis. Dr. Cantrell did the original History of total right knee replacement Onset Date: ~1998 Dr. Cantrell History of transurethral resection of prostate Onset Date: 12/20/16 Dr. Shad Joseph, [facility]. History of umbilical hernia repair Onset Date: 05/19/09 Dr. Ayo Castle, [facility]. History of vasectomy Onset Date: Unknown Family History: Family History (Updated 10/10/17 @ 11:07 by Mamadou Alarcon CMA) Brother Cancer Diabetes Parkinson disease Father , shot himself in 1964 Suicide Mother Alzheimers disease Sister Dementia Sister Cancer breast Social History: (Last Reviewed 01/07/19 @ 04:43 by Young Rivas DO) Social History: mcc: No Marital status: lives independently: No current occupational status: retired Highest education level completed: high school graduate Service: Yes branch: [employer] status: retired Tobacco: Smoking Status: Former smoker Alcohol: alcohol intake: current alcohol intake frequency: holiday/special occasion Substance Use: substance use type: does not use Dietary Habits: caffeine: Yes caffeine comment: current some day Taty/Muslim: taty/congregational: Faith Physical Exam - Physical Exam General Appearance: Present: mild distress Head Exam: Present: normal inspection, no evidence of injury Ears, Nose, Throat: Present: normal ENT inspection Neck: Present: normal inspection, supple Respiratory: Present: no accessory muscle use, crackles, wheezing Cardiovascular/Chest: Present: regular rate, rhythm, no murmur Gastrointestinal/Abdominal: Present: normal bowel sounds, nontender, nondistended, soft Extremity Exam: Present: non-tender, no edema - Pt has compression hose in place Neurological Exam: Present: alert, oriented, normal mood/affect Skin Exam: Present: normal color, warm/dry Progress - Results and Orders Patient's Lab Results:: I have reviewed the patient's lab results. - Vital Signs Patient's Vital Signs:: I have reviewed the patient's vital signs. Vital Signs: Vital Signs 01/06/19 20:47 Temperature 36.7 C Pulse Rate 96 Respiratory Rate 28 H Blood Pressure 159/73 H O2 Sat by Pulse Oximetry 95 - EKG EKG #1 EKG: NSR, RBBB, nonspecific ST T wave changes, other - old [place] EKG read: Interp. by me - X-Ray X-Ray #1 X-Ray: chest Interpretation: Interp. by me X-ray Comments: No infiltrate or effusion. Mild cardiomegaly. - Progress/Reassessment Chief Complaint: Chest Pain Progress:: Improved Progress Note-Subjective: 01/07/19 01:48 when patient's initial lactic acid was returned positive I looked at lab results and did overlook other SIRS criteria. When repeat lactic acid came back and was elevated I looked more closely and realized that the patient met sepsis criteria through tachycardia tachypnea and elevated lactic acid. So sepsis treatment was delayed. 01/07/19 02:[address] Mendieta she agrees to admit on observation status 01/07/19 04:48 Departure Clinical Impression: Acute exacerbation of chronic obstructive pulmonary disease (COPD) Sepsis Qualifiers: Sepsis type: sepsis due to unspecified organism Sepsis acute organ dysfunction status: with acute organ dysfunction Severe sepsis acute organ dysfunction type: unspecified Severe sepsis shock status: without septic shock Qualified Code(s): A41.9 - Sepsis, unspecified organism - Departure Disposition: Still a patient Condition: Stable
[2019-01-06] MEDS ORDERED: ALBUTEROL SULFATE/IPRATROPIUM 3 ML NEBU IH ONE (21:06)
[2019-01-06 21:23] LABS: Mean Cell Volume 87.3 fl (78-100); Mean Corpuscular Hemoglobin 29.1 pg (27-31); Mean Corpuscular Hgb Conc 33.3 g/dl (32-36); Mean Platelet Volume 10.2 fl (8-11.3); Neutrophil # 5.8 K/mm3 (1.3-6.0); Neutrophil % 77.4 % (42-75.0); Platelet Count 181 K/mm3 (150-450); Red Blood Count 3.78 M/mm3 (4.7-6.0); Red Cell Distribution Width 16.2 % (11.5-14.0); White Blood Count 7.5 K/mm3 (4.0-10.5)
[2019-01-06 21:43] LABS: Anion Gap 12.5 mmol/L (6.8-13.8); BUN/Creatinine Ratio 15.6 (9.0-21.6); Bilirubin, Total 0.3 mg/dL (0.0-1.1); Ca. Corrected For Albumin 8.5 mg/dL (8.4-10.2); Carbon Dioxide 27.5 mmol/L (24-32.6); Total Protein 6.1 gm/dL (6.2-8.2); Troponin I 0.056 ng/mL (0.00-0.10)
[2019-01-07] MEDS ORDERED: cefTRIAXone SODIUM 1,000 MG/100 ML BAG IV ONE (01:47)
[2019-01-07] MEDS ORDERED: ALBUTEROL SULFATE/IPRATROPIUM 3 ML NEBU IH SCH ×2 (03:30→07:00)
[2019-01-07] MEDS ORDERED: ISOSORBIDE MONONITRATE 120 MG TAB.SR.24H PO SCH (09:00)
[2019-01-07] MEDS: ALBUTEROL SULFATE/IPRATROPIUM 3 ML NEBU IH SCH ×4 (10:15→18:36)
[2019-01-07] MEDS ORDERED: INSULIN REGULAR, HUMAN 100 UNITS/ML VIAL SC ONE (12:10)
[2019-01-07] MEDS ORDERED: NITROGLYCERIN 0.4 MG/TAB BTL SL PRN (13:13)
[2019-01-07] MEDS ORDERED: ALBUTEROL SULFATE 2.5 MG/0.5 ML VIAL.NEB IH PRN (13:13)
[2019-01-07] MEDS ORDERED: traMADol HCL 50 MG TABLET PO PRN (13:13)
[2019-01-07] MEDS ORDERED: ONDANSETRON 4 MG TAB.RAPDIS PO PRN (13:13)
[2019-01-07] MEDS ORDERED: ACETAMINOPHEN 325 MG TABLET PO PRN (13:13)
[2019-01-07] MEDS ORDERED: LEVOFLOXACIN IN DEXTROSE 5 % 750 MG/150 ML BAG IV SCH (13:15)
[2019-01-07] MEDS ORDERED: predniSONE 20 MG TABLET PO SCH (13:30)
[2019-01-07] MEDS ORDERED: OSELTAMIVIR PHOSPHATE 75 MG CAPSULE PO SCH (13:30)
[2019-01-07] MEDS: APIXABAN 2.5 MG TABLET PO SCH ×2 (14:08→21:19)
--- NOTE | 2019-01-07 14:08 | HP ---
Chief Complaint - Chief Complaint Date of Service: 01/07/19 Time of Service: 13:51 Chief Complaint: I had chest pain shortness of breath and cough History of Present Illness: 83-year-old male with past medical history of anemia, coronary artery disease, Chronic kidney disease stage III, DVT, diastolic heart failure, GERD, dyslipidemia, was evaluated in the ER for retrosternal chest pain accompanied by worsening shortness of breath and productive cough of one day duration. Patient has an extensive history of coronary artery disease and takes nitroglycerin regularly and on as-needed basis for recurrent chest pain. However he says this pain that started yesterday while laying in his car was more intense than previous episodes and did not respond to his nitroglycerin. He rated the pain over 10 out of 10 intensity and denied any radiation but said he was so bad that "he wanted to ". Patient then yelled out to his son who lives with him who discovered the patient's laying in the back of his car in extreme distress. Terrell roberson's son then brought him to the ER for evaluation. When asked why the patient lie in his car he says this is where he regularly sleeps due to inhabitable conditions in his home. He reports having a leaky roof wet floors and non-functioning appliances. Patient his family plans on moving soon to another house. Patient sees a director china regularly and his PCP does not practice in our hospital, therefore we will take over his care during that hospitalization. Medical History (Updated 01/07/19 @ 02:58 by Young Rivas DO) Sleep apnea (Chronic) Onset Date: Unknown Pseudophakia of both eyes (Chronic) Onset Date: 11/02/14 Peripheral vascular disease (Chronic) Onset Date: Unknown Hyperlipidemia (Chronic) Onset Date: 08/06/[address] Henley. Hypercholesterolemia (Chronic) Onset Date: Unknown Heart disease (Chronic) Onset Date: Unknown GERD (gastroesophageal reflux disease) (Chronic) Onset Date: Unknown Chronic kidney disease, stage 3 (moderate) (Chronic) Onset Date: 10/07/12 Carotid artery disease (Chronic) Onset Date: 08/06/[address] Henley. 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 Left, nonocclusive. Diastolic heart failure Onset Date: 06/12/18 Grade 1. Hospital admission Onset Date: 06/12/18 Admitted to [facility] on 06/12/2018; influenza A. Discharged home on 06/15/2018. Incomplete bladder emptying Influenza A Onset Date: 06/12/18 Left rotator cuff tear Onset Date: 06/21/18 Swelling of left hand Onset Date: 05/2018 Tendinitis of left shoulder Onset Date: 06/21/18 Tenosynovitis of left shoulder Onset Date: 06/21/18 Thrombus Onset Date: 07/15/18 Per ultrasound obtained at [facility]. Thrombus within the left superficial basilica vein, nonocclusive. Anemia Onset Date: Unknown Dyslipidemia Onset Date: Unknown History of frequent headaches Onset Date: Unknown Blurred vision Onset Date: Unknown Hernia, umbilical Onset Date: Unknown History of CT scan of abdomen Onset Date: 07/10/18 CT abdomen pelvis WO contrast. [facility]. History of CT scan of abdomen Onset Date: 07/25/18 CT abdomen pelvis W contrast. [facility]. History of CT scan of chest Onset Date: 07/07/18 CT angio chest. [facility]. 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 History of MRI Onset Date: 06/21/18 [facility]. * See scanned document from [facility] dated 06/21/2018. Hospital admission Onset Date: 06/21/18 Admitted to [facility] on 06/21/2018; intractable pain. Discharged to home on 06/24/2018. Hospital admission Onset Date: 07/07/18 Admitted to [facility] on 07/07/2018; bilateral pulmonary embolism. Discharged home on 07/10/2018. Hospital admission Onset Date: 07/16/18 Admitted to [facility] on 07/16/2018; right groin/thigh pain. Discharged home on 07/22/2018. Hospital admission Onset Date: 07/24/18 Admitted to [facility] on 07/24/2018; colitis, GI bleed. Discharged home on 07/27/2018. Hypospadias Onset Date: 1935 Pulmonary embolism Onset Date: 07/07/18 Stasis dermatitis Onset Date: 01/04/[address] Hernadez. Surgical History: Surgical History (Updated 11/06/18 @ 14:40 by CINTHIA SalinasP) History of appendectomy Onset Date: Unknown age 15 History of cataract extraction Onset Date: Unknown History of colonoscopy Onset Date: ~2005 Dr. Galaviz, [facility]. History of dilation of urethra Onset Date: ~07/2017 History of endarterectomy Onset Date: ~2014 History of tonsillectomy Onset Date: Unknown History of total left knee replacement Onset Date: ~2003 & 2010 knee was repaired by Dr. Francis. Dr. Cantrell did the original History of total right knee replacement Onset Date: ~1998 Dr. Cantrell History of transurethral resection of prostate Onset Date: 12/20/16 Dr. Shad Joseph, [facility]. History of umbilical hernia repair Onset Date: 05/19/09 Dr. Ayo Castle, [facility]. History of vasectomy Onset Date: Unknown Family History: Family History (Updated 10/10/17 @ 11:07 by Mamadou Alarcon [facility]) Brother Cancer Diabetes Parkinson disease Father , shot himself in 1963 Suicide Mother Alzheimers disease Sister Dementia Sister Cancer breast Social History: (Last Reviewed 01/07/19 @ 04:43 by Young Rivas DO) Social History: fdc: No Marital status: lives independently: No current occupational status: retired Highest education level completed: high school graduate Service: Yes branch: [employer] status: retired Tobacco: Smoking Status: Former smoker Alcohol: alcohol intake: current alcohol intake frequency: holiday/special occasion Substance Use: substance use type: does not use Dietary Habits: caffeine: Yes caffeine comment: current some day Taty/Latter Day: taty/congregational: Catholic Peds Patient Hx - Developmental: No Pertinent Hx Peds Patient Hx - Medical: No Pertinent Hx Peds Patient Hx - Cardiac/Respiratory: No Pertinent Hx Peds Patient Hx - Surgical: No Surgical History Patient History - Cancer: No Hx of Cancer Review Of Systems (GEN) - Review of Systems Generalized/Overall Review: Present: No Symptoms Reported EENTM: Present: No Symptoms Reported Respiratory: Present: Cough, Shortness of Breath Cardiac: Present: Chest Pain Abdominal: Present: No Symptoms Reported Genitourinary: Present: No Symptoms Reported Musculoskeletal: Present: No Symptoms Reported Neurological: Present: No Symptoms Reported Skin: Present: No Symptoms Reported Endocrine: Present: No Symptoms Reported Immunizations: IMMUNIZATION HX Immunizations Up to Date Yes History of Influenza Vaccine Yes Hx Pneumococcal Vaccination Yes Allergies/Adverse Reactions: Allergies Allergy/AdvReac Type Severity Reaction Status Date / Time venom-honey bee Allergy Severe Anaphylaxis Verified 01/07/19 03:17 [bee venom (honey bee)] morphine AdvReac Mild Nausea Verified 01/07/19 03:17 Home Medications: HOME MEDICATIONS Multivitamins [Multivitamin Juju] 1 cap PO DAILY 12/05/16 [Last Taken 10/29/17 08:00] Loratadine 10 mg PO DAILY 02/27/17 [Last Taken 10/29/17 08:00] blood sugar diagnostic strips See Dose Instructions .ROUTE .MEDSUPPLY #20 ea 10/10/17 [Last Taken Unknown] compression stocking,knee high,long length,medium circ See Dose Instructions .ROUTE .MEDSUPPLY #12 ea 10/10/17 [Last Taken Unknown] oxygen-air delivery systems device See Dose Instructions .ROUTE .MEDSUPPLY #1 10/10/17 [Last Taken Unknown] tamsulosin 0.4 mg capsule 0.4 mg PO DAILY 10/10/17 [Last Taken 10/28/17 20:00] Aspirin [Aspir-Low] 81 mg PO DAILY 10/29/17 [Last Taken 10/29/17 08:00] atorvastatin 20 mg tablet 20 mg PO HS #90 tab 11/03/17 [Last Taken Unknown] blood-glucose meter kit See Dose Instructions .ROUTE .MEDSUPPLY #1 ea 11/19/17 [Last Taken Unknown] pioglitazone 30 mg tablet 30 mg PO DAILY #90 tab 11/19/17 [Last Taken Unknown] insulin syringe U-100 with needle 1 mL 30 gauge x 1/2" See Dose Instructions .ROUTE .MEDSUPPLY #300 ea 11/24/17 [Last Taken Unknown] furosemide 20 mg tablet 20 mg PO DAILY #90 tab 11/29/17 [Last Taken Unknown] Metoprolol Succinate [Toprol Xl] 100 mg PO BID 12/22/17 [Last Taken Unknown] cinnamon bark 500 mg capsule 1,000 mg PO DAILY cap 01/01/18 [Last Taken Unknown] finasteride 5 mg tablet 5 mg PO DAILY 01/01/18 [Last Taken Unknown] traMADol HCL [Ultram] 50 mg PO BID PRN #10 tab 03/01/18 [Last Taken Unknown] glimepiride 4 mg tablet 4 mg PO BID #180 tab 05/01/18 [Last Taken Unknown] Insulin Glargine,Hum.rec.anlog [Lantus] 40 unit SUBCUT HS 05/14/18 [Last Taken Unknown] ranitidine 300 mg tablet 300 mg PO HS #30 tab 05/18/18 [Last Taken Unknown] Albuterol Sulfate [Proair Hfa] 2 puff INHALATION Q4H PRN #1 inhaler 06/12/18 [Last Taken Unknown] cyclobenzaprine 10 mg tablet 10 mg PO HS #90 tab 06/12/18 [Last Taken Unknown] nitroglycerin 0.4 mg sublingual tablet 0.4 mg SUBLINGUAL Q5MIN PRN #75 tab 06/12/18 [Last Taken Unknown] loratadine 10 mg tablet 10 mg PO DAILY #90 tab 06/29/18 [Last Taken Unknown] busPIRone HCL [Buspar] 0.5 - 1 tab PO TID #15 tab 11/06/18 [Last Taken Unknown] Acarbose [Precose] 25 mg PO TID 01/07/19 [Last Taken Unknown] Apixaban [Eliquis] 2.5 mg PO BID 01/07/19 [Last Taken Unknown] Donepezil HCl [Aricept] 10 mg PO HS 01/07/19 [Last Taken Unknown] Escitalopram Oxalate [Lexapro] 10 mg PO DAILY 01/07/19 [Last Taken Unknown] Isosorbide Mononitrate [Isosorbide Mononitrate ER] 30 mg PO 01/07/19 [Last Taken Unknown] Omeprazole 40 mg PO BID 01/07/19 [Last Taken Unknown] sitaGLIPtin PHOSPHATE [Januvia] 100 mg PO DAILY 01/07/19 [Last Taken Unknown] Exam - Exam Vital Signs: Vital Signs - Last Taken Temp 36.9 C 01/07/19 07:02 Pulse 105 H 01/07/19 10:23 Resp 20 01/07/19 10:23 BP 147/64 01/07/19 07:02 Pulse Ox 93 01/07/19 10:15 Constitutional: Present: Alert, Oriented x3, Cooperative, Well developed, No distress, Elderly ENT Exam: Present: normal ENT inspection, hearing grossly normal, pharynx normal, TMs normal Eye Exam: bilateral eye: normal inspection, PERRL, EOMI Neck: Present: non-tender, full range of motion, supple, normal inspection, trachea midline, limited range of motion Back Exam: Present: normal inspection, no CVA tenderness, no vertebral tenderness Breasts: Present: Exam deferred Respiratory: Present: crackles - Bibasilar crackles Cardiovascular/Chest: Present: normal peripheral pulses - every day, regular rate, rhythm, no chest tenderness, no gallop, no JVD, no murmur, no rub, edema Peripheral Pulses: carotid (R): 3+, carotid (L): 3+, femoral (R): 3+, femoral (L): 3+, dorsalis-pedis (R): 3+, dorsalis-pedis (L): 3+ Abdomen: Present: Normal bowel sounds, nondistended, no masses, obese, tender, distended /Rectal: Present: Exam deferred Extremity: Present: normal range of motion, non-tender, normal inspection, no calf tenderness, normal capillary refill, pedal edema - Bilateral 2+ pedal edema Skin Exam: Present: normal color, warm/dry, no cyanosis Lymphatic: Present: no adenopathy 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, normal cerebellar test, no motor/sensory deficits, alert, normal mood/affect, oriented x 3 Appearance: Present: appropriate appearance, appropriate insight, neat, no memory impairment Eye contact: Present: cooperative, good eye contact, normal speech Thoughts: Present: normal thought pattern, no apparent hallucination Diagnostic Studies: Abnormal Lab Results 01/06/19 01/06/19 01/06/19 Range/Units 21:20 21:20 21:20 RBC 3.78 L (4.7-6.0) M/mm3 Hgb 11.0 L (13.5-18.0) gm/dL Hct 33.0 L (42.0-52.0) % RDW 16.2 H (11.5-14.0) % Neutrophils % 77.4 H (42-75.0) % Lymphocytes % 12.3 L (20-51) % Lymphocytes # 0.92 L (1.5-3.5) k/mm3 Plasma Sodium 143 H (130-142) mmol/L BUN 25 H (6-23) mg/dL Creatinine 1.60 H (0.4-1.4) mg/dL Est GFR (Non-Af Amer) 44 L (60-130) mL/min Random Glucose 244 H (70-110) mg/dL Lactic Acid, Venous 2.1 H (0.4-2.0) mmol/L B-Natriuretic Peptide 2484 H (5-650) pg/mL Total Protein 6.1 L (6.2-8.2) gm/dL Albumin 3.0 L (3.4-5.0) gm/dl 01/07/19 Range/Units 00:05 RBC (4.7-6.0) M/mm3 Hgb (13.5-18.0) gm/dL Hct (42.0-52.0) % RDW (11.5-14.0) % Neutrophils % (42-75.0) % Lymphocytes % (20-51) % Lymphocytes # (1.5-3.5) k/mm3 Plasma Sodium (130-142) mmol/L BUN (6-23) mg/dL Creatinine (0.4-1.4) mg/dL Est GFR (Non-Af Amer) (60-130) mL/min Random Glucose (70-110) mg/dL Lactic Acid, Venous 2.5 H* (0.4-2.0) mmol/L B-Natriuretic Peptide (5-650) pg/mL Total Protein (6.2-8.2) gm/dL Albumin (3.4-5.0) gm/dl Laboratory Results WBC 7.5 K/mm3 (4.0-10.5) 01/06/19 21:20 RBC 3.78 M/mm3 (4.7-6.0) L 01/06/19 21:20 Hgb 11.0 gm/dL (13.5-18.0) L 01/06/19 21:20 Hct 33.0 % (42.0-52.0) L 01/06/19 21:20 MCV 87.3 fl (78-100) 01/06/19 21:20 MCH 29.1 pg (27-31) 01/06/19 21:20 MCHC 33.3 g/dl (32-36) 01/06/19 21:20 RDW 16.2 % (11.5-14.0) H 01/06/19 21:20 Plt Count 181 K/mm3 (150-450) 01/06/19 21:20 MPV 10.2 fl (8-11.3) 01/06/19 21:20 Immature Gran % (Auto) 0.40 % (0.001-0.429) 01/06/19 21:20 Immature Gran # (Auto) 0.03 K/mm3 (0.000-0.0310) 01/06/19 21:20 77.4 % (42-75.0) H 01/06/19 21:20 12.3 % (20-51) L 01/06/19 21:20 7.9 % (0.0-9) 01/06/19 21:20 1.5 % (0.0-3.0) 01/06/19 21:20 0.5 % (0.0-1.0) 01/06/19 21:20 Nucleated RBC % 0.0 k/mm3 (0-1) 01/06/19 21:20 5.8 K/mm3 (1.3-6.0) 01/06/19 21:20 0.92 k/mm3 (1.5-3.5) L 01/06/19 21:20 0.6 k/mm3 (0.0-1.0) 01/06/19 21:20 0.1 k/mm3 (0.0-0.7) 01/06/19 21:20 Absolute Basophils 0.0 k/mm3 (0.0-0.1) 01/06/19 21:20 Sodium 141 mmol/L (132-142) 01/06/19 21:20 143 mmol/L (130-142) H 01/06/19 21:20 Potassium 4.0 mmol/L (3.4-4.6) 01/06/19 21:20 Chloride 105 mmol/L (97-106) 01/06/19 21:20 Carbon Dioxide 27.5 mmol/L (24-32.6) 01/06/19 21:20 12.5 mmol/L (6.8-13.8) 01/06/19 21:20 BUN 25 mg/dL (6-23) H 01/06/19 21:20 1.60 mg/dL (0.4-1.4) H 01/06/19 21:20 Est GFR (Non-Af Amer) 44 mL/min (60-130) L 01/06/19 21:20 15.6 (9.0-21.6) 01/06/19 21:20 244 mg/dL (70-110) H 01/06/19 21:20 2.5 mmol/L (0.4-2.0) H* 01/07/19 00:05 Calcium 8.0 mg/dL (7.9-10.9) 01/06/19 21:20 Calcium Adj for Albumin 8.5 mg/dL (8.4-10.2) 01/06/19 21:20 0.3 mg/dL (0.0-1.1) 01/06/19 21:20 AST 17 U/L (0-48) 01/06/19 21:20 ALT 19 U/L (19-67) 01/06/19 21:20 86 U/L (50-170) 01/06/19 21:20 0.032 ng/mL (0.00-0.10) 01/07/19 00:05 B-Natriuretic Peptide 2484 pg/mL (5-650) H 01/06/19 21:20 6.1 gm/dL (6.2-8.2) L 01/06/19 21:20 3.0 gm/dl (3.4-5.0) L 01/06/19 21:20 Assessment/Plan - Narrative Narrative: Patient was evaluated and medical chart was reviewed and decision to admit to our MedSur unit for observation was made. Labs on admission demonstrated an elevated BNP above 2000 which appears to be around patient's baseline, he was also found to have bibasilar crackles on auscultation making the diagnosis of decompensated CHF very likely. Currently he is resting comfortably and denies recurrence of chest pain, EKG was negative for acute AK and serial cardiac troponins are. We will treat patient with multiple doses of IV furosemide to unload some fluid, we will also maintain strict input and output monitoring to ensure adequate diuresis. Patient was found to have an elevated lactic acid while in the ER initially making a diagnosis of sepsis likely however after evaluation of the patient's record and bedside evaluation and review of his chest x-ray I do not believe that this is a correct diagnosis. Patient has a normal WBC he denies any fever or chills and does not show any signs or symptoms of infection. A decompensation of his CHF is a better explanation of the presentation of his symptoms after review of his medical record it became apparent that the patient has been hospitalized for similar symptoms multiple times for similar conditions. Patient's routine agents were resumed in order to control his chronic conditions and to avoid any rebound due to missed doses. We will continue to monitor closely. - Assessment/Plan (1) Diastolic CHF, chronic Problem: Acute (2) Chest pain at rest Problem: Acute (3) Ruled out for myocardial infarction Problem: Acute (4) COPD exacerbation Problem: Acute (5) CKD (chronic kidney disease) stage 3, GFR 30-59 ml/min Problem: Acute (6) CAD (coronary artery disease), [place] coronary artery Problem: Chronic Qualifiers: [place] vs. transplanted heart: [place] heart Associated angina: with unstable angina Qualified Code(s): I25.110 - Atherosclerotic heart disease of [place] coronary artery with unstable angina pectoris
[2019-01-07] MEDS: PIOGLITAZONE HCL 15 MG TABLET PO SCH (14:09)
[2019-01-07] MEDS: FAMOTIDINE 20 MG TABLET PO SCH ×2 (14:09→21:27)
[2019-01-07] MEDS: sitaGLIPtin PHOSPHATE 50 MG TABLET PO SCH (14:10)
[2019-01-07] MEDS: LORATADINE 10 MG TABLET PO SCH (14:10)
[2019-01-07] MEDS: ASPIRIN 81 MG TABLET.DR PO SCH (14:10)
[2019-01-07] MEDS: MULTIVITAMINS 1 CAP CAPSULE PO SCH (14:10)
[2019-01-07] MEDS: METOPROLOL SUCCINATE 100 MG TABLET.SA PO SCH ×2 (14:36→21:27)
[2019-01-07] MEDS: ISOSORBIDE MONONITRATE 30 MG TAB.SR.24H PO SCH (14:36)
[2019-01-07] MEDS: FUROSEMIDE 10 MG/ML VIAL IV SCH ×2 (14:37→21:20)
[2019-01-07] MEDS: ACARBOSE 25 MG PO SCH (16:40)
[2019-01-07] MEDS: busPIRone HCL 5 MG TABLET PO SCH (16:43)
[2019-01-07] MEDS ORDERED: METOCLOPRAMIDE HCL 5 MG TABLET PO SCH (17:00)
[2019-01-07] MEDS ORDERED: TAMSULOSIN HCL 0.4 MG CAP.SR.24H PO SCH (19:00)
[2019-01-07] MEDS ORDERED: RANITIDINE HCL 300 MG PO SCH (21:00)
[2019-01-07] MEDS ORDERED: INSULIN GLARGINE,HUM.REC.ANLOG 100 UNITS/ML VIAL SC SCH (21:00)
[2019-01-07] MEDS ORDERED: CYCLOBENZAPRINE HCL 10 MG TABLET PO SCH (21:00)
[2019-01-07] MEDS ORDERED: ROSUVASTATIN CALCIUM 10 MG TABLET PO SCH (21:00)
[2019-01-07] MEDS ORDERED: FAMOTIDINE 20 MG TABLET PO SCH (21:00)
[2019-01-07] MEDS ORDERED: DONEPEZIL HCL 10 MG TABLET PO SCH (21:00)
[2019-01-07] MEDS: GLIMEPIRIDE 4 MG TABLET PO SCH (21:17)
[2019-01-08] MEDS: ALBUTEROL SULFATE/IPRATROPIUM 3 ML NEBU IH SCH (07:02)
[2019-01-08 08:53] LABS: Albumin * 3.5 gm/dl (3.4-5.0); Anion Gap 10.6 mmol/L (6.8-13.8); BUN/Creatinine Ratio 18.3 (9.0-21.6); Bilirubin, Total 0.5 mg/dL (0.0-1.1); Calcium * 8.9 mg/dL (7.9-10.9); Carbon Dioxide 33.9 mmol/L (24-32.6); Potassium 4.5 mmol/L (3.4-4.6); Total Protein 6.8 gm/dL (6.2-8.2)
[2019-01-08] MEDS ORDERED: CYANOCOBALAMIN 1,000 MCG TABLET PO SCH (09:00)
[2019-01-08] MEDS ORDERED: ESCITALOPRAM OXALATE 10 MG TAB PO SCH (09:00)
[2019-01-08] MEDS ORDERED: FUROSEMIDE 20 MG TABLET PO SCH (09:00)
[2019-01-08] MEDS ORDERED: FINASTERIDE 5 MG TABLET PO SCH (09:00)
[2019-01-08] MEDS: ACARBOSE 25 MG PO SCH (09:18)
[2019-01-08] MEDS: GLIMEPIRIDE 4 MG TABLET PO SCH (09:19)
[2019-01-08] MEDS: PIOGLITAZONE HCL 15 MG TABLET PO SCH (09:19)
[2019-01-08] MEDS: busPIRone HCL 5 MG TABLET PO SCH (09:20)
[2019-01-08] MEDS: FAMOTIDINE 20 MG TABLET PO SCH (09:20)
[2019-01-08] MEDS: MULTIVITAMINS 1 CAP CAPSULE PO SCH (09:21)
--- NOTE | 2019-01-08 09:21 | DS ---
Date of Discharge:: 01/08/19 Description of Stay: 83-year-old male with a past medical history of coronary artery disease, anemia chronic kidney disease stage III, GERD, diastolic heart failure, dyslipidemia, DVT presents with complaint of chest pain, shortness of and cough. He was admitted for chest pain observation. Cardiac enzymes were not remarkable and EKG was significant for any acute ischemic event. He was found to have an elevated BNP of greater than 2000. He was started on IV Lasix with good response. He appears to be been slightly over diuresed because his renal function worsened from his baseline. He feels well today and is stable to be discharged home. He should follow-up with his primary care provider in 1 week. He should also have a repeat BMP in the next 1 to 2 weeks to assess for improvement in his renal function. Procedures Performed: none Results and Findings: Pending Mircobiology Results 01/06/19 21:55 Blood Blood Culture - Preliminary NO GROWTH 24 HOURS 01/06/19 21:20 Blood Blood Culture - Preliminary NO GROWTH 24 HOURS Lab Pending Results 01/06/19 21:20: WBC 7.5, RBC 3.78 L, Hgb 11.0 L, Hct 33.0 L, MCV 87.3, MCH 29.1, MCHC 33.3, RDW 16.2 H, Plt Count 181, MPV 10.2, Immature Gran % (Auto) 0.40, Immature Gran # (Auto) 0.03, Neutrophils % 77.4 H, Lymphocytes % 12.3 L, Monocytes % 7.9, Eosinophils % 1.5, Basophils % 0.5, Nucleated RBC % 0.0, Neutrophils # 5.8, Lymphocytes # 0.92 L, Monocytes # 0.6, Eosinophils # 0.1, Absolute Basophils 0.0 01/06/19 21:20: Sodium 141, Plasma Sodium 143 H, Potassium 4.0, Chloride 105, Carbon Dioxide 27.5, Anion Gap 12.5, BUN 25 H, Creatinine 1.60 H, Est GFR (Non- Af Amer) 44 L, BUN/Creatinine Ratio 15.6, Random Glucose 244 H, Calcium 8.0, Calcium Adj for Albumin 8.5, Total Bilirubin 0.3, AST 17, ALT 19, Alkaline Phosphatase 86, Troponin I 0.056, B-Natriuretic Peptide 2484 H, Total Protein 6.1 L, Albumin 3.0 L 01/06/19 21:20: Lactic Acid, Venous 2.1 H 01/07/19 00:05: Lactic Acid, Venous 2.5 H* 01/07/19 00:05: Troponin I 0.032 01/08/19 08:30: Sodium 137, Plasma Sodium 139, Potassium 4.5, Chloride 97, Carbon Dioxide 33.9 H, Anion Gap 10.6, BUN 34 H, Creatinine 1.86 H, Est GFR (Non-Af Amer) 37 L, BUN/Creatinine Ratio 18.3, Random Glucose 233 H, Calcium 8.9, Calcium Adj for Albumin 9.0, Total Bilirubin 0.5, AST 19, ALT 18 L, Alkaline Phosphatase 92, Total Protein 6.8, Albumin 3.5 Discharge Location: Home Disposition: Home self-care Condition: Stable Discharge Activity: Activity as tolerated Discharge Diet: Low salt, Low fat/chol Referrals: Jose Rodriguez, [Primary Care Provider] - Additional Patient Instructions (free text): -Please make TCM appointment unless alf discharge, or if following up with outside provider. Thank you! Joanna @ [phone] or Tali at [phone]. Complete Home Medications List: Complete Home Medication List: Multivitamins [Multivitamin Juju] 1 cap PO DAILY 12/05/16 Loratadine 10 mg PO DAILY 02/27/17 blood sugar diagnostic strips See Dose Instructions .ROUTE .MEDSUPPLY #20 ea 10/10/17 compression stocking,knee high,long length,medium circ See Dose Instructions .ROUTE .MEDSUPPLY #12 ea 10/10/17 oxygen-air delivery systems device See Dose Instructions .ROUTE .MEDSUPPLY #1 10/10/17 tamsulosin 0.4 mg capsule 0.4 mg PO DAILY 10/10/17 Aspirin [Aspir-Low] 81 mg PO DAILY 10/29/17 atorvastatin 20 mg tablet 20 mg PO HS #90 tab 11/03/17 blood-glucose meter kit See Dose Instructions .ROUTE .MEDSUPPLY #1 ea 11/19/17 pioglitazone 30 mg tablet 30 mg PO DAILY #90 tab 11/19/17 insulin syringe U-100 with needle 1 mL 30 gauge x 1/2" See Dose Instructions .ROUTE .MEDSUPPLY #300 ea 11/24/17 furosemide 20 mg tablet 20 mg PO DAILY #90 tab 11/29/17 Metoprolol Succinate [Toprol Xl] 100 mg PO BID 12/22/17 cinnamon bark 500 mg capsule 1,000 mg PO DAILY cap 01/01/18 finasteride 5 mg tablet 5 mg PO DAILY 01/01/18 traMADol HCL [Ultram] 50 mg PO BID PRN #10 tab 03/01/18 glimepiride 4 mg tablet 4 mg PO BID #180 tab 05/01/18 Insulin Glargine,Hum.rec.anlog [Lantus] 30 unit SUBCUT BID 05/14/18 ranitidine 300 mg tablet 300 mg PO HS #30 tab 05/18/18 Albuterol Sulfate [Proair Hfa] 2 puff INHALATION Q4H PRN #1 inhaler 06/12/18 cyclobenzaprine 10 mg tablet 10 mg PO HS #90 tab 06/12/18 nitroglycerin 0.4 mg sublingual tablet 0.4 mg SUBLINGUAL Q5MIN PRN #75 tab 06/12/18 loratadine 10 mg tablet 10 mg PO DAILY #90 tab 06/29/18 busPIRone HCL [Buspar] 0.5 - 1 tab PO TID #15 tab 11/06/18 Acarbose [Precose] 25 mg PO TID 01/07/19 Apixaban [Eliquis] 2.5 mg PO BID 01/07/19 Cyanocobalamin (Vitamin B-12) [Vitamin B12] 2,500 mcg PO DAILY 01/07/19 Donepezil HCl [Aricept] 10 mg PO HS 01/07/19 Escitalopram Oxalate [Lexapro] 10 mg PO DAILY 01/07/19 Isosorbide Mononitrate [Isosorbide Mononitrate ER] 30 mg PO 01/07/19 Omeprazole 40 mg PO BID 01/07/19 sitaGLIPtin PHOSPHATE [Januvia] 100 mg PO DAILY 01/07/19
[2019-01-08] MEDS: FUROSEMIDE 10 MG/ML VIAL IV SCH (09:22)
[2019-01-08] MEDS: METOPROLOL SUCCINATE 100 MG TABLET.SA PO SCH (09:22)
[2019-01-08] MEDS: ISOSORBIDE MONONITRATE 30 MG TAB.SR.24H PO SCH (09:23)
[2019-01-08] MEDS: sitaGLIPtin PHOSPHATE 50 MG TABLET PO SCH (09:23)
[2019-01-08] MEDS: ASPIRIN 81 MG TABLET.DR PO SCH (09:31)
[2019-01-08] MEDS: APIXABAN 2.5 MG TABLET PO SCH (09:31)
[2019-01-08] MEDS: LORATADINE 10 MG TABLET PO SCH (09:31)
[2019-01-08 10:36] VITALS: BP 135/62
[2019-01-08] MEDS ORDERED: GLIMEPIRIDE 4 MG TABLET PO SCH (17:00)
== END 2019-01-08 10:00 | disposition home or self-care (01) ==
LOC: MS 20:42 → ER 20:42 → MS 01-07 03:10
PROVIDERS: ADMIT Family Medicine; ATTEND Family Medicine
DX: D64.9 Anemia, unspecified; I50.30 Unspecified diastolic (congestive) heart failure; J44.1 Chronic obstructive pulmonary disease with (acute) exacerbation; R07.9 Chest pain, unspecified; K21.9 Gastro-esophageal reflux disease without esophagitis; I25.10 Atherosclerotic heart disease of native coronary artery without angina pectoris; N18.3 Chronic kidney disease, stage 3 (moderate)
CPT/HCPCS: 36415; 71010; 71045; 80053; 83519; 83605; 83880; 84484; 85025; 87040; 87081; 93005; 94640; 94664; 94760; 96365; 96375; 99285; G0378

== ENCOUNTER 2019-03-17 18:05 | Inpatient (IN) ==
[2019-03-17] MEDS ORDERED: ALBUTEROL SULFATE 2.5 MG/0.5 ML VIAL.NEB IH ONE (18:23)
--- NOTE | 2019-03-17 18:28 | ERNOTE ---
Date of Service: 03/17/19 Time Seen by Provider: 03/17/19 18:19 Stated Complaint: COUGHING/NASEOUS Presenting Symptoms:: cough, runny nose, fever Source: patient Exam Limitations: no limitations Immunizations: IMMUNIZATION HX Immunizations Up to Date Yes History of Influenza Vaccine Yes Hx Pneumococcal Vaccination Yes Allergies/Adverse Reactions: Allergies venom-honey bee [bee venom (honey bee)] Allergy (Severe, Verified 03/17/19 18:18) Anaphylaxis morphine Adverse Reaction (Mild, Verified 03/17/19 18:18) Nausea Home Medications: HOME MEDICATIONS Multivitamins [Multivitamin Juju] 1 cap PO DAILY 12/05/16 [Last Taken 10/29/17 08:00] Loratadine 10 mg PO DAILY 02/27/17 [Last Taken 10/29/17 08:00] blood sugar diagnostic See Dose Instructions .ROUTE .MEDSUPPLY #20 ea 10/10/17 [Last Taken Unknown] comp.stocking,knee,long,medium See Dose Instructions .ROUTE .MEDSUPPLY #12 ea 10/10/17 [Last Taken Unknown] oxygen-air delivery systems See Dose Instructions .ROUTE .MEDSUPPLY #1 10/10/17 [Last Taken Unknown] tamsulosin 0.4 mg capsule 0.4 mg PO DAILY 10/10/17 [Last Taken 10/28/17 20:00] Aspirin [Aspir-Low] 81 mg PO DAILY 10/29/17 [Last Taken 10/29/17 08:00] atorvastatin 20 mg tablet 20 mg PO HS #90 tab 11/03/17 [Last Taken Unknown] blood-glucose meter See Dose Instructions .ROUTE .MEDSUPPLY #1 ea 11/19/17 [Last Taken Unknown] pioglitazone 30 mg tablet 30 mg PO DAILY #90 tab 11/19/17 [Last Taken Unknown] insulin syringe-needle U-100 1 mL 30 gauge x 1/2" See Dose Instructions .ROUTE .MEDSUPPLY #300 ea 11/24/17 [Last Taken Unknown] furosemide 20 mg tablet 20 mg PO DAILY #90 tab 11/29/17 [Last Taken Unknown] Metoprolol Succinate [Toprol Xl] 200 mg PO BID 12/22/17 [Last Taken Unknown] finasteride 5 mg tablet 5 mg PO DAILY 01/01/18 [Last Taken Unknown] traMADol HCL [Ultram] 50 mg PO BID PRN #10 tab 03/01/18 [Last Taken Unknown] glimepiride 4 mg tablet 4 mg PO BID #180 tab 05/01/18 [Last Taken Unknown] Insulin Glargine,Hum.rec.anlog [Lantus] 30 unit SUBCUT BID 05/14/18 [Last Taken Unknown] ranitidine HCl 300 mg tablet 300 mg PO HS #30 tab 05/18/18 [Last Taken Unknown] Albuterol Sulfate [Proair Hfa] 2 puff INHALATION Q4H PRN #1 inhaler 06/12/18 [Last Taken Unknown] cyclobenzaprine 10 mg tablet 10 mg PO HS #90 tab 06/12/18 [Last Taken Unknown] nitroglycerin 0.4 mg sublingual tablet 0.4 mg SUBLINGUAL Q5MIN PRN #75 tab 06/12/18 [Last Taken Unknown] loratadine 10 mg tablet 10 mg PO DAILY #90 tab 06/29/18 [Last Taken Unknown] busPIRone HCL [Buspar] 0.5 - 1 tab PO TID #15 tab 11/06/18 [Last Taken Unknown] Acarbose [Precose] 50 mg PO TID 01/07/19 [Last Taken Unknown] Apixaban [Eliquis] 2.5 mg PO BID 01/07/19 [Last Taken Unknown] Cyanocobalamin (Vitamin B-12) [Vitamin B12] 2,500 mcg PO DAILY 01/07/19 [Last Taken Unknown] Donepezil HCl [Aricept] 10 mg PO HS 01/07/19 [Last Taken Unknown] Escitalopram Oxalate [Lexapro] 10 mg PO DAILY 01/07/19 [Last Taken Unknown] Isosorbide Mononitrate [Isosorbide Mononitrate ER] 30 mg PO DAILY 01/07/19 [Last Taken Unknown] Omeprazole 40 mg PO BID 01/07/19 [Last Taken Unknown] sitaGLIPtin PHOSPHATE [Januvia] 100 mg PO DAILY 01/07/19 [Last Taken Unknown] Albuterol Sulfate [Proair Hfa] 2 puff INHALATION Q4H PRN #1 inhaler 02/02/19 [Last Taken Unknown] Azithromycin [Zithromax] 500 mg PO NOW #6 tab 03/16/19 [Last Taken Unknown] predniSONE [Prednisone] 1 tab PO TID #15 tab 03/16/19 [Last Taken Unknown] - History of Present Ilness Narrative: patient seen in ed last pm with same symptoms, was treated and released,has had contiued cough Timing: constant Severity: moderate Frequency/Possible Cause: Reports: frequent episodes, chronic episodes Modifying Factors - Improves: Reports: nothing Modifying Factors - Worsens: Reports: activity, coughing, deep breath Associated Symptoms: Reports: chest pain/soreness, cough, shortness of breath, wheezing Prior Treatment: Reports: recently seen, treated by physician Review of Systems - Review of Systems Constitutional: Present: See HPI EYE: Present: no symptoms reported ENT: Present: no symptoms reported Respiratory: Present: See HPI, shortness of breath, cough, wheezing Cardiology: Present: chest pain Gastrointestinal/Abdominal: Present: no symptoms reported Genitourinary: Present: no symptoms reported Musculoskeletal: Present: no symptoms reported Skin: Present: no symptoms reported Neurological: Present: no symptoms reported Endocrine: Present: no symptoms reported Hematologic/Lymphatic: Present: no symptoms reported Psych: Present: no symptoms reported Medical History (Last Reviewed 03/17/19 @ 18:25 by Minerva Rodrigues RN) COPD (chronic obstructive pulmonary disease) (Chronic) Sleep apnea (Chronic) Onset Date: Unknown Pseudophakia of both eyes (Chronic) Onset Date: 11/02/14 Peripheral vascular disease (Chronic) Onset Date: Unknown Hyperlipidemia (Chronic) Onset Date: 08/06/[address] Henley. Hypercholesterolemia (Chronic) Onset Date: Unknown Heart disease (Chronic) Onset Date: Unknown GERD (gastroesophageal reflux disease) (Chronic) Onset Date: Unknown Chronic kidney disease, stage 3 (moderate) (Chronic) Onset Date: 10/07/12 Carotid artery disease (Chronic) Onset Date: 08/06/[address] Henley. 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 Left, nonocclusive. Dementia Diastolic heart failure Onset Date: 06/12/18 Grade 1. Hospital admission Onset Date: 06/12/18 Admitted to [facility] on 06/12/2018; influenza A. Discharged home on 06/15/2018. Incomplete bladder emptying Influenza A Onset Date: 06/12/18 Left rotator cuff tear Onset Date: 06/21/18 Swelling of left hand Onset Date: 05/2018 Tendinitis of left shoulder Onset Date: 06/21/18 Tenosynovitis of left shoulder Onset Date: 06/21/18 Thrombus Onset Date: 07/15/18 Per ultrasound obtained at [facility]. Thrombus within the left superficial basilica vein, nonocclusive. Anemia Onset Date: Unknown Dyslipidemia Onset Date: Unknown History of frequent headaches Onset Date: Unknown Blurred vision Onset Date: Unknown Hernia, umbilical Onset Date: Unknown History of CT scan of abdomen Onset Date: 07/10/18 CT abdomen pelvis WO contrast. [facility]. History of CT scan of abdomen Onset Date: 07/25/18 CT abdomen pelvis W contrast. [facility]. History of CT scan of chest Onset Date: 07/07/18 CT angio chest. [facility]. 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 History of MRI Onset Date: 06/21/18 [facility]. * See scanned document from [facility] dated 06/21/2018. Hospital admission Onset Date: 06/21/18 Admitted to [facility] on 06/21/2018; intractable pain. Discharged to home on 06/24/2018. Hospital admission Onset Date: 07/07/18 Admitted to [facility] on 07/07/2018; bilateral pulmonary embolism. Discharged home on 07/10/2018. Hospital admission Onset Date: 07/16/18 Admitted to [facility] on 07/16/2018; right groin/thigh pain. Discharged home on 07/22/2018. Hospital admission Onset Date: 07/24/18 Admitted to [facility] on 07/24/2018; colitis, GI bleed. Discharged home on 07/27/2018. Hypospadias Onset Date: 1935 Pulmonary embolism Onset Date: 07/07/18 Stasis dermatitis Onset Date: 01/04/[address] Hernadez. Surgical History: Surgical History (Last Reviewed 03/17/19 @ 18:25 by Minerva Rodrigues RN) History of appendectomy Onset Date: Unknown age 15 History of cataract extraction Onset Date: Unknown History of colonoscopy Onset Date: ~2005 Dr. Galaviz, [facility]. History of dilation of urethra Onset Date: ~07/2017 History of endarterectomy Onset Date: ~2014 History of tonsillectomy Onset Date: Unknown History of total left knee replacement Onset Date: ~2003 & 2010 knee was repaired by Dr. Francis. Dr. Cantrell did the original History of total right knee replacement Onset Date: ~1998 Dr. Cantrell History of transurethral resection of prostate Onset Date: 12/20/16 Dr. Shad Joseph, [facility]. History of umbilical hernia repair Onset Date: 05/19/09 Dr. Ayo Castle, [facility]. History of vasectomy Onset Date: Unknown Family History: Family History (Last Reviewed 03/17/19 @ 18:25 by Minerva Rodrigues RN) Brother Cancer Diabetes Parkinson disease Father , shot himself in 1963 Suicide Mother Alzheimers disease Sister Dementia Sister Cancer breast Social History: (Last Reviewed 03/17/19 @ 18:25 by Minerva Rodrigues RN) Social History: custodial: No Marital status: lives independently: No current occupational status: retired Highest education level completed: high school graduate Service: Yes branch: [employer] status: retired Tobacco: Smoking Status: Former smoker Alcohol: alcohol intake: current alcohol intake frequency: holiday/special occasion Substance Use: substance use type: does not use Dietary Habits: caffeine: Yes caffeine comment: current some day Taty/Alevism: taty/rastafari: Holiness Physical Exam - Physical Exam General Appearance: Present: mild distress, anxious Head Exam: Present: normal inspection, no evidence of injury Eye Exam: Normal inspection: bilateral, PERRL: bilateral, EOMI: bilateral Ears, Nose, Throat: Present: normal ENT inspection, normal pharynx Neck: Present: normal inspection, nontender Respiratory: Present: respiratory distress, rales, rhonchi, wheezing Cardiovascular/Chest: Present: regular rate, rhythm, no murmur, normal peripheral pulses Gastrointestinal/Abdominal: Present: normal bowel sounds, nontender, nondistended, soft, no organomegaly Back Exam: Present: normal inspection, normal range of motion, no CVA tenderness, no vertebral tenderness Extremity Exam: Present: normal inspection, non-tender, normal range of motion, no edema Neurological Exam: Present: alert, oriented, normal mood/affect, no motor/sensory deficits Skin Exam: Present: normal color, warm/dry Lymphatic Exam: Present: no adenopathy Progress - Date and Time Seen: Date and Time: 03/17/19 19:48 patient not improved case discussed with dr meraz, acepted for admission to observation - Results and Orders Patient's Lab Results:: I have reviewed the patient's lab results. - Vital Signs Patient's Vital Signs:: I have reviewed the patient's vital signs. Vital Signs: Vital Signs 03/17/19 18:14 Temperature 36.8 C Pulse Rate 109 H Respiratory Rate 20 Blood Pressure 185/80 H O2 Sat by Pulse Oximetry 95 - EKG EKG #1 EKG: NSR - X-Ray X-Ray #1 X-Ray: chest Interpretation: Interp. by me - copd - Progress/Reassessment Chief Complaint: Cough Progress:: Unchanged - Transfer of Care Expected Disposition: Admit Plan - Plan Plan: to admit to observation Departure Clinical Impression: COPD (chronic obstructive pulmonary disease) with acute bronchitis, Acute exacerbation of chronic obstructive pulmonary disease (COPD) - Departure Disposition: Short Term Hospital Inpatient Condition: Stable
[2019-03-17 18:39] LABS: Hematocrit 32.1 % (42.0-52.0); Hemoglobin 10.8 gm/dL (13.5-18.0); Mean Cell Volume 84.9 fl (78-100); Mean Corpuscular Hemoglobin 28.6 pg (27-31); Mean Corpuscular Hgb Conc 33.6 g/dl (32-36); Mean Platelet Volume 10.4 fl (8-11.3); Neutrophil % 83.1 % (42-75.0); Platelet Count 179 K/mm3 (150-450); Red Blood Count 3.78 M/mm3 (4.7-6.0); Red Cell Distribution Width 14.7 % (11.5-14.0); White Blood Count 9.6 K/mm3 (4.0-10.5)
[2019-03-17 18:57] LABS: Albumin * 3.3 gm/dl (3.4-5.0); Anion Gap 11.2 mmol/L (6.8-13.8); Bilirubin, Total 0.3 mg/dL (0.0-1.1); Ca. Corrected For Albumin 8.5 mg/dL (8.4-10.2); Calcium * 8.3 mg/dL (7.9-10.9); Carbon Dioxide 30.1 mmol/L (24-32.6); Potassium 4.3 mmol/L (3.4-4.6); Total Protein 6.9 gm/dL (6.2-8.2)
[2019-03-17 19:00] LABS: Troponin I 0.017 ng/mL (0.00-0.10)
[2019-03-17] MEDS ORDERED: ALBUTEROL SULFATE 2.5 MG/0.5 ML VIAL.NEB IH PRN (19:54)
[2019-03-17] MEDS: METHYLPREDNISOLONE SOD SUCC/PF 40 MG/ML VIAL IV SCH (20:08)
[2019-03-17] MEDS ORDERED: ACETAMINOPHEN 500 MG TABLET PO ONE ×2 (20:15)
[2019-03-18] MEDS: METHYLPREDNISOLONE SOD SUCC/PF 40 MG/ML VIAL IV SCH (03:03)
[2019-03-18] MEDS ORDERED: traMADol HCL 50 MG TABLET PO PRN (08:43)
[2019-03-18] MEDS ORDERED: METHYLPREDNISOLONE SOD SUCC/PF 125 MG/2 ML VIAL IV SCH (09:00)
--- NOTE | 2019-03-18 09:02 | HP ---
Chief Complaint - Chief Complaint Date of Service: 03/18/19 Time of Service: 08:10 Chief Complaint: Shortness of breath History of Present Illness: Vishal is an 83 yo male with COPD that presents to the ER with several days of worsening shortness of breath, cough, and extreme fatigue. He reports feeling like he got hit by a truck and wants to roll over and . He was seen in the ER a couple days ago and started on azithromycin. Symptoms were worsening despite azithromycin and therefore he returned. He had bloodwork that showed elevated glucose due to his diabetes. A chest xray showed left basilar pneumonia. He has no hypoxia or confusion. He denies sick contacts. He also reports only eating 2 cookies yesterday due to poor appetite from not feeling well. Medical History (Last Reviewed 03/17/19 @ 23:29 by Martha Shah RN) COPD (chronic obstructive pulmonary disease) (Chronic) Sleep apnea (Chronic) Onset Date: Unknown Pseudophakia of both eyes (Chronic) Onset Date: 11/02/14 Peripheral vascular disease (Chronic) Onset Date: Unknown Hyperlipidemia (Chronic) Onset Date: 08/06/[address] Henley. Hypercholesterolemia (Chronic) Onset Date: Unknown Heart disease (Chronic) Onset Date: Unknown GERD (gastroesophageal reflux disease) (Chronic) Onset Date: Unknown Chronic kidney disease, stage 3 (moderate) (Chronic) Onset Date: 10/07/12 Carotid artery disease (Chronic) Onset Date: 08/06/[address] Henley. 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 Left, nonocclusive. Dementia Diastolic heart failure Onset Date: 06/12/18 Grade 1. Hospital admission Onset Date: 06/12/18 Admitted to [facility] on 06/12/2018; influenza A. Discharged home on 06/15/2018. Incomplete bladder emptying Influenza A Onset Date: 06/12/18 Left rotator cuff tear Onset Date: 06/21/18 Swelling of left hand Onset Date: 05/2018 Tendinitis of left shoulder Onset Date: 06/21/18 Tenosynovitis of left shoulder Onset Date: 06/21/18 Thrombus Onset Date: 07/15/18 Per ultrasound obtained at [facility]. Thrombus within the left superficial basilica vein, nonocclusive. Anemia Onset Date: Unknown Dyslipidemia Onset Date: Unknown History of frequent headaches Onset Date: Unknown Blurred vision Onset Date: Unknown Hernia, umbilical Onset Date: Unknown History of CT scan of abdomen Onset Date: 07/10/18 CT abdomen pelvis WO contrast. [facility]. History of CT scan of abdomen Onset Date: 07/25/18 CT abdomen pelvis W contrast. [facility]. History of CT scan of chest Onset Date: 07/07/18 CT angio chest. [facility]. 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 History of MRI Onset Date: 06/21/18 [facility]. * See scanned document from [facility] dated 06/21/2018. Hospital admission Onset Date: 06/21/18 Admitted to [facility] on 06/21/2018; intractable pain. Discharged to home on 06/24/2018. Hospital admission Onset Date: 07/07/18 Admitted to [facility] on 07/07/2018; bilateral pulmonary embolism. Discharged home on 07/10/2018. Hospital admission Onset Date: 07/16/18 Admitted to [facility] on 07/16/2018; right groin/thigh pain. Discharged home on 07/22/2018. Hospital admission Onset Date: 07/24/18 Admitted to [facility] on 07/24/2018; colitis, GI bleed. Discharged home on 07/27/2018. Hypospadias Onset Date: 1935 Pulmonary embolism Onset Date: 07/07/18 Stasis dermatitis Onset Date: 01/04/[address] Hernadez. Surgical History: Surgical History (Last Reviewed 03/17/19 @ 21:08 by Safia Wood RN) History of appendectomy Onset Date: Unknown age 15 History of cataract extraction Onset Date: Unknown History of colonoscopy Onset Date: ~2005 Dr. Galaviz, [facility]. History of dilation of urethra Onset Date: ~07/2017 History of endarterectomy Onset Date: ~2014 History of tonsillectomy Onset Date: Unknown History of total left knee replacement Onset Date: ~2003 & 2010 knee was repaired by Dr. Francis. Dr. Cantrell did the original History of total right knee replacement Onset Date: ~1998 Dr. Cantrell History of transurethral resection of prostate Onset Date: 12/20/16 Dr. Shad Joseph, [facility]. History of umbilical hernia repair Onset Date: 05/19/09 Dr. Ayo Castle, [facility]. History of vasectomy Onset Date: Unknown Family History: Family History (Last Reviewed 03/17/19 @ 21:09 by Safia Wood RN) Brother Cancer Diabetes Parkinson disease Father , shot himself in 1964 Suicide Mother Alzheimers disease Sister Dementia Sister Cancer breast Social History: (Last Updated 03/17/19 @ 21:10 by Safia Wood RN) Social History: halfway: No Marital status: / lives independently: No household members: children number of children: 2 caregiver/support person: Yes caregiver/support person comment: Efren Reddy current occupational status: retired Highest education level completed: high school graduate Service: Yes branch: [employer] status: retired Tobacco: Smoking Status: Former smoker Alcohol: alcohol intake: current alcohol intake frequency: holiday/special occasion Substance Use: substance use type: does not use Dietary Habits: caffeine: Yes caffeine comment: current some day Taty/Episcopal: taty/congregation: [employer] Review Of Systems (GEN) - Review of Systems Generalized/Overall Review: Present: Weakness, Chills. Absent: Fever EENTM: Present: No Symptoms Reported Respiratory: Present: Cough, Shortness of Breath, Wheezing Cardiac: Absent: Chest Pain, Edema, Palpitations, Syncope Abdominal: Absent: Nausea, Vomiting, Abdominal Pain Genitourinary: Present: No Symptoms Reported Musculoskeletal: Present: Back Pain Neurological: Present: No Symptoms Reported Skin: Present: No Symptoms Reported Immunizations: IMMUNIZATION HX Immunizations Up to Date Yes History of Influenza Vaccine Yes Hx Pneumococcal Vaccination Yes Allergies/Adverse Reactions: Allergies Allergy/AdvReac Type Severity Reaction Status Date / Time venom-honey bee Allergy Severe Anaphylaxis Verified 03/17/19 18:18 [bee venom (honey bee)] morphine AdvReac Mild Nausea Verified 03/17/19 18:18 Home Medications: HOME MEDICATIONS Multivitamins [Multivitamin Juju] 1 cap PO DAILY 12/05/16 [Last Taken 10/29/17 08:00] Loratadine 10 mg PO DAILY 02/27/17 [Last Taken 10/29/17 08:00] blood sugar diagnostic See Dose Instructions .ROUTE .MEDSUPPLY #20 ea 10/10/17 [Last Taken Unknown] comp.stocking,knee,long,medium See Dose Instructions .ROUTE .MEDSUPPLY #12 ea 10/10/17 [Last Taken Unknown] oxygen-air delivery systems See Dose Instructions .ROUTE .MEDSUPPLY #1 10/10/17 [Last Taken Unknown] tamsulosin 0.4 mg capsule 0.4 mg PO DAILY 10/10/17 [Last Taken 10/28/17 20:00] Aspirin [Aspir-Low] 81 mg PO DAILY 10/29/17 [Last Taken 10/29/17 08:00] atorvastatin 20 mg tablet 20 mg PO HS #90 tab 11/03/17 [Last Taken Unknown] blood-glucose meter See Dose Instructions .ROUTE .MEDSUPPLY #1 ea 11/19/17 [Last Taken Unknown] pioglitazone 30 mg tablet 30 mg PO DAILY #90 tab 11/19/17 [Last Taken Unknown] insulin syringe-needle U-100 1 mL 30 gauge x 1/2" See Dose Instructions .ROUTE .MEDSUPPLY #300 ea 11/24/17 [Last Taken Unknown] furosemide 20 mg tablet 20 mg PO DAILY #90 tab 11/29/17 [Last Taken Unknown] Metoprolol Succinate [Toprol Xl] 200 mg PO BID 12/22/17 [Last Taken Unknown] finasteride 5 mg tablet 5 mg PO DAILY 01/01/18 [Last Taken Unknown] traMADol HCL [Ultram] 50 mg PO BID PRN #10 tab 03/01/18 [Last Taken Unknown] glimepiride 4 mg tablet 4 mg PO BID #180 tab 05/01/18 [Last Taken Unknown] Insulin Glargine,Hum.rec.anlog [Lantus] 30 unit SUBCUT BID 05/14/18 [Last Taken Unknown] ranitidine HCl 300 mg tablet 300 mg PO HS #30 tab 05/18/18 [Last Taken Unknown] Albuterol Sulfate [Proair Hfa] 2 puff INHALATION Q4H PRN #1 inhaler 06/12/18 [Last Taken Unknown] cyclobenzaprine 10 mg tablet 10 mg PO HS #90 tab 06/12/18 [Last Taken Unknown] nitroglycerin 0.4 mg sublingual tablet 0.4 mg SUBLINGUAL Q5MIN PRN #75 tab 06/12/18 [Last Taken Unknown] loratadine 10 mg tablet 10 mg PO DAILY #90 tab 06/29/18 [Last Taken Unknown] busPIRone HCL [Buspar] 0.5 - 1 tab PO TID #15 tab 11/06/18 [Last Taken Unknown] Acarbose [Precose] 50 mg PO TID 01/07/19 [Last Taken Unknown] Apixaban [Eliquis] 2.5 mg PO BID 01/07/19 [Last Taken Unknown] Cyanocobalamin (Vitamin B-12) [Vitamin B12] 2,500 mcg PO DAILY 01/07/19 [Last Taken Unknown] Donepezil HCl [Aricept] 10 mg PO HS 01/07/19 [Last Taken Unknown] Escitalopram Oxalate [Lexapro] 10 mg PO DAILY 01/07/19 [Last Taken Unknown] Isosorbide Mononitrate [Isosorbide Mononitrate ER] 30 mg PO DAILY 01/07/19 [Last Taken Unknown] Omeprazole 40 mg PO BID 01/07/19 [Last Taken Unknown] sitaGLIPtin PHOSPHATE [Januvia] 100 mg PO DAILY 01/07/19 [Last Taken Unknown] Albuterol Sulfate [Proair Hfa] 2 puff INHALATION Q4H PRN #1 inhaler 02/02/19 [Last Taken Unknown] Azithromycin [Zithromax] 500 mg PO NOW #6 tab 03/16/19 [Last Taken Unknown] predniSONE [Prednisone] 1 tab PO TID #15 tab 03/16/19 [Last Taken Unknown] Exam - Exam Vital Signs: Vital Signs - Last Taken Temp 36.7 C 03/18/19 06:49 Pulse 77 03/18/19 06:49 Resp 20 03/18/19 06:49 BP 162/78 H 03/18/19 06:49 Pulse Ox 95 03/18/19 06:49 Constitutional: Present: Alert, Oriented x3, Cooperative ENT Exam: Present: hearing grossly normal Eye Exam: bilateral eye: normal inspection Respiratory: Present: crackles - left base, wheezing Cardiovascular/Chest: Present: regular rate, rhythm, no murmur Abdomen: Present: Normal bowel sounds, soft, nontender, nondistended, no rebound tenderness, no hepatospenomegaly, no masses Skin Exam: Present: normal color, warm/dry, no cyanosis Lymphatic: Present: no adenopathy Appearance: Present: appropriate appearance, appropriate insight Eye contact: Present: cooperative, good eye contact, normal speech Thoughts: Present: normal thought pattern, no apparent hallucination Diagnostic Studies: Abnormal Lab Results 03/17/19 03/17/19 03/17/19 Range/Units 18:35 18:35 18:36 RBC 3.78 L (4.7-6.0) M/mm3 Hgb 10.8 L (13.5-18.0) gm/dL Hct 32.1 L (42.0-52.0) % RDW 14.7 H (11.5-14.0) % Immature Gran % (Auto) 1.60 H (0.001-0.429) % Immature Gran # (Auto) 0.15 H (0.000-0.0310) K/mm3 Neutrophils % 83.1 H (42-75.0) % Lymphocytes % 4.9 L (20-51) % Monocytes % 10.2 H (0.0-9) % Neutrophils # 8.0 H (1.3-6.0) K/mm3 Lymphocytes # 0.47 L (1.5-3.5) k/mm3 pO2 54.6 L (83.0-108.0) mmHg Total CO2 27.2 H (19.0-24.0) mmol/L ABG pH 7.46 H (7.35-7.45) ABG O2 Sat (Measured) 90.1 L (94.0-98.0) % Creatinine 1.67 H (0.4-1.4) mg/dL Est GFR (Non-Af Amer) 42 L (60-130) mL/min Random Glucose 274 H D (70-110) mg/dL B-Natriuretic Peptide 2753 H (5-650) pg/mL Albumin 3.3 L (3.4-5.0) gm/dl Laboratory Results WBC 9.6 K/mm3 (4.0-10.5) D 03/17/19 18:35 RBC 3.78 M/mm3 (4.7-6.0) L 03/17/19 18:35 Hgb 10.8 gm/dL (13.5-18.0) L 03/17/19 18:35 Hct 32.1 % (42.0-52.0) L 03/17/19 18:35 MCV 84.9 fl (78-100) 03/17/19 18:35 MCH 28.6 pg (27-31) 18 18:35 MCHC 33.6 g/dl (32-36) 18 18:35 RDW 14.7 % (11.5-14.0) H 03/17/19 18:35 Plt Count 179 K/mm3 (150-450) 03/17/19 18:35 MPV 10.4 fl (8-11.3) 18 18:35 Immature Gran % (Auto) 1.60 % (0.001-0.429) H 03/17/19 18:35 Immature Gran # (Auto) 0.15 K/mm3 (0.000-0.0310) H 18 18:35 Neutrophils % 83.1 % (42-75.0) H 03/17/19 18:35 Lymphocytes % 4.9 % (20-51) L 03/17/19 18:35 Monocytes % 10.2 % (0.0-9) H 03/17/19 18:35 Eosinophils % 0.1 % (0.0-3.0) 03/17/19 18:35 Basophils % 0.1 % (0.0-1.0) 03/17/19 18:35 Nucleated RBC % 0.0 k/mm3 (0-1) 03/17/19 18:35 Neutrophils # 8.0 K/mm3 (1.3-6.0) H 03/17/19 18:35 Lymphocytes # 0.47 k/mm3 (1.5-3.5) L 03/17/19 18:35 Monocytes # 1.0 k/mm3 (0.0-1.0) 03/17/19 18:35 Eosinophils # 0.0 k/mm3 (0.0-0.7) 18 18:35 Absolute Basophils 0.0 k/mm3 (0.0-0.1) 18 18:35 pCO2 37.7 mmHg (35.0-48.0) 1819 18:36 pO2 54.6 mmHg (83.0-108.0) L 03/17/19 18:36 HCO3 26.1 mmol/L (21.0-28.0) 03/17/19 18:36 Total CO2 27.2 mmol/L (19.0-24.0) H 03/17/19 18:36 Base Excess 2.2 mmol/L (-2.0-3.0) 03/17/19 18:36 ABG pH 7.46 (7.35-7.45) H 03/17/19 18:36 ABG O2 Sat (Measured) 90.1 % (94.0-98.0) L 03/17/19 18:36 Sodium 136 mmol/L (132-142) 03/17/19 18:35 Plasma Sodium 139 mmol/L (130-142) 03/17/19 18:35 Potassium 4.3 mmol/L (3.4-4.6) 03/17/19 18:35 Chloride 99 mmol/L (97-106) 03/17/19 18:35 Carbon Dioxide 30.1 mmol/L (24-32.6) 03/17/19 18:35 Anion Gap 11.2 mmol/L (6.8-13.8) 03/17/19 18:35 BUN 20 mg/dL (6-23) 03/17/19 18:35 Creatinine 1.67 mg/dL (0.4-1.4) H 18 18:35 Est GFR (Non-Af Amer) 42 mL/min (60-130) L 03/17/19 18:35 BUN/Creatinine Ratio 12.0 (9.0-21.6) 03/17/19 18:35 Random Glucose 274 mg/dL (70-110) H D 03/17/19 18:35 Calcium 8.3 mg/dL (7.9-10.9) 03/17/19 18:35 Calcium Adj for Albumin 8.5 mg/dL (8.4-10.2) 03/17/19 18:35 Total Bilirubin 0.3 mg/dL (0.0-1.1) 03/17/19 18:35 AST 17 U/L (0-48) 03/17/19 18:35 ALT 19 U/L (19-67) 03/17/19 18:35 Alkaline Phosphatase 87 U/L (50-170) 1819 18:35 Troponin I 0.017 ng/mL (0.00-0.10) 1819 18:35 B-Natriuretic Peptide 2753 pg/mL (5-650) H 121819 18:35 Total Protein 6.9 gm/dL (6.2-8.2) 1218/19 18:35 Albumin 3.3 gm/dl (3.4-5.0) L 18/19 18:35 Assessment/Plan - Narrative Narrative: Vishal is an 83 yo male with left lower lobe pneumonia. He has Class IV pneumonia based on pneumonia severity score which gives about a 9% risk of mortality and recommends inpatient treatment. He has even been treated outpatient with azithromycin and not improving. I will continue azithromycin but add rocephin. He was given IV solumedrol in the ER, this will be changed to oral prednisone. Will give breathing treatments and respiratory therapy with IS and cornet. Expect >2 midnights for treatment and monitoring of response. Will admit to inpatient status. - Assessment/Plan (1) Pneumonia Problem: Acute Qualifiers: Laterality: left Lung location: lower lobe of lung (2) COPD exacerbation Problem: Acute
[2019-03-18] MEDS: PIOGLITAZONE HCL 15 MG TABLET PO SCH (10:43)
[2019-03-18] MEDS: ISOSORBIDE MONONITRATE 30 MG TAB.SR.24H PO SCH (10:44)
[2019-03-18] MEDS: ASPIRIN 81 MG TABLET.DR PO SCH (10:44)
[2019-03-18] MEDS: LORATADINE 10 MG TABLET PO SCH (10:44)
[2019-03-18] MEDS: APIXABAN 2.5 MG TABLET PO SCH ×2 (10:44→21:10)
[2019-03-18] MEDS: GLIMEPIRIDE 4 MG TABLET PO SCH ×2 (10:44→21:10)
[2019-03-18] MEDS: busPIRone HCL 5 MG TABLET PO SCH ×3 (10:44→17:52)
[2019-03-18] MEDS: sitaGLIPtin PHOSPHATE 50 MG TABLET PO SCH (10:45)
[2019-03-18] MEDS: FUROSEMIDE 20 MG TABLET PO SCH (10:45)
[2019-03-18] MEDS: INSULIN GLARGINE,HUM.REC.ANLOG 100 UNITS/ML VIAL SC SCH ×2 (10:45→21:11)
[2019-03-18] MEDS: PANTOPRAZOLE SODIUM 40 MG TABLET.EC PO SCH ×2 (10:46→21:12)
[2019-03-18] MEDS: METOPROLOL SUCCINATE 100 MG TABLET.SA PO SCH ×2 (10:46→21:12)
[2019-03-18] MEDS: MULTIVITAMINS 1 CAP CAPSULE PO SCH (10:46)
[2019-03-18] MEDS: FINASTERIDE 5 MG TABLET PO SCH (10:46)
[2019-03-18] MEDS: predniSONE 20 MG TABLET PO SCH ×3 (10:46→17:52)
[2019-03-18] MEDS: ESCITALOPRAM OXALATE 10 MG TAB PO SCH (10:46)
[2019-03-18] MEDS: AZITHROMYCIN 250 MG TABLET PO SCH (10:47)
[2019-03-18] MEDS: CYANOCOBALAMIN 1,000 MCG TABLET PO SCH (10:47)
[2019-03-18] MEDS: ALBUTEROL SULFATE/IPRATROPIUM 3 ML NEBU IH SCH ×3 (11:31→18:20)
[2019-03-18] MEDS ORDERED: TAMSULOSIN HCL 0.4 MG CAP.SR.24H PO SCH (18:00)
[2019-03-18] MEDS ORDERED: CYCLOBENZAPRINE HCL 10 MG TABLET PO SCH (21:00)
[2019-03-18] MEDS ORDERED: ROSUVASTATIN CALCIUM 10 MG TABLET PO SCH (21:00)
[2019-03-18] MEDS ORDERED: DONEPEZIL HCL 10 MG TABLET PO SCH (21:00)
[2019-03-18] MEDS ORDERED: INSULIN LISPRO 100 UNITS/ML VIAL ONE (21:38)
[2019-03-18] MEDS: INSULIN LISPRO 100 UNITS/ML VIAL SC SCH (21:44)
[2019-03-19] MEDS: ALBUTEROL SULFATE/IPRATROPIUM 3 ML NEBU IH SCH ×2 (00:13→06:01)
[2019-03-19] MEDS ORDERED: traZODone HCL 50 MG TABLET ONE (00:49)
[2019-03-19] MEDS ORDERED: traZODone HCL 50 MG TABLET PO ONE (01:00)
[2019-03-19] MEDS: INSULIN LISPRO 100 UNITS/ML VIAL SC SCH ×2 (08:01→12:04)
[2019-03-19] MEDS: predniSONE 20 MG TABLET PO SCH (08:02)
[2019-03-19] MEDS: ESCITALOPRAM OXALATE 10 MG TAB PO SCH (08:02)
[2019-03-19] MEDS: FINASTERIDE 5 MG TABLET PO SCH (08:02)
[2019-03-19] MEDS: METOPROLOL SUCCINATE 100 MG TABLET.SA PO SCH (08:03)
[2019-03-19] MEDS: MULTIVITAMINS 1 CAP CAPSULE PO SCH (08:03)
[2019-03-19] MEDS: CYANOCOBALAMIN 1,000 MCG TABLET PO SCH (08:03)
[2019-03-19] MEDS: LORATADINE 10 MG TABLET PO SCH (08:03)
[2019-03-19] MEDS: GLIMEPIRIDE 4 MG TABLET PO SCH (08:03)
[2019-03-19] MEDS: AZITHROMYCIN 250 MG TABLET PO SCH (08:03)
[2019-03-19] MEDS: PANTOPRAZOLE SODIUM 40 MG TABLET.EC PO SCH (08:03)
[2019-03-19] MEDS: ISOSORBIDE MONONITRATE 30 MG TAB.SR.24H PO SCH (08:03)
[2019-03-19] MEDS: sitaGLIPtin PHOSPHATE 50 MG TABLET PO SCH (08:03)
[2019-03-19] MEDS: APIXABAN 2.5 MG TABLET PO SCH (08:04)
[2019-03-19] MEDS: FUROSEMIDE 20 MG TABLET PO SCH (08:04)
[2019-03-19] MEDS: ASPIRIN 81 MG TABLET.DR PO SCH (08:04)
[2019-03-19] MEDS: INSULIN GLARGINE,HUM.REC.ANLOG 100 UNITS/ML VIAL SC SCH (08:04)
[2019-03-19] MEDS: PIOGLITAZONE HCL 15 MG TABLET PO SCH (08:04)
[2019-03-19] MEDS: busPIRone HCL 5 MG TABLET PO SCH (08:04)
[2019-03-19 08:31] LABS: Hematocrit 31.8 % (42.0-52.0); Hemoglobin 10.7 gm/dL (13.5-18.0); Mean Cell Volume 84.8 fl (78-100); Mean Corpuscular Hemoglobin 28.5 pg (27-31); Mean Corpuscular Hgb Conc 33.6 g/dl (32-36); Mean Platelet Volume 10.4 fl (8-11.3); Neutrophil % 88.4 % (42-75.0); Platelet Count 174 K/mm3 (150-450); Red Blood Count 3.75 M/mm3 (4.7-6.0); Red Cell Distribution Width 14.6 % (11.5-14.0); White Blood Count 10.1 K/mm3 (4.0-10.5)
[2019-03-19 08:55] LABS: Albumin * 3.1 gm/dl (3.4-5.0); Anion Gap 13.6 mmol/L (6.8-13.8); BUN/Creatinine Ratio 27.2 (9.0-21.6); Bilirubin, Total 0.3 mg/dL (0.0-1.1); Ca. Corrected For Albumin 9.1 mg/dL (8.4-10.2); Calcium * 8.7 mg/dL (7.9-10.9); Carbon Dioxide 27.5 mmol/L (24-32.6); Potassium 5.1 mmol/L (3.4-4.6); Total Protein 6.6 gm/dL (6.2-8.2)
--- NOTE | 2019-03-19 12:11 | DS ---
(1) Pneumonia Problem: Acute Qualifiers: Laterality: left Lung location: lower lobe of lung (2) COPD exacerbation Problem: Acute Date of Discharge:: 03/19/19 Hospital Course: Vishal is an 83 yo male that was admitted for left lower lobe pneumonia with COPD. He had recently been on azithromycin as outpatient for treatment of bronchitis but had not improved with two days of antibiotics. He was continued on azithromycin due to its anti-inflammatory properties and rocephin was added. Oxygen saturation was monitored and he was able to maintain normal oxygen saturation on room air. He was initially placed on IV solumedrol due to history of COPD and wheezing on exam, this was then adjusted down to oral prednisone. Today he is feeling better and has no hypoxia. He will be discharged to home on cefdinir. He has completed course of azithromycin. He may follow up with his physician in 1 week. Procedures Performed: none Results and Findings: Pending Mircobiology Results 03/17/19 19:25 Blood Blood Culture - Preliminary NO GROWTH 24 HOURS 03/17/19 18:35 Blood Blood Culture - Preliminary NO GROWTH 24 HOURS Lab Pending Results 03/17/19 18:35: WBC 9.6 D, RBC 3.78 L, Hgb 10.8 L, Hct 32.1 L, MCV 84.9, MCH 28.6, MCHC 33.6, RDW 14.7 H, Plt Count 179, MPV 10.4, Immature Gran % (Auto) 1.60 H, Immature Gran # (Auto) 0.15 H, Neutrophils % 83.1 H, Lymphocytes % 4.9 L, Monocytes % 10.2 H, Eosinophils % 0.1, Basophils % 0.1, Nucleated RBC % 0.0, Neutrophils # 8.0 H, Lymphocytes # 0.47 L, Monocytes # 1.0, Eosinophils # 0.0, Absolute Basophils 0.0 03/17/19 18:35: Sodium 136, Plasma Sodium 139, Potassium 4.3, Chloride 99, Carbon Dioxide 30.1, Anion Gap 11.2, BUN 20, Creatinine 1.67 H, Est GFR (Non-Af Amer) 42 L, BUN/Creatinine Ratio 12.0, Random Glucose 274 H D, Calcium 8.3, Calcium Adj for Albumin 8.5, Total Bilirubin 0.3, AST 17, ALT 19, Alkaline Phosphatase 87, Troponin I 0.017, B-Natriuretic Peptide 2753 H, Total Protein 6.9, Albumin 3.3 L 03/17/19 18:36: pCO2 37.7, pO2 54.6 L, HCO3 26.1, Total CO2 27.2 H, Base Excess 2.2, ABG pH 7.46 H, ABG O2 Sat (Measured) 90.1 L 03/19/19 08:27: WBC 10.1, RBC 3.75 L, Hgb 10.7 L, Hct 31.8 L, MCV 84.8, MCH 28.5, MCHC 33.6, RDW 14.6 H, Plt Count 174, MPV 10.4, Immature Gran % (Auto) 0.80 H, Immature Gran # (Auto) 0.08 H, Neutrophils % 88.4 H, Lymphocytes % 4.2 L, Monocytes % 6.5, Eosinophils % 0.0, Basophils % 0.1, Nucleated RBC % 0.0, Neutrophils # 9.0 H, Lymphocytes # 0.43 L, Monocytes # 0.7, Eosinophils # 0.0, Absolute Basophils 0.0 03/19/19 08:27: Sodium 131 L, Plasma Sodium 135, Potassium 5.1 H, Chloride 95 L, Carbon Dioxide 27.5, Anion Gap 13.6, BUN 46 H D, Creatinine 1.69 H, Est GFR (Non-Af Amer) 41 L, BUN/Creatinine Ratio 27.2 H, Random Glucose 319 H, Calcium 8.7, Calcium Adj for Albumin 9.1, Total Bilirubin 0.3, AST 24, ALT 24, Alkaline Phosphatase 87, Total Protein 6.6, Albumin 3.1 L Discharge Location: Home Disposition: Home self-care Condition: Stable Discharge Activity: Activity as tolerated Discharge Diet: Consistent carbs Referrals: [facility]TSIDE [Non Staff Physicians] - One Week Problem Oriented Discharge Instructions to Patient/Family: Community-Acquired Pneumonia, Adult, [id number] Prescriptions (Any new or edited meds): Cefdinir [Omnicef] 300 mg PO Q12H #20 cap Transmission Status: Pending to [place], [place] Complete Home Medications List: Complete Home Medication List: Multivitamins [Multivitamin Juju] 1 cap PO DAILY 12/05/16 Loratadine 10 mg PO DAILY 02/27/17 tamsulosin 0.4 mg capsule 0.4 mg PO DAILY 10/10/17 atorvastatin 20 mg tablet 20 mg PO HS #90 tab 11/03/17 pioglitazone 30 mg tablet 30 mg PO DAILY #90 tab 11/19/17 furosemide 20 mg tablet 20 mg PO DAILY #90 tab 11/29/17 Metoprolol Succinate [Toprol Xl] 100 mg PO BID 12/22/17 finasteride 5 mg tablet 5 mg PO DAILY 01/01/18 traMADol HCL [Ultram] 50 mg PO BID PRN #10 tab 03/01/18 glimepiride 4 mg tablet 4 mg PO BID #180 tab 05/01/18 Insulin Glargine,Hum.rec.anlog [Lantus] 30 unit SUBCUT BID 05/14/18 ranitidine HCl 300 mg tablet 300 mg PO HS #30 tab 05/18/18 cyclobenzaprine 10 mg tablet 10 mg PO HS #90 tab 06/12/18 nitroglycerin 0.4 mg sublingual tablet 0.4 mg SUBLINGUAL Q5MIN PRN #75 tab 06/12/18 busPIRone HCL [Buspar] 0.5 - 1 tab PO TID #15 tab 11/06/18 Acarbose [Precose] 25 mg PO TID 01/07/19 Apixaban [Eliquis] 2.5 mg PO BID 01/07/19 Cyanocobalamin (Vitamin B-12) [Vitamin B12] 2,500 mcg PO DAILY 01/07/19 Donepezil HCl [Aricept] 10 mg PO HS 01/07/19 Escitalopram Oxalate [Lexapro] 10 mg PO DAILY 01/07/19 Omeprazole 40 mg PO BID 01/07/19 sitaGLIPtin PHOSPHATE [Januvia] 100 mg PO DAILY 01/07/19 predniSONE [Prednisone] 1 tab PO TID #15 tab 03/16/19 Albuterol Sulfate 2.5 mg INHALATION Q4H PRN 03/18/19 Aspirin [Aspirin Enteric Coated] 81 mg PO DAILY 03/18/19 Bisacodyl [Gentle Laxative] 10 mg PO DAILY PRN 03/18/19 Cinnamon Bark [Cinnamon] 1,000 mg PO BID 03/18/19 Insulin Lispro [Humalog] See Protocol SQ ACHS 03/18/19 Isosorbide Mononitrate [Imdur] 30 mg PO DAILY 03/18/19 Miconazole Nitrate [Lotrimin AF] 150 gm TOPICAL BID 03/18/19 Miconazole Nitrate [Micro-Guard] 85 gm TOPICAL DAILY 03/18/19 Oxybutynin Chloride [Ditropan Xl] 10 mg PO DAILY 03/18/19 Tiotropium [place] [Spiriva] 1 cap INHALATION DAILY 03/18/19 Cefdinir [Omnicef] 300 mg PO Q12H #20 cap 03/19/19
[2019-03-19 13:15] VITALS: BP 166/88
[2019-03-19] MEDS ORDERED: traZODone HCL 50 MG TABLET PO SCH (21:00)
== END 2019-03-19 13:15 | disposition home or self-care (01) | DRG 194 ==
LOC: ER 18:05 → MS 18:05
PROVIDERS: ADMIT Family Medicine; ATTEND Family Medicine
DX: I25.10 Atherosclerotic heart disease of native coronary artery without angina pectoris; N18.3 Chronic kidney disease, stage 3 (moderate); I73.9 Peripheral vascular disease, unspecified; J44.0 Chronic obstructive pulmonary disease with (acute) lower respiratory infection; Z87.891 Personal history of nicotine dependence; J44.1 Chronic obstructive pulmonary disease with (acute) exacerbation; E78.5 Hyperlipidemia, unspecified; I50.32 Chronic diastolic (congestive) heart failure; J18.1 Lobar pneumonia, unspecified organism
CPT/HCPCS: 36415; 36600; 71020; 71046; 80053; 82803; 83519; 83880; 84484; 85025; 87040; 93005; 94640; 94660; 94664; 94760; 96365; 96367; 96375; 99285; G0378

== ENCOUNTER 2019-08-11 08:44 | Observation (INO) ==
[2019-08-11 09:33] LABS: Hematocrit 30.4 % (42.0-52.0); Hemoglobin 9.7 gm/dL (13.5-18.0); Mean Cell Volume 85.9 fl (78-100); Mean Corpuscular Hemoglobin 27.4 pg (27-31); Mean Corpuscular Hgb Conc 31.9 g/dl (32-36); Mean Platelet Volume 9.5 fl (8-11.3); Neutrophil # 7.5 K/mm3 (1.3-6.0); Neutrophil % 82.9 % (42-75.0); Platelet Count 283 K/mm3 (150-450); Red Blood Count 3.54 M/mm3 (4.7-6.0); Red Cell Distribution Width 15.4 % (11.5-14.0)
[2019-08-11] MEDS ORDERED: FUROSEMIDE 10 MG/ML VIAL IV ONE (09:37)
[2019-08-11 10:06] LABS: Albumin * 2.9 gm/dl (3.4-5.0); Anion Gap 16.9 mmol/L (6.8-13.8); BUN/Creatinine Ratio 11.4 (9.0-21.6); Bilirubin, Total 0.3 mg/dL (0.0-1.1); Ca. Corrected For Albumin 9.3 mg/dL (8.4-10.2); Calcium * 8.7 mg/dL (7.9-10.9); Carbon Dioxide 22.4 mmol/L (24-32.6); Potassium 4.3 mmol/L (3.4-4.6); Total Protein 6.5 gm/dL (6.2-8.2)
[2019-08-11 10:49] LABS: Urine Bilirubin Negative (NEGATIVE); Urine Blood 25 /ul (NEGATIVE); Urine Ketone 5 mg/dL (NEGATIVE); Urine Nitrite Negative (NEGATIVE); Urine Protein 15 mg/dL (NEGATIVE); Urine Specific Gravity 1.015 SP.GR. (1.005-1.030); Urine Urobilinogen Normal (NORMAL); Urine pH 5.5 pH (5.0-7.0)
[2019-08-11 11:00] LABS: Urine Appearance Slightly Cloudy (CLEAR); Urine Color Yellow
[2019-08-11 11:01] LABS: Urine Bacteria None Seen; Urine RBC 0-5 /hpf (0-5); Urine WBC 0-5 /hpf (0-5)
--- NOTE | 2019-08-11 12:45 | ERNOTE ---
Dyspnea - Date Date of Service: 08/11/19 - General Presenting Symptoms: shortness of breath, difficulty of breathing Time Seen by Provider: 08/11/19 09:04 Source: patient, EMS Exam Limitations: clinical condition - Immun/Allergies/Home Medications Immunizations: IMMUNIZATION HX Immunizations Up to Date Yes History of Influenza Vaccine Yes Hx Pneumococcal Vaccination Yes Allergies/Adverse Reactions: Allergies venom-honey bee [bee venom (honey bee)] Allergy (Severe, Verified 08/11/19 09:11) Anaphylaxis morphine Adverse Reaction (Mild, Verified 08/11/19 09:11) Nausea Home Medications: HOME MEDICATIONS Multivitamins [Multivitamin Jjuu] 1 cap PO DAILY 12/05/16 [Last Taken 10/29/17 08:00] Loratadine 10 mg PO DAILY 02/27/17 [Last Taken 10/29/17 08:00] tamsulosin 0.4 mg capsule 0.4 mg PO DAILY 10/10/17 [Last Taken 10/28/17 20:00] atorvastatin 20 mg tablet 20 mg PO HS #90 tab 11/03/17 [Last Taken Unknown] pioglitazone 30 mg tablet 30 mg PO DAILY #90 tab 11/19/17 [Last Taken Unknown] furosemide 20 mg tablet 20 mg PO DAILY #90 tab 11/29/17 [Last Taken Unknown] Metoprolol Succinate [Toprol Xl] 100 mg PO BID 12/22/17 [Last Taken Unknown] finasteride 5 mg tablet 5 mg PO DAILY 01/01/18 [Last Taken Unknown] traMADol HCL [Ultram] 50 mg PO BID PRN #10 tab 03/01/18 [Last Taken Unknown] glimepiride 4 mg tablet 4 mg PO BID #180 tab 05/01/18 [Last Taken Unknown] Insulin Glargine,Hum.rec.anlog [Lantus] 30 unit SUBCUT BID 05/14/18 [Last Taken Unknown] ranitidine HCl 300 mg tablet 300 mg PO HS #30 tab 05/18/18 [Last Taken Unknown] cyclobenzaprine 10 mg tablet 10 mg PO HS #90 tab 06/12/18 [Last Taken Unknown] nitroglycerin 0.4 mg sublingual tablet 0.4 mg SUBLINGUAL Q5MIN PRN #75 tab 06/12/18 [Last Taken Unknown] busPIRone HCL [Buspar] 0.5 - 1 tab PO TID #15 tab 11/06/18 [Last Taken Unknown] Acarbose [Precose] 25 mg PO TID 01/07/19 [Last Taken Unknown] Apixaban [Eliquis] 2.5 mg PO BID 01/07/19 [Last Taken Unknown] Cyanocobalamin (Vitamin B-12) [Vitamin B12] 2,500 mcg PO DAILY 01/07/19 [Last Taken Unknown] Donepezil HCl [Aricept] 10 mg PO HS 01/07/19 [Last Taken Unknown] Escitalopram Oxalate [Lexapro] 10 mg PO DAILY 01/07/19 [Last Taken Unknown] Omeprazole 40 mg PO BID 01/07/19 [Last Taken Unknown] sitaGLIPtin PHOSPHATE [Januvia] 100 mg PO DAILY 01/07/19 [Last Taken Unknown] predniSONE [Prednisone] 1 tab PO TID #15 tab 03/16/19 [Last Taken Unknown] Albuterol Sulfate 2.5 mg INHALATION Q4H PRN 03/18/19 [Last Taken Unknown] Aspirin [Aspirin Enteric Coated] 81 mg PO DAILY 03/18/19 [Last Taken Unknown] Bisacodyl [Gentle Laxative] 10 mg PO DAILY PRN 03/18/19 [Last Taken Unknown] Cinnamon Bark [Cinnamon] 1,000 mg PO BID 03/18/19 [Last Taken Unknown] Insulin Lispro [Humalog] See Protocol SQ ACHS 03/18/19 [Last Taken Unknown] Isosorbide Mononitrate [Imdur] 30 mg PO DAILY 03/18/19 [Last Taken Unknown] Miconazole Nitrate [Micro-Guard] 85 gm TOPICAL DAILY 03/18/19 [Last Taken Unknown] Oxybutynin Chloride [Ditropan Xl] 10 mg PO DAILY 03/18/19 [Last Taken Unknown] Tiotropium [place] [Spiriva] 1 cap INHALATION DAILY 03/18/19 [Last Taken Unknown] Naproxen [Naprosyn] 375 mg PO BID #30 tab 05/11/19 [Last Taken Unknown] - History of Present Illness Narrative: patient presents to ed with c/o dyspnea long hx of chf, copd Severity: moderate 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 Initiating event: Reports: none Frequency of episodes: Reports: frequent episodes Modifying Factors - (Improves): Reports: nothing Modifying Factors (Worsens): Reports: activity Associated Symptoms-Dyspnea: Reports: dizziness, lightheadedness, weakness Prior Treatment: Reports: recently seen, treated by physician Review of Systems - Review of Systems Constitutional: Present: See HPI EYE: Present: no symptoms reported ENT: Present: no symptoms reported Respiratory: Present: See HPI, shortness of breath, cough, orthopnea Cardiology: Present: no symptoms reported Gastrointestinal/Abdominal: Present: no symptoms reported Genitourinary: Present: no symptoms reported Musculoskeletal: Present: no symptoms reported Skin: Present: no symptoms reported Neurological: Present: no symptoms reported Endocrine: Present: no symptoms reported Hematologic/Lymphatic: Present: no symptoms reported Psych: Present: no symptoms reported Medical History (Last Reviewed 07/22/19 @ 18:47 by MAKAYLA Salinas) COPD (chronic obstructive pulmonary disease) (Chronic) Sleep apnea (Chronic) Onset Date: Unknown Pseudophakia of both eyes (Chronic) Onset Date: 11/02/14 Peripheral vascular disease (Chronic) Onset Date: Unknown Hyperlipidemia (Chronic) Onset Date: 08/06/[address] Henley. Hypercholesterolemia (Chronic) Onset Date: Unknown Heart disease (Chronic) Onset Date: Unknown GERD (gastroesophageal reflux disease) (Chronic) Onset Date: Unknown Chronic kidney disease, stage 3 (moderate) (Chronic) Onset Date: 10/07/12 Carotid artery disease (Chronic) Onset Date: 08/06/[address] Henley. 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 Left, nonocclusive. Dementia Diabetes Diastolic heart failure Onset Date: 06/12/18 Grade 1. Hospital admission Onset Date: 06/12/18 Admitted to [facility] on 06/12/2018; influenza A. Discharged home on 06/15/2018. Incomplete bladder emptying Influenza A Onset Date: 06/12/18 Left rotator cuff tear Onset Date: 06/21/18 Swelling of left hand Onset Date: 05/2018 Tendinitis of left shoulder Onset Date: 06/21/18 Tenosynovitis of left shoulder Onset Date: 06/21/18 Thrombus Onset Date: 07/15/18 Per ultrasound obtained at [facility]. Thrombus within the left superficial basilica vein, nonocclusive. Anemia Onset Date: Unknown Dyslipidemia Onset Date: Unknown History of frequent headaches Onset Date: Unknown Blurred vision Onset Date: Unknown Hernia, umbilical Onset Date: Unknown History of CT scan of abdomen Onset Date: 07/10/18 CT abdomen pelvis WO contrast. [facility]. History of CT scan of abdomen Onset Date: 07/25/18 CT abdomen pelvis W contrast. [facility]. History of CT scan of chest Onset Date: 07/07/18 CT angio chest. [facility]. 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 History of MRI Onset Date: 06/21/18 [facility]. * See scanned document from [facility] dated 06/21/2018. Hospital admission Onset Date: 06/21/18 Admitted to [facility] on 06/21/2018; intractable pain. Discharged to home on 06/24/2018. Hospital admission Onset Date: 07/07/18 Admitted to [facility] on 07/07/2018; bilateral pulmonary embolism. Discharged home on 07/10/2018. Hospital admission Onset Date: 07/16/18 Admitted to [facility] on 07/16/2018; right groin/thigh pain. Discharged home on 07/22/2018. Hospital admission Onset Date: 07/24/18 Admitted to [facility] on 07/24/2018; colitis, GI bleed. Discharged home on 07/27/2018. Hypospadias Onset Date: 1935 Pulmonary embolism Onset Date: 07/07/18 Stasis dermatitis Onset Date: 01/04/[address] Hernadez. Surgical History: Surgical History (Last Reviewed 07/22/19 @ 18:47 by MAKAYLA Salinas) History of appendectomy Onset Date: Unknown age 15 History of cataract extraction Onset Date: Unknown History of colonoscopy Onset Date: ~2005 Dr. Galaviz, [facility]. History of dilation of urethra Onset Date: ~07/2017 History of endarterectomy Onset Date: ~2014 History of tonsillectomy Onset Date: Unknown History of total left knee replacement Onset Date: ~2003 & 2010 knee was repaired by Dr. Francis. Dr. Cantrell did the original History of total right knee replacement Onset Date: ~1998 Dr. Cantrell History of transurethral resection of prostate Onset Date: 12/20/16 Dr. Shad Joseph, [facility]. History of umbilical hernia repair Onset Date: 05/19/09 Dr. Ayo Castle, [facility]. History of vasectomy Onset Date: Unknown Family History: Family History (Last Reviewed 07/22/19 @ 18:47 by MAKAYLA Salinas) Brother Cancer Diabetes Parkinson disease Father , shot himself in 1964 Suicide Mother Alzheimers disease Sister Dementia Sister Cancer breast Social History: (Last Reviewed 07/22/19 @ 18:47 by MAKAYLA Salinas) Social History: group home: No Marital status: / lives independently: No household members: children number of children: 2 caregiver/support person: Yes caregiver/support person comment: Efren Reddy current occupational status: retired Highest education level completed: high school graduate Service: Yes branch: [employer] status: retired Tobacco: Smoking Status: Former smoker Alcohol: alcohol intake: current alcohol intake frequency: holiday/special occasion Substance Use: substance use type: does not use Dietary Habits: caffeine: Yes caffeine comment: current some day Taty/Orthodox: taty/catholic: Yarsanism Physical Exam - Physical Exam General Appearance: Present: mild distress, anxious Head Exam: Present: normal inspection, no evidence of injury Eye Exam: Normal inspection: bilateral, PERRL: bilateral, EOMI: bilateral Ears, Nose, Throat: Present: normal ENT inspection, normal pharynx Neck: Present: normal inspection, nontender Respiratory: Present: respiratory distress, decreased breath sounds, rales, rhonchi Cardiovascular/Chest: Present: tachycardia Peripheral Pulses: N=norm/S=strong/W=weak/B=bound/A=absent: Carotid (R): Normal, Carotid (L): Normal, Radial (R): Normal Gastrointestinal/Abdominal: Present: normal bowel sounds, nontender, nondistended, soft, no organomegaly Back Exam: Present: normal inspection, normal range of motion, no CVA tenderness Extremity Exam: Present: normal inspection, non-tender, normal range of motion, no edema Neurological Exam: Present: alert, oriented, normal mood/affect, no motor/sensory deficits Skin Exam: Present: normal color, warm/dry Lymphatic Exam: Present: no adenopathy Progress - Date and Time Seen: Date and Time: 08/11/19 12:41 patient has diuresed somewhat, discussed case with dr padilla - Results and Orders Patient's Lab Results:: I have reviewed the patient's lab results. - Vital Signs Patient's Vital Signs:: I have reviewed the patient's vital signs. Vital Signs: Vital Signs 08/11/19 08:45 08/11/19 09:15 08/11/19 09:30 Temperature 37.2 C Pulse Rate 96 83 85 Respiratory Rate 20 12 10 L Blood Pressure 139/73 164/79 H 164/68 H O2 Sat by Pulse Oximetry 93 94 94 08/11/19 09:45 08/11/19 09:49 08/11/19 10:00 Temperature Pulse Rate 85 86 84 Respiratory Rate 12 10 L Blood Pressure 163/66 H 163/66 H O2 Sat by Pulse Oximetry 96 95 08/11/19 10:15 Temperature Pulse Rate 79 Respiratory Rate 12 Blood Pressure 153/61 H O2 Sat by Pulse Oximetry 96 - EKG EKG #1 EKG: NSR, other - first av block - Progress/Reassessment Chief Complaint: Dyspnea Progress:: Unchanged - Transfer of Care Expected Disposition: Admit Plan - Plan Plan: to admit to observation Departure Clinical Impression: CHF exacerbation - Departure Disposition: Short Term Hospital Inpatient Condition: Serious
--- NOTE | 2019-08-11 13:39 | HP ---
Chief Complaint - Chief Complaint Date of Service: 08/11/19 Time of Service: 12:35 Chief Complaint: General malaise, abdominal pain, he states "I feel terrible". Patient's poor historian getting more specific complaints is difficult. History of Present Illness: Vishal Reddy is an 83-year-old obese white male who presented to the emergency room with complaints of just generally feeling very poorly. He has been in our hospital and emergency room many times. He has had several recent hospitalizations including August 01 through the [facility] August 07- at the [facility] in [place] and then presents today wanting to be admitted. The ER physician evaluated him initially and found his BNP had about doubled from his usual baseline and is now on the 4000's. Chest x-ray reveals interstitial edema and bilateral perihilar infiltrates. He is afebrile with a normal white count and a nonproductive cough. Per my exam with him lying down with about 30 degrees of elevation found his color to be fair. He answers questions appropriately. He does not appear to be in any acute distress. Specifically he is not tachypneic or air hungry. Neck veins are not distended and his hepatojugular reflex is negative at 30 degrees. There is no peripheral edema. He is quite tender on palpation of the right upper quadrant when doing the HJR. I then found out he had just had a laparoscopic procedure done. Apparently the [facility] doctors thought he may have an ischemic bowel and did a laparotomy scoping procedure but there was no ischemic bowel findings. He was told that he might have a liver problem. Imaging done there shows possible cirrhosis of the liver by CT scan. The ultrasound was not helpful due to overlying bowel gas. His heart is irregular in rhythm. The EKG shows normal sinus rhythm with frequent PVCs but the monitor shows very frequent PACs. He is only had one couplet of PACs and no sustained runs of either ventricular or supraventricular dysrhythmia. Echocardiogram done at the [facility] a few days ago had an ejection fraction of 67% and for the most part the study was really unremarkable. I will admit him to observation try to try to determine whether the perihilar infiltrates are from pulmonary edema or pneumonia. He has been diuresed in the emergency room and has given up about 7 to 800 cc of urine at the time of my exam there. His hemoglobin is 9.7 g which is lower than his baseline. His renal status is about the same at [id number]. The cause of the drop of hemoglobin is unknown. It might be delutional. I will recheck in the morning after diuresing and see where he is then. Medical History (Last Reviewed 08/11/19 @ 13:04 by Gary Mckinnon RN) COPD (chronic obstructive pulmonary disease) (Chronic) Sleep apnea (Chronic) Onset Date: Unknown Pseudophakia of both eyes (Chronic) Onset Date: 11/02/14 Peripheral vascular disease (Chronic) Onset Date: Unknown Hyperlipidemia (Chronic) Onset Date: 08/06/[address] Henley. Hypercholesterolemia (Chronic) Onset Date: Unknown Heart disease (Chronic) Onset Date: Unknown GERD (gastroesophageal reflux disease) (Chronic) Onset Date: Unknown Chronic kidney disease, stage 3 (moderate) (Chronic) Onset Date: 10/07/12 Carotid artery disease (Chronic) Onset Date: 08/06/[address] Henley. BPH w urinary obs/LUTS (Chronic) Onset Date: 08/22/17 Arthritis (Chronic) Onset Date: Unknown Deep vein thrombosis (DVT) of brachial vein Onset Date: 07/15/18 Per ultrasound obtained at . Left, nonocclusive. Dementia Diabetes Diastolic heart failure Onset Date: 06/12/18 Grade 1. Hospital admission Onset Date: 06/12/18 Admitted to [facility] on 06/12/2018; influenza A. Discharged home on 06/15/2018. Incomplete bladder emptying Influenza A Onset Date: 06/12/18 Left rotator cuff tear Onset Date: 06/21/18 Swelling of left hand Onset Date: 05/2018 Tendinitis of left shoulder Onset Date: 06/21/18 Tenosynovitis of left shoulder Onset Date: 06/21/18 Thrombus Onset Date: 07/15/18 Per ultrasound obtained at . Thrombus within the left superficial basilica vein, nonocclusive. Anemia Onset Date: Unknown Dyslipidemia Onset Date: Unknown History of frequent headaches Onset Date: Unknown Blurred vision Onset Date: Unknown Hernia, umbilical Onset Date: Unknown History of CT scan of abdomen Onset Date: 07/10/18 CT abdomen pelvis WO contrast. . History of CT scan of abdomen Onset Date: 07/25/18 CT abdomen pelvis W contrast. . History of CT scan of chest Onset Date: 07/07/18 CT angio chest. . 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 History of MRI Onset Date: 06/21/18 [facility]. * See scanned document from [facility] dated 06/21/2018. Hospital admission Onset Date: 06/21/18 Admitted to [facility] on 06/21/2018; intractable pain. Discharged to home on 06/24/2018. Hospital admission Onset Date: 07/07/18 Admitted to [facility] on 07/07/2018; bilateral pulmonary embolism. Discharged home on 07/10/2018. Hospital admission Onset Date: 07/16/18 Admitted to [facility] on 07/16/2018; right groin/thigh pain. Discharged home on 07/22/2018. Hospital admission Onset Date: 07/24/18 Admitted to [facility] on 07/24/2018; colitis, GI bleed. Discharged home on 07/27/2018. Hypospadias Onset Date: 1935 Pulmonary embolism Onset Date: 07/07/18 Stasis dermatitis Onset Date: 01/04/[address] Hernadez. Surgical History: Surgical History (Last Reviewed 08/11/19 @ 13:04 by Gary Mckinnon RN) History of appendectomy Onset Date: Unknown age 15 History of cataract extraction Onset Date: Unknown History of colonoscopy Onset Date: ~2005 Dr. Galaviz, [facility]. History of dilation of urethra Onset Date: ~07/2017 History of endarterectomy Onset Date: ~2014 History of tonsillectomy Onset Date: Unknown History of total left knee replacement Onset Date: ~2003 & 2010 knee was repaired by Dr. Francis. Dr. Cantrell did the original History of total right knee replacement Onset Date: ~1998 Dr. Cantrell History of transurethral resection of prostate Onset Date: 12/20/16 Dr. Shad Joseph, [facility]. History of umbilical hernia repair Onset Date: 05/19/09 Dr. Ayo Castle, [facility]. History of vasectomy Onset Date: Unknown Family History: Family History (Last Reviewed 08/11/19 @ 13:04 by Gary Mckinnon RN) Brother Cancer Diabetes Parkinson disease Father , shot himself in 1964 Suicide Mother Alzheimers disease Sister Dementia Sister Cancer breast Social History: (Last Reviewed 08/11/19 @ 13:05 by Gary Mckinnon RN) Social History: shelter: No Marital status: / lives independently: No household members: children number of children: 2 caregiver/support person: Yes caregiver/support person comment: Efren Reddy current occupational status: retired Highest education level completed: high school graduate Service: Yes branch: [employer] status: retired Tobacco: Smoking Status: Former smoker Alcohol: alcohol intake: current alcohol intake frequency: holiday/special occasion Substance Use: substance use type: does not use Dietary Habits: caffeine: Yes caffeine comment: current some day Taty/Orthodox: taty/jew: Judaism Review Of Systems (GEN) - Review of Systems Generalized/Overall Review: Present: Weakness, Malaise, Fatigue. Absent: Chills, Fever, Diaphoresis EENTM: Present: No Symptoms Reported Respiratory: Present: Cough - Nonproductive, Shortness of Breath - Only with exertion. Absent: Orthopnea, Stridor, Wheezing Cardiac: Present: No Symptoms Reported Abdominal: Present: Abdominal Pain Genitourinary: Present: No Symptoms Reported Musculoskeletal: Present: No Symptoms Reported Neurological: Present: Depressed, Emotional Problems, Weakness Skin: Present: No Symptoms Reported Endocrine: Present: No Symptoms Reported Immunizations: IMMUNIZATION HX Immunizations Up to Date Yes History of Influenza Vaccine Yes Hx Pneumococcal Vaccination Yes Allergies/Adverse Reactions: Allergies Allergy/AdvReac Type Severity Reaction Status Date / Time venom-honey bee Allergy Severe Anaphylaxis Verified 08/11/19 09:11 [bee venom (honey bee)] morphine AdvReac Mild Nausea Verified 08/11/19 09:11 Home Medications: HOME MEDICATIONS Multivitamins [Multivitamin Juju] 1 cap PO DAILY 12/05/16 [Last Taken 10/29/17 08:00] Loratadine 10 mg PO DAILY 02/27/17 [Last Taken 10/29/17 08:00] tamsulosin 0.4 mg capsule 0.4 mg PO DAILY 10/10/17 [Last Taken 10/28/17 20:00] atorvastatin 20 mg tablet 20 mg PO HS #90 tab 11/03/17 [Last Taken Unknown] pioglitazone 30 mg tablet 30 mg PO DAILY #90 tab 11/19/17 [Last Taken Unknown] furosemide 20 mg tablet 20 mg PO DAILY #90 tab 11/29/17 [Last Taken Unknown] Metoprolol Succinate [Toprol Xl] 100 mg PO BID 12/22/17 [Last Taken Unknown] finasteride 5 mg tablet 5 mg PO DAILY 01/01/18 [Last Taken Unknown] traMADol HCL [Ultram] 50 mg PO BID PRN #10 tab 03/01/18 [Last Taken Unknown] glimepiride 4 mg tablet 4 mg PO BID #180 tab 05/01/18 [Last Taken Unknown] Insulin Glargine,Hum.rec.anlog [Lantus] 30 unit SUBCUT BID 05/14/18 [Last Taken Unknown] ranitidine HCl 300 mg tablet 300 mg PO HS #30 tab 05/18/18 [Last Taken Unknown] cyclobenzaprine 10 mg tablet 10 mg PO HS #90 tab 06/12/18 [Last Taken Unknown] nitroglycerin 0.4 mg sublingual tablet 0.4 mg SUBLINGUAL Q5MIN PRN #75 tab 06/12/18 [Last Taken Unknown] busPIRone HCL [Buspar] 0.5 - 1 tab PO TID #15 tab 11/06/18 [Last Taken Unknown] Acarbose [Precose] 25 mg PO TID 01/07/19 [Last Taken Unknown] Apixaban [Eliquis] 2.5 mg PO BID 01/07/19 [Last Taken Unknown] Cyanocobalamin (Vitamin B-12) [Vitamin B12] 2,500 mcg PO DAILY 01/07/19 [Last Taken Unknown] Donepezil HCl [Aricept] 10 mg PO HS 01/07/19 [Last Taken Unknown] Escitalopram Oxalate [Lexapro] 10 mg PO DAILY 01/07/19 [Last Taken Unknown] Omeprazole 40 mg PO BID 01/07/19 [Last Taken Unknown] sitaGLIPtin PHOSPHATE [Januvia] 100 mg PO DAILY 01/07/19 [Last Taken Unknown] predniSONE [Prednisone] 1 tab PO TID #15 tab 03/16/19 [Last Taken Unknown] Albuterol Sulfate 2.5 mg INHALATION Q4H PRN 03/18/19 [Last Taken Unknown] Aspirin [Aspirin Enteric Coated] 81 mg PO DAILY 03/18/19 [Last Taken Unknown] Bisacodyl [Gentle Laxative] 10 mg PO DAILY PRN 03/18/19 [Last Taken Unknown] Cinnamon Bark [Cinnamon] 1,000 mg PO BID 03/18/19 [Last Taken Unknown] Insulin Lispro [Humalog] See Protocol SQ ACHS 03/18/19 [Last Taken Unknown] Isosorbide Mononitrate [Imdur] 30 mg PO DAILY 03/18/19 [Last Taken Unknown] Miconazole Nitrate [Micro-Guard] 85 gm TOPICAL DAILY 03/18/19 [Last Taken Unknown] Oxybutynin Chloride [Ditropan Xl] 10 mg PO DAILY 03/18/19 [Last Taken Unknown] Tiotropium Watson [Spiriva] 1 cap INHALATION DAILY 03/18/19 [Last Taken Unknown] Naproxen [Naprosyn] 375 mg PO BID #30 tab 05/11/19 [Last Taken Unknown] Exam - Exam Vital Signs: Vital Signs - Last Taken Temp 37.0 C 08/11/19 13:02 Pulse 77 08/11/19 13:02 Resp 17 08/11/19 13:02 BP 183/72 H 08/11/19 13:02 Pulse Ox 95 08/11/19 13:02 Constitutional: Present: Alert, Oriented x3, Cooperative, Well developed, Well nourished ENT Exam: Present: normal ENT inspection, pharynx normal, hard of hearing Eye Exam: bilateral eye: normal inspection, PERRL, EOMI Neck: Present: non-tender, full range of motion, supple, normal inspection Back Exam: Present: normal inspection, no CVA tenderness, no vertebral tenderness Breasts: Present: Exam deferred, Nontender Respiratory: Present: chest non-tender, decreased breath sounds, No rales, No wheezing. Absent: crackles, rhonchi, stridor, expiration (prolonged), inspiration, plerual rub Cardiovascular/Chest: Present: normal peripheral pulses, no chest tenderness, no edema, no gallop, no JVD, no murmur, no rub, extra beats Peripheral Pulses: carotid (R): 2+, carotid (L): 2+, radial (R): 2+, radial (L): 2+ Abdomen: Present: Normal bowel sounds, soft, nontender, nondistended, no rebound tenderness, no hepatospenomegaly, no masses /Rectal: Present: Exam deferred, External genitalia normal Extremity: Present: normal range of motion, non-tender, normal inspection, no pedal edema, no calf tenderness, normal capillary refill Skin Exam: Present: normal color, warm/dry, no cyanosis Lymphatic: Present: no adenopathy Neurologic: Present: bell staff II-XII nml as tested Appearance: Present: disheveled, impaired insight, impaired recent memory Eye contact: Present: cooperative, good eye contact, normal speech, avoids eye contact, refused to answer Thoughts: Present: normal thought pattern, no apparent hallucination Diagnostic Studies: Abnormal Lab Results 08/11/19 08/11/19 08/11/19 Range/Units 09:16 09:28 09:28 RBC 3.54 L (4.7-6.0) M/mm3 Hgb 9.7 L (13.5-18.0) gm/dL Hct 30.4 L (42.0-52.0) % MCHC 31.9 L (32-36) g/dl RDW 15.4 H (11.5-14.0) % Immature Gran % (Auto) 0.60 H (0.001-0.429) % Immature Gran # (Auto) 0.05 H (0.000-0.0310) K/mm3 Neutrophils % 82.9 H (42-75.0) % Lymphocytes % 7.1 L (20-51) % Eosinophils % 3.4 H (0.0-3.0) % Neutrophils # 7.5 H (1.3-6.0) K/mm3 Lymphocytes # 0.64 L (1.5-3.5) k/mm3 pCO2 34.7 L (35.0-48.0) mmHg pO2 62.7 L (83.0-108.0) mmHg HCO3 20.0 L (21.0-28.0) mmol/L Base Excess -4.5 L (-2.0-3.0) mmol/L ABG O2 Sat (Measured) 91.8 L (94.0-98.0) % Chloride 107 H (97-106) mmol/L Carbon Dioxide 22.4 L (24-32.6) mmol/L Anion Gap 16.9 H (6.8-13.8) mmol/L Creatinine 1.67 H (0.4-1.4) mg/dL Est GFR (Non-Af Amer) 42 L (60-130) mL/min ALT 12 L (19-67) U/L B-Natriuretic Peptide 4652 H (5-650) pg/mL Albumin 2.9 L (3.4-5.0) gm/dl Urine Protein (NEGATIVE) mg/dL Urine Blood (NEGATIVE) /ul 08/11/19 Range/Units 10:10 RBC (4.7-6.0) M/mm3 Hgb (13.5-18.0) gm/dL Hct (42.0-52.0) % MCHC (32-36) g/dl RDW (11.5-14.0) % Immature Gran % (Auto) (0.001-0.429) % Immature Gran # (Auto) (0.000-0.0310) K/mm3 Neutrophils % (42-75.0) % Lymphocytes % (20-51) % Eosinophils % (0.0-3.0) % Neutrophils # (1.3-6.0) K/mm3 Lymphocytes # (1.5-3.5) k/mm3 pCO2 (35.0-48.0) mmHg pO2 (83.0-108.0) mmHg HCO3 (21.0-28.0) mmol/L Base Excess (-2.0-3.0) mmol/L ABG O2 Sat (Measured) (94.0-98.0) % Chloride (97-106) mmol/L Carbon Dioxide (24-32.6) mmol/L Anion Gap (6.8-13.8) mmol/L Creatinine (0.4-1.4) mg/dL Est GFR (Non-Af Amer) (60-130) mL/min ALT (19-67) U/L B-Natriuretic Peptide (5-650) pg/mL Albumin (3.4-5.0) gm/dl Urine Protein 15 H (NEGATIVE) mg/dL Urine Blood 25 H (NEGATIVE) /ul Laboratory Results WBC 9.0 K/mm3 (4.0-10.5) 08/11/19 09:28 RBC 3.54 M/mm3 (4.7-6.0) L 08/11/19 09:28 Hgb 9.7 gm/dL (13.5-18.0) L 08/11/19 09:28 Hct 30.4 % (42.0-52.0) L 08/11/19 09: MCV 85.9 fl (78-100) 08/11/19 09: MCH 27.4 pg (27-31) 08/11/19 09: MCHC 31.9 g/dl (32-36) L 08/11/19 09: RDW 15.4 % (11.5-14.0) H 08/11/19 09: Plt Count 283 K/mm3 (150-450) 08/11/19 09: MPV 9.5 fl (8-11.3) 08/11/19 09: Immature Gran % (Auto) 0.60 % (0.001-0.429) H 08/11/19: Immature Gran # (Auto) 0.05 K/mm3 (0.000-0.0310) H 08/11/19 09: Neutrophils % 82.9 % (42-75.0) H 08/11/19 09: Lymphocytes % 7.1 % (20-51) L 08/11/19 09: Monocytes % 5.4 % (0.0-9) 08/11/19 09: Eosinophils % 3.4 % (0.0-3.0) H 08/11/19 09: Basophils % 0.6 % (0.0-1.0) 08/11/19 09: Nucleated RBC % 0.0 k/mm3 (0-1) 08/11/19 09: Neutrophils # 7.5 K/mm3 (1.3-6.0) H 08/11/19 09:28 Lymphocytes # 0.64 k/mm3 (1.5-3.5) L 08/11/19 09:28 Monocytes # 0.5 k/mm3 (0.0-1.0) 08/11/19 09: Eosinophils # 0.3 k/mm3 (0.0-0.7) 08/11/19 09: Absolute Basophils 0.1 k/mm3 (0.0-0.1) 08/11/19 09:28 pCO2 34.7 mmHg (35.0-48.0) L 08/11/19 09:16 pO2 62.7 mmHg (83.0-108.0) L 08/11/19 09:16 HCO3 20.0 mmol/L (21.0-28.0) L 08/11/19 09:16 Total CO2 21.0 mmol/L (19.0-24.0) 08/11/19 09:16 Base Excess -4.5 mmol/L (-2.0-3.0) L 08/11/19 09:16 ABG pH 7.38 (7.35-7.45) 08/11/19 09:16 ABG O2 Sat (Measured) 91.8 % (94.0-98.0) L 08/11/19 09:16 Sodium 142 mmol/L (132-142) 08/11/19 09:28 Plasma Sodium 142 mmol/L (130-142) 08/11/19 09:28 Potassium 4.3 mmol/L (3.4-4.6) 08/11/19 09:28 Chloride 107 mmol/L (97-106) H 08/11/19 09:28 Carbon Dioxide 22.4 mmol/L (24-32.6) L 08/11/19 09:28 Anion Gap 16.9 mmol/L (6.8-13.8) H 08/11/19 09:28 BUN 19 mg/dL (6-23) 08/11/19 09: Creatinine 1.67 mg/dL (0.4-1.4) H 08/11/19 09:28 Est GFR (Non-Af Amer) 42 mL/min (60-130) L 08/11/19 09: BUN/Creatinine Ratio 11.4 (9.0-21.6) 08/11/19 09:28 Random Glucose 104 mg/dL (70-110) 08/11/19 09:28 Lactic Acid, Venous 0.9 mmol/L (0.4-2.0) 08/11/19 09: Calcium 8.7 mg/dL (7.9-10.9) 08/11/19: Calcium Adj for Albumin 9.3 mg/dL (8.4-10.2) 08/11/19 09: Total Bilirubin 0.3 mg/dL (0.0-1.1) 08/11/19 09: AST 19 U/L (0-48) 08/11/19:28 ALT 12 U/L (19-67) L 08/11/19 09:28 Alkaline Phosphatase 84 U/L (50-170) 08/11/19 09:28 Troponin I 0.032 ng/mL (0.00-0.10) 08/11/19 09:20 B-Natriuretic Peptide 4652 pg/mL (5-650) H 08/11/19 09:28 Total Protein 6.5 gm/dL (6.2-8.2) 08/11/19 09:28 Albumin 2.9 gm/dl (3.4-5.0) L 08/11/19 09:28 Urine Color Yellow 08/11/19 10:10 Urine Appearance Slightly cloudy (CLEAR) 08/11/19 10:10 Urine pH 5.5 pH (5.0-7.0) 08/11/19 10:10 Ur Specific [place] 1.015 SP.GR. (1.005-1.030) 08/11/19 10:10 Urine Protein 15 mg/dL (NEGATIVE) H 08/11/19 10:10 Urine Glucose (UA) Negative mg/dL (NEGATIVE) 08/11/19 10:10 Urine Ketones 5 mg/dL (NEGATIVE) 08/11/19 10:10 Urine Blood 25 /ul (NEGATIVE) H 08/11/19 10:10 Urine Nitrate Negative (NEGATIVE) 08/11/19 10:10 Urine Bilirubin Negative mg/dl (NEGATIVE) 08/11/19 10:10 Prot Sulfosalicylic Acd 1+ mg/dL (0) 08/11/19 10:10 Urine Urobilinogen Normal EU/dl (NORMAL) 08/11/19 10:10 Ur Leukocyte Esterase Negative /ul (NEGATIVE) 08/11/19 10:10 Urine RBC 0-5 /hpf (0-5) 08/11/19 10:10 Urine WBC 0-5 /hpf (0-5) 08/11/19 10:10 Ur Epithelial Cells 0-5 /hpf (0-5) 08/11/19 10:10 Urine Bacteria None seen (NONE) 08/11/19 10:10 Urine Culture Comments No culture indicated 08/11/19 10:10 Chlamy pneumoniae PCR Not detected (NotDetected) 08/11/19 10:15 Adenovirus (PCR) Not detected (NotDetected) 08/11/19 10:15 B. pertussis DNA (PCR) Not detected (NotDetected) 08/11/19 10:15 Coronavirus OC43 (PCR) Not detected (NotDetected) 08/11/19 10:15 Coronavirus HKU1 (PCR) Not detected (NotDetected) 08/11/19 10:15 Coronavirus 229E (PCR) Not detected (NotDetected) 08/11/19 10:15 Coronavirus NL63 (PCR) Not detected (NotDetected) 08/11/19 10:15 Human Metapneumovir PCR Not detected (NotDetected) 08/11/19 10:15 Influenza A (H1) PCR Not detected (NotDetected) 08/11/19 10:15 Influenza A (H1N1) PCR Not detected (NotDetected) 08/11/19 10:15 Influenza A (H3) PCR Not detected (NotDetected) 08/11/19 10:15 Influenza B (RT-PCR) Not detected (NotDetected) 08/11/19 10:15 M. pneumoniae (PCR) Not detected (NotDetected) 08/11/19 10:15 Parainfluenza 1 (PCR) Not detected (NotDetected) 08/11/19 10:15 Parainfluenza 2 (PCR) Not detected (NotDetected) 08/11/19 10:15 Parainfluenza 3 (PCR) Not detected (NotDetected) 08/11/19 10:15 Parainfluenza 4 (PCR) Not detected (NotDetected) 08/11/19 10:15 RSV (PCR) Not detected (NotDetected) 08/11/19 10:15 Rhinovirus (PCR) Not detected (NotDetected) 08/11/19 10:15 Assessment/Plan - Narrative Narrative: We will monitor him continuously for cardiac dysrhythmias and monitor his O2 sats about every 4 hours. I will recheck morning lab Repeat chest x-ray tomorrow morning Continue home meds as listed - Assessment/Plan (1) Type 2 diabetes mellitus Problem: Chronic Qualifiers: Diabetes mellitus correction insulin use: with terminal carman use Diabetes mellitus complication status: with circulatory complication Diabetes mellitus complication detail: with other circulatory complications Qualified Code(s): E11.59 - Type 2 diabetes mellitus with other circulatory complications; Z79.4 - prison (current) use of insulin (2) CKD (chronic kidney disease), stage III Problem: Chronic (3) Hypertension Problem: Chronic Qualifiers: Hypertension type: essential hypertension (4) CHF (congestive heart failure) Problem: Chronic Qualifiers: Heart failure type: diastolic (5) COPD (chronic obstructive pulmonary disease) with acute bronchitis Problem: Chronic (6) Pneumonia Problem: Suspected Qualifiers: Pneumonia type: due to unspecified organism Laterality: bilateral
[2019-08-11] MEDS ORDERED: LISINOPRIL 10 MG TABLET PO ONE (14:45)
[2019-08-11] MEDS ORDERED: METOPROLOL SUCCINATE 100 MG TABLET.SA PO ONE (14:45)
[2019-08-11] MEDS ORDERED: amLODIPine BESYLATE 5 MG TABLET PO ONE (14:45)
[2019-08-11] MEDS ORDERED: NITROGLYCERIN 0.4 MG/TAB BTL SL PRN (17:24)
[2019-08-11] MEDS ORDERED: ACETAMINOPHEN 325 MG TABLET PO PRN (17:24)
[2019-08-11] MEDS ORDERED: BISACODYL 5 MG TABLET.DR PO PRN (17:24)
[2019-08-11] MEDS ORDERED: traMADol HCL 50 MG TABLET PO PRN (17:24)
[2019-08-11] MEDS ORDERED: ALBUTEROL SULFATE 2.5 MG/0.5 ML VIAL.NEB IH PRN (18:00)
[2019-08-11] MEDS ORDERED: INSULIN LISPRO 100 UNITS/ML VIAL SC SCH (21:30)
[2019-08-11] MEDS: busPIRone HCL 5 MG TABLET PO SCH (21:49)
[2019-08-11] MEDS: APIXABAN 2.5 MG TABLET PO SCH (21:50)
[2019-08-11] MEDS: METOPROLOL SUCCINATE 100 MG TABLET.SA PO SCH (21:50)
[2019-08-11] MEDS: INSULIN GLARGINE,HUM.REC.ANLOG 100 UNITS/ML VIAL SC SCH (21:58)
[2019-08-12 06:28] LABS: Hematocrit 28.9 % (42.0-52.0); Hemoglobin 9.5 gm/dL (13.5-18.0); Mean Corpuscular Hemoglobin 27.6 pg (27-31); Mean Corpuscular Hgb Conc 32.9 g/dl (32-36); Mean Platelet Volume 9.7 fl (8-11.3); Neutrophil # 4.7 K/mm3 (1.3-6.0); Neutrophil % 72.5 % (42-75.0); Platelet Count 291 K/mm3 (150-450); Red Blood Count 3.44 M/mm3 (4.7-6.0); Red Cell Distribution Width 15.1 % (11.5-14.0); White Blood Count 6.4 K/mm3 (4.0-10.5)
[2019-08-12 06:44] LABS: Albumin * 2.6 gm/dl (3.4-5.0); Anion Gap 10.5 mmol/L (6.8-13.8); BUN/Creatinine Ratio 11.7 (9.0-21.6); Bilirubin, Total 0.3 mg/dL (0.0-1.1); Ca. Corrected For Albumin 9.4 mg/dL (8.4-10.2); Calcium * 8.6 mg/dL (7.9-10.9); Carbon Dioxide 29.7 mmol/L (24-32.6); Magnesium 1.7 mg/dL (1.2-2.8); Potassium 4.2 mmol/L (3.4-4.6)
[2019-08-12] MEDS: PANTOPRAZOLE SODIUM 40 MG TABLET.EC PO SCH ×2 (08:09→17:11)
[2019-08-12] MEDS: busPIRone HCL 5 MG TABLET PO SCH (08:09)
[2019-08-12] MEDS: APIXABAN 2.5 MG TABLET PO SCH (08:10)
[2019-08-12] MEDS: METOPROLOL SUCCINATE 100 MG TABLET.SA PO SCH (08:11)
[2019-08-12] MEDS: INSULIN GLARGINE,HUM.REC.ANLOG 100 UNITS/ML VIAL SC SCH (08:16)
[2019-08-12] MEDS ORDERED: sitaGLIPtin PHOSPHATE 50 MG TABLET PO SCH (09:00)
[2019-08-12] MEDS ORDERED: LISINOPRIL 10 MG TABLET PO SCH (09:00)
[2019-08-12] MEDS ORDERED: ISOSORBIDE MONONITRATE 30 MG TAB.SR.24H PO SCH (09:00)
[2019-08-12] MEDS ORDERED: MICONAZOLE NITRATE 85 APPL BTL TP SCH (09:00)
[2019-08-12] MEDS ORDERED: FINASTERIDE 5 MG TABLET PO SCH (09:00)
[2019-08-12] MEDS ORDERED: ESCITALOPRAM OXALATE 10 MG TAB PO SCH (09:00)
[2019-08-12] MEDS ORDERED: ASPIRIN 81 MG TABLET.DR PO SCH (09:00)
[2019-08-12] MEDS ORDERED: TIOTROPIUM BROMIDE 5 CAP INHALER IH SCH (09:00)
[2019-08-12] MEDS ORDERED: amLODIPine BESYLATE 5 MG TABLET PO SCH (09:00)
[2019-08-12] MEDS ORDERED: TAMSULOSIN HCL 0.4 MG CAP.SR.24H PO SCH ×2 (09:00→18:00)
[2019-08-12] MEDS ORDERED: FUROSEMIDE 10 MG/ML VIAL IV ONE (09:19)
--- NOTE | 2019-08-12 09:36 | PN ---
Progess Note - Interim Date: 08/12/19 Time: 09:30 Narrative: 08/12/19 09:30 Vishal Reddy has had an uneventful night. He is breathing much easier than when he was admitted to ER. He had diuresed between 7 and 800 cc of urine in ER and has diuresed about 3-1/2 L of fluid total with about 700 cc in. So he has had a net output of about 2800 cc. His chest x-ray this morning shows marked improvement in the interstitial edema but there are still some perihilar fluffiness. He is not tachypneic. Neck veins are not distended and his HJR is negative. There is no peripheral edema. He does have a pleural friction rub in the left medial chest. His renal status is unchanged with EGFR of 42. His hemoglobin is actually dropped slightly from admission of 9.7 to 9.5 g this morning. If this was hemo-delusional he should have improved his hemoglobin with diuresis. Since that is not improved I will check stools for occult blood. I will also order iron stores. His MCV is 84 and lower normal range and his RDW is 15.1. Slightly elevated. His white count is still normal and platelets are normal. The other chemistries including electrolytes especially potassium and magnesium are all in normal range. His blood sugar last night was 269. I gave him 6 units of Humalog and his usual 30 units of glargine and his blood sugar this morning is 169. It will be checked again before lunch. I am giving him another 40 mg of furosemide IV push this morning. I anticipate discharging him this afternoon.
[2019-08-12 09:47] LABS: Iron 27 mcg/dL (35-120); Transferrin Sat. (% Sat.) 12 % (15-55)
--- NOTE | 2019-08-12 16:27 | DS ---
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 Evaluation in the emergency room raised the specter of congestive heart failure versus pneumonia. He had interstitial edema on his chest x-ray but also had perihilar infiltrates. He was diuresed in the emergency room and about 800 cc of urine was diuresed. He was then admitted and diuresed about 3500 cc overnight. He had another dose of Lasix this morning but the output is not yet posted. He is a insulin-dependent diabetic. On admission he was on both a sulfonylurea and Januvia and I have discontinued the sulfonylurea. He is getting glargine insulin 30 units twice daily. I gave him 1 dose of Humalog 6 units last night about 9:00 and his blood sugar this morning is 169. His noon blood sugar is not yet posted. Overall he is feeling quite a bit better and breathing much easier after diuresing. There is no change in his renal status with diuretic effect. His hemoglobin was lower than baseline and was 9.7 g in the emergency room. This morning after diuresing the hemoglobin actually dropped to 9.5 g. The cause of his anemia is unknown at this time. His MCV is 84 and his RDW is 15.1. A ferritin level is normal. The rest of the iron studies are still pending this dictation. He has a longstanding history of hypertension. That has been very well controlled in the hospital. His electrolytes remained normal and potassium was 4.2 with a magnesium of 1.7 this morning. He was able to walk in the halls and well on room air his oxygen remained at 94% or higher. He did not qualify for home oxygen. His disposition is improved and his prognosis is fair. He will be discharged this afternoon and return to his primary care provider's care. Procedures Performed: none Results and Findings: Pending Mircobiology Results 08/11/19 10:04 Blood Blood Culture - Preliminary NO GROWTH 24 HOURS 08/11/19 09:28 Blood Blood Culture - Preliminary NO GROWTH 24 HOURS Lab Pending Results 08/11/19 09:16: pCO2 34.7 L, pO2 62.7 L, HCO3 20.0 L, Total CO2 21.0, Base Excess -4.5 L, ABG pH 7.38, ABG O2 Sat (Measured) 91.8 L 08/11/19 09:20: Troponin I 0.032 08/11/19 09:28: Sodium 142, Plasma Sodium 142, Potassium 4.3, Chloride 107 H, Carbon Dioxide 22.4 L, Anion Gap 16.9 H, BUN 19, Creatinine 1.67 H, Est GFR (Non-Af Amer) 42 L, BUN/Creatinine Ratio 11.4, Random Glucose 104, Calcium 8.7, Calcium Adj for Albumin 9.3, Total Bilirubin 0.3, AST 19, ALT 12 L, Alkaline Phosphatase 84, B-Natriuretic Peptide 4652 H, Total Protein 6.5, Albumin 2.9 L 08/11/19 09:28: WBC 9.0, RBC 3.54 L, Hgb 9.7 L, Hct 30.4 L, MCV 85.9, MCH 27.4, MCHC 31.9 L, RDW 15.4 H, Plt Count 283, MPV 9.5, Immature Gran % (Auto) 0.60 H, Immature Gran # (Auto) 0.05 H, Neutrophils % 82.9 H, Lymphocytes % 7.1 L, Monocytes % 5.4, Eosinophils % 3.4 H, Basophils % 0.6, Nucleated RBC % 0.0, Neutrophils # 7.5 H, Lymphocytes # 0.64 L, Monocytes # 0.5, Eosinophils # 0.3, Absolute Basophils 0.1 08/11/19 09:28: Lactic Acid, Venous 0.9 08/11/19 10:10: Urine Color Yellow, Urine Appearance Slightly cloudy, Urine pH 5.5, Ur Specific [place] 1.015, Urine Protein 15 H, Urine Glucose (UA) Negative, Urine Ketones 5, Urine Blood 25 H, Urine Nitrate Negative, Urine Bilirubin Negative, Prot Sulfosalicylic Acd 1+, Urine Urobilinogen Normal, Ur Leukocyte Esterase Negative, Urine RBC 0-5, Urine WBC 0-5, Ur Epithelial Cells 0-5, Urine Bacteria None seen, Urine Culture Comments No culture indicated 08/11/19 10:15: Chlamy pneumoniae PCR Not detected, Adenovirus (PCR) Not detected, B. pertussis DNA (PCR) Not detected, Coronavirus OC43 (PCR) Not detected, Coronavirus HKU1 (PCR) Not detected, Coronavirus 229E (PCR) Not detected, Coronavirus NL63 (PCR) Not detected, Human Metapneumovir PCR Not detected, Influenza A (H1) PCR Not detected, Influenza A (H1N1) PCR Not detected, Influenza A (H3) PCR Not detected, Influenza B (RT-PCR) Not detected, M. pneumoniae (PCR) Not detected, Parainfluenza 1 (PCR) Not detected, Parainfluenza 2 (PCR) Not detected, Parainfluenza 3 (PCR) Not detected, Parainfluenza 4 (PCR) Not detected, RSV (PCR) Not detected, Rhinovirus (PCR) Not detected 08/12/19 06:26: WBC 6.4 D, RBC 3.44 L, Hgb 9.5 L, Hct 28.9 L, MCV 84.0, MCH 27.6, MCHC 32.9, RDW 15.1 H, Plt Count 291, MPV 9.7, Immature Gran % (Auto) 0.50 H, Immature Gran # (Auto) 0.03, Neutrophils % 72.5, Lymphocytes % 11.6 L, Monocytes % 8.9, Eosinophils % 5.9 H, Basophils % 0.6, Nucleated RBC % 0.0, Neutrophils # 4.7, Lymphocytes # 0.75 L, Monocytes # 0.6, Eosinophils # 0.4, Absolute Basophils 0.0 08/12/19 06:26: Sodium 140, Plasma Sodium 141, Potassium 4.2, Chloride 104, Carbon Dioxide 29.7, Anion Gap 10.5, BUN 19, Creatinine 1.62 H, Est GFR (Non-Af Amer) 43 L, BUN/Creatinine Ratio 11.7, Random Glucose 169 H D, Calcium 8.6, Calcium Adj for Albumin 9.4, Magnesium 1.7, Total Bilirubin 0.3, AST 16, ALT 13 L, Alkaline Phosphatase 74, Total Protein 6.0 L, Albumin 2.6 L 08/12/19 06:30: Absolute Retic 0.0511, Percent Retic 1.5, Immature Retic Fraction 20.2 H, Retic Hgb Content 28.9 L 08/12/19 06:30: Iron 27 L, TIBC 222 L, Transferrin % Sat 12 L 08/12/19 06:30: Ferritin 58 08/12/19 09:26: TSH (Reflex) 1.031 Discharge Location: Home Disposition: Home self-care Condition: Serious Face to Face Encounter completed per [facility] Guidelines: No Discharge Activity: Activity as tolerated Discharge Diet: Consistent carbs Additional Patient Instructions (free text): He is to see his PCP within 2 weeks. He is to weigh each morning dressed the same and record. He should take those weights to his PCP. Complete Home Medications List: Complete Home Medication List: Multivitamins [Multivitamin Juju] 1 cap PO DAILY 12/05/16 tamsulosin 0.4 mg capsule 0.4 mg PO DAILY 10/10/17 Metoprolol Succinate [Toprol Xl] 100 mg PO BID 12/22/17 finasteride 5 mg tablet 5 mg PO DAILY 01/01/18 Insulin Glargine,Hum.rec.anlog [Lantus] 30 unit SUBCUT BID 05/14/18 nitroglycerin 0.4 mg sublingual tablet 0.4 mg SUBLINGUAL Q5MIN PRN #75 tab 06/12/18 Apixaban [Eliquis] 2.5 mg PO BID 01/07/19 Escitalopram Oxalate [Lexapro] 10 mg PO DAILY 01/07/19 Omeprazole 40 mg PO BID 01/07/19 sitaGLIPtin PHOSPHATE [Januvia] 100 mg PO DAILY 01/07/19 Albuterol Sulfate 2.5 mg INHALATION Q4H PRN 03/18/19 Aspirin [Aspirin Enteric Coated] 81 mg PO DAILY 03/18/19 Bisacodyl [Gentle Laxative] 10 mg PO DAILY PRN 03/18/19 Cinnamon Bark [Cinnamon] 500 mg PO DAILY 03/18/19 Isosorbide Mononitrate [Imdur] 30 mg PO DAILY 03/18/19 Miconazole Nitrate [Micro-Guard] 85 gm TOPICAL DAILY 03/18/19 Tiotropium [place] [Spiriva] 1 cap INHALATION DAILY 03/18/19 Acetaminophen 325 mg PO Q4H PRN 08/11/19 Amlodipine Besylate [Norvasc] 1 tab PO DAILY 08/11/19 Lisinopril 10 mg PO DAILY 08/11/19 busPIRone HCL [Buspar] 2 tab PO BID 08/11/19 traMADol HCL [Ultram] 50 mg PO QID PRN 08/11/19
[2019-08-12 17:26] VITALS: BP 136/59
== END 2019-08-12 18:00 | disposition home or self-care (01) ==
LOC: MS 08:44 → ER 08:44 → MS 13:15
PROVIDERS: ADMIT Family Medicine; ATTEND Family Medicine
DX: Z87.891 Personal history of nicotine dependence; I50.33 Acute on chronic diastolic (congestive) heart failure; I13.0 Hypertensive heart and chronic kidney disease with heart failure and stage 1 through stage 4 chronic kidney disease, or unspecified chronic kidney disease; D64.9 Anemia, unspecified; J20.9 Acute bronchitis, unspecified; J44.1 Chronic obstructive pulmonary disease with (acute) exacerbation; E11.22 Type 2 diabetes mellitus with diabetic chronic kidney disease; N18.3 Chronic kidney disease, stage 3 (moderate); Z79.4 Long term (current) use of insulin
CPT/HCPCS: 36415; 36600; 71010; 71020; 71045; 71046; 80053; 81001; 82728; 82803; 83519; 83540; 83550; 83605; 83735; 83880; 84443; 84484; 85025; 85045; 87040; 87633; 93005; 94760; 96372; 96374; 96375; 97161; 99285; G0378

== ENCOUNTER 2019-11-07 15:39 | Observation (INO) ==
[2019-11-07] MEDS ORDERED: ALBUTEROL SULFATE 2.5 MG/0.5 ML VIAL.NEB IH ONE (16:04)
--- NOTE | 2019-11-07 16:06 | ERNOTE ---
Syncope ER HPI Stated Complaint: syncopal Time Seen by Provider: 11/07/19 16:06 Source: patient, family Exam Limitations: dementia Immunizations: IMMUNIZATION HX Immunizations Up to Date Yes History of Influenza Vaccine Yes Hx Pneumococcal Vaccination Yes Allergies/Adverse Reactions: Allergies venom-honey bee [bee venom (honey bee)] Allergy (Severe, Verified 11/07/19 15:45) Anaphylaxis morphine Adverse Reaction (Mild, Verified 11/07/19 15:45) Nausea Home Medications: HOME MEDICATIONS Multivitamins [Multivitamin Juju] 1 cap PO DAILY 12/05/16 [Last Taken 10/29/17 08:00] tamsulosin 0.4 mg capsule 0.4 mg PO DAILY 10/10/17 [Last Taken 10/28/17 20:00] Metoprolol Succinate [Toprol Xl] 100 mg PO BID 12/22/17 [Last Taken Unknown] finasteride 5 mg tablet 5 mg PO DAILY 01/01/18 [Last Taken Unknown] Insulin Glargine,Hum.rec.anlog [Lantus] 30 unit SUBCUT BID 05/14/18 [Last Taken Unknown] nitroglycerin 0.4 mg sublingual tablet 0.4 mg SUBLINGUAL Q5MIN PRN #75 tab 06/12/18 [Last Taken Unknown] Apixaban [Eliquis] 2.5 mg PO BID 01/07/19 [Last Taken Unknown] Escitalopram Oxalate [Lexapro] 10 mg PO DAILY 01/07/19 [Last Taken Unknown] Omeprazole 40 mg PO BID 01/07/19 [Last Taken Unknown] sitaGLIPtin PHOSPHATE [Januvia] 100 mg PO DAILY 01/07/19 [Last Taken Unknown] Albuterol Sulfate 2.5 mg INHALATION Q4H PRN 03/18/19 [Last Taken Unknown] Aspirin [Aspirin Enteric Coated] 81 mg PO DAILY 03/18/19 [Last Taken Unknown] Bisacodyl [Gentle Laxative] 10 mg PO DAILY PRN 03/18/19 [Last Taken Unknown] Cinnamon Bark [Cinnamon] 500 mg PO DAILY 03/18/19 [Last Taken Unknown] Isosorbide Mononitrate [Imdur] 30 mg PO DAILY 03/18/19 [Last Taken Unknown] Tiotropium [place] [Spiriva] 1 cap INHALATION DAILY 03/18/19 [Last Taken Unknown] Acetaminophen 325 mg PO Q4H PRN 08/11/19 [Last Taken Unknown] Amlodipine Besylate [Norvasc] 1 tab PO DAILY 08/11/19 [Last Taken Unknown] busPIRone HCL [Buspar] 2 tab PO BID 08/11/19 [Last Taken Unknown] traMADol HCL [Ultram] 50 mg PO QID PRN 08/11/19 [Last Taken Unknown] Lisinopril [Zestril] 10 mg PO DAILY 09/03/19 [Last Taken Unknown] metFORMIN HCL [Glucophage] 500 mg PO DAILY 09/03/19 [Last Taken Unknown] Diphenoxylate HCl/Atropine [Lomotil Tablet] 1 ea PO QID #10 tab 11/03/19 [Last Taken Unknown] Ondansetron [Zofran Odt] 4 mg PO Q6H PRN #20 tab 11/03/19 [Last Taken Unknown] - History of Present Illness Narrative: Vishal presents to the ED by EMS with chief complaint of near syncope at home and he reports his blood sugar has fluctuated from 91 to 391 over the past few hours. His other complaint is that he has had diarrhea for a month. He reports that he has had diarrhea 7 times today. He states that his doctor sent a prescription to [facility] for some diarrhea medication, but it was out of stock until tomorrow. No vomiting, no fevers. He is chronically short of breath. His son came later and noted that they had a disagreement just before the near syncope and shortness of breath complaints started today. No chest pain, no edema. Prior Episodes: Present: other - frequent episodes Location of Injury: Present: none Current Symptoms: Present: shortness of breath, light headedness Review of Systems - Review of Systems Constitutional: Absent: recent illness, fever, chills, diaphoresis EYE: Present: no symptoms reported ENT: Present: no symptoms reported Respiratory: Present: shortness of breath - chronic. Absent: cough, orthopnea, wheezing Cardiology: Present: other - dizzy, reports near syncope Gastrointestinal/Abdominal: Present: diarrhea. Absent: nausea, vomiting, constipation, abdominal pain Genitourinary: Present: no symptoms reported Musculoskeletal: Present: no symptoms reported Skin: Present: no symptoms reported Neurological: Present: See HPI, dizziness/light-headedness Endocrine: Present: other - reports that his blood sugars go up and down. Hematologic/Lymphatic: Present: no symptoms reported Psych: Present: no symptoms reported All Other Systems: All systems neg except as marked Medical History (Last Reviewed 11/07/19 @ 16:27 by Eda Linares MD) COPD (chronic obstructive pulmonary disease) (Chronic) Sleep apnea (Chronic) Onset Date: Unknown Pseudophakia of both eyes (Chronic) Onset Date: 11/02/14 Peripheral vascular disease (Chronic) Onset Date: Unknown Hyperlipidemia (Chronic) Onset Date: 08/06/[address] Henley. Hypercholesterolemia (Chronic) Onset Date: Unknown Heart disease (Chronic) Onset Date: Unknown GERD (gastroesophageal reflux disease) (Chronic) Onset Date: Unknown Chronic kidney disease, stage 3 (moderate) (Chronic) Onset Date: 10/07/12 Carotid artery disease (Chronic) Onset Date: 08/06/[address] Henley. 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 Left, nonocclusive. Dementia Diabetes Diastolic heart failure Onset Date: 06/12/18 Grade 1. Hospital admission Onset Date: 06/12/18 Admitted to [facility] on 06/12/2018; influenza A. Discharged home on 06/15/2018. Incomplete bladder emptying Influenza A Onset Date: 06/12/18 Left rotator cuff tear Onset Date: 06/21/18 Swelling of left hand Onset Date: 05/2018 Tendinitis of left shoulder Onset Date: 06/21/18 Tenosynovitis of left shoulder Onset Date: 06/21/18 Thrombus Onset Date: 07/15/18 Per ultrasound obtained at [facility]. Thrombus within the left superficial basilica vein, nonocclusive. Anemia Onset Date: Unknown Dyslipidemia Onset Date: Unknown History of frequent headaches Onset Date: Unknown Blurred vision Onset Date: Unknown Hernia, umbilical Onset Date: Unknown History of CT scan of abdomen Onset Date: 07/10/18 CT abdomen pelvis WO contrast. [facility]. History of CT scan of abdomen Onset Date: 07/25/18 CT abdomen pelvis W contrast. [facility]. History of CT scan of chest Onset Date: 07/07/18 CT angio chest. [facility]. 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 History of MRI Onset Date: 06/21/18 [facility]. * See scanned document from [facility] dated 06/21/2018. Hospital admission Onset Date: 06/21/18 Admitted to [facility] on 06/21/2018; intractable pain. Discharged to home on 06/24/2018. Hospital admission Onset Date: 07/07/18 Admitted to [facility] on 07/07/2018; bilateral pulmonary embolism. Discharged home on 07/10/2018. Hospital admission Onset Date: 07/16/18 Admitted to [facility] on 07/16/2018; right groin/thigh pain. Discharged home on 07/22/2018. Hospital admission Onset Date: 07/24/18 Admitted to [facility] on 07/24/2018; colitis, GI bleed. Discharged home on 07/27/2018. Hypospadias Onset Date: 1935 Pulmonary embolism Onset Date: 07/07/18 Stasis dermatitis Onset Date: 01/04/[address] Hernadez. Surgical History: Surgical History (Last Reviewed 11/07/19 @ 16:27 by Eda Linares MD) History of appendectomy Onset Date: Unknown age 15 History of cataract extraction Onset Date: Unknown History of colonoscopy Onset Date: ~2005 Dr. Galaviz, [facility]. History of dilation of urethra Onset Date: ~07/2017 History of endarterectomy Onset Date: ~2014 History of tonsillectomy Onset Date: Unknown History of total left knee replacement Onset Date: ~2003 & 2010 knee was repaired by Dr. Francis. Dr. Cantrell did the original History of total right knee replacement Onset Date: ~1998 Dr. Cantrell History of transurethral resection of prostate Onset Date: 12/20/16 Dr. Shad Joseph, [facility]. History of umbilical hernia repair Onset Date: 05/19/09 Dr. Ayo Castle, [facility]. History of vasectomy Onset Date: Unknown Family History: Family History (Last Reviewed 11/07/19 @ 16:27 by Eda Linares MD) Brother Cancer Diabetes Parkinson disease Father , shot himself in 1963 Suicide Mother Alzheimers disease Sister Dementia Sister Cancer breast Social History: (Last Reviewed 11/07/19 @ 16:27 by Eda Linares MD) Social History: intermediate: No Marital status: / lives independently: No household members: children number of children: 2 caregiver/support person: Yes caregiver/support person comment: Efren Reddy current occupational status: retired Highest education level completed: high school graduate Service: Yes branch: [employer] status: retired Tobacco: Smoking Status: Former smoker Alcohol: alcohol intake: current alcohol intake frequency: holiday/special occasion Substance Use: substance use type: does not use Dietary Habits: caffeine: Yes caffeine comment: current some day Taty/Episcopalian: taty/cheondoism: Sikh Physical Exam - Physical Exam General Appearance: Present: wd/wn, alert, no apparent distress Head Exam: Present: normal inspection, no evidence of injury Ears, Nose, Throat: Present: normal ENT inspection Neck: Present: normal inspection, nontender Respiratory: Present: no respiratory distress, decreased breath sounds. Absent: accessory muscle use Cardiovascular/Chest: Present: regular rate, rhythm, no murmur, normal peripheral pulses Gastrointestinal/Abdominal: Present: normal bowel sounds, nontender, nondistended, soft Back Exam: Present: no CVA tenderness, no vertebral tenderness Extremity Exam: Present: normal inspection, non-tender, normal range of motion, no edema Neurological Exam: Present: alert, oriented, normal mood/affect, no motor/sensory deficits Skin Exam: Present: normal color, warm/dry Progress - Results and Orders Patient's Lab Results:: I have reviewed the patient's lab results. - Vital Signs Patient's Vital Signs:: I have reviewed the patient's vital signs. Vital Signs: Vital Signs 11/07/19 15:42 11/07/19 15:45 Temperature 36.5 C Pulse Rate 61 76 Respiratory Rate 19 Blood Pressure 133/53 O2 Sat by Pulse Oximetry 93 - EKG EKG #1 EKG: other - Sinus charly, RBBB, LAFB, poor R wave progression, no significant change from 10/12/2019 - Progress/Reassessment Chief Complaint: Syncopal Episode Progress:: Unchanged Progress Note-Subjective: 11/07/19 18:49 Vishal has had two neb treatment in the ED, he still complains of feeling short of breath and weak. We tried to get him up to try to ambulate, but he started to complain that "I can feel it coming, I am going to be on the floor," then he flopped back on the bed. Will consult bondactor machine operator to admit for OBS. Discussed with Vishal and his son that if he is unable to be managed at home, he may need placed in LTC facility. His oxygen sats and vitals have been normal in the ED, labs appear baseline. Serial troponins have been normal. Departure Clinical Impression: Type 2 diabetes mellitus, CKD (chronic kidney disease), stage III, CHF (congestive heart failure), Dizziness, CKD (chronic kidney disease), Diastolic CHF, chronic, COPD (chronic obstructive pulmonary disease) - Departure Disposition: Short Term Hospital Inpatient Condition: Stable Referrals: Ching Tao ARNP [Primary Care Provider] -
[2019-11-07 16:20] LABS: Hematocrit 28.9 % (42.0-52.0); Hemoglobin 9.6 gm/dL (13.5-18.0); Mean Corpuscular Hemoglobin 26.9 pg (27-31); Mean Corpuscular Hgb Conc 33.2 g/dl (32-36); Mean Platelet Volume 9.7 fl (8-11.3); Neutrophil # 3.6 K/mm3 (1.3-6.0); Neutrophil % 65.8 % (42-75.0); Platelet Count 190 K/mm3 (150-450); Red Blood Count 3.57 M/mm3 (4.7-6.0); Red Cell Distribution Width 15.5 % (11.5-14.0); White Blood Count 5.5 K/mm3 (4.0-10.5)
[2019-11-07 16:38] LABS: ALT 25 U/L (19-67); AST 19 U/L (0-48); Albumin * 3.2 gm/dl (3.4-5.0); Alkaline Phosphatase * 92 U/L (50-170); Anion Gap 12.2 mmol/L (6.8-13.8); BNP * 864 pg/mL (5-650); BUN/Creatinine Ratio 17.9 (9.0-21.6); Bilirubin, Total 0.2 mg/dL (0.0-1.1); Blood Urea Nitrogen 36 mg/dL (6-23); Ca. Corrected For Albumin 8.6 mg/dL (8.4-10.2); Calcium * 8.3 mg/dL (7.9-10.9); Carbon Dioxide 27.7 mmol/L (24-32.6); Chloride 99 mmol/L (97-106); Glucose * 222 mg/dL (70-110); Potassium 4.9 mmol/L (3.4-4.6); Sodium 134 mmol/L (132-142); Total Protein 6.1 gm/dL (6.2-8.2)
[2019-11-07 16:39] LABS: Troponin I Less than 0.017 ng/mL (0.00-0.10)
[2019-11-07] MEDS ORDERED: ALBUTEROL SULFATE/IPRATROPIUM 3 ML NEBU IH ONE (17:06)
[2019-11-07] MEDS ORDERED: INSULIN GLARGINE,HUM.REC.ANLOG 100 UNITS/ML VIAL SC SCH (21:00)
--- NOTE | 2019-11-07 21:10 | HP ---
Chief Complaint - Chief Complaint Date of Service: 11/07/19 Time of Service: 20:35 Chief Complaint: Weakness, near syncope, near falling History of Present Illness: Vishal presents to the ED by EMS with chief complaint of near syncope at home and he reports his blood sugar has fluctuated from 91 to 391 over the past few hours. His other complaint is that he has had diarrhea for a month. He reports that he has had diarrhea 7 times today. He states that his doctor sent a prescription to [facility] for some diarrhea medication, but it was out of stock until tomorrow. No vomiting, no fevers. He is chronically short of breath. His son came later and noted that they had a disagreement just before the near syncope and shortness of breath complaints started today. No chest pain, no edema. Prior Episodes: Present: other - frequent episodes Admission vital signs: BP 174/57, temperature 36.6, pulse of 61 bpm, respirations are 18 and nonlabored, O2 sats 93%. Admission lab: Hemoglobin is low at 9.6 g and hematocrit is low at 28.9%. MCV is 81 and the RDW is elevated at 15.5. Electrolytes show sodium is 134, potassium elevated at 4.9, chloride and CO2 are normal. The BUN is 36 creatinine is 2.0 and EGFR is 34. In looking back he has had a steady decline this year and his renal status. In the winter months his EGFR was in the 50s, and early spring and through the spring it was mostly in the 40s, and in the summer it is dropped in the 30s and now is in the low 30s. This is no doubt from poorly controlled blood sugars and poorly controlled blood pressure. His albumin is low at 3.2 and his total protein slightly low at 6.1. He is alert and conversant oriented x3 and in no distress the time of my exam. He is lying in a semirecumbent position on his back. His color is good and is breathing is nonlabored. He does have a heart murmur. He has no edema in his lower extremities today. He does have some mild JVD and the HJR is positive. Medical History (Last Reviewed 11/07/19 @ 16:27 by Eda Linares MD) COPD (chronic obstructive pulmonary disease) (Chronic) Sleep apnea (Chronic) Onset Date: Unknown Pseudophakia of both eyes (Chronic) Onset Date: 11/02/14 Peripheral vascular disease (Chronic) Onset Date: Unknown Hyperlipidemia (Chronic) Onset Date: 08/06/[address] Henley. Hypercholesterolemia (Chronic) Onset Date: Unknown Heart disease (Chronic) Onset Date: Unknown GERD (gastroesophageal reflux disease) (Chronic) Onset Date: Unknown Chronic kidney disease, stage 3 (moderate) (Chronic) Onset Date: 10/07/12 Carotid artery disease (Chronic) Onset Date: 08/06/[address] Henley. BPH w urinary obs/LUTS (Chronic) Onset Date: 08/22/17 Arthritis (Chronic) Onset Date: Unknown Deep vein thrombosis (DVT) of brachial vein Onset Date: 07/15/18 Per ultrasound obtained at [facility]. Left, nonocclusive. Dementia Diabetes Diastolic heart failure Onset Date: 06/12/18 Grade 1. Hospital admission Onset Date: 06/12/18 Admitted to [facility] on 06/12/2018; influenza A. Discharged home on 06/15/2018. Incomplete bladder emptying Influenza A Onset Date: 06/12/18 Left rotator cuff tear Onset Date: 06/21/18 Swelling of left hand Onset Date: 05/2018 Tendinitis of left shoulder Onset Date: 06/21/18 Tenosynovitis of left shoulder Onset Date: 06/21/18 Thrombus Onset Date: 07/15/18 Per ultrasound obtained at [facility]. Thrombus within the left superficial basilica vein, nonocclusive. Anemia Onset Date: Unknown Dyslipidemia Onset Date: Unknown History of frequent headaches Onset Date: Unknown Blurred vision Onset Date: Unknown Hernia, umbilical Onset Date: Unknown History of CT scan of abdomen Onset Date: 07/10/18 CT abdomen pelvis WO contrast. [facility]. History of CT scan of abdomen Onset Date: 07/25/18 CT abdomen pelvis W contrast. [facility]. History of CT scan of chest Onset Date: 07/07/18 CT angio chest. [facility]. 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 History of MRI Onset Date: 06/21/18 [facility]. * See scanned document from [facility] dated 06/21/2018. Hospital admission Onset Date: 06/21/18 Admitted to [facility] on 06/21/2018; intractable pain. Discharged to home on 06/24/2018. Hospital admission Onset Date: 07/07/18 Admitted to [facility] on 07/07/2018; bilateral pulmonary embolism. Discharged home on 07/10/2018. Hospital admission Onset Date: 07/16/18 Admitted to [facility] on 07/16/2018; right groin/thigh pain. Discharged home on 07/22/2018. Hospital admission Onset Date: 07/24/18 Admitted to [facility] on 07/24/2018; colitis, GI bleed. Discharged home on 07/27/2018. Hypospadias Onset Date: 1935 Pulmonary embolism Onset Date: 07/07/18 Stasis dermatitis Onset Date: 01/04/[address] Hernadez. Surgical History: Surgical History (Last Reviewed 11/07/19 @ 16:27 by Eda Linares MD) History of appendectomy Onset Date: Unknown age 15 History of cataract extraction Onset Date: Unknown History of colonoscopy Onset Date: ~2005 Dr. Galaviz, [facility]. History of dilation of urethra Onset Date: ~07/2017 History of endarterectomy Onset Date: ~2014 History of tonsillectomy Onset Date: Unknown History of total left knee replacement Onset Date: ~2003 & 2010 knee was repaired by Dr. Francis. Dr. Cantrell did the original History of total right knee replacement Onset Date: ~1998 Dr. Cantrell History of transurethral resection of prostate Onset Date: 12/20/16 Dr. Shad Joseph, [facility]. History of umbilical hernia repair Onset Date: 05/19/09 Dr. Ayo Castle, [facility]. History of vasectomy Onset Date: Unknown Family History: Family History (Last Reviewed 11/07/19 @ 16:27 by Eda Linares MD) Brother Cancer Diabetes Parkinson disease Father , shot himself in 1963 Suicide Mother Alzheimers disease Sister Dementia Sister Cancer breast Social History: (Last Reviewed 11/07/19 @ 16:27 by Eda Linares MD) Social History: assisted: No Marital status: / lives independently: No household members: children number of children: 2 caregiver/support person: Yes caregiver/support person comment: Efren Reddy current occupational status: retired Highest education level completed: high school graduate Service: Yes branch: [employer] status: retired Tobacco: Smoking Status: Former smoker Alcohol: alcohol intake: current alcohol intake frequency: holiday/special occasion Substance Use: substance use type: does not use Dietary Habits: caffeine: Yes caffeine comment: current some day Taty/Orthodoxy: taty/islam: L[employer] Day Review Of Systems (GEN) - Review of Systems Generalized/Overall Review: Present: Weakness EENTM: Present: No Symptoms Reported Respiratory: Present: Shortness of Breath Cardiac: Present: Chest Pain - Occasionally, Syncope - He did not quite pass out but came close just prior to coming to ER.. Absent: Edema, Palpitations Abdominal: Present: No Symptoms Reported Genitourinary: Present: No Symptoms Reported Musculoskeletal: Present: No Symptoms Reported Neurological: Present: No Symptoms Reported Skin: Present: No Symptoms Reported Endocrine: Present: No Symptoms Reported Immunizations: IMMUNIZATION HX Immunizations Up to Date Yes History of Influenza Vaccine Yes Hx Pneumococcal Vaccination Yes Allergies/Adverse Reactions: Allergies Allergy/AdvReac Type Severity Reaction Status Date / Time venom-honey bee Allergy Severe Anaphylaxis Verified 11/07/19 15:45 [bee venom (honey bee)] morphine AdvReac Mild Nausea Verified 11/07/19 15:45 Home Medications: HOME MEDICATIONS Multivitamins [Multivitamin Juju] 1 cap PO DAILY 12/05/16 [Last Taken 10/29/17 08:00] Metoprolol Succinate [Toprol Xl] 100 mg PO DAILY 12/22/17 [Last Taken Unknown] finasteride 5 mg tablet 5 mg PO DAILY 01/01/18 [Last Taken Unknown] Insulin Glargine,Hum.rec.anlog [Lantus] 35 unit SUBCUT QAM 05/14/18 [Last Taken Unknown] nitroglycerin 0.4 mg sublingual tablet 0.4 mg SUBLINGUAL Q5MIN PRN #75 tab 06/12/18 [Last Taken Unknown] Escitalopram Oxalate [Lexapro] 20 mg PO DAILY 01/07/19 [Last Taken Unknown] Omeprazole 20 mg PO DAILY 01/07/19 [Last Taken Unknown] sitaGLIPtin PHOSPHATE [Januvia] 100 mg PO DAILY 01/07/19 [Last Taken Unknown] Albuterol Sulfate 2.5 mg INHALATION Q4H PRN 03/18/19 [Last Taken Unknown] Aspirin [Aspirin Enteric Coated] 81 mg PO DAILY 03/18/19 [Last Taken Unknown] Bisacodyl [Gentle Laxative] 10 mg PO DAILY PRN 03/18/19 [Last Taken Unknown] Cinnamon Bark [Cinnamon] 1,000 mg PO BID 03/18/19 [Last Taken Unknown] Isosorbide Mononitrate [Imdur] 30 mg PO DAILY 03/18/19 [Last Taken Unknown] Tiotropium [place] [Spiriva] 1 cap INHALATION DAILY 03/18/19 [Last Taken Unknown] Amlodipine Besylate [Norvasc] 2 tab PO DAILY 08/11/19 [Last Taken Unknown] busPIRone HCL [Buspar] 2 tab PO BID 08/11/19 [Last Taken Unknown] traMADol HCL [Ultram] 50 mg PO QID PRN 08/11/19 [Last Taken Unknown] Atorvastatin Calcium 20 mg PO DAILY 11/07/19 [Last Taken Unknown] Benzonatate 100 mg PO TID PRN 11/07/19 [Last Taken Unknown] Cyanocobalamin (Vitamin B-12) [Vitamin B12] 2,500 mcg PO DAILY 11/07/19 [Last Taken Unknown] Cyclobenzaprine HCl 10 mg PO HS PRN 11/07/19 [Last Taken Unknown] Donepezil HCl 10 mg PO HS 11/07/19 [Last Taken Unknown] Furosemide 20 mg PO DAILY 11/07/19 [Last Taken Unknown] Glimepiride 4 mg PO BID 11/07/19 [Last Taken Unknown] Insulin Glargine,Hum.rec.anlog [Lantus] 20 units SC 11/07/19 [Last Taken Unknown] Insulin Glargine,Hum.rec.anlog [Lantus] 20 units SC 11/07/19 [Last Taken Unknown] Insulin NPH Human Isophane [Humulin N Kwikpen] 20 unit SQ QPM 11/07/19 [Last Taken Unknown] Insulin NPH Human Isophane [Humulin N Kwikpen] 30 unit SQ QAM 11/07/19 [Last Taken Unknown] Loratadine 10 mg PO DAILY 11/07/19 [Last Taken Unknown] Miconazole Nitrate [Lotrimin AF] 90 gm TOPICAL BID 11/07/19 [Last Taken Unknown] Miconazole Nitrate [Lotrimin AF] 150 gm TOPICAL BID 11/07/19 [Last Taken Unknown] Mometasone Furoate 45 gm TOPICAL DAILY 11/07/19 [Last Taken Unknown] Mupirocin [Bactroban] 22 gm TOPICAL DAILY 11/07/19 [Last Taken Unknown] Oxybutynin Chloride [Oxybutynin Chloride ER] 10 mg PO DAILY 11/07/19 [Last Taken Unknown] Ranitidine HCl [Zantac] 300 mg PO BID 11/07/19 [Last Taken Unknown] Exam - Exam Vital Signs: Vital Signs - Last Taken Temp 36.6 C 11/07/19 19:12 Pulse 61 11/07/19 19:12 Resp 18 11/07/19 19:12 BP 174/57 H 11/07/19 19:12 Pulse Ox 93 11/07/19 19:12 Constitutional: Present: Alert, Oriented x3, Cooperative, Well developed, Well nourished, Obese ENT Exam: Present: normal ENT inspection, hearing grossly normal, pharynx normal, TMs normal Eye Exam: bilateral eye: normal inspection, PERRL, EOMI Neck: Present: non-tender, supple, normal inspection, limited range of motion Back Exam: Present: normal inspection, no CVA tenderness, no vertebral tenderness Breasts: Present: Nontender Respiratory: Present: chest non-tender, lungs clear, normal breath sounds, no respiratory distress, no accessory muscle use Cardiovascular/Chest: Present: normal peripheral pulses, regular rate, rhythm, no chest tenderness, no edema, no gallop, JVD, systolic murmur Peripheral Pulses: carotid (R): 2+, carotid (L): 2+, radial (R): 2+, radial (L): 2+ Abdomen: Present: Normal bowel sounds, soft, nontender, nondistended, no rebound tenderness, no hepatospenomegaly, no masses /Rectal: Present: Exam deferred Extremity: Present: normal range of motion, non-tender, normal inspection, no pedal edema, no calf tenderness Skin Exam: Present: warm/dry, no cyanosis, pallor Lymphatic: Present: no adenopathy Neurologic: Present: plaster lather II-XII nml as tested, normal cerebellar test, no motor/sensory deficits, alert, normal mood/affect, oriented x 3 Appearance: Present: appropriate appearance, appropriate insight, neat, no memory impairment Eye contact: Present: cooperative, good eye contact, normal speech Thoughts: Present: normal thought pattern, no apparent hallucination Diagnostic Studies: Abnormal Lab Results 11/07/19 11/07/19 Range/Units 16:13 16:13 RBC 3.57 L (4.7-6.0) M/mm3 Hgb 9.6 L (13.5-18.0) gm/dL Hct 28.9 L (42.0-52.0) % MCH 26.9 L (27-31) pg RDW 15.5 H (11.5-14.0) % Monocytes % 9.2 H (0.0-9) % Eosinophils % 3.9 H (0.0-3.0) % Lymphocytes # 1.10 L (1.5-3.5) k/mm3 Potassium 4.9 H (3.4-4.6) mmol/L BUN 36 H (6-23) mg/dL Creatinine 2.01 H (0.4-1.4) mg/dL Est GFR (Non-Af Amer) 34 L (60-130) mL/min Random Glucose 222 H (70-110) mg/dL B-Natriuretic Peptide 864 H (5-650) pg/mL Total Protein 6.1 L (6.2-8.2) gm/dL Albumin 3.2 L (3.4-5.0) gm/dl Laboratory Results WBC 5.5 K/mm3 (4.0-10.5) 11/07/19 16:13 RBC 3.57 M/mm3 (4.7-6.0) L 11/07/19 16:13 Hgb 9.6 gm/dL (13.5-18.0) L 11/07/19 16:13 Hct 28.9 % (42.0-52.0) L 11/07/19 16:13 MCV 81.0 fl (78-100) 11/07/19 16:13 MCH 26.9 pg (27-31) L 11/07/19 16:13 MCHC 33.2 g/dl (32-36) 11/07/19 16:13 RDW 15.5 % (11.5-14.0) H 11/07/19 16:13 Plt Count 190 K/mm3 (150-450) 11/07/19 16:13 MPV 9.7 fl (8-11.3) 11/07/19 16:13 Immature Gran % (Auto) 0.20 % (0.001-0.429) 11/07/19 16:13 Immature Gran # (Auto) 0.01 K/mm3 (0.000-0.0310) 11/07/19 16:13 Neutrophils % 65.8 % (42-75.0) 11/07/19 16:13 Lymphocytes % 20.2 % (20-51) 11/07/19 16:13 Monocytes % 9.2 % (0.0-9) H 11/07/19 16:13 Eosinophils % 3.9 % (0.0-3.0) H 11/07/19 16:13 Basophils % 0.7 % (0.0-1.0) 11/07/19 16:13 Nucleated RBC % 0.0 k/mm3 (0-1) 11/07/19 16:13 Neutrophils # 3.6 K/mm3 (1.3-6.0) 11/07/19 16:13 Lymphocytes # 1.10 k/mm3 (1.5-3.5) L 11/07/19 16:13 Monocytes # 0.5 k/mm3 (0.0-1.0) 11/07/19 16:13 Eosinophils # 0.2 k/mm3 (0.0-0.7) 11/07/19 16:13 Absolute Basophils 0.0 k/mm3 (0.0-0.1) 11/07/19 16:13 Sodium 134 mmol/L (132-142) 11/07/19 16:13 Plasma Sodium 136 mmol/L (130-142) 11/07/19 16:13 Potassium 4.9 mmol/L (3.4-4.6) H 11/07/19 16:13 Chloride 99 mmol/L (97-106) 11/07/19 16:13 Carbon Dioxide 27.7 mmol/L (24-32.6) 11/07/19 16:13 Anion Gap 12.2 mmol/L (6.8-13.8) 11/07/19 16:13 BUN 36 mg/dL (6-23) H 11/07/19 16:13 Creatinine 2.01 mg/dL (0.4-1.4) H 11/07/19 16:13 Est GFR (Non-Af Amer) 34 mL/min (60-130) L 11/07/19 16:13 BUN/Creatinine Ratio 17.9 (9.0-21.6) 11/07/19 16:13 Random Glucose 222 mg/dL (70-110) H 11/07/19 16:13 Calcium 8.3 mg/dL (7.9-10.9) 11/07/19 16:13 Calcium Adj for Albumin 8.6 mg/dL (8.4-10.2) 11/07/19 16:13 Total Bilirubin 0.2 mg/dL (0.0-1.1) 11/07/19 16:13 AST 19 U/L (0-48) 11/07/19 16:13 ALT 25 U/L (19-67) 11/07/19 16:13 Alkaline Phosphatase 92 U/L (50-170) 11/07/19 16:13 Troponin I 0.017 ng/mL (0.00-0.10) 11/07/19 18:02 B-Natriuretic Peptide 864 pg/mL (5-650) H 11/07/19 16:13 Total Protein 6.1 gm/dL (6.2-8.2) L 11/07/19 16:13 Albumin 3.2 gm/dl (3.4-5.0) L 11/07/19 16:13 Serum Ketones Negative (NEGATIVE) 11/07/19 16:13 Assessment/Plan - Narrative Narrative: 1. Continue his home meds 2. Check three-way blood pressure each shift 3. Monitor blood sugars 3 times daily AC 4. Continuous cardiac monitoring 5. I will have PT and OT see him in the morning 6. Try to find assisted placement if he will agree to it. 7. I talked to him last time he was here about assisted placement and he refused but he knows he cannot take care of himself now at home. He nearly blacks out and in fact does lose some sense of consciousness because he is amnestic about the near syncopal event which his son had to catch him before he fell into some display cabinet at home. He has been in the emergency room very frequently. He needs physical therapy, an environment where his diet and medications can be controlled, and have his hygiene needs attended to. He is unable to do these things on his own. - Assessment/Plan (1) Near syncope Problem: Acute (2) Uncontrolled type 2 diabetes mellitus Problem: Acute (3) Weakness Problem: Acute (4) CKD (chronic kidney disease), stage III Problem: Chronic (5) Hypertension Problem: Chronic Qualifiers: (6) CHF (congestive heart failure) Problem: Chronic (7) Anemia Problem: Acute Qualifiers: Anemia type: due to chronic kidney disease Chronic kidney disease stage: stage 3 (moderate) Qualified Code(s): N18.3 - Chronic kidney disease, stage 3 (moderate); D63.1 - Anemia in chronic kidney disease
--- NOTE | 2019-11-08 11:08 | DS ---
(1) Near syncope Problem: Resolved (2) Uncontrolled type 2 diabetes mellitus Problem: Chronic Qualifiers: Glycemic state: with hyperglycemia Qualified Code(s): E11.65 - Type 2 diabetes mellitus with hyperglycemia (3) Weakness Problem: Acute (4) CKD (chronic kidney disease), stage III Problem: Chronic (5) Hypertension Problem: Chronic Qualifiers: Hypertension type: essential hypertension Qualified Code(s): I10 - Essential (primary) hypertension (6) CHF (congestive heart failure) Problem: Chronic Qualifiers: Heart failure type: diastolic Heart failure chronicity: chronic Qualified Code(s): I50.32 - Chronic diastolic (congestive) heart failure (7) Anemia Problem: Acute Qualifiers: Anemia type: due to chronic kidney disease Chronic kidney disease stage: stage 3 (moderate) Qualified Code(s): N18.3 - Chronic kidney disease, stage 3 (moderate); D63.1 - Anemia in chronic kidney disease Date of Discharge:: 11/08/19 Hospital Course: Mr. Torre presented to the emergency room following an episode of sudden weakness and near syncope. He does not remember the events but is told that he nearly fell into a display case but apparently was caught by his son. He has been better since admission and this morning he walked with physical therapy without difficulty unassisted. He has walkers and canes at home. He has been monitored continuously on telemetry and there have been no dysrhythmias that would explain his near syncopal event. He does have a history of cardiac disease including coronary artery disease and history of CHF. He is under the care of a loans consultant and is supposed to be going to cardiac rehab. Since he appears to have recovered there does not appear to be any other intervention required so he will be discharged home. I suggested he go to a alf but it would be [id number] he says he cannot afford it and will do that. Procedures Performed: none Results and Findings: Lab Pending Results 11/07/19 16:13: WBC 5.5, RBC 3.57 L, Hgb 9.6 L, Hct 28.9 L, MCV 81.0, MCH 26.9 L, MCHC 33.2, RDW 15.5 H, Plt Count 190, MPV 9.7, Immature Gran % (Auto) 0.20, Immature Gran # (Auto) 0.01, Neutrophils % 65.8, Lymphocytes % 20.2, Monocytes % 9.2 H, Eosinophils % 3.9 H, Basophils % 0.7, Nucleated RBC % 0.0, Neutrophils # 3.6, Lymphocytes # 1.10 L, Monocytes # 0.5, Eosinophils # 0.2, Absolute Basophils 0.0 11/07/19 16:13: Sodium 134, Plasma Sodium 136, Potassium 4.9 H, Chloride 99, Carbon Dioxide 27.7, Anion Gap 12.2, BUN 36 H, Creatinine 2.01 H, Est GFR (Non- Af Amer) 34 L, BUN/Creatinine Ratio 17.9, Random Glucose 222 H, Calcium 8.3, Calcium Adj for Albumin 8.6, Total Bilirubin 0.2, AST 19, ALT 25, Alkaline Phos phatase 92, Troponin I Less than 0.017, B-Natriuretic Peptide 864 H, Total Protein 6.1 L, Albumin 3.2 L, Serum Ketones Negative 11/07/19 18:02: Troponin I 0.017 Discharge Location: Home Disposition: Home self-care Condition: Stable Discharge Activity: Activity as tolerated Discharge Diet: Resume usual diet Referrals: Ching Tao ARNP [Primary Care Provider] - Problem Oriented Discharge Instructions to Patient/Family: Near-Syncope, [id number] Additional Patient Instructions (free text): Follow with Ching Cox who is his PCP on November 17 at 10:30am. Please fax chart information to fax # [phone]. Cardiac Rehab starts tomorrow for you at [facility] on FridayNovember 08 at 9:00am. Prescriptions (Any new or edited meds): amLODIPine BESYLATE [Norvasc] 5 mg PO DAILY #30 tab Transmission Status: P[facility] to [facility] [place], [place] Complete Home Medications List: Complete Home Medication List: Multivitamins [Multivitamin Juju] 1 cap PO DAILY 12/05/16 Metoprolol Succinate [Toprol Xl] 100 mg PO DAILY 12/22/17 finasteride 5 mg tablet 5 mg PO DAILY 01/01/18 Insulin Glargine,Hum.rec.anlog [Lantus] 35 unit SUBCUT QAM 05/14/18 nitroglycerin 0.4 mg sublingual tablet 0.4 mg SUBLINGUAL Q5MIN PRN #75 tab 06/12/18 Escitalopram Oxalate [Lexapro] 20 mg PO DAILY 01/07/19 Omeprazole 20 mg PO DAILY 01/07/19 sitaGLIPtin PHOSPHATE [Januvia] 100 mg PO DAILY 01/07/19 Albuterol Sulfate 2.5 mg INHALATION Q4H PRN 03/18/19 Aspirin [Aspirin Enteric Coated] 81 mg PO DAILY 03/18/19 Bisacodyl [Gentle Laxative] 10 mg PO DAILY PRN 03/18/19 Cinnamon Bark [Cinnamon] 1,000 mg PO BID 03/18/19 Isosorbide Mononitrate [Imdur] 30 mg PO DAILY 03/18/19 Tiotropium [place] [Spiriva] 1 cap INHALATION DAILY 03/18/19 busPIRone HCL [Buspar] 2 tab PO BID 08/11/19 traMADol HCL [Ultram] 50 mg PO QID PRN 08/11/19 Atorvastatin Calcium 20 mg PO DAILY 11/07/19 Benzonatate 100 mg PO TID PRN 11/07/19 Cyanocobalamin (Vitamin B-12) [Vitamin B12] 2,500 mcg PO DAILY 11/07/19 Cyclobenzaprine HCl 10 mg PO HS PRN 11/07/19 Donepezil HCl 10 mg PO HS 11/07/19 Furosemide 20 mg PO DAILY 11/07/19 Glimepiride 4 mg PO BID 11/07/19 Insulin Glargine,Hum.rec.anlog [Lantus] 20 units SC HS 11/07/19 Insulin Glargine,Hum.rec.anlog [Lantus] 20 units SC 11/07/19 Insulin NPH Human Isophane [Humulin N Kwikpen] 20 unit SQ QPM 11/07/19 Insulin NPH Human Isophane [Humulin N Kwikpen] 30 unit SQ QAM 11/07/19 Loratadine 10 mg PO DAILY 11/07/19 Miconazole Nitrate [Lotrimin AF] 90 gm TOPICAL BID 11/07/19 Miconazole Nitrate [Lotrimin AF] 150 gm TOPICAL BID 11/07/19 Mometasone Furoate 45 gm TOPICAL DAILY 11/07/19 Mupirocin [Bactroban] 22 gm TOPICAL DAILY 11/07/19 Oxybutynin Chloride [Oxybutynin Chloride ER] 10 mg PO DAILY 11/07/19 Ranitidine HCl [Zantac] 300 mg PO BID 11/07/19 Insulin Glargine,Hum.rec.anlog [Lantus] 20 units SC HS vial 11/08/19 amLODIPine BESYLATE [Norvasc] 5 mg PO DAILY #30 tab 11/08/19 amLODIPine BESYLATE [Norvasc] 10 mg PO ONCE #1 tablet 11/08/19 Forms: Patient Portal Registration
[2019-11-08] MEDS ORDERED: amLODIPine BESYLATE 10 MG TABLET PO ONE (11:18)
[2019-11-08 11:24] VITALS: BP 171/59
== END 2019-11-08 11:40 | disposition home or self-care (01) ==
LOC: ER 15:39 → MS 15:39
PROVIDERS: ADMIT Family Medicine; ATTEND Family Medicine
DX: N18.3 Chronic kidney disease, stage 3 (moderate); Z87.891 Personal history of nicotine dependence; J44.9 Chronic obstructive pulmonary disease, unspecified; I13.0 Hypertensive heart and chronic kidney disease with heart failure and stage 1 through stage 4 chronic kidney disease, or unspecified chronic kidney disease; E11.22 Type 2 diabetes mellitus with diabetic chronic kidney disease; D63.1 Anemia in chronic kidney disease; I50.33 Acute on chronic diastolic (congestive) heart failure; E11.65 Type 2 diabetes mellitus with hyperglycemia; R53.1 Weakness; Z79.4 Long term (current) use of insulin
CPT/HCPCS: 36415; 71010; 71045; 80053; 82009; 83519; 83880; 84484; 85025; 93005; 94640; 94660; 94664; 96372; 97161; 97165; 99284; 99285; G0378

== ENCOUNTER 2020-09-22 15:43 | Observation (INO) ==
--- NOTE | 2020-09-22 16:08 | ERNOTE ---
Chest Pain/Cardiac HPI Date of Service: 09/22/20 Chief Complaint: Chest Pain Time Seen by Provider: 09/22/20 16:08 Source: patient Exam Limitations: no limitations Immunizations: IMMUNIZATION HX Immunizations Up to Date Yes Immunizations Comment Full COVID vaccine History of Influenza Vaccine Yes Hx Pneumococcal Vaccination Yes Allergies/Adverse Reactions: Allergies venom-honey bee [bee venom (honey bee)] Allergy (Severe, Verified 09/22/20 15:59) Anaphylaxis morphine Adverse Reaction (Mild, Verified 09/22/20 15:59) Nausea Home Medications: HOME MEDICATIONS Multivitamins [Multivitamin Juju] 1 cap PO DAILY 12/05/16 [Last Taken 10/29/17 08:00] Metoprolol Succinate [Toprol Xl] 100 mg PO DAILY 12/22/17 [Last Taken Unknown] finasteride 5 mg tablet 5 mg PO DAILY 01/01/18 [Last Taken Unknown] Insulin Glargine,Hum.rec.anlog [Lantus] 35 unit SUBCUT QAM 05/14/18 [Last Taken Unknown] nitroglycerin 0.4 mg sublingual tablet 0.4 mg SL Q5MIN PRN #75 tab 06/12/18 [Last Taken Unknown] Escitalopram Oxalate [Lexapro] 20 mg PO DAILY 01/07/19 [Last Taken Unknown] Omeprazole 20 mg PO DAILY 01/07/19 [Last Taken Unknown] sitaGLIPtin PHOSPHATE [Januvia] 100 mg PO DAILY 01/07/19 [Last Taken Unknown] Albuterol Sulfate 2.5 mg IH Q4H PRN 03/18/19 [Last Taken Unknown] Aspirin [Aspirin Enteric Coated] 81 mg PO DAILY 03/18/19 [Last Taken Unknown] Bisacodyl [Gentle Laxative] 10 mg PO DAILY PRN 03/18/19 [Last Taken Unknown] Cinnamon Bark [Cinnamon] 1,000 mg PO BID 03/18/19 [Last Taken Unknown] Isosorbide Mononitrate [Imdur] 30 mg PO DAILY 03/18/19 [Last Taken Unknown] Tiotropium [place] [Spiriva] 1 cap IH DAILY 03/18/19 [Last Taken Unknown] busPIRone HCL [Buspar] 2 tab PO BID 08/11/19 [Last Taken Unknown] traMADol HCL [Ultram] 50 mg PO QID PRN 08/11/19 [Last Taken Unknown] Atorvastatin Calcium 20 mg PO DAILY 11/07/19 [Last Taken Unknown] Benzonatate 100 mg PO TID PRN 11/07/19 [Last Taken Unknown] Cyanocobalamin (Vitamin B-12) [Vitamin B12] 2,500 mcg PO DAILY 11/07/19 [Last Taken Unknown] Cyclobenzaprine HCl 10 mg PO HS PRN 11/07/19 [Last Taken Unknown] Donepezil HCl 10 mg PO HS 11/07/19 [Last Taken Unknown] Furosemide 20 mg PO DAILY 11/07/19 [Last Taken Unknown] Glimepiride 4 mg PO BID 11/07/19 [Last Taken Unknown] Insulin NPH Human Isophane [Humulin N Kwikpen] 20 unit SQ QPM 11/07/19 [Last Taken Unknown] Insulin NPH Human Isophane [Humulin N Kwikpen] 30 unit SQ QAM 11/07/19 [Last Ta noreen Unknown] Loratadine 10 mg PO DAILY 11/07/19 [Last Taken Unknown] Miconazole Nitrate [Lotrimin AF] 90 gm TP BID 11/07/19 [Last Taken Unknown] Miconazole Nitrate [Lotrimin AF] 150 gm TP BID 11/07/19 [Last Taken Unknown] Mometasone Furoate 45 gm TP DAILY 11/07/19 [Last Taken Unknown] Mupirocin [Bactroban] 22 gm TP DAILY 11/07/19 [Last Taken Unknown] Oxybutynin Chloride [Oxybutynin Chloride ER] 10 mg PO DAILY 11/07/19 [Last Taken Unknown] Ranitidine HCl [Zantac] 300 mg PO BID 11/07/19 [Last Taken Unknown] Insulin Glargine,Hum.rec.anlog [Lantus] 20 units SC HS vial 11/08/19 [Last Taken Unknown] amLODIPine BESYLATE [Norvasc] 5 mg PO DAILY #30 tab 11/08/19 [Last Taken Unknown] predniSONE [Prednisone] 2 tab PO DAILY #10 tab 01/06/20 [Last Taken Unknown] Pain Score #1 Pain Score: 9 Narrative: 85 yr old male with PMH of COPD, HLD, CAD, GERD, CKD stage 3, BPH, DVT brachial vein, dementia, Diabetes Mellitus type 2, chronic diastolic congestive heart failure, anemia, dizzy spells, elevated troponin, s/p pacemaker, chronic chest wall painand FAUSTINO presents with one hour history of left sided chest pain with radiation to his left arm. This started at rest. Has chronic SOB with his COPD. Denies any new SOB. Denies any nausea or diaphoresis. Was lightheaded earlier. States chest pain is sharp and constant. Denies any aggravating or alleviating factors. He has Nitroglycerin at home, but has not taken any. He took two baby aspirin this morning. Date (Duration): 09/22/20 Time (Timing): 16:08 Timing: constant Severity/Quality: severe, sharp Location: left chest Chest Pain Radiation: arms - left Activities at Onset: rest Modifying Factors - Improves: Present: nothing Modifying Factors - Worsens: Present: other - palpation Nitro Today/Relief: no nitro taken today Associated Symptoms: Present: dizziness, shortness of breath - chronic, no worse . Absent: fever/chills, palpitations, nausea, vomiting, weakness, back pain Prior Chest Pain/Cardiac Workup: Reports: prior chest pain, angina Review of Systems - Review of Systems Constitutional: Absent: recent illness, diaphoresis, weakness, fatigue EYE: Present: no symptoms reported ENT: Present: no symptoms reported Respiratory: Present: shortness of breath - chronic. Absent: cough Cardiology: Present: chest pain. Absent: palpitations, syncope, edema Gastrointestinal/Abdominal: Absent: nausea, vomiting, abdominal pain Genitourinary: Present: no symptoms reported Musculoskeletal: Present: other - left arm pain Skin: Present: no symptoms reported Neurological: Present: dizziness/light-headedness Endocrine: Present: no symptoms reported Hematologic/Lymphatic: Present: no symptoms reported Psych: Present: no symptoms reported All Other Systems: All systems neg except as marked Medical History (Last Reviewed 09/22/20 @ 16:48 by ALESHA Valdovinos) COPD (chronic obstructive pulmonary disease) (Chronic) Sleep apnea (Chronic) Onset Date: Unknown Pseudophakia of both eyes (Chronic) Onset Date: 11/02/14 Peripheral vascular disease (Chronic) Onset Date: Unknown Hyperlipidemia (Chronic) Onset Date: 08/06/[address] Henley. Hypercholesterolemia (Chronic) Onset Date: Unknown Heart disease (Chronic) Onset Date: Unknown GERD (gastroesophageal reflux disease) (Chronic) Onset Date: Unknown Chronic kidney disease, stage 3 (moderate) (Chronic) Onset Date: 10/07/12 Carotid artery disease (Chronic) Onset Date: 08/06/[address] Henley. BPH w urinary obs/LUTS (Chronic) Onset Date: 08/22/17 Arthritis (Chronic) Onset Date: Unknown COVID-19 vaccine series completed Deep vein thrombosis (DVT) of brachial vein Onset Date: 07/15/18 Per ultrasound obtained at [facility]. Left, nonocclusive. Dementia Diabetes Diastolic heart failure Onset Date: 06/12/18 Grade 1. Hospital admission Onset Date: 06/12/[address] [facility] on 06/12/2018; influenza A. Discharged home on 06/15/2018. Incomplete bladder emptying Influenza A Onset Date: 06/12/18 Left rotator cuff tear Onset Date: 06/21/18 Pacemaker Onset Date: ~08/05/20 Swelling of left hand Onset Date: 05/2018 Tendinitis of left shoulder Onset Date: 06/21/18 Tenosynovitis of left shoulder Onset Date: 06/21/18 Thrombus Onset Date: 07/15/18 Per ultrasound obtained at [facility]. Thrombus within the left superficial basilica vein, nonocclusive. Anemia Onset Date: Unknown Dyslipidemia Onset Date: Unknown History of frequent headaches Onset Date: Unknown Blurred vision Onset Date: Unknown Hernia, umbilical Onset Date: Unknown History of CT scan of abdomen Onset Date: 07/10/18 CT abdomen pelvis WO contrast. [facility]. History of CT scan of abdomen Onset Date: 07/25/18 CT abdomen pelvis W contrast. [facility]. History of CT scan of chest Onset Date: 07/07/18 CT angio chest. [facility]. 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 History of MRI Onset Date: 06/21/18 [facility]. * See scanned document from [facility] dated 06/21/2018. Hospital admission Onset Date: 06/21/[address] [facility] on 06/21/2018; intractable pain. Discharged to home on 06/24/2018. Hospital admission Onset Date: 07/07/[address] [facility] on 07/07/2018; bilateral pulmonary embolism. Discharged siena e on 07/10/2018. Hospital admission Onset Date: 07/16/[address] [facility] on 07/16/2018; right groin/thigh pain. Discharged home on 07/22/2018. Hospital admission Onset Date: 07/24/[address] [facility] on 07/24/2018; colitis, GI bleed. Discharged home on 07/27/2018. Hypospadias Onset Date: 1935 Pulmonary embolism Onset Date: 07/07/18 Stasis dermatitis Onset Date: 01/04/[address] Hernadez. Surgical History: Surgical History (Last Reviewed 09/22/20 @ 16:49 by LAESHA Valdovinos) History of appendectomy Onset Date: Unknown age 15 History of cataract extraction Onset Date: Unknown History of colonoscopy Onset Date: ~2005 Dr. Galaviz, [facility]. History of dilation of urethra Onset Date: ~07/2017 History of endarterectomy Onset Date: ~2014 History of tonsillectomy Onset Date: Unknown History of total left knee replacement Onset Date: ~2003 & 2010 knee was repaired by Dr. Francis. Dr. Cantrell did the original History of total right knee replacement Onset Date: ~1998 Dr. Cantrell History of transurethral resection of prostate Onset Date: 12/20/16 Dr. Shad Joseph, [facility]. History of umbilical hernia repair Onset Date: 05/19/09 Dr. Ayo Castle, [facility]. History of vasectomy Onset Date: Unknown Family History: Family History (Last Reviewed 09/22/20 @ 16:49 by ALESHA Valdovinos) Brother Parkinson disease Diabetes Cancer Father , shot himself in 1963 Suicide Mother Alzheimers disease Sister Dementia Sister Cancer breast Social History: (Last Reviewed 09/22/20 @ 16:49 by ALESHA Valdovinos) Social History: skilled nursing: No Marital status: / lives independently: No household members: children number of children: 2 caregiver/support person: Yes caregiver/support person comment: Efren Reddy current occupational status: retired Highest level of school completed/degree received: high school graduate Service: Yes branch: [employer] status: retired Tobacco: Smoking Status: Former smoker Alcohol: alcohol intake: current alcohol intake frequency: holiday/special occasion Substance Use: substance use type: does not use Dietary Habits: caffeine: Yes caffeine comment: current some day Taty/Advent: taty/uatsdin: [employer] Physical Exam - Physical Exam General Appearance: Present: wd/wn, alert, no apparent distress Head Exam: Present: normal inspection, no evidence of injury Eye Exam: Normal inspection: bilateral, PERRL: bilateral, EOMI: bilateral Ears, Nose, Throat: Present: normal ENT inspection, normal pharynx, dry mucous membranes Neck: Present: normal inspection Respiratory: Present: normal breath sounds, no accessory muscle use, lungs clear, chest tenderness - Significant left sided chest tenderness, respiratory distress - mild increase effort, increased respiratory rate. , decreased breath sounds. Absent: accessory muscle use, rales, rhonchi Cardiovascular/Chest: Present: regular rate, rhythm, no murmur, normal peripheral pulses Gastrointestinal/Abdominal: Present: normal bowel sounds, nontender, nondistended - obese, soft Back Exam: Present: normal inspection, no CVA tenderness Extremity Exam: Present: normal except - - trace edema Neurological Exam: Present: alert, oriented, normal mood/affect, no motor/sensory deficits Skin Exam: Present: normal color, warm/dry Progress - Results and Orders Patient's Lab Results:: I have reviewed the patient's lab results. Results and Orders: Laboratory Tests 09/22/20 16:20 WBC 6.2 RBC 4.05 L Hgb 11.2 L Hct 35.4 L MCV 87.4 MCH 27.7 MCHC 31.6 L RDW 17.9 H Plt Count 212 Laboratory Tests 09/22/20 16:20 Troponin I 0.043 Laboratory Tests 09/22/20 16:20 PT 10.0 INR (Anticoag Therapy) 0.96 PTT (Laura) 24.8 Laboratory Tests 09/22/20 16:20 Sodium 138 Plasma Sodium 144 H Potassium 5.4 H Chloride 103 Carbon Dioxide 26.9 Anion Gap 13.5 BUN 26 H Creatinine 1.88 H Est GFR (Non-Af Amer) 36 L BUN/Creatinine Ratio 13.8 Random Glucose 447 H Calcium 8.1 Calcium Adj for Albumin 8.3 L Total Bilirubin 0.4 ALT 30 Alkaline Phosphatase 108 B-Natriuretic Peptide 2498 H Total Protein 6.8 Albumin 3.4 Laboratory Tests 09/22/20 19:45 Troponin I 0.023 Laboratory Tests 09/22/20 20:40 SARS-CoV-2 (PCR) Not detected - Vital Signs Vital Signs: Vital Signs 09/22/20 15:45 Temperature 37.0 C Pulse Rate 77 Respiratory Rate 24 H Blood Pressure 183/65 H O2 Sat by Pulse Oximetry 94 - EKG EKG #1 EKG: other - NSR with first degree AV block, rate 76, no acute changes when compared to prior - X-Ray X-Ray #1 X-Ray: chest Interpretation: Reviewed by me - consistent with CHF - Progress/Reassessment Chief Complaint: Chest Pain Progress:: Improved Progress Note-Subjective: 09/22/20 18:13 Test results, etiology and treatment plan explained to patient. He desires sofia velazquez to [facility] in [place]. This is where all of his carsdiac care has been and his pacemaker was implanted. He does not have a primary care physician here. Spoke with Dr. Lancaster and nursing staff, if patient desires to go to [place] where his cardiology is and he does not have a primary care provider here notifying the [employer] physician was not necessary. Patient's vital signs have improved. Chest pain down from 9 to 7. [place] transfer clerk notified. Dr. Choudhary from the ER will call back. 09/22/20 19:43 Dr. Choudhary accepted the patient however, there are 71 ER patients ahead of him and they have no beds. He asked that I admit him here and they will call us when they have a bed for transfer. 19:[address] Frederick and staffed the case with her. We will repeat a troponin and call her back for possible admission here. The patient desires to be admitted here while waiting for transfer toe the [facility]. Repeat Troponin was 0.023. I called Dr. Frederick back and she graciously agreed to accept the patient here. Patient is much more comfortable. Pain is less. He is able to lay with HOB elevated to 30 degrees. Able to converse with ease. Breathing much better. He had good urine output from [facility]. 09/22/20 20:38 Plan - Plan Plan: Admit to floor and await transfer to [place] Departure Clinical Impression: Chest pain at rest, Diastolic CHF, acute on chronic Uncontrolled type 2 diabetes mellitus Qualifiers: Glycemic state: with hyperglycemia Qualified Code(s): E11.65 - Type 2 diabetes mellitus with hyperglycemia CKD (chronic kidney disease), stage III Qualifiers: Chronic kidney disease stage 3 subtype: stage 3b (GFR 30-44) Qualified Code(s): N18.32 - Chronic kidney disease, stage 3b Hypertension Qualifiers: Hypertension type: secondary to other renal disorders Qualified Code(s): I15.1 - Hypertension secondary to other renal disorders COPD (chronic obstructive pulmonary disease) Qualifiers: COPD type: chronic bronchitis Chronic bronchitis type: unspecified Qualified Code(s): J42 - Unspecified chronic bronchitis - Departure Disposition: Still a patient Condition: Good Referrals: Ching Tao ARNP [Primary Care Provider] -
[2020-09-22] MEDS ORDERED: ASPIRIN 81 MG TAB.CHEW PO ONE (16:20)
[2020-09-22] MEDS: NITROGLYCERIN 0.4 MG/TAB BTL SL PRN ×3 (16:31→16:48)
[2020-09-22 16:46] LABS: Hematocrit 35.4 % (42.0-52.0); Hemoglobin 11.2 gm/dL (13.5-18.0); Mean Cell Volume 87.4 fl (78-100); Mean Corpuscular Hemoglobin 27.7 pg (27-31); Mean Corpuscular Hgb Conc 31.6 g/dl (32-36); Mean Platelet Volume 10.4 fl (8-11.3); Neutrophil # 4.6 K/mm3 (1.3-6.0); Neutrophil % 73.4 % (42-75.0); Platelet Count 212 K/mm3 (150-450); Red Blood Count 4.05 M/mm3 (4.7-6.0); Red Cell Distribution Width 17.9 % (11.5-14.0); White Blood Count 6.2 K/mm3 (4.0-10.5)
[2020-09-22] MEDS ORDERED: HYDROmorphone HCL 1 MG/ML DISP.SYRIN IV ONE (16:54)
[2020-09-22 17:04] LABS: INR 0.96 INR (0.92-1.08); Partial Thrombolplastin Time 24.8 Seconds (24-32)
[2020-09-22 17:06] LABS: Troponin I 0.043 ng/mL (0.00-0.10)
[2020-09-22 17:08] LABS: Albumin * 3.4 gm/dl (3.4-5.0); Anion Gap 13.5 mmol/L (6.8-13.8); BUN/Creatinine Ratio 13.8 (9.0-21.6); Bilirubin, Total 0.4 mg/dL (0.0-1.1); Ca. Corrected For Albumin 8.3 mg/dL (8.4-10.2); Calcium * 8.1 mg/dL (7.9-10.9); Carbon Dioxide 26.9 mmol/L (24-32.6); Potassium 5.4 mmol/L (3.4-4.6); Total Protein 6.8 gm/dL (6.2-8.2)
[2020-09-22] MEDS ORDERED: FUROSEMIDE 10 MG/ML VIAL IV ONE (17:14)
[2020-09-22] MEDS ORDERED: INSULIN REGULAR, HUMAN 100 UNITS/ML VIAL IV ONE (17:16)
[2020-09-22] MEDS ORDERED: METOPROLOL TARTRATE 1 MG/ML AMPUL IV ONE (17:26)
[2020-09-22] MEDS ORDERED: NITROGLYCERIN 0.4 MG/TAB BTL SL PRN (23:01)
[2020-09-22] MEDS ORDERED: ACETAMINOPHEN 325 MG TABLET PO PRN (23:04)
[2020-09-22] MEDS ORDERED: ONDANSETRON HCL/PF 2 MG/ML VIAL IV PRN (23:05)
--- NOTE | 2020-09-22 23:17 | HP ---
Chief Complaint - Chief Complaint Date of Service: 09/23/20 Time of Service: 23:07 History of Present Illness: The patient is a very pleasant 85-year-old male with a history of chronic respiratory failure secondary to 3 L oxygen dependent COPD, history of coronary artery disease, chronic kidney disease stage II-III, diastolic heart failure, and pacemaker, who was in his usual state of health until about 3 PM when he started developing left-sided chest pain that radiated to his left arm, similar to his prior presentation when he had coronary artery disease. He denied any nausea, vomiting or diaphoresis. He took 3 sublingual nitroglycerin. He took 2 baby aspirin prior to arrival to the ED, and then he was given 3 more baby aspirin in the ED. On further questioning, the patient has chronic shortness of breath but has had more dyspnea on exertion over the past several days. He has one pillow orthopnea. According to him, he is not on Lasix as an outpatient but his daughter usually sets them up with his medications for a week. Unfortunately, the patient does not know the rest of his medications and they still need to be verified. In the ED, he was given 40 mg of Lasix, after noting to have a BNP of 2500. Troponin was negative. EKG showed normal sinus rhythm with right bundle branch block and acute first-degree AV block. He has had 1800 cc urine output and is currently feeling better. Troponin 2 have been negative. The patient gets most of his cardiac care at [facility]. The patient is accepted in transfer however there are no beds available and he is currently on a wait list. He is being admitted at this facility for further evaluation. Medical History (Last Reviewed 09/22/20 @ 16:50 by Elena Joyner RN) COPD (chronic obstructive pulmonary disease) (Chronic) Sleep apnea (Chronic) Onset Date: Unknown Pseudophakia of both eyes (Chronic) Onset Date: 11/02/14 Peripheral vascular disease (Chronic) Onset Date: Unknown Hyperlipidemia (Chronic) Onset Date: 08/06/[address] Henley. Hypercholesterolemia (Chronic) Onset Date: Unknown Heart disease (Chronic) Onset Date: Unknown GERD (gastroesophageal reflux disease) (Chronic) Onset Date: Unknown Chronic kidney disease, stage 3 (moderate) (Chronic) Onset Date: 10/07/12 Carotid artery disease (Chronic) Onset Date: 08/06/[address] Henley. BPH w urinary obs/LUTS (Chronic) Onset Date: 08/22/17 Arthritis (Chronic) Onset Date: Unknown COVID-19 vaccine series completed Deep vein thrombosis (DVT) of brachial vein Onset Date: 07/15/18 Per ultrasound obtained at [facility]. Left, nonocclusive. Dementia Diabetes Diastolic heart failure Onset Date: 06/12/18 Grade 1. Hospital admission Onset Date: 06/12/18 Admitted to [facility] on 06/12/2018; influenza A. Discharged home on 06/15/2018. Incomplete bladder emptying Influenza A Onset Date: 06/12/18 Left rotator cuff tear Onset Date: 06/21/18 Pacemaker Onset Date: ~08/05/20 Swelling of left hand Onset Date: 05/2018 Tendinitis of left shoulder Onset Date: 06/21/18 Tenosynovitis of left shoulder Onset Date: 06/21/18 Thrombus Onset Date: 07/15/18 Per ultrasound obtained at [facility]. Thrombus within the left superficial basilica vein, nonocclusive. Anemia Onset Date: Unknown Dyslipidemia Onset Date: Unknown History of frequent headaches Onset Date: Unknown Blurred vision Onset Date: Unknown Hernia, umbilical Onset Date: Unknown History of CT scan of abdomen Onset Date: 07/10/18 CT abdomen pelvis WO contrast. [facility]. History of CT scan of abdomen Onset Date: 07/25/18 CT abdomen pelvis W contrast. [facility]. History of CT scan of chest Onset Date: 07/07/18 CT angio chest. [facility]. 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 History of MRI Onset Date: 06/21/18 [facility]. * See scanned document from [facility] dated 06/21/2018. Hospital admission Onset Date: 06/21/18 Admitted to [facility] on 06/21/2018; intractable pain. Discharged to home on 06/24/2018. Hospital admission Onset Date: 07/07/18 Admitted to [facility] on 07/07/2018; bilateral pulmonary embolism. Discharged home on 07/10/2018. Hospital admission Onset Date: 07/16/18 Admitted to [facility] on 07/16/2018; right groin/thigh pain. Discharged home on 07/22/2018. Hospital admission Onset Date: 07/24/18 Admitted to [facility] on 07/24/2018; colitis, GI bleed. Discharged home on 07/27/2018. Hypospadias Onset Date: 1935 Pulmonary embolism Onset Date: 07/07/18 Stasis dermatitis Onset Date: 01/04/[address] Hernadez. Surgical History: Surgical History (Last Reviewed 09/22/20 @ 16:50 by Elena Joyner RN) History of appendectomy Onset Date: Unknown age 15 History of cataract extraction Onset Date: Unknown History of colonoscopy Onset Date: ~2005 Dr. Galaviz, [facility]. History of dilation of urethra Onset Date: ~07/2017 History of endarterectomy Onset Date: ~2014 History of tonsillectomy Onset Date: Unknown History of total left knee replacement Onset Date: ~2003 & 2010 knee was repaired by Dr. Francis. Dr. Cantrell did the original History of total right knee replacement Onset Date: ~1998 Dr. Cantrell History of transurethral resection of prostate Onset Date: 12/20/16 Dr. Shad Joseph, [facility]. History of umbilical hernia repair Onset Date: 05/19/09 Dr. Ayo Castle, [facility]. History of vasectomy Onset Date: Unknown Family History: Family History (Last Reviewed 09/22/20 @ 16:50 by Elena Joyner RN) Brother Father, shot himself in 1963 Mother Sister Sister Diabetes Brother Alzheimers disease Mother Dementia Sister Suicide Father Cancer Brother Sister breast Parkinson disease Brother Social History: (Last Reviewed 09/22/20 @ 23:05 by Chnig Tamez RN) Social History: chcf: No Marital status: / lives independently: No household members: children number of children: 4 caregiver/support person: Yes caregiver/support person comment: Efren Reddy current occupational status: retired Highest level of school completed/degree received: high school graduate Service: Yes branch: [employer] status: retired Tobacco: Smoking Status: Former smoker Alcohol: alcohol intake: current alcohol intake frequency: holiday/special occasion Substance Use: substance use type: does not use Dietary Habits: caffeine: Yes caffeine comment: current some day Taty/Evangelical: taty/latter-day: Roman Catholic Review Of Systems (GEN) - Review of Systems Generalized/Overall Review: Present: Weakness Respiratory: Present: Shortness of Breath Cardiac: Present: Chest Pain Abdominal: Present: No Symptoms Reported Genitourinary: Present: No Symptoms Reported Musculoskeletal: Present: No Symptoms Reported Immunizations: IMMUNIZATION HX Immunizations Up to Date Yes Immunizations Comment Full COVID vaccine History of Influenza Vaccine Yes Hx Pneumococcal Vaccination Yes Allergies/Adverse Reactions: Allergies Allergy/AdvReac Type Severity Reaction Status Date / Time venom-honey bee Allergy Severe Anaphylaxis Verified 09/22/20 15:59 [bee venom (honey bee)] morphine AdvReac Mild Nausea Verified 09/22/20 15:59 Home Medications: HOME MEDICATIONS Multivitamins [Multivitamin Juju] 1 cap PO DAILY 12/05/16 [Last Taken 10/29/17 08:00] Metoprolol Succinate [Toprol Xl] 100 mg PO DAILY 12/22/17 [Last Taken Unknown] finasteride 5 mg tablet 5 mg PO DAILY 01/01/18 [Last Taken Unknown] Insulin Glargine,Hum.rec.anlog [Lantus] 35 unit SUBCUT QAM 05/14/18 [Last Taken Unknown] nitroglycerin 0.4 mg sublingual tablet 0.4 mg SL Q5MIN PRN #75 tab 06/12/18 [Last Taken Unknown] Escitalopram Oxalate [Lexapro] 20 mg PO DAILY 01/07/19 [Last Taken Unknown] Omeprazole 20 mg PO DAILY 01/07/19 [Last Taken Unknown] sitaGLIPtin PHOSPHATE [Januvia] 100 mg PO DAILY 01/07/19 [Last Taken Unknown] Albuterol Sulfate 2.5 mg IH Q4H PRN 03/18/19 [Last Taken Unknown] Aspirin [Aspirin Enteric Coated] 81 mg PO DAILY 03/18/19 [Last Taken Unknown] Bisacodyl [Gentle Laxative] 10 mg PO DAILY PRN 03/18/19 [Last Taken Unknown] Cinnamon Bark [Cinnamon] 1,000 mg PO BID 03/18/19 [Last Taken Unknown] Isosorbide Mononitrate [Imdur] 30 mg PO DAILY 03/18/19 [Last Taken Unknown] Tiotropium [place] [Spiriva] 1 cap IH DAILY 03/18/19 [Last Taken Unknown] busPIRone HCL [Buspar] 2 tab PO BID 08/11/19 [Last Taken Unknown] traMADol HCL [Ultram] 50 mg PO QID PRN 05/13/20 [Last Taken Unknown] Atorvastatin Calcium 20 mg PO DAILY 11/07/19 [Last Taken Unknown] Benzonatate 100 mg PO TID PRN 11/07/19 [Last Taken Unknown] Cyanocobalamin (Vitamin B-12) [Vitamin B12] 2,500 mcg PO DAILY 11/07/19 [Last Taken Unknown] Cyclobenzaprine HCl 10 mg PO HS PRN 11/07/19 [Last Taken Unknown] Donepezil HCl 10 mg PO HS 11/07/19 [Last Taken Unknown] Furosemide 20 mg PO DAILY 11/07/19 [Last Taken Unknown] Glimepiride 4 mg PO BID 11/07/19 [Last Taken Unknown] Insulin NPH Human Isophane [Humulin N Kwikpen] 20 unit SQ QPM 11/07/19 [Last Taken Unknown] Insulin NPH Human Isophane [Humulin N Kwikpen] 30 unit SQ QAM 11/07/19 [Last Ta noreen Unknown] Loratadine 10 mg PO DAILY 11/07/19 [Last Taken Unknown] Miconazole Nitrate [Lotrimin AF] 90 gm TP BID 11/07/19 [Last Taken Unknown] Miconazole Nitrate [Lotrimin AF] 150 gm TP BID 11/07/19 [Last Taken Unknown] Mometasone Furoate 45 gm TP DAILY 11/07/19 [Last Taken Unknown] Mupirocin [Bactroban] 22 gm TP DAILY 11/07/19 [Last Taken Unknown] Oxybutynin Chloride [Oxybutynin Chloride ER] 10 mg PO DAILY 11/07/19 [Last Taken Unknown] Ranitidine HCl [Zantac] 300 mg PO BID 11/07/19 [Last Taken Unknown] Insulin Glargine,Hum.rec.anlog [Lantus] 20 units SC HS vial 11/08/19 [Last Taken Unknown] amLODIPine BESYLATE [Norvasc] 5 mg PO DAILY #30 tab 11/08/19 [Last Taken Unknown] predniSONE [Prednisone] 2 tab PO DAILY #10 tab 01/06/20 [Last Taken Unknown] Exam - Exam Vital Signs: Vital Signs - Last Taken Temp 36.7 C 09/22/20 22:30 Pulse 71 09/22/20 22:30 Resp 20 09/22/20 22:30 BP 187/66 H 09/22/20 22:30 Pulse Ox 95 09/22/20 22:30 Constitutional: Present: Alert, Oriented x3 - General : Alert and oriented 3 HEENT : Extraocular movements intact, pupils equal, and round Neck: supple no JVD Chest: Clear to auscultation bilaterally. No wheezes Heart : Regular rate and rhythm. S1 and S2 heard. Abdomen : Soft, nontender, nondistended. Bowel sounds present Extremities Extremity: Present: other - 2+ pitting edema of lower extremities Diagnostic Studies: Abnormal Lab Results 09/22/20 09/22/20 Range/Units 16:20 16:20 RBC 4.05 L (4.7-6.0) M/mm3 Hgb 11.2 L (13.5-18.0) gm/dL Hct 35.4 L (42.0-52.0) % MCHC 31.6 L (32-36) g/dl RDW 17.9 H (11.5-14.0) % Lymphocytes % 13.0 L (20-51) % Eosinophils % 4.2 H (0.0-3.0) % Lymphocytes # 0.81 L (1.5-3.5) k/mm3 Plasma Sodium 144 H (130-142) mmol/L Potassium 5.4 H (3.4-4.6) mmol/L BUN 26 H (6-23) mg/dL Creatinine 1.88 H (0.4-1.4) mg/dL Est GFR (Non-Af Amer) 36 L (60-130) mL/min Random Glucose 447 H (70-110) mg/dL Calcium Adj for Albumin 8.3 L (8.4-10.2) mg/dL B-Natriuretic Peptide 2498 H (5-650) pg/mL Laboratory Results WBC 6.2 K/mm3 (4.0-10.5) 09/22/20 16:20 RBC 4.05 M/mm3 (4.7-6.0) L 09/22/20 16:20 Hgb 11.2 gm/dL (13.5-18.0) L 09/22/20 16:20 Hct 35.4 % (42.0-52.0) L 09/22/20 16:20 MCV 87.4 fl (78-100) 09/22/20 16:20 MCH 27.7 pg (27-31) 09/22/20 16:20 MCHC 31.6 g/dl (32-36) L 09/22/20 16:20 RDW 17.9 % (11.5-14.0) H 09/22/20 16:20 Plt Count 212 K/mm3 (150-450) 09/22/20 16:20 MPV 10.4 fl (8-11.3) 09/22/20 16:20 Immature Gran % (Auto) 0.20 % (0.001-0.429) 09/22/20 16:20 Immature Gran # (Auto) 0.01 K/mm3 (0.000-0.0310) 09/22/20 16:20 Neutrophils % 73.4 % (42-75.0) 09/22/20 16:20 Lymphocytes % 13.0 % (20-51) L 09/22/20 16:20 Monocytes % 8.7 % (0.0-9) 09/22/20 16:20 Eosinophils % 4.2 % (0.0-3.0) H 09/22/20 16:20 Basophils % 0.5 % (0.0-1.0) 09/22/20 16:20 Nucleated RBC % 0.0 k/mm3 (0-1) 09/22/20 16:20 Neutrophils # 4.6 K/mm3 (1.3-6.0) 09/22/20 16:20 Lymphocytes # 0.81 k/mm3 (1.5-3.5) L 09/22/20 16:20 Monocytes # 0.5 k/mm3 (0.0-1.0) 09/22/20 16:20 Eosinophils # 0.3 k/mm3 (0.0-0.7) 09/22/20 16:20 Absolute Basophils 0.0 k/mm3 (0.0-0.1) 09/22/20 16:20 PT 10.0 Seconds (9.1-10.7) 09/22/20 16:20 INR (Anticoag Therapy) 0.96 INR (0.92-1.08) 09/22/20 16:20 PTT (Laura) 24.8 Seconds (24-32) 09/22/20 16:20 Sodium 138 mmol/L (132-142) 09/22/20 16:20 Plasma Sodium 144 mmol/L (130-142) H 09/22/20 16:20 Potassium 5.4 mmol/L (3.4-4.6) H 09/22/20 16:20 Chloride 103 mmol/L (97-106) 09/22/20 16:20 Carbon Dioxide 26.9 mmol/L (24-32.6) 09/22/20 16:20 Anion Gap 13.5 mmol/L (6.8-13.8) 09/22/20 16:20 BUN 26 mg/dL (6-23) H 09/22/20 16:20 Creatinine 1.88 mg/dL (0.4-1.4) H 09/22/20 16:20 Est GFR (Non-Af Amer) 36 mL/min (60-130) L 09/22/20 16:20 BUN/Creatinine Ratio 13.8 (9.0-21.6) 09/22/20 16:20 Random Glucose 447 mg/dL (70-110) H 09/22/20 16:20 Calcium 8.1 mg/dL (7.9-10.9) 09/22/20 16:20 Calcium Adj for Albumin 8.3 mg/dL (8.4-10.2) L 09/22/20 16:20 Total Bilirubin 0.4 mg/dL (0.0-1.1) 09/22/20 16:20 AST 35 U/L (0-48) 09/22/20 16:20 ALT 30 U/L (19-67) 09/22/20 16:20 Alkaline Phosphatase 108 U/L (50-170) 09/22/20 16:20 Troponin I 0.023 ng/mL (0.00-0.10) 09/22/20 19:45 B-Natriuretic Peptide 2498 pg/mL (5-650) H 09/22/20 16:20 Total Protein 6.8 gm/dL (6.2-8.2) 09/22/20 16:20 Albumin 3.4 gm/dl (3.4-5.0) 09/22/20 16:20 SARS-CoV-2 (PCR) Not detected (NotDetected) 09/22/20 20:40 Assessment/Plan - Narrative Narrative: The patient is an 85-year-old male with above medical problems, presenting with acute on chronic congestive heart failure. Acute on chronic diastolic heart failure - The patient states that he is not on a diuretic as an outpatient - Start Lasix 40 mg IV daily and monitor labs closely - Follow BNP - Monitor renal function closely - May need low-dose diuretic at discharge. Chronic kidney disease - Appears to be stable Chronic respiratory failure - Secondary to COPD, 3 L oxygen dependent - Continue supportive care Coronary artery disease - Patient had chest pain on arrival to the ER, which was a bit concerning - Troponins have remained negative 2 - Patient is currently chest pain-free - Nitroglycerin as needed - Start aspirin, daily - Repeat EKG in a.m. - Monitor closely for decompensation or worsening signs of cardiac issues - If patient develops non-ST elevation myocardial infarction, start heparin drip until awaiting for transfer. DVT prophylaxis -Heparin, SCDs Medication review - Medication reconciliation form not yet completed, awaiting medications to be verified by daughter Goals of care - Full code Communications - Discussed with the emergency room physician - Discussed with the bedside nurse - Patient updated of plan of care, all questions answered to their satisfaction. Disposition - Home when medically stable Telemedicine clause: - As the provider of this telehealth consult, requested by the patient's evaluating physician, I attest that I introduced myself to the patient, provided my credentials and determined that telemedicine via a real-time, 2 way interactive audio and video platform is an appropriate and effective means of providing this service. - I reviewed the patient's chart and had a discussion with the member of the patient's treatment team. - The patient and I mutually agreed with continuation of this evaluation via telemedicine. - This virtual encounter was taken place from [place], [place]. The encounter was approximately 35 minutes. The nurse was present during the entire time of the encounter and was able to move the stethoscope in appropriate directions. The patient was evaluated at [facility].
[2020-09-22] MEDS: HEPARIN SODIUM,PORCINE 5,000 UNITS/ML VIAL SC SCH (23:18)
[2020-09-22 23:59] LABS: CKMB 3.4 ng/mL (0.0-9.0)
[2020-09-23 00:02] LABS: Troponin I 0.045 ng/mL (0.00-0.10)
[2020-09-23 05:40] LABS: Hematocrit 33.4 % (42.0-52.0); Hemoglobin 10.6 gm/dL (13.5-18.0); Mean Cell Volume 85.2 fl (78-100); Mean Corpuscular Hgb Conc 31.7 g/dl (32-36); Neutrophil # 3.8 K/mm3 (1.3-6.0); Neutrophil % 67.6 % (42-75.0); Platelet Count 180 K/mm3 (150-450); Red Blood Count 3.92 M/mm3 (4.7-6.0); Red Cell Distribution Width 17.4 % (11.5-14.0); White Blood Count 5.6 K/mm3 (4.0-10.5)
[2020-09-23 06:02] LABS: Albumin * 3.3 gm/dl (3.4-5.0); Anion Gap 11.9 mmol/L (6.8-13.8); BUN/Creatinine Ratio 13.3 (9.0-21.6); Bilirubin, Total 0.4 mg/dL (0.0-1.1); Ca. Corrected For Albumin 8.6 mg/dL (8.4-10.2); Calcium * 8.4 mg/dL (7.9-10.9); Carbon Dioxide 28.3 mmol/L (24-32.6); Potassium 4.2 mmol/L (3.4-4.6); Total Protein 6.4 gm/dL (6.2-8.2)
[2020-09-23] MEDS: HEPARIN SODIUM,PORCINE 5,000 UNITS/ML VIAL SC SCH (08:13)
[2020-09-23] MEDS ORDERED: CYCLOBENZAPRINE HCL 10 MG TABLET PO PRN (08:58)
[2020-09-23] MEDS ORDERED: ALBUTEROL SULFATE 2.5 MG/3 ML VIAL.NEB IH PRN (08:58)
[2020-09-23] MEDS ORDERED: BISACODYL 5 MG TABLET.DR PO PRN (08:58)
[2020-09-23] MEDS ORDERED: traMADol HCL 50 MG TABLET PO PRN (08:58)
[2020-09-23] MEDS ORDERED: MICONAZOLE NITRATE 85 APPL BTL TP PRN (08:58)
[2020-09-23] MEDS ORDERED: FUROSEMIDE 10 MG/ML VIAL IV SCH (09:00)
[2020-09-23] MEDS ORDERED: amLODIPine BESYLATE 5 MG TABLET PO SCH (09:00)
[2020-09-23] MEDS ORDERED: ISOSORBIDE MONONITRATE 30 MG TAB.SR.24H PO SCH (09:00)
[2020-09-23] MEDS ORDERED: BENZONATATE 100 MG CAPSULE PO SCH (09:00)
[2020-09-23] MEDS ORDERED: FINASTERIDE 5 MG TABLET PO SCH (09:00)
[2020-09-23] MEDS ORDERED: INSULIN GLARGINE,HUM.REC.ANLOG 100 UNITS/ML VIAL SC SCH ×2 (09:00→21:00)
[2020-09-23] MEDS ORDERED: ROSUVASTATIN CALCIUM 10 MG TABLET PO SCH (09:00)
[2020-09-23] MEDS ORDERED: METOPROLOL SUCCINATE 100 MG TABLET.SA PO SCH (09:00)
[2020-09-23] MEDS ORDERED: LORATADINE 10 MG TABLET PO SCH (09:00)
[2020-09-23] MEDS ORDERED: FUROSEMIDE 20 MG TABLET PO SCH (09:00)
[2020-09-23] MEDS ORDERED: APIXABAN 5 MG TABLET PO SCH (09:00)
[2020-09-23] MEDS ORDERED: busPIRone HCL 5 MG TABLET PO SCH (09:00)
--- NOTE | 2020-09-23 09:07 | DS ---
Date of Discharge:: 09/23/20 Hospital Course: Patient with PMHx of chronic respiratory failure on 3 L oxygen dependent COPD, CAD, CKD stage II-III, diastolic heart failure, and pacemaker, came in for left- sided chest pain that radiated to his left arm, similar to his prior presentation when he had coronary artery disease. Patient has chronic SOB but has had more dyspnea on exertion over the past several days. He has one pillow orthopnea. He reports his home inhalers "just don't work." He is unable to name his meds. He denied any nausea, vomiting or diaphoresis. He took 3 sublingual nitroglycerin. He took 2 baby aspirin prior to arrival to the ED, and then he was given 3 more baby aspirin in the ED. Workup in the ED showed negative troponins. EKG showed normal sinus rhythm with right bundle branch block and first-degree AV block, which was also present on EKG done last month. CP resolved. Renal function at his baseline. He had some hyperkalemia with potassium of 5.4, improved to 4.2. Glucose in 400's initially, improved to 100's on DC. He was given 40 mg IV lasix, and breathing improved. He declined using his baseline prescribed 3L O2 overnight, and requested his IV be removed the morning after admission. He did not have edema on DC exam. He felt comfortable going home and following up with PCP. No med changes needed. Procedures Performed: none Results and Findings: Lab Pending Results 09/22/20 16:20: WBC 6.2, RBC 4.05 L, Hgb 11.2 L, Hct 35.4 L, MCV 87.4, MCH 27.7, MCHC 31.6 L, RDW 17.9 H, Plt Count 212, MPV 10.4, Immature Gran % (Auto) 0.20, Immature Gran # (Auto) 0.01, Neutrophils % 73.4, Lymphocytes % 13.0 L, Monocytes % 8.7, Eosinophils % 4.2 H, Basophils % 0.5, Nucleated RBC % 0.0, Neutrophils # 4.6, Lymphocytes # 0.81 L, Monocytes # 0.5, Eosinophils # 0.3, Absolute Basophils 0.0 09/22/20 16:20: PT 10.0, INR (Anticoag Therapy) 0.96, PTT ([place]) 24.8 09/22/20 16:20: Sodium 138, Plasma Sodium 144 H, Potassium 5.4 H, Chloride 103, Carbon Dioxide 26.9, Anion Gap 13.5, BUN 26 H, Creatinine 1.88 H, Est GFR (Non- Af Amer) 36 L, BUN/Creatinine Ratio 13.8, Random Glucose 447 H, Calcium 8.1, Calcium Adj for Albumin 8.3 L, Total Bilirubin 0.4, AST 35, ALT 30, Alkaline Phosphatase 108, Troponin I 0.043, B-Natriuretic Peptide 2498 H, Total Protein 6.8, Albumin 3.4 09/22/20 19:45: Troponin I 0.023 09/22/20 20:40: SARS-CoV-2 (PCR) Not detected 09/22/20 23:35: Creatine Kinase 160, CK-MB (CK-2) 3.4, CK-MB (CK-2) Rel Index 2.1, Troponin I 0.045 09/23/20 05:25: WBC 5.6, RBC 3.92 L, Hgb 10.6 L, Hct 33.4 L, MCV 85.2, MCH 27.0, MCHC 31.7 L, RDW 17.4 H, Plt Count 180, MPV 10.0, Immature Gran % (Auto) 0.40, Immature Gran # (Auto) 0.02, Neutrophils % 67.6, Lymphocytes % 16.0 L, Monocytes % 11.2 H, Eosinophils % 4.1 H, Basophils % 0.7, Nucleated RBC % 0.0, Neutrophils # 3.8, Lymphocytes # 0.90 L, Monocytes # 0.6, Eosinophils # 0.2, Absolute Basophils 0.0 09/23/20 05:25: Sodium 141, Plasma Sodium 142, Potassium 4.2 D, Chloride 105, Carbon Dioxide 28.3, Anion Gap 11.9, BUN 23, Creatinine 1.73 H, Est GFR (Non-Af Amer) 40 L, BUN/Creatinine Ratio 13.3, Random Glucose 179 H D, Calcium 8.4, Calcium Adj for Albumin 8.6, Total Bilirubin 0.4, AST 18, ALT 28, Alkaline Phosphatase 91, B-Natriuretic Peptide 2319 H, Total Protein 6.4, Albumin 3.3 L Discharge Location: Home Disposition: Home self-care Condition: Good Discharge Activity: Activity as tolerated Discharge Diet: General/regular food Referrals: Ching Tao ARNP [Primary Care Provider] - One Week Complete Home Medications List: Complete Home Medication List: Multivitamins [Multivitamin Juju] 1 cap PO DAILY 12/05/16 Metoprolol Succinate [Toprol Xl] 100 mg PO BID 12/22/17 finasteride 5 mg tablet 5 mg PO DAILY 01/01/18 Insulin Glargine,Hum.rec.anlog [Lantus] 40 unit SUBCUT QAM 05/14/18 nitroglycerin 0.4 mg sublingual tablet 0.4 mg SL Q5MIN PRN #75 tab 06/12/18 Albuterol Sulfate 2.5 mg IH Q4H PRN 03/18/19 Aspirin [Aspirin Enteric Coated] 81 mg PO DAILY 03/18/19 Bisacodyl [Gentle Laxative] 10 mg PO DAILY PRN 03/18/19 Cinnamon Bark [Cinnamon] 500 mg PO DAILY 03/18/19 Isosorbide Mononitrate [Imdur] 30 mg PO DAILY 03/18/19 busPIRone HCL [Buspar] 2 tab PO BID 08/11/19 traMADol HCL [Ultram] 50 mg PO QID PRN 08/11/19 Atorvastatin Calcium 20 mg PO DAILY 11/07/19 Benzonatate 100 mg PO TID 11/07/19 Cyclobenzaprine HCl 10 mg PO HS PRN 11/07/19 Donepezil HCl 10 mg PO HS 11/07/19 Furosemide 40 mg PO DAILY 11/07/19 Loratadine 10 mg PO DAILY 11/07/19 Miconazole Nitrate [Lotrimin AF] 90 gm TP BID PRN 11/07/19 Apixaban [Eliquis] 5 mg PO BID 09/23/20 Insulin Glargine,Hum.rec.anlog [Lantus] 40 units SC HS 09/23/20 Insulin Lispro [Humalog] 10 unit SQ ACHS 09/23/20 Myrbetriq 50 PO DAILY 09/23/20 Tamsulosin HCl 0.4 mg PO HS 09/23/20 amLODIPine BESYLATE [Norvasc] 10 mg PO DAILY 09/23/20
[2020-09-23 10:11] VITALS: BP 193/66
[2020-09-23] MEDS ORDERED: INSULIN LISPRO 100 UNITS/ML VIAL SC SCH (11:00)
[2020-09-23] MEDS ORDERED: DONEPEZIL HCL 10 MG TABLET PO SCH (21:00)
[2020-09-23] MEDS ORDERED: TAMSULOSIN HCL 0.4 MG CAP.SR.24H PO SCH (21:00)
== END 2020-09-23 10:05 | disposition home or self-care (01) ==
LOC: MS 15:43 → ER 15:43 → OBSVTOIN 22:02 → MS 22:16 → INTOOBSV 22:52
PROVIDERS: ADMIT Internal Medicine; ATTEND Family Medicine